=== PATIENT | female | born 1970 | race Caucasian/White ===

== ENCOUNTER 2017-11-25 23:29 | Observation (INO) ==
--- NOTE | 2017-11-26 02:12 | Internal Med History&Physical ---
<ShabbirMarie gray - Last Filed: 11/26/17 02:57> Date of Encounter: 11/26/17 Time of Encounter: 01:55 Internal Medicine - H&P: HPI Chief complaint: chest pain Admitted From: Hospital to Hospital Transfer Plans for Post Hospital Care: Home History of present illness: Ms. Lisa is a 47 year old female with past medical history of anxiety, tobacco abuse, type II diabetes, GERD, depression, hypertension. From [facility] for chest pain rule out. She stated that her chest pain started yesterday morning, was substandard all in radiating to the neck and right arm. She characterized the pain as sharp/stabbing, 10/10 pain that was constant. The pain was relieved with sublingual nitroglycerin and nitro paste which she received at [facility]. The pain was exacerbated with movement. She admits to shortness of breath. She admits to nausea without vomiting. She denies diarrhea, fever. She admits to chills and shortness of breath. She denies hematuria, hematocrit easier. She does admit to dizziness. Past Med Surg Social Fam HX - Past Medical History Medical history: asthma, COPD, diabetes, hyperlipidemia, hypertension, other Psychiatric history: anxiety, depression - Past Surgical History Surgical History: no surgical history - Social History Smoking Status: Current every day smoker Packs per day: 1.5 Smokeless Tobacco Status: No Alcohol use: none Drug use: none - Family History Mother Living Status: Still Living Hx Family Cardiac Disorders: Yes (HTN) Father Living Status: Cause of : gallbladder rupture Hx Family Cardiac Disorders: Yes Hx Family Endocrine Disorder: Yes (DM) Internal Medicine - H&P: Meds Aspirin Enteric Coated [Aspirin EC] 81 mg PO DAILY 03/18/15 [History] Lisinopril/Hydrochlorothiazide [Zestoretic 10-12.5 mg Tablet] 1 each PO DAILY [History] Loratadine [Claritin] 10 mg PO DAILY 03/18/15 [History] Omeprazole [PriLOSEC] 40 mg PO DAILY 03/18/15 [History] HydrOXYzine 25 mg PO TID 07/31/16 [History] Albuterol Sulfate [Ventolin Hfa] 18 gm IH TID PRN 01/11/17 [History] Metoprolol [Lopressor] 25 mg PO DAILY 11/25/17 [History] 3 Allergy/AdvReac Type Severity Reaction Status Date / Time No Known Allergies Allergy Verified 11/25/17 20:14 All Systems PM: A 10-system review of systems was performed and is negative for pertinent findings except as documented above in the HPI. - Constitutional Vitals: Temp Pulse Resp BP Pulse Ox 97.8 F 68 16 116/71 98 11/26/17 01:18 11/26/17 01:18 11/26/17 01:18 11/26/17 01:18 11/26/17 01:18 General appearance: Present: A&O X 3, pleasant, no acute distress, answers questions appropriately Exam: Disheveled - Head Head exam: Present: atraumatic, normocephalic - Neck Neck exam general surgery: Present: supple, trachea midline - Respiratory Respiratory exam: Present: CTAB - Cardiovascular Cardiovascular exam: Present: RRR, +S1, +S2. Absent: systolic murmur Additional comments: Sub sternal chest pain reproducible palpation/pressure - GI/Abdominal GI/Abdominal exam: Present: normal bowel sounds, soft. Absent: distended, tenderness - Extremities Exam Extremities exam: Absent: cyanotic, pedal edema - Neurological Exam Neurological exam: Present: alert, oriented X3, no focal deficits - Psychiatric Psychiatric exam: Present: normal affect, normal mood - Assessment and plan (1) Chest pain Current Visit: No Status: Acute Assessment and plan: Patient presents with typical chest pain. She also had reproducible sub sternal chest pain as well. LADY score: 3 EKG showed sinus rhythm without any acute ST changes. Troponin 0.05, <.03 chest x-ray at [facility] showed no acute findings patient had stress test in May 2013 that was negative for ischemia or infarct, gated EF: 70% echocardiogram from 04/01/17 showed EF 60-65%, normal LV size and systolic function, normal diastolic function of the left ventricle, normal right ventricular size and function, no valvular dysfunction. Patient states that she was supposed to have catheterization this Friday, but could not find this in our system. Plan: NPO aspirin, Statin, beta monica consult to cardiology for possible LHC due to her history Trend troponins q6H Qualifiers: Chest pain type: unspecified Qualified Code(s): R07.9 - Chest pain, unspecified (2) Diabetes Current Visit: Yes Status: Acute Assessment and plan: Sliding scale insulin Qualifiers: Diabetes mellitus type: type 2 Diabetes mellitus senior care insulin use: unspecified exterminator insulin use status Diabetes mellitus complication status : with unspecified complications Qualified Code(s): E11.8 - Type 2 diabetes mellitus with unspecified complications (3) Hypertension Current Visit: Yes Status: Acute Assessment and plan: Continue home medications. Qualifiers: Hypertension type: essential hypertension Qualified Code(s): I10 - Essential (primary) hypertension (4) COPD (chronic obstructive pulmonary disease) Current Visit: Yes Status: Acute Assessment and plan: Not in exacerbation. Continue home inhaler. Qualifiers: COPD type: unspecified COPD Qualified Code(s): J44.9 - Chronic obstructive pulmonary disease, unspecified (5) DVT prophylaxis Current Visit: Yes Status: Acute Assessment and plan: heparin SQ - Time Spent With Patient Total time spent is greater than 50% in coordination of care (as documented) at patient's floor/unit and/or counseling patient: <Mehul Garza - Last Filed: 11/26/17 05:42> Date of Encounter: 11/26/17 Time of Encounter: 05:15 - Constitutional Constitutional: no chills, no fever(s) - EENT Eyes: no blurry vision, no change in vision Ears: no ear pain, no tinnitus Nose, mouth and throat: no nasal congestion, no sinus pressure, no sore throat - Cardiovascular Cardiovascular ROS IM: chest pain, diaphoresis, dyspnea, dyspnea on exertion, no lightheadedness, no orthopnea, no paroxysmal nocturnal dyspnea - Respiratory Respiratory: no cough, no hemoptysis, no wheezing, no pain on inspiration, no chest congestion, no excessive phlegm production - Gastrointestinal Gastrointestinal: no abdominal pain, no early satiety, no nausea, no vomiting - Genitourinary Genitourinary: no dysuria, no hematuria - Musculoskeletal Musculoskeletal ROS IM: back pain, muscle cramps, myalgias, no arthralgias - Integumentary Integumentary IM: no rash, no jaundice - Neurological Neurological ROS: no dizziness, no focal weakness, no frequent falls, no headache(s) - Psychiatric Psychiatric: no anxiety, no depression - Endocrine Endocrine IM: no polydipsia, no polyuria - Allergic/Immunologic Allergic/Immunologic: no GI upset with certain foods - Constitutional Vitals: Temp Pulse Resp BP Pulse Ox 97.8 F 68 16 116/71 98 11/26/17 01:18 11/26/17 01:18 11/26/17 01:18 11/26/17 01:18 11/26/17 01:18 General appearance: Present: A&O X 3, pleasant, no acute distress - Eye Eye exam: Present: PERRL. Absent: scleral icterus - ENT ENT exam: Present: mucous membranes dry, normal exam - Neck Neck exam general surgery: Present: full ROM, supple. Absent: trachea midline - Respiratory Respiratory exam: Present: CTAB. Absent: chest wall tenderness, rales, rhonchi , wheezes - Cardiovascular Cardiovascular exam: Present: RRR, +S1, +S2. Absent: systolic murmur - GI/Abdominal GI/Abdominal exam: Present: normal bowel sounds, soft. Absent: hernia, splenomegaly, tenderness - Extremities Exam Extremities exam: Present: warm, radial pulses palpable and symmetrical. Absent : calf tenderness, cyanotic, full ROM, joint swelling - Back Exam Back exam: Absent: CVA tenderness (L), CVA tenderness (R) - Neurological Exam Neurological exam: Present: alert, oriented X3, no focal deficits - Psychiatric Psychiatric exam: Present: normal affect, normal mood - Skin Skin exam: Present: dry, warm. Absent: rash Internal Med - H&P Results - EKG Data -: EKG Interpreted by Myself - EKG Data Prior EKG available for review: no EKG comments: 11/26/17 05:37 NSR; no acute changes - Diagnostic Studies Chest x-ray Status: image reviewed by me (negative) - Attending Attestation I discussed the [place], past medical history, review of systems, lab data, and exam findings with Dr. Cardona. I then saw and examined patient independently as well. Patient is currently chest pain-free. She had a prior stress test, but that was over 5 years ago. She has never had left heart catheterization. However, she states she is due to have a heart catheterization later this week. Given Her Presenting Symptoms, Positive Troponin, and Cardiac Risk Factors, I Agree That She Needs Chronic Workup, Preferably Left Heart Catheterization. We Will Consult cardiology to evaluate patient and consider left heart catheterization. However, I will defer ischemic workup to cardiology given her presenting symptoms and back ground history. I reviewed her EKG and chest x-ray, both of which were negative. Nonetheless, we will proceed with workup as detailed by Dr. Cardona and await cardiology input from them as well. Other than my comments above and noted exam findings, I agree with Dr. Cardona' assessment and plan. - Assessment and plan (1) Chest pain Current Visit: No Status: Acute Qualifiers: Chest pain type: unspecified Qualified Code(s): R07.9 - Chest pain, unspecified (2) Diabetes Current Visit: Yes Status: Acute Qualifiers: Diabetes mellitus type: type 2 Diabetes mellitus exterminator insulin use: unspecified exterminator insulin use status Diabetes mellitus complication status : with unspecified complications Qualified Code(s): E11.8 - Type 2 diabetes mellitus with unspecified complications (3) Hypertension Current Visit: Yes Status: Acute Qualifiers: Hypertension type: essential hypertension Qualified Code(s): I10 - Essential (primary) hypertension (4) COPD (chronic obstructive pulmonary disease) Current Visit: Yes Status: Acute Qualifiers: COPD type: unspecified COPD Qualified Code(s): J44.9 - Chronic obstructive pulmonary disease, unspecified (5) DVT prophylaxis Current Visit: Yes Status: Acute - Time Spent With Patient Total time spent is greater than 50% in coordination of care (as documented) at patient's floor/unit and/or counseling patient:
[2017-11-26] MEDS ORDERED: Naloxone 0.4 MG/ML INJ IVP PRN (02:24)
[2017-11-26] MEDS ORDERED: Acetaminophen 325 MG TABLET PO PRN (02:24)
[2017-11-26] MEDS ORDERED: Dextrose Gel 15 GM/37.5 ML TUBE PO PRN ×2 (02:33)
[2017-11-26] MEDS ORDERED: D5% in Water 1,000 ML IVC PRN (02:33)
[2017-11-26] MEDS ORDERED: *HR* Dextrose 50 % in Water (Syg) 50 ML SYRINGE IVP PRN (02:33)
[2017-11-26] MEDS ORDERED: *HR* Heparin 5,000 UNIT/ML VIAL SQ SCH (06:00)
[2017-11-26 07:14] LABS: BUN/Creatinine Ratio 21 (6-26); Blood Urea Nitrogen 13 mg/dL (6-20); Calcium 8.1 mg/dL (8.6-10.3); Carbon Dioxide 23 mEq/L (23-29); Chloride 109 mEq/L (98-107); Chol/HDL Ratio 5.6 (0-4.9); Cholesterol 139 mg/dL (< 200); Glucose 271 mg/dL (70-105); HDL Cholesterol 25 mg/dL (40-59); LDL Cholesterol,Calculated 93 mg/dL (0-99); Magnesium 1.7 mg/dL (1.6-2.6); Osmolality,Calculated 294 (280-300); Phosphorous 3.3 mg/dL (2.7-4.5); Potassium 3.8 mEq/L (3.5-5.1); Sodium 137 mEq/L (136-145); Triglycerides 103 mg/dL (< 150); Troponin I < 0.03 ng/mL (< 0.04); eGFR For African Americans > 60 (> 60); eGFR For Non-African Americans > 60 (> 60)
[2017-11-26 07:37] VITALS: BP 125/74
[2017-11-26] MEDS: Insulin LISPRO 300 UNITS/3 ML VIAL SQ SCH ×2 (08:23→12:56)
[2017-11-26] MEDS ORDERED: Loratadine 10 MG TABLET PO SCH (09:00)
[2017-11-26] MEDS ORDERED: Aspirin Enteric Coated 81 MG Tablet PO SCH (09:00)
[2017-11-26] MEDS ORDERED: Regadenoson 0.4 MG/5 ML SYRINGE IVP ONE (09:01)
--- NOTE | 2017-11-26 14:20 | Discharge Summary ---
Orders not resulted at time of discharge: Pending orders 11/26/17 08:41 Chest Xray, 1 view [XR chest 1V] [XR] Routine 11/26/17 08:46 NM zohreh perf SPECT multi [NM] Routine Date of Encounter: 11/26/17 Time of Encounter: 14:00 - Discharge Diagnosis (1) Chest pain Priority: Primary Status: Acute Assessment and Plan: Patient complained of chest pain. Had a stress test done which showed no acute ischemic changes. Was discharged home in a stable condition Qualifiers: Chest pain type: unspecified Qualified Code(s): R07.9 - Chest pain, unspecified (2) Diabetes Priority: Secondary Status: Acute Assessment and Plan: Sliding scale insulin Qualifiers: Diabetes mellitus type: type 2 Diabetes mellitus long term care administrator insulin use: unspecified shelter insulin use status Diabetes mellitus complication status : with unspecified complications Qualified Code(s): E11.8 - Type 2 diabetes mellitus with unspecified complications (3) Hypertension Priority: Secondary Status: Acute Assessment and Plan: Continue home medications. Qualifiers: Hypertension type: essential hypertension Qualified Code(s): I10 - Essential (primary) hypertension (4) COPD (chronic obstructive pulmonary disease) Priority: Secondary Status: Acute Assessment and Plan: Not in exacerbation. Continue home inhaler. Qualifiers: COPD type: unspecified COPD Qualified Code(s): J44.9 - Chronic obstructive pulmonary disease, unspecified (5) DVT prophylaxis Priority: Secondary Status: Acute Assessment and Plan: heparin SQ Hospital course: Ms. Lisa is a 47 year old female - Time Spent with Patient Total time spent providing and/or coordinating discharge services: - Discharge Medications Home Medications: Aspirin Enteric Coated [Aspirin EC] 81 mg PO DAILY 03/18/15 [History] Lisinopril/Hydrochlorothiazide [Zestoretic 10-12.5 mg Tablet] 1 each PO DAILY [History] Loratadine [Claritin] 10 mg PO DAILY 03/18/15 [History] Albuterol Sulfate [Ventolin Hfa] 1 puff IH TID PRN 01/11/17 [History] Metoprolol [Lopressor] 25 mg PO BID 11/25/17 [History] Diclofenac Sodium [Voltaren] 50 mg PO Q8HR 11/26/17 [History] Fluticasone/Vilanterol [Breo Ellipta 100-25 Mcg INH] 1 puff IH DAILY 11/26/17 [ History] HydrOXYzine Pamoate [Vistaril] 50 mg PO BID 11/26/17 [History] Insulin Glargine,Hum.rec.anlog [Lantus Solostar] 80 unit SQ BID 11/26/17 [ History] Omeprazole [PriLOSEC] 20 mg PO DAILY 11/26/17 [History] Allergies/Adverse Reactions: 3 Allergy/AdvReac Type Severity Reaction Status Date / Time No Known Allergies Allergy Verified 11/25/17 20:14 Date of admission: 11/26/17 00:42 Primary care physician: Mane Hernandez CNP - Constitutional Vitals: Temp Pulse Resp BP Pulse Ox 98.2 F 79 17 125/74 97 11/26/17 07:36 11/26/17 07:36 11/26/17 07:36 11/26/17 07:36 11/26/17 07:36 General appearance: Present: A&O X 3, pleasant, no acute distress - Head Head exam: Present: atraumatic, normocephalic - Eye Eye exam: Present: PERRL, conjuntiva pink, sclera anicteric Pupils: Present: PERRL - Neck Neck exam general surgery: Present: supple, trachea midline. Absent: lymphadenopathy - Respiratory Respiratory exam: Present: CTAB. Absent: accessory muscle use, rales, rhonchi, wheezes - Cardiovascular Cardiovascular exam: Present: RRR, +S1, +S2. Absent: diastolic murmur, gallop, rubs, systolic murmur - GI/Abdominal GI/Abdominal exam: Present: normal bowel sounds, soft, no peritoneal signs. Absent: distended, tenderness - Extremities Exam Extremities exam: Present: warm, radial pulses palpable and symmetrical. Absent : calf tenderness, cyanotic, pedal edema - Neurological Exam Neurological exam: Present: CN II-XII intact, oriented X3, no focal deficits. Absent: pronater drift, facial droop, speech deficit - Skin Skin exam: Present: dry, intact - Patient Status Disposition: Home, Self-Care - Discharge Instructions Instructions: Chronic Obstructive Pulmonary Disease (DC) Follow Up With: Mane Hernandez CNP [Primary Care Provider] -
[2017-11-26] MEDS ORDERED: Insulin LISPRO 300 UNITS/3 ML VIAL SQ SCH (21:00)
== END 2017-11-26 15:33 | disposition home or self-care (01) ==
LOC: 3BNU
PROVIDERS: ADMIT Internal Medicine; ATTEND Internal Medicine

== ENCOUNTER 2017-12-28 12:32 | Inpatient (IN) ==
[2017-12-28] MEDS ORDERED: *HR* Heparin 10,000 UNIT/10 ML VIAL ONE (12:37)
[2017-12-28] MEDS ORDERED: Tirofiban 12.5 MG/250ML 12.5 MG/250 ML BAG ONE (12:37)
[2017-12-28] MEDS ORDERED: Verapamil 5 MG/2 ML VIAL ONE (12:37)
[2017-12-28] MEDS ORDERED: 0.9 % Sodium Chloride 1,000 ML ONE ×2 (12:37→12:44)
[2017-12-28] MEDS ORDERED: ISOVUE-370 200 ML INFUS..BTL IV ONE ×2 (12:37→12:55)
[2017-12-28] MEDS ORDERED: Heparin 1,000 UNITS/500 mL 500 ML ONE (12:37)
[2017-12-28] MEDS ORDERED: Nitroglycerin 1,000 MCG/10 ML VIAL IV ONE (12:38)
[2017-12-28] MEDS ORDERED: *HR* Midazolam HCl 2 MG/2 ML VIAL ONE (13:08)
[2017-12-28] MEDS ORDERED: *HR* FentaNYL (PF) 100 MCG/2 ML VIAL ONE (13:08)
[2017-12-28] MEDS ORDERED: methylPREDNISolone 125 MG/2 ML VIAL ONE (13:59)
[2017-12-28] MEDS ORDERED: *HR* Ticagrelor 90 MG TABLET ONE (13:59)
--- NOTE | 2017-12-28 14:08 | Pre-Sedation Evaluation ---
Pre-sedation evaluation - Pre-sedation checklist Date of procedure: 12/28/17 Procedure: [facility] Recent Vitals: vs as documented in emr H&P (including ROS) documented in medical record: Yes Previous reaction to sedatives/anesthetics: No Dietary Status: unknown Airway Assessment: Patient can open mouth completely, TMJ function normal ASA Classification *see protocol: CLASS II-Mild systemic disease, E-EMERGENCY- Add to any of the above to indicate emergent Plan of Care: Pt appropriate candidate for procedure/moderate/conscious sedation , Risks/benefits of procedure/sedation discussed w/ patient/family, If not NPO; Risk of intake outweiged by necessity to perform procedure
--- NOTE | 2017-12-28 14:09 | Cardiology History & Physical ---
Date of Encounter: 12/29/17 Time of Encounter: 14:00 Assessment and Plan (1) ST elevation myocardial infarction (STEMI) Current Visit: No Status: Inactive A/R/B of emergent LHC discussed with her including 1% chance of SD//CVA/ CABG/MATEO/bleeding. Pt aware and wishes to proceed. EF assessment to be completed, cardiac rehab. Pt reportedly given aspirin/brilinta/heparin. The assessment and plan as outlined above was discussed with the patient and/or family members who expressed understanding and agreement. All questions were answered. Qualifiers: Involved coronary artery: right coronary artery Qualified Code(s): I21.11 - ST elevation (STEMI) myocardial infarction involving right coronary artery (2) Diabetes Current Visit: No Status: Acute SSI QID FSThe assessment and plan as outlined above was discussed with the patient and/or family members who expressed understanding and agreement. All questions were answered. Qualifiers: Diabetes mellitus type: type 2 Diabetes mellitus complication status: with circulatory complication Diabetes mellitus complication detail: with other circulatory complications Qualified Code(s): E11.59 - Type 2 diabetes mellitus with other circulatory complications (3) Hypertension Current Visit: No Status: Acute The assessment and plan as outlined above was discussed with the patient and/or family members who expressed understanding and agreement. All questions were answered. Qualifiers: Hypertension type: essential hypertension Qualified Code(s): I10 - Essential (primary) hypertension (4) COPD (chronic obstructive pulmonary disease) Current Visit: No Status: Acute The assessment and plan as outlined above was discussed with the patient and/or family members who expressed understanding and agreement. All questions were answered. Qualifiers: COPD type: chronic bronchitis Chronic bronchitis type: simple Qualified Code(s): J41.0 - Simple chronic bronchitis History of Present Illness Chief complaint: chest pain HPI: Ms. Lisa is a 47 year old female with no previous cardiac history presents with severe chest discomfort associated with dyspnea not improved with medical treatment aspirin/ntg/morphine. 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 Patient was seen by me in 2017 as outpatient with chest pain associated with a phone call incorrectly telling her that her son was , stress test was ordered at that time but she did not follow through to have it done until very recently - no ischemia on stress nuclear. Past Med Surg Social Fam HX - Past Medical History Medical history: asthma, COPD, diabetes, hyperlipidemia, hypertension, other Additional medical history: no longer medicated for DM d/t weightloss Psychiatric history: anxiety, depression - Past Surgical History Surgical History: no surgical history Additional surgical history: tubal ligation - Social History Smoking Status: Current every day smoker Smokeless Tobacco Status: No Alcohol use: none Drug use: none - Family History Mother Living Status: Still Living Hx Family Cardiac Disorders: Yes (HTN) Father Living Status: Hx Family Cardiac Disorders: Yes Hx Family Endocrine Disorder: Yes (DM) Medications and Allergies Aspirin Enteric Coated [Aspirin EC] 81 mg PO DAILY 03/18/15 [History] Lisinopril/Hydrochlorothiazide [Zestoretic 10-12.5 mg Tablet] 1 each PO DAILY [History] Albuterol Sulfate [Ventolin Hfa] 1 puff IH TID PRN 01/11/17 [History] Metoprolol [Lopressor] 25 mg PO BID 11/25/17 [History] Diclofenac Sodium [Voltaren] 50 mg PO Q8HR 11/26/17 [History] Fluticasone/Vilanterol [Breo Ellipta 100-25 Mcg INH] 1 puff IH DAILY 11/26/17 [ History] HydrOXYzine Pamoate [Vistaril] 50 mg PO BID 11/26/17 [History] Insulin Glargine,Hum.rec.anlog [Lantus Solostar] 80 unit SQ BID 11/26/17 [ History] Omeprazole [PriLOSEC] 20 mg PO DAILY 11/26/17 [History] Loratadine [Claritin] 10 mg PO DAILY 12/28/17 [History] cloNIDine HCl [CloNIDine HCl] 0.1 mg PO DAILY 12/28/17 [History] metFORMIN [Glucophage] 850 mg PO BID 12/28/17 [History] 3 Allergy/AdvReac Type Severity Reaction Status Date / Time No Known Allergies Allergy Verified 12/28/17 15:38 All Systems Review: The remainder of the systems were reviewed and are negative - Constitutional Constitutional: no chills, no fever(s) - EENT Eyes: no blurred vision, no loss of vision Nose, mouth and throat: no bleeding gums, no throat swelling - Cardiovascular Cardiovascular: chest pain at rest, chest pain with exertion - Gastrointestinal Gastrointestinal: no hematemesis, no hematochezia - Genitourinary Genitourinary: no dysuria, no hematuria - Musculoskeletal Musculoskeletal: no abnormal gait, no arthralgias - Integumentary Integumentary: no rash, no unusual bruising - Neurological Neurological: no syncope, no tingling - Psychiatric Psychiatric: no hallucinations, no panic attacks - Hematological/Lymphatic Hematologic/Lymphatic: no easy bleeding, no easy bruising Physical Examination General: Conversant, Other (mildly distressed) HEENT: Atraumatic Neck: No JVD Cardiac: Reg Rate and Rhythm Lungs: Normal Breath Sounds Neuro: Alert and responsive Abdomen: Soft Skin: No rashes noted on visualized skin Musculoskeletal: No Chest Wall Tenderness Extremities: No Edema Results 12/29/17 02:55 12/29/17 02:55 - EKG Interpretation EKG results cardiology: personally reviewed, other (inferior current of injury)
[2017-12-28] MEDS ORDERED: Ondansetron 4 MG/2 ML VIAL IVP PRN (14:10)
[2017-12-28] MEDS ORDERED: D5% in Water 1,000 ML IVC PRN (14:14)
[2017-12-28] MEDS ORDERED: Dextrose Gel 15 GM/37.5 ML TUBE PO PRN ×2 (14:14)
[2017-12-28] MEDS ORDERED: Tirofiban 12.5 MG/250ML 12.5 MG/250 ML BAG IVC SCH (14:15)
--- NOTE | 2017-12-28 14:30 | Invasive Diagnostic Lab Proc ---
Name: Shahnaz Lisa Date of Study: 12/28/2017 Date: 1970 Ht: 64.2in Medical Record#: [id number] Age: 47 Wt: 149.91lb Gender: Female BSA: 1.73 Order #: [id number] BMI: 25.59 Physicians Procedure Physician: Joao Lu MD, [facility] Referring MD: None Referring MD: Staff Name Position Time In Fermín Thomas RN Hyperbaric Technician 01:33 PM Chris Sepulveda RN Monitor 01:33 PM Mariel Hendricks RT (R) Scrub 01:33 PM Indications Indication STEMI Procedures Performed Procedure L HRT ARTERY/VENTRICLE ANGIO PRQ CARD REVASC WY 1 VSL Pre-Procedure Checklist Informed consent is complete signed and on chart. H&P is on chart. ID band is on and ID verified with patient. Pt not NPO for procedure and MD aware. The procedure was described for the patient and questions were answered. Blood Pressure: 117/67 ECG is on chart. Rhythm: Sinus Bradycardia Plan of Care Patient will tolerate the procedure without complications. Adequate level of comfort will be maintained. Hemodynamics will remain stable Patient will recover from procedure without complications. Respiratory function will be maintained. Cardiac rhythm will remain stable. Patient temperature will be maintained. Patient and/or family have verbalized understanding of the procedure. Patient Education Chief Complaint/Reason for Test: Cardiac Cath Developmental Category: Adult (18-64 years) Developmentally Appropriate for Age: Yes Learning Barriers: None Education Needs: Procedure Education Method: Verbal Information Taught: Cardiac Cath Educational Evaluation: Able to repeat information Intravenous Access Time IV Size Location DC'd Fluid/Drip Rate Units RN 01:00 PM 18g 1 14" Patent On Arrival Lt Antecubital 0.9NaCl 25 ml/hr Fermín Thomas RN 01:00 PM 18g 1 1/4" Patent On Arrival Lt Arm Allergies No Known Allergies Vital Signs Time BP (mmHg) HR (bpm) O2 Sat. RR (bpm) LOC 01:02 PM 117 / 67 55 95 % 15 5 = Fully awake and oriented or at pre-proc level 01:28 PM / % 5 = Fully awake and oriented or at pre-proc level 01:28 PM / % 4 = Oriented but drowsy 01:43 PM / % 5 = Fully awake and oriented or at pre-proc level 01:26 PM 133 / 70 57 100 % 01:31 PM 142 / 82 71 100 % 01:36 PM 124 / 85 89 97 % 01:41 PM 111 / 71 83 97 % 01:46 PM 98 / 55 92 99 % 01:51 PM 84 / 50 92 93 % 01:56 PM 68 / 54 99 99 % 01:56 PM 84 / 45 102 97 % Procedural Medications Time Medication Dose Units Method Given By 01:29 PM Oxygen 2 L/min nasal cannula Fermín Thomas RN 01:30 PM Versed 2 mg Intravenous Fermín Thomas RN 01:30 PM Fentanyl 50 mcg Intravenous Fermín Thomas RN 01:31 PM Lidocaine 2% 0.5 ml Subcutaneous Joao Lu MD, FAC 01:33 PM Heparin 2000 units Nitroglycerin 200 mcg Verapamil 2.5 mg Intraarterial Joao Lu MD, FAC 01:46 PM Nitroglycerin 200 mcg Intracoronary Joao Lu MD 01:35 PM Aggrastat Bolus: 33 ml Intravenous Fermín Thomas RN 01:35 PM Aggrastat 12.5mg/250ml 12 ml Intravenous Fermín Thomas RN 01:51 PM Nitroglycerin 150 mcg Intracoronary Joao Lu MD 01:57 PM Brilinta 180 mg Orally Fermín Thomas RN 02:02 PM Solu-medrol 125 mg Intravenous Fermín Thomas RN 02:02 PM Benadryl 50 mg Intravenous Fermín Thomas RN ASA Classification: Emergent Procedure: ASA score is assumed Aleena Score Preprocedure Postprocedure Activity 2- Moves 4 extremities sustained head lift Activity 2- Moves 4 extremities sustained head lift Circulation 2- SBP +/= 20 points of pre-anesthetic level Circulation 2- SBP +/= 20 points of pre-anesthetic level Consciousness 2- Awake and alert oriented x 3 Consciousness 2- Awake and alert oriented x 3 O2 Saturation 2- Able to maintain O2 satruation of 92% on room air O2 Saturation 2- Able to maintain O2 satruation of 92% on room air Respiratory 2- Able to deep breathe and cough well Respiratory 2- Able to deep breathe and cough well Total Score 10 Total Score 10 Contrast Agent: Isovue Diagnostic Contrast: 68 ml Total Contrast: 68 ml Fluoro Dose: 279 mGy Procedure Log Time Note Enter By 01:02 PM CathStat 01:25 PM Case Start 01:25 PM Vitals capture started with the following parameters, Patient=Adult, Interval=5 min, Initial Jyghdymc=842 mmHg, Deflation Rate=5 mmHg, Cuff placed on Right Arm 01:25 PM Recorded ECG: HR=61 Condition=Condition 1 01:26 PM HR=57 bpm, YYTM=813/70 mmhg, KaN4=431.0 %, Comment=NSR : PM [facility] 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 [facility]: PM Hair removed from procedure site in procedure lab using clippers. Bilateral groin/ Right Radial prepped with Chloraprep by Chris Sepulveda RN, then patient was draped. Skin intact. [facility]: PM Physician arrived 13: [facility] PM Procedure start : [facility] PM Time: 13:28 Patient comfortable and pain free: No, chest pain a 5 out of 10 [facility] PM Time: 13:28LOC: 5 = Fully awake and oriented or at pre-proc level [email or web address] : PM Clinical Presentation: STEMI or equivalent [facility]: PM Time out performed according to hospital policy [facility]: PM Time: 13:29 Oxygen on at 2 L/min per nasal cannula by Fermín Thomas RN [email or web address] : PM Recorded ECG: VG=379 Condition=Condition 1 : PM Recorded ECG: HR=84 Condition=Condition 1 01:30 PM Time: 13:30 Versed 2 mg Intravenous Given by Fermín Thomas RN [email or web address] :30 PM Time: 13:30 Fentanyl 50 mcg Intravenous Given by Fermín Thomas RN [email or web address] :31 PM HR=71 bpm, UAJL=155/82 mmhg, ShN5=068.0 % :32 PM Time: 13:31 0.5 ml Lidocaine 2% to right radial Subcutaneous Given by [facility] Lu MD, [facility] PM Access obtained by percutaneous puncture. 5/6Fr 11cm Terumo Glidesheath sheath placed in right Radial artery. [id number] [email or web address] :33 PM Time: 13:33 Patient given 2,000 units Heparin, 200 mcg Nitroglycerin, and 2.5 mg Verapamil Intraarterial by Joao Lu MD, [facility]. This is given to reduce risk of vessel spasm and thrombosis. [email or web address] 01:33 PM Fermín Thomas RN Position: Hyperbaric Technician Time in: 13:33 [email or web address] 01:33 PM Chris Sepulveda RN Position: Monitor Time in: 13:33 [email or web address] 01:33 PM Ruthie Mariel RT (R) Position: Scrub Time in: 13:33 [email or web address] 01:34 PM 6Fr JR 4 Runway guide catheter was used to cannulate the PCI vessel successfully. reused? No [email or web address] 01:35 PM Recorded Pressure: Ao, HR=85, Condition=Condition 1 (Aorta) Ao 210/52/104 01:35 PM Time: 13:35 Aggrastat 12.5mg/250ml 12 ml Intravenous Given by Fermín Thomas RN Qureshi pump [email or web address] 01:35 PM .[address] [place] 190cm guide wire across target lesion- successful. reused? No [email or web address] 01:35 PM 2.0 mm x 12 mm Emerge Monorail balloon across target lesion- successful. reused? No [email or web address] 01:35 PM Inflation device was opened. [email or web address] 01:35 PM Time: 13:35 Aggrastat Bolus: 33 ml Intravenous Given by Fermín Thomas RN Qureshi pump [email or web address] 01:36 PM HR=89 bpm, JLGE=085/85 mmhg, SpO2=97.0 % 01:36 PM Recorded Pressure: Ao, HR=81, Condition=Condition 1 (Aorta) Ao 144/92/116 01:37 PM RCA angiography performed in multiple views. [email or web address] 01:37 PM Lesion found in Mid RCA. Pre Stenosis: 100 Pre LADY Flow: 0: No Flow/No perfusion [email or web address] 01:38 PM Balloon inflated @ 10 tali for 11 seconds [email or web address] 01:38 PM Balloon inflated @ 14 tali for 10 seconds [email or web address] 01:40 PM 2.75mm x 24mm Synergy drug-eluting stent across target lesion- successful Lot #[id number] [email or web address] 01:41 PM HR=83 bpm, TXMH=612/71 mmhg, SpO2=97.0 % 01:41 PM Stent deployed @ 12 tali for 22 seconds [email or web address] 01:41 PM Recorded Pressure: Ao, HR=?, Condition=Condition 1 (Aorta) Ao ?/?/? 01:43 PM 3.0 mm x 15mm NC Emerge balloon across target lesion- successful. reused? No [email or web address] :43 PM Time: 13:28 Patient comfortable and pain free: Yes [email or web address] 01:43 PM Time: 13:28LOC: 4 = Oriented but drowsy [email or web address] 01:44 PM Balloon inflated @ 2 tali for 3 seconds [email or web address] 01:45 PM Balloon inflated @ 16 tali for 17 seconds [email or web address] 01:45 PM Balloon inflated @ 18 tali for 12 seconds [email or web address] 01:46 PM HR=92 bpm, NIBP=98/55 mmhg, SpO2=99.0 % 01:46 PM Time: 13:46 Nitroglycerin 200 mcg Intracoronary Given by Joao Lu MD elle 01:47 PM Recorded Pressure: LV, HR=91, Condition=Condition 1 (Left Ventricle) LV 94/20/26 01:48 PM Pressure channel 1 zeroed. 01:48 PM Recorded Pressure: LV, HR=90, Condition=Condition 1 (Left Ventricle) LV 70/1/3 01:48 PM Recorded Pressure: LV, Ao, HR=92, Condition=Condition 1 (Left Ventricle) LV 94/3/9, (Aorta) Ao 82/55/65 01:49 PM Catheter selectively placed in left ventricle mk 01:49 PM Bolus angiogram of left Ventricle complete: 10 ml/sec for a total of 25 mls [email or web address] 01:50 PM Guide wire removed intact. [email or web address] 01:50 PM Guide catheter removed intact. [email or web address] 01:50 PM 5Fr TIG catheter inserted over the wire [facility] elle 01:51 PM LCA angiography performed in multiple views. [email or web address] 01:51 PM HR=92 bpm, NIBP=84/50 mmhg, SpO2=93.0 %, Comment=NSR 01:51 PM Time: 13:51 Nitroglycerin 150 mcg Intracoronary Given by Joao Lu MD [email or web address] 01:52 PM Catheter removed [email or web address] 01:55 PM Procedure completed at 13:55 [email or web address] 01:55 PM Did you address LADY flow and Dominance? Yes [email or web address] 01:55 PM Sign out completed: Radiation Dose 278.67 mGy Fluoro Time: 4.5 Isovue 370 - 200ml contrast 68 ml given by Joao Lu MD, [facility]. Complications: NoneCardiac Rehab Consult needed: YesConfirmed administered medications: No [email or web address] 01:56 PM Isovue 370 - 200ml,1 Bottle(s) used. [email or web address] 01:56 PM 10 ml air in Vasc Band. [email or web address] 01:56 PM HR=99 bpm, NIBP=68/54 mmhg, SpO2=99.0 %, Comment=NSR 01:56 PM Post ECG NSR [email or web address] 01:56 PM NIBP STAT measurement started. 01:56 PM Post Blood Pressure 88/60 [email or web address] 01:56 PM LQ=684 bpm, NIBP=84/45 mmhg, SpO2=97.0 % 01:56 PM Information taught Cardiac Cath, PCI, and Vasc Band [email or web address] 01:57 PM Education needs Procedure, Plan of Care, and Disease Process [email or web address] 01:57 PM Learning barriers :None [email or web address] 01:57 PM Education Methods Verbal [email or web address] 01:57 PM Time: 13:57 Brilinta 180 mg Orally Given by Fermín Thomas RN [email or web address] 01:57 PM Education evaluation Able to repeat information [email or web address] 01:58 PM Site status No bleeding/hematoma - Rt Wrist as reported by Mariel Hendricks RT (R) at 13:57 [email or web address] 01:59 PM Time: 13:43LOC: 5 = Fully awake and oriented or at pre-proc level [email or web address] 01:59 PM Time: 13:43 Patient comfortable and pain free: Yes [email or web address] 02:01 PM Report given to Irene RODRIGUEZ Pt taken to Holding room Room #5. 14:01 [email or web address] 02:01 PM Plavix, Effient or Brilinta given Yes [email or web address] 02:02 PM Time: 14:02 Solu-medrol 125 mg Intravenous Given by Fermín Thomas RN [email or web address] 02:02 PM Time: 14:02 Benadryl 50 mg Intravenous Given by Fermín Thomas RN [email or web address] 02:05 PM Lesion found in Mid LAD. Pre Stenosis: 70 Pre LADY Flow: [email or web address] 02:05 PM Lesion found in Mid Circumflex. Pre Stenosis: 95 Pre LADY Flow: [email or web address] 02:06 PM Lesion found in 1st Marginal. Pre Stenosis: 90 Pre LADY Flow: [email or web address] 02:07 PM Lesion found in Right PDA. Pre Stenosis: 70 Pre LADY Flow: [email or web address] 02:07 PM Lesion found in 1st RPL. Pre Stenosis: 60 Pre LADY Flow: [email or web address] 02:14 PM Coronary Dominance: right [email or web address] 02:15 PM Patient out of room: 14:15 [email or web address] 02:21 PM Complications: None [email or web address] 02:22 PM Fluoro Time: 4.5 [email or web address] 02:22 PM Isovue 370 - 200ml contrast [address] Lu. [email or web address] 02:22 PM Radiation Dose 278.67 mGy [email or web address] Complications Complication None None Hemodynamics Pressures Site Systolic/A Wave Diastolic/V Wave Mean AO 210 52 104 AO 144 92 116 AO LV 94 20 26 LV 70 1 3 LV 94 3 9 AO 82 55 65 Post Procedure Information Blood Pressure: 88/60 mmHg Rhythm: NSR Closure Device Time Device Success/Fail Mechanical Compression Successful Site Checks Time Location Status Staff Sheath In? Note 01:57 PM Rt Wrist No bleeding/hematoma Mariel Hendricks RT (R) Pulses Time Site Pre-Procedure Post-Procedure Note Bilateral DP & PT 2+ Bilateral radial 2+ Updated by Mairel Hendricks RT(R) on 12/28/2017 2:23:26 PM electronically signed on 12/28/2017 2:24:45 PM with status of Final
[2017-12-28] MEDS: Insulin LISPRO 300 UNITS/3 ML VIAL SQ SCH (16:24)
[2017-12-28] MEDS: *HR* Enoxaparin 80 MG/0.8 ML SYRINGE SQ SCH (17:33)
[2017-12-28] MEDS: *HR* Ticagrelor 90 MG TABLET PO SCH (20:06)
[2017-12-28] MEDS: hydrOXYzine pamoate 25 MG CAPSULE PO SCH (20:06)
[2017-12-28] MEDS: Insulin DETEMIR 100 UNIT/ML X5UNITS SQ SCH (20:06)
[2017-12-28] MEDS ORDERED: Insulin LISPRO 300 UNITS/3 ML VIAL SQ SCH (21:00)
[2017-12-29 03:34] LABS: Basophils % 0.1 %; Hematocrit 38.8 % (35.3-44.9); Immature Granulocytes % 0.6 % (0-4); Lymphocytes # 0.7 K/mcL (0.6-4.6); Lymphocytes % 4.3 %; Mean Corpuscular HGB Conc 33.5 g/dL (31.6-35.5); Mean Corpuscular Hemoglobin 28.8 pg (28.0-33.3); Mean Platelet Volume 10.1 fL (9.4-12.4); Monocytes # 0.4 K/mcL (0.0-1.3); Monocytes % 2.5 %; Neutrophils # 15.5 K/mcL (1.6-8.9); Platelet Count 315 K/mcL (140-400); Red Blood Count 4.51 M/mcL (3.82-4.97); Red Cell Distribution Width 12.9 % (11.5-14.5); Segmented Neutrophils % 92.5 %
[2017-12-29 03:49] LABS: BUN/Creatinine Ratio 21 (6-26); Blood Urea Nitrogen 17 mg/dL (6-20); Carbon Dioxide 21 mEq/L (23-29); Chloride 105 mEq/L (98-107); Glucose 364 mg/dL (70-105); Osmolality,Calculated 294 (280-300); Potassium 4.1 mEq/L (3.5-5.1); Sodium 134 mEq/L (136-145); eGFR For African Americans > 60 (> 60); eGFR For Non-African Americans > 60 (> 60)
[2017-12-29] MEDS: *HR* Enoxaparin 80 MG/0.8 ML SYRINGE SQ SCH ×3 (05:05→20:03)
[2017-12-29] MEDS: *HR* Ticagrelor 90 MG TABLET PO SCH ×2 (08:20→20:01)
[2017-12-29] MEDS: hydrOXYzine pamoate 25 MG CAPSULE PO SCH ×2 (08:21→20:01)
[2017-12-29] MEDS: Aspirin 81 MG TAB.CHEW PO SCH (08:21)
[2017-12-29] MEDS: Loratadine 10 MG TABLET PO SCH (08:21)
[2017-12-29] MEDS: Insulin DETEMIR 100 UNIT/ML X5UNITS SQ SCH ×2 (08:21→20:00)
[2017-12-29] MEDS: Insulin LISPRO 300 UNITS/3 ML VIAL SQ SCH ×4 (08:22→19:26)
--- NOTE | 2017-12-29 09:19 | Cardiology Progress Note ---
Date of Encounter: 12/29/17 Time of Encounter: 08:45 Assessment and Plan (1) STEMI (ST elevation myocardial infarction) Current Visit: Yes Status: Acute Acute inferior STEMI s/p emergent LHC with PTCA/RENATO to mRCA. Has remaining critical stenosis to LCx, will plan for staged PCI as inpatient tomorrow. Will also need staged PCI as outpatient to LAD/OM. TTE: pending. EF normal per LV gram. No chest pain reported upon exam. Right radial cath site stable. Vitals, telemetry, labs stable. Continue asa, statin, BB. Uninterrupted DAPT for a minimum of 1 year (asa + brilinta). Cardiac rehab. NPO after MN for staged PCI in AM. Qualifiers: Involved coronary artery: right coronary artery Qualified Code(s): I21.11 - ST elevation (STEMI) myocardial infarction involving right coronary artery (2) Tobacco abuse Current Visit: Yes Status: Acute Reported 3 packs/day. Nicotine patch (3) Diabetes Current Visit: No Status: Acute SSI QID Home insulin resumed. Hold metformin. 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 Qualifiers: Hypertension type: essential hypertension Qualified Code(s): I10 - Essential (primary) hypertension Discussion w patient/family: The assessment and plan as outlined above was discussed with the patient and/or family members who expressed understanding and agreement. All questions were answered. Thank you for involving us in the care of your patient. Please call with any questions. The patient was discussed and reviewed with Dr. Guzman; changes to be made accordingly. Subjective Principal diagnosis: Inferior STEMI Interval history: Seen and examined. No chest pain reported upon exam today. Vital signs stable. No issues with right radial cath site. 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 +2 radial pulses, cap refill Results 12/29/17 02:55 12/29/17 02:55 Lab Results 12/29/17 12/29/17 02:55 02:55 WBC 16.8 H Hgb 13.0 Hct 38.8 Plt Count 315 Sodium 134 L Potassium 4.1 Chloride 105 Carbon Dioxide 21 L BUN 17 Creatinine 0.82 Glucose 364 H Calcium 8.0 L Active Medications Acetaminophen (Tylenol) 500 mg PO Q6HR PRN PRN Reason: Mild Pain Stop: 06/29/18 14:11 Last Admin: 12/28/17 17:37 Dose: 500 mg Albuterol Sulfate (Albuterol Inhaler) 1 puff IH TID PRN PRN Reason: Shortness Of Breath Stop: 06/29/18 14:13 Aspirin (Aspirin) 81 mg PO DAILY [facility] Stop: 06/30/18 09:01 Last Admin: 12/29/17 08:21 Dose: 81 mg Budesonide/Formoterol Fumarate (Symbicort) 2 puff IH BIDR NICKOLAS Stop: 06/30/18 10:01 Last Admin: 12/29/17 09:47 Dose: 2 puff Dextrose/Water (Dextrose 50% (Syg)) 25 ml IVP AD PRN PRN Reason: Hypoglycemia Stop: 06/29/18 14:15 Diphenhydramine HCl (Benadryl) 25 mg PO HS PRN PRN Reason: Insomnia Stop: 06/29/18 14:13 Enoxaparin Sodium (Lovenox) 70 mg 1 mg/kg (70 mg) SQ Q12HR NICKOLAS PRN Reason: Protocol Stop: 06/29/18 18:01 Last Admin: 12/29/17 05:05 Dose: 70 mg Glucagon (Glucagen) 1 mg IM ONCE PRN PRN Reason: Hypoglycemia Stop: 06/29/18 14:15 Glucose (Gluctose) 15 gm PO ONCE PRN PRN Reason: Hypoglycemia Stop: 06/29/18 14:15 Glucose (Gluctose) 30 gm PO ONCE PRN PRN Reason: Hypoglycemia Stop: 06/29/18 14:15 Lisinopril/HCTZ (Prinzide 10-12.5) 1 each PO DAILY [facility] Stop: 06/30/18 09:01 Last Admin: 12/29/17 08:22 Dose: Not Given Hydroxyzine Pamoate (Hydroxyzine Pamoate) 50 mg PO BID [facility] Stop: 06/29/18 21:01 Last Admin: 12/29/17 08:21 Dose: 50 mg Dextrose (Dextrose 5%) 1,000 mls @ 100 mls/hr IVC .Q10H PRN PRN Reason: HYPOGLYCEMIA Stop: 06/29/18 14:15 Insulin Detemir (Levemir) 80 unit SQ BID [facility] Stop: 06/29/18 21:01 Last Admin: 12/29/17 08:21 Dose: 80 unit Insulin Human Lispro (Humalog) 0 units SQ HS [facility] PRN Reason: Protocol Stop: 06/29/18 21:01 Last Admin: 12/28/17 20:05 Dose: 5 units Insulin Human Lispro (Humalog) 0 units SQ TIDAC [facility] PRN Reason: Protocol Stop: 06/29/18 16:31 Last Admin: 12/29/17 08:22 Dose: 6 units Loratadine (Claritin) 10 mg PO DAILY [facility] PRN Reason: Protocol Stop: 06/30/18 09:01 Last Admin: 12/29/17 08:21 Dose: 10 mg Metoprolol Tartrate (Lopressor) 25 mg PO BID [facility] Stop: 06/29/18 21:01 Last Admin: 12/29/17 08:21 Dose: 25 mg Nicotine (Nicoderm) 21 mg TD DAILY [facility] PRN Reason: Protocol Stop: 06/30/18 09:16 Omeprazole (Prilosec) 20 mg PO DAILY [facility] PRN Reason: Protocol Stop: 06/30/18 09:01 Last Admin: 12/29/17 08:21 Dose: 20 mg Ondansetron HCl (Zofran) 4 mg IVP Q8HR PRN PRN Reason: Nausea And Vomiting Stop: 06/29/18 14:11 Ticagrelor (Brilinta) 90 mg PO BID [facility]ICKOLAS Stop: 06/29/18 21:01 Last Admin: 12/29/17 08:20 Dose: 90 mg - Imaging and Cardiology Stress Test: report reviewed Echo: pending Cardiac cath: report reviewed Other Results: 12 hour tele: avg HR=58 SB/SR - EKG Interpretation EKG results cardiology: personally reviewed Consult Discharge Plan - Plan Referrals: NONE,PCP [Primary Care Provider] -
[2017-12-29] MEDS: Budesonide/Formoterol 160/4.5 MDI IH SCH ×2 (09:47→19:40)
--- NOTE | 2017-12-29 09:59 | Electrocardiograph Report ---
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
[2017-12-29] MEDS: Nicotine 21 MG PATCH.TD24 TD SCH (11:59)
[2017-12-30 03:26] LABS: Basophils # 0.1 K/mcL (0.0-0.2); Basophils % 0.4 %; Eosinophils % 0.3 %; Hematocrit 33.2 % (35.3-44.9); Immature Granulocytes % 0.5 % (0-4); Lymphocytes # 3.6 K/mcL (0.6-4.6); Lymphocytes % 27.5 %; Mean Corpuscular HGB Conc 32.8 g/dL (31.6-35.5); Mean Corpuscular Volume 88.3 fL (83.0-100.0); Mean Platelet Volume 10.1 fL (9.4-12.4); Monocytes # 0.6 K/mcL (0.0-1.3); Monocytes % 4.8 %; Neutrophils # 8.6 K/mcL (1.6-8.9); Platelet Count 241 K/mcL (140-400); Red Blood Count 3.76 M/mcL (3.82-4.97); Red Cell Distribution Width 13.2 % (11.5-14.5); Segmented Neutrophils % 66.5 %
[2017-12-30 03:34] LABS: Hemoglobin 10.9 g/dL (11.5-15.4)
[2017-12-30 03:44] LABS: BUN/Creatinine Ratio 33 (6-26); Blood Urea Nitrogen 25 mg/dL (6-20); Calcium 7.8 mg/dL (8.6-10.3); Carbon Dioxide 23 mEq/L (23-29); Chloride 110 mEq/L (98-107); Glucose 135 mg/dL (70-105); Osmolality,Calculated 296 (280-300); Potassium 3.2 mEq/L (3.5-5.1); Sodium 140 mEq/L (136-145); eGFR For African Americans > 60 (> 60); eGFR For Non-African Americans > 60 (> 60)
[2017-12-30] MEDS: Insulin LISPRO 300 UNITS/3 ML VIAL SQ SCH ×4 (07:28→20:34)
[2017-12-30] MEDS: *HR* Dextrose 50 % in Water (Syg) 50 ML SYRINGE IVP PRN ×2 (07:28→16:29)
--- NOTE | 2017-12-30 08:06 | Event Note ---
Date of Encounter: 12/30/17 Time of Encounter: 08:10 - Cardiology Event Note Selected Entries 12/30/17 07:00 Pulse Rate 69 Blood Pressure 93/53 O2 Sat by Pulse Oximetry 94 Oxygen Delivery Method Room Air Laboratory Tests 12/29/17 12/30/17 12/30/17 02:55 03:04 03:04 Hgb 13.0 10.9 L D Potassium 3.2 L Creatinine 0.75 Est GFR (Non-Af Amer) > 60 Impressions Echocardiogram 12/29/17 14:10 Impressions: LVEF 55-60%. Normal LV chamber size, wall thickness and overall function. Mild segmental left ventricular systolic dysfunction. Mild left ventricular diastolic dysfunction. Normal right ventricular structure and function. Unable to estimate RVSP due to lack of TR jet. No significant valvular dysfunction. Left Ventricular Wall Motion: Rest Echo Findings The basal inferior wall was hypokinetic. All other wall segments showed normal motion. Findings: Study Quality * Technically adequate exam. ECG Findings * Sinus bradycardia. Left Ventricle * LVEF 55-60%. * Normal LV chamber size, wall thickness and overall function. * Mild segmental left ventricular systolic dysfunction. * Mild left ventricular diastolic dysfunction. Right Ventricle * Normal right ventricular structure and function. Left Atrium * Mildly dilated left atrium. Right Atrium * Normal right atrial size. Aortic Valve * Aortic valve not well visualized. * No aortic regurgitation. * No aortic stenosis. Mitral Valve * Normal mitral valve structure. * Mild mitral regurgitation. * No mitral stenosis. Tricuspid Valve * Normal tricuspid valve structure and function. * No tricuspid regurgitation. * Unable to estimate RVSP due to lack of TR jet. Pulmonic Valve * Normal pulmonic valve structure and function. * No pulmonic regurgitation. Aorta * Normally sized aortic root. Pericardium * The pericardium appears normal. IVC * Normal IVC dimensions and inspiratory collapse. Pulmonary Artery * Normal visualized portions of the main pulmonary artery. Plan for staged PCI today. All questions answered. Patient agreeable to plan. Right site trying intact with 2+ palpable pulses. Will decrease beta monica due to hypotension.
[2017-12-30] MEDS: hydrOXYzine pamoate 25 MG CAPSULE PO SCH ×2 (08:44→20:35)
[2017-12-30] MEDS: Aspirin 81 MG TAB.CHEW PO SCH (08:44)
[2017-12-30] MEDS: Insulin DETEMIR 100 UNIT/ML X5UNITS SQ SCH ×2 (08:44→20:33)
[2017-12-30] MEDS: *HR* Ticagrelor 90 MG TABLET PO SCH ×2 (08:44→20:35)
[2017-12-30] MEDS: Nicotine 21 MG PATCH.TD24 TD SCH (08:44)
[2017-12-30] MEDS: Loratadine 10 MG TABLET PO SCH (08:45)
[2017-12-30] MEDS: Budesonide/Formoterol 160/4.5 MDI IH SCH ×2 (09:27→21:08)
[2017-12-30] MEDS ORDERED: Verapamil 5 MG/2 ML VIAL ONE (12:49)
[2017-12-30] MEDS ORDERED: 0.9 % Sodium Chloride 1,000 ML ONE ×2 (12:50→13:13)
[2017-12-30] MEDS ORDERED: *HR* Heparin 10,000 UNIT/10 ML VIAL ONE (12:50)
[2017-12-30] MEDS ORDERED: Nitroglycerin 1,000 MCG/10 ML VIAL IV ONE (12:50)
[2017-12-30] MEDS ORDERED: ISOVUE-370 200 ML INFUS..BTL IV ONE (12:50)
[2017-12-30] MEDS ORDERED: Heparin 1,000 UNITS/500 mL 500 ML ONE (12:50)
[2017-12-30] MEDS ORDERED: *HR* Midazolam HCl 5 MG/5 ML VIAL IVP ONE (14:03)
[2017-12-30] MEDS ORDERED: *HR* FentaNYL (PF) 100 MCG/2 ML VIAL ONE ×2 (14:03→14:53)
--- NOTE | 2017-12-30 14:10 | Pre-Sedation Evaluation ---
Pre-sedation evaluation - Pre-sedation checklist Date of procedure: 12/30/17 Procedure: cath Recent Vitals: Last Vital Signs Temp 98.6 F 12/30/17 11:00 Pulse 56 12/30/17 12:00 Resp 19 12/30/17 12:00 BP 97/63 12/30/17 12:00 Pulse Ox 97 12/30/17 12:00 H&P (including ROS) documented in medical record: Yes Previous reaction to sedatives/anesthetics: No Dietary Status: NPO after Midnight Dentition: No loose teeth or bridges, poor dentition ASA Classification *see protocol: CLASS II-Mild systemic disease Plan of Care: Pt appropriate candidate for procedure/moderate/conscious sedation , Risks/benefits of procedure/sedation discussed w/ patient/family
--- NOTE | 2017-12-30 15:43 | Invasive Diagnostic Lab Proc ---
Name: Shahnaz Lisa Date of Study: 12/30/2017 Date: 1970 Ht: 64.2in Medical Record#: [id number] Age: 47 Wt: 178.57lb Gender: Female BSA: 1.87 Order #: [id number] BMI: 30.49 Physicians Procedure Physician: Joao Lu MD, [facility] Referring MD: Referring MD: Staff Name Position Time In Emelina Quiñonez RN Ager Tender Ronald Potts RN Monitor 01:56 PM Blanquita Mae RN Ager Tender 01:56 PM Emelina Quiñonez RN Ager Tender 01:56 PM Mariel Hendricks RT (R) Scrub 01:56 PM Indications Indication Coronary Artery Disease, Staged PCI Procedures Performed Procedure PRQ CARD RENATO STENT W/ANGIO 1 VSL PRQ CARD STENT W/ANGIO ADDL Pre-Procedure Checklist Informed consent is complete signed and on chart. H&P is on chart. ID band is on and ID verified with patient. Patient NPO for procedure The procedure was described for the patient and questions were answered. Blood Pressure: 124/65 ECG is on chart. Rhythm: NSR Plan of Care Patient will tolerate the procedure without complications. Adequate level of comfort will be maintained. Hemodynamics will remain stable Patient will recover from procedure without complications. Respiratory function will be maintained. Cardiac rhythm will remain stable. Patient temperature will be maintained. Patient and/or family have verbalized understanding of the procedure. Patient Education Chief Complaint/Reason for Test: PCI Developmental Category: Adult (18-64 years) Developmentally Appropriate for Age: Yes Learning Barriers: None Education Needs: Procedure Education Method: Verbal Information Taught: PCI Educational Evaluation: Able to repeat information Intravenous Access Time IV Size Location DC'd Fluid/Drip Rate Units RN 01:09 PM 18g 1 1/4" Patent On Arrival Lt Antecubital Emelina Quiñonez RN 20g 1 1/4" Patent On Arrival Rt Wrist Emelina Quiñonez RN Allergies No Known Allergies Vital Signs Time BP (mmHg) HR (bpm) O2 Sat. RR (bpm) LOC 01:10 PM 93 / 58 62 99 % 5 = Fully awake and oriented or at pre-proc level 01:57 PM / % 5 = Fully awake and oriented or at pre-proc level 01:58 PM / % 4 = Oriented but drowsy 02:14 PM / % 4 = Oriented but drowsy 02:30 PM / % 4 = Oriented but drowsy 02:45 PM / % 4 = Oriented but drowsy 02:03 PM 122 / 75 67 100 % 02:08 PM 132 / 75 65 100 % 02:13 PM 120 / 71 65 100 % 02:18 PM 128 / 78 66 100 % 02:23 PM 127 / 68 65 100 % 02:28 PM 127 / 75 65 100 % 02:33 PM 127 / 75 67 99 % 02:38 PM 103 / 61 90 94 % 02:43 PM 107 / 60 87 94 % 02:48 PM 111 / 61 80 93 % 02:53 PM 117 / 65 75 94 % 02:58 PM 120 / 69 75 95 % 03:03 PM 124 / 65 64 94 % Procedural Medications Time Medication Dose Units Method Given By 01:58 PM Oxygen 2 L/min nasal cannula Emelina Quiñonez RN 02:11 PM Versed 2 mg Intravenous Emelina Quiñonez RN 02:11 PM Fentanyl 50 mcg Intravenous Emelina Quiñonez RN 02:34 PM Versed 2 mg Intravenous Emelina Quiñonez RN 02:34 PM Fentanyl 25 mcg Intravenous Emelina Quiñonez RN 02:35 PM Lidocaine 2% 0.5 ml Subcutaneous Joao Lu MD, FAC 02:37 PM Heparin 4000 units Nitroglycerin 200 mcg Verapamil 2.5 mg Intraarterial Joao Lu MD, FACC 02:58 PM Nitroglycerin 200 mcg Intracoronary Joao Lu MD 02:45 PM Fentanyl 25 mcg Intravenous Emelina Quiñonez RN ASA Classification: CLASS II- Mild systemic disease (i.e. well-controlled diabetes, hypertension, asthma, cigarette smoking) Aleena Score Preprocedure Postprocedure Activity 2- Moves 4 extremities sustained head lift Activity 2- Moves 4 extremities sustained head lift Circulation 2- SBP +/= 20 points of pre-anesthetic level Circulation 2- SBP +/= 20 points of pre-anesthetic level Consciousness 2- Awake and alert oriented x 3 Consciousness 2- Awake and alert oriented x 3 O2 Saturation 2- Able to maintain O2 satruation of 92% on room air O2 Saturation 2- Able to maintain O2 satruation of 92% on room air Respiratory 2- Able to deep breathe and cough well Respiratory 2- Able to deep breathe and cough well Total Score 10 Total Score 10 Contrast Agent: Isovue Diagnostic Contrast: 42 ml Total Contrast: 42 ml Fluoro Dose: 712 mGy Activated Clotting Time Time Seconds to Clot 03:02 PM 227 Procedure Log Time Note Enter By :56 PM 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:56 [facility] :56 PM Ronald Potts RN Position: Monitor [facility]: [facility]56 [facility] Blanquita Mae RN Position: Ager Tender Time in: :56 [facility] Emelina Quiñonez RN Position: Ager Tender Time in: :56 [facility] :56 PM Mariel Hendricks RT (R) Position: Scrub Time in: :56 [facility] :56 PM Patient charges- Angio tray pack, Navilyst 3mm J, Pulse Oximetry and ACIST tubing and transducer jc:57 PM Hair removed from procedure site in procedure lab using clippers. Right wrist/ right groin prepped with Chloraprep by Blanquita Mae RN, then patient was draped. Skin intact. : PM Physician arrived 13:57 [facility]: PM Meet and greet completed : PM Sign in performed according to hospital policy. :57 PM Procedure start 13:57 [facility]:57 PM CathStat : PM Time: 13:57 Patient comfortable and pain free: Yes 58 PM Time: 13:57LOC: 5 = Fully awake and oriented or at pre-proc level [facility]:58 PM Time: 13:58 Oxygen on at 2 L/min per nasal cannula by Emelina Quiñonez RN [facility] PM Recorded ECG: HR=68 Condition=Condition 1 02:02 PM Vitals capture started with the following parameters, Patient=Adult, Interval=5 min, Initial Elghsopt=398 mmHg, Deflation Rate=5 mmHg, Cuff placed on Right Arm 02:03 PM HR=67 bpm, UULB=486/75 mmhg, OrN0=754.0 %, Comment=nsr 02:08 PM HR=65 bpm, NWJV=294/75 mmhg, PtW1=846.0 %, Comment=nsr 02:11 PM Time: 14:11 Versed 2 mg Intravenous Given by Mavis, Emelina RN [email or web address] 02:11 PM Time: 14:11 Fentanyl 50 mcg Intravenous Given by Emelina Quiñonez RN jcelly 02:12 PM Pressure channel 1 zeroed. 02:13 PM HR=65 bpm, QNFF=939/71 mmhg, JdM6=776.0 %, Comment=nsr 02:14 PM Time: 13:58LOC: 4 = Oriented but drowsy [email or web address] 02:14 PM Time: 13:57 Patient comfortable and pain free: Yes [email or web address] 02:18 PM HR=66 bpm, TRLH=686/78 mmhg, JyN4=154.0 %, Comment=nsr 02:19 PM ASA Class CLASS II- Mild systemic disease (i.e. well-controlled diabetes, hypertension, asthma, cigarette smoking) [email or web address] 02:23 PM HR=65 bpm, ZGNF=215/68 mmhg, OoU4=662.0 %, Comment=nsr 02:28 PM HR=65 bpm, JDBG=102/75 mmhg, ShO2=092.0 %, Comment=nsr 02:30 PM Time: 14:14 Patient comfortable and pain free: Yes [email or web address] 02:30 PM Time: 14:14LOC: 4 = Oriented but drowsy jcallihan 02:33 PM HR=67 bpm, WYVB=104/75 mmhg, SpO2=99.0 %, Comment=nsr 02:34 PM Time out performed according to hospital policy [email or web address] 02:34 PM Time: 14:34 Versed 2 mg Intravenous Given by Emelina Quiñonez RN 02:35 PM Time: 14:34 Fentanyl 25 mcg Intravenous Given by Emelina Quiñonez RN 02:35 PM Time: 14:35 0.5 ml Lidocaine 2% to right radial Subcutaneous Given by Joao Lu MD, FACC [email or web address] 02:36 PM Access obtained by percutaneous puncture. 6Fr 11cm Terumo Glidesheath sheath placed in right Radial artery. [id number] jcallihan 02:37 PM Time: 14:37 Patient given 4,000 units Heparin, 200 mcg Nitroglycerin, and 2.5 mg Verapamil Intraarterial by Joao Lu MD, FACC. This is given to reduce risk of vessel spasm and thrombosis. [email or web address] 02:37 PM PCI Status Urgent [email or web address] 02:37 PM 6Fr RBL 3.5 Convey guide catheter was used to cannulate the PCI vessel successfully. reused? No jcallihan 02:37 PM .014 [place] 190cm guide wire across target lesion- successful. reused? No jcallihan 02:37 PM Inflation device was opened. [email or web address] 02:38 PM HR=90 bpm, QCQW=660/61 mmhg, SpO2=94.0 %, Comment=nsr 02:39 PM Pressure channel 1 zeroed. 02:39 PM Recorded Pressure: Ao, HR=91, Condition=Condition 1 (Aorta) Ao 94/57/71 02:39 PM Recorded Pressure: Ao, HR=90, Condition=Condition 1 (Aorta) Ao 94/62/74 02:41 PM Recorded Pressure: Ao, HR=92, Condition=Condition 1 (Aorta) Ao 104/69/84 02:42 PM 2.0 mm x 15 mm Emerge Monorail balloon across target lesion- successful. reused? No jcallihan 02:43 PM HR=87 bpm, DOLA=839/60 mmhg, SpO2=94.0 %, Comment=nsr 02:44 PM Lesion found in Mid Circumflex. Pre Stenosis: 95 Pre LADY Flow: 3: Complete and Brisk Flow/Perfusion jcallihan 02:45 PM Time: 14:30LOC: 4 = Oriented but drowsy [email or web address] 02:45 PM Time: 14:30 Patient comfortable and pain free: Yes [email or web address] 02:45 PM Time: 14:45 Fentanyl 25 mcg Intravenous Given by Emelina Quiñonez RN [email or web address] 02:47 PM Balloon inflated @ 10 tali for 12 seconds [email or web address] 02:47 PM Balloon inflated @ 12 tali for 14 seconds [email or web address] 02:48 PM HR=80 bpm, CMAR=386/61 mmhg, SpO2=93.0 %, Comment=nsr 02:48 PM Balloon inflated @ 12 tali for 9 seconds [email or web address] 02:49 PM Recorded Pressure: Ao, HR=77, Condition=Condition 1 (Aorta) Ao 115/74/91 02:50 PM 2.25mm x 32mm Synergy drug-eluting stent across target lesion- successful Lot #[id number] [email or web address] 02:52 PM Stent deployed @ 12 tali for 20 seconds [email or web address] 02:52 PM Recorded Pressure: Ao, HR=78, Condition=Condition 1 (Aorta) Ao 108/80/93 02:53 PM HR=75 bpm, UCJJ=713/65 mmhg, SpO2=94.0 %, Comment=nsr 02:53 PM Stent delivery system removed intact. [email or web address] 02:53 PM 2.25 mm x 8mm NC Trek Rx balloon across target lesion- successful. reused? No jcallihan 02:55 PM Balloon inflated @ 16 tali for 10 seconds [email or web address] 02:55 PM Balloon inflated @ 16 tali for 10 seconds [email or web address] 02:56 PM Balloon inflated @ 16 tali for 9 seconds [email or web address] 02:56 PM wire repositioned to OM1 jcallihan 02:57 PM Balloon inflated @ 12 tali for 20 seconds [email or web address] 02:57 PM PCI lesion in 1st Marginal. Pre Stenosis: 90 Pre LADY Flow: 3: Complete and Brisk Flow/Perfusion jcallihan 02:58 PM HR=75 bpm, HUIN=079/69 mmhg, SpO2=95.0 %, Comment=nsr 02:58 PM Time: 14:58 Nitroglycerin 200 mcg Intracoronary Given by Joao Lu MD [email or web address] 02:59 PM Balloon catheter removed intact. [email or web address] 02:59 PM Coronary Dominance: right [email or web address] 03:00 PM Circumflex, Obtuse Marginal, Left Posterior Descending, and Left Posterolateral Coronary Arteries with 95 % stenosis. If graft is supplying this area, 0 % stenosis jcallihan 03:00 PM 2.25mm x 8mm Promus Premier Rx drug-eluting stent across target lesion- successful Lot #[id number] [email or web address] 03:00 PM Time: 14:45 Patient comfortable and pain free: Yes [email or web address] 03:00 PM Time: 14:45LOC: 4 = Oriented but drowsy jcallihan 03:01 PM Recorded Pressure: Ao, HR=81, Condition=Condition 1 (Aorta) Ao 119/73/93 03:02 PM Stent deployed @ 11 tali for 14 seconds [email or web address] 03:02 PM Stent delivery system removed intact. [email or web address] 03:03 PM At 15:02 the ACT was 227 seconds. [email or web address] 03:03 PM HR=64 bpm, TRRD=237/65 mmhg, SpO2=94.0 %, Comment=nsr 03:06 PM Lesion found in Mid LAD. Pre Stenosis: 70 Pre LADY Flow: [email or web address] 03:06 PM Mid/Distal Left Anterior Descending Coronary Artery and diagonal branches with 70% stenosis. If graft is supplying this area, 0 % stenosis jcallihan 03:06 PM Procedure completed at 15:06 [email or web address] 03:06 PM Did you address LADY flow and Dominance? Yes [email or web address] 03:07 PM Sign out completed: Radiation Dose 712 mGy Fluoro Time: 8.9 Isovue 370 - 200ml contrast 42 ml given by Joao Lu MD, [facility]. Complications: NoneCardiac Rehab Consult needed: YesConfirmed administered medications: Yes [email or web address] 03:07 PM Isovue 370 - 200ml,1 Bottle(s) used. [email or web address] 03:07 PM Arterial sheath pulled, Vasc Band closure device used and was Successful S/N. jcallihan 03:07 PM 12 ml air in Vasc Band. jcallihan 03:07 PM Estimated Blood Loss: less than 20cc jcallihan 03:07 PM Post ECG NSR jcallihan 03:07 PM Post Blood Pressure 124/65 jcallihan 03:07 PM 15:07 Post Pulses Bilateral radial 2+ [email or web address] 03:07 PM Information taught Cardiac Cath, PCI, and Vasc Band jcallihan 03:19 PM Education needs Procedure, Plan of Care, and Responsibilities of Patient in Care [email or web address] 03:19 PM Learning barriers :None jcallihan 03:19 PM Education Methods Verbal [email or web address] 03:19 PM Education evaluation Able to repeat information [email or web address] 03:20 PM Site status No bleeding/hematoma - Rt Wrist as reported by Mariel Hendricks RT (R) at 15:19 jcallihan 03:20 PM Report given to Nica RODRIGUEZ Pt taken to ICU Room #5. 15:20 [email or web address] 03:20 PM Plavix, Effient or Brilinta given Yes [email or web address] 03:20 PM Patient out of room: 15:20 [email or web address] 03:20 PM Family placed in consult room. [email or web address] 03:21 PM Complications: None [email or web address] 03:21 PM Fluoro Time: 8.9 [email or web address] 03:22 PM Isovue 370 - 200ml contrast 42 ml given by Joao Lu. hollie 03:22 PM Radiation Dose 712 mGy hollie Complications Complication None None Hemodynamics Pressures Site Systolic/A Wave Diastolic/V Wave Mean AO 94 57 71 AO 94 62 74 AO 104 69 84 AO 115 74 91 AO 108 80 93 AO 119 73 93 Post Procedure Information Blood Pressure: 124/65 mmHg Rhythm: NSR Post procedural instructions were given Closure Device Time Device Success/Fail 12/30/2017 3:10:00 PM Mechanical Compression Successful Site Checks Time Location Status Staff Sheath In? Note 03:19 PM Rt Wrist No bleeding/hematoma Mariel Hendricks RT (R) Pulses Time Site Pre-Procedure Post-Procedure Note 12/30/2017 1:10:00 PM Bilateral DP & PT 2+ 12/30/2017 1:10:00 PM Bilateral radial 2+ 3:07:00 PM Bilateral radial 2+ Updated by Ronald Potts RN on 12/30/2017 3:35:22 PM electronically signed on 12/30/2017 3:36:04 PM with status of Final
[2017-12-30] MEDS: *HR* Enoxaparin 80 MG/0.8 ML SYRINGE SQ SCH (17:46)
[2017-12-30] MEDS ORDERED: Amiodarone Premix 150 MG/100 ML BAG IVPB ONE (23:34)
[2017-12-30] MEDS ORDERED: Amiodarone Premix 360 MG/200 ML BAG IVC ONE (23:35)
[2017-12-30] MEDS ORDERED: Amiodarone Premix 360 MG/200 ML BAG IVC SCH (23:45)
[2017-12-31] MEDS: *HR* Enoxaparin 80 MG/0.8 ML SYRINGE SQ SCH (06:00)
[2017-12-31] MEDS: Budesonide/Formoterol 160/4.5 MDI IH SCH ×2 (07:33→19:40)
[2017-12-31] MEDS: Insulin LISPRO 300 UNITS/3 ML VIAL SQ SCH ×4 (08:02→20:14)
[2017-12-31] MEDS: Nicotine 21 MG PATCH.TD24 TD SCH (08:04)
[2017-12-31] MEDS: hydrOXYzine pamoate 25 MG CAPSULE PO SCH ×2 (08:05→20:14)
[2017-12-31] MEDS: Loratadine 10 MG TABLET PO SCH (08:05)
[2017-12-31] MEDS: Aspirin 81 MG TAB.CHEW PO SCH (08:05)
[2017-12-31] MEDS: *HR* Ticagrelor 90 MG TABLET PO SCH ×2 (08:05→20:14)
[2017-12-31] MEDS: Insulin DETEMIR 100 UNIT/ML X5UNITS SQ SCH ×2 (08:06→20:20)
[2017-12-31 09:44] LABS: Basophils % 0.3 %; Eosinophils # 0.1 K/mcL (0.0-0.6); Eosinophils % 0.9 %; Hematocrit 36.7 % (35.3-44.9); Hemoglobin 12.1 g/dL (11.5-15.4); Immature Granulocytes % 0.5 % (0-4); Lymphocytes # 1.7 K/mcL (0.6-4.6); Lymphocytes % 14.3 %; Mean Corpuscular Hemoglobin 29.2 pg (28.0-33.3); Mean Corpuscular Volume 88.6 fL (83.0-100.0); Mean Platelet Volume 10.3 fL (9.4-12.4); Monocytes # 0.5 K/mcL (0.0-1.3); Monocytes % 3.9 %; Neutrophils # 9.4 K/mcL (1.6-8.9); Platelet Count 258 K/mcL (140-400); Red Blood Count 4.14 M/mcL (3.82-4.97); Red Cell Distribution Width 13.2 % (11.5-14.5); Segmented Neutrophils % 80.1 %
[2017-12-31] MEDS ORDERED: 0.9 % Sodium Chloride 1,000 ML IVC SCH (10:00)
[2017-12-31 10:03] LABS: BUN/Creatinine Ratio 22 (6-26); Blood Urea Nitrogen 14 mg/dL (6-20); Calcium 7.8 mg/dL (8.6-10.3); Carbon Dioxide 23 mEq/L (23-29); Chloride 110 mEq/L (98-107); Glucose 125 mg/dL (70-105); Magnesium 1.7 mg/dL (1.6-2.6); Osmolality,Calculated 290 (280-300); Potassium 3.4 mEq/L (3.5-5.1); Sodium 139 mEq/L (136-145); eGFR For African Americans > 60 (> 60); eGFR For Non-African Americans > 60 (> 60)
[2017-12-31] MEDS: Magnesium Oxide 400 MG TABLET PO SCH ×2 (10:45→20:13)
--- NOTE | 2017-12-31 10:53 | Cardiology Progress Note ---
Date of Encounter: 12/31/17 Time of Encounter: 10:15 Assessment and Plan (1) STEMI (ST elevation myocardial infarction) Current Visit: Yes Status: Acute Acute inferior STEMI s/p emergent LHC with PTCA/RENATO to mRCA. LHC 12/30/17: s/p successful PCI to LCx and OM (staged). Will need outpatient staged procedure to LAD. TTE: LVEF 55-60%, basal inferior wall hypokinesis, mild LVDD, normal RV structure and function, no significant valvular dysfunction No chest pain reported upon exam. Right radial cath site stable, however patient reports severe pain, discussed with Dr. Guzman, will obtain doppler study. Vitals, telemetry, labs stable. Continue asa, statin, BB. Uninterrupted DAPT for a minimum of 1 year (asa + brilinta). Cardiac rehab. Qualifiers: Involved coronary artery: right coronary artery Qualified Code(s): I21.11 - ST elevation (STEMI) myocardial infarction involving right coronary artery (2) PAF (paroxysmal atrial fibrillation) Current Visit: Yes Status: Acute PAF overnight, asymptomatic. Started on amiodarone gtt due to hypotension. Suspect secondary to AMI. NSR this AM. Check TSH with AM labs. EF normal, no significant valvular dysfunction. Discussed with Dr. Guzman; recommend HM upon discharge, if no PAF noted, could consider discontinuation of AC in the outpatient setting. CHAD2s Vasc= 4, recommend detention AC, patient is agreeable. Pt. has transportation issues therefore coumadin is not ideal. Will gillis check Xarelto 20 mg daily; discussed with Dr. Guzman who agrees with plan. Continue therapeutic lovenox for now. (3) Tobacco abuse Current Visit: Yes Status: Acute Reported 3 packs/day. Nicotine patch (4) Diabetes Current Visit: No Status: Acute SSI QID Home insulin resumed. Hold metformin. 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 BB held. Will give supplemental IVF. Qualifiers: Hypertension type: essential hypertension Qualified Code(s): I10 - Essential (primary) hypertension Discussion w patient/family: The assessment and plan as outlined above was discussed with the patient and/or family members who expressed understanding and agreement. All questions were answered. Thank you for involving us in the care of your patient. Please call with any questions. The patient was discussed and reviewed with Dr. Guzman; changes to be made accordingly. Subjective Principal diagnosis: Inferior STEMI Interval history: Seen and examined. No chest pain reported upon exam today. Episode of PAF overnight, converted to NSR while on IV amiodarone gtt. Asymptomatic. Vital signs stable. Is anxious for discharge home, pt. reports she misses her fiance, has transportation issues. Reports pain at right radial cath site. Objective Vital Signs, Last 4 Hours Temp Pulse Resp BP Pulse Ox 12/31/17 09:21 98.3 F 67 19 87/61 99 12/31/17 07:54 98.3 F 67 19 87/61 99 12/31/17 07:34 16 99 General: Conversant, No Apparent Distress HEENT: Atraumatic, Normocephaly, Mucus Membranes Moist Cardiac: Reg Rate and Rhythm, Normal S1 and S2 Lungs: Normal Breath Sounds Neuro: Alert and responsive Abdomen: Soft Skin: No rashes noted on visualized skin Musculoskeletal: No Chest Wall Tenderness Extremities: No Edema, Normal Pulses Other: right radial cath site: +2 radial pulses. No hematoma noted. Results 12/31/17 08:49 12/31/17 08:49 Lab Results 12/31/17 12/31/17 08:49 08:49 WBC 11.7 H Hgb 12.1 Hct 36.7 Plt Count 258 Sodium 139 Potassium 3.4 L Chloride 110 H Carbon Dioxide 23 BUN 14 Creatinine 0.65 Glucose 125 H Calcium 7.8 L Magnesium 1.7 Active Medications Acetaminophen (Tylenol) 500 mg PO Q6HR PRN PRN Reason: Mild Pain Stop: 06/29/18 14:11 Last Admin: 12/31/17 08:04 Dose: 500 mg Albuterol Sulfate (Albuterol Inhaler) 1 puff IH TID PRN PRN Reason: Shortness Of Breath Stop: 06/29/18 14:13 Aspirin (Aspirin) 81 mg PO DAILY NICKOLAS Stop: 06/30/18 09:01 Last Admin: 12/31/17 08:05 Dose: 81 mg Budesonide/Formoterol Fumarate (Symbicort) 2 puff IH BIDR NICKOLAS Stop: 06/30/18 10:01 Last Admin: 12/31/17 07:33 Dose: 2 puff Dextrose/Water (Dextrose 50% (Syg)) 25 ml IVP AD PRN PRN Reason: Hypoglycemia Stop: 06/29/18 14:15 Last Admin: 12/30/17 16:29 Dose: 25 ml Diphenhydramine HCl (Benadryl) 25 mg PO HS PRN PRN Reason: Insomnia Stop: 06/29/18 14:13 Enoxaparin Sodium (Lovenox) 70 mg 1 mg/kg (70 mg) SQ Q12HR NICKOLAS PRN Reason: Protocol Stop: 06/29/18 18:01 Last Admin: 12/31/17 06:00 Dose: 70 mg Glucagon (Glucagen) 1 mg IM ONCE PRN PRN Reason: Hypoglycemia Stop: 06/29/18 14:15 Glucose (Gluctose) 15 gm PO ONCE PRN PRN Reason: Hypoglycemia Stop: 06/29/18 14:15 Glucose (Gluctose) 30 gm PO ONCE PRN PRN Reason: Hypoglycemia Stop: 06/29/18 14:15 Hydroxyzine Pamoate (Hydroxyzine Pamoate) 50 mg PO BID NICKOLAS Stop: 06/29/18 21:01 Last Admin: 12/31/17 08:05 Dose: 50 mg Dextrose (Dextrose 5%) 1,000 mls @ 100 mls/hr IVC .Q10H PRN PRN Reason: HYPOGLYCEMIA Stop: 06/29/18 14:15 Amiodarone HCl/Dextrose (Amiodarone Drip Premix 360mg/200ml) 360 mg in 200 mls @ 16.667 mls/hr IVC CONT NICKOLAS PRN Reason: 0.5 MG/MIN Stop: 07/01/18 23:46 Last Admin: 12/31/17 05:57 Dose: 0.5 mg/min, 16.667 mls/hr Sodium Chloride (0.9 % Sodium Chloride) 1,000 mls @ 100 mls/hr IVC .Q10H NICKOLAS Stop: 12/31/17 19:59 Last Admin: 12/31/17 10:45 Dose: 100 mls/hr Insulin Detemir (Levemir) 80 unit SQ BID [facility] Stop: 06/29/18 21:01 Last Admin: 12/31/17 08:06 Dose: 80 unit Insulin Human Lispro (Humalog) 0 units SQ TIDAC NICKOLAS PRN Reason: Protocol Stop: 06/29/18 16:31 Last Admin: 12/31/17 08:02 Dose: Not Given Insulin Human Lispro (Humalog) 0 units SQ HS NICKOLAS PRN Reason: Protocol Stop: 06/29/18 21:01 Last Admin: 12/30/17 20:34 Dose: 3 units Loratadine (Claritin) 10 mg PO DAILY NICKOLAS PRN Reason: Protocol Stop: 06/30/18 09:01 Last Admin: 12/31/17 08:05 Dose: 10 mg Magnesium Oxide (Mag-Ox) 400 mg PO BID NICKOLAS PRN Reason: Protocol Stop: 12/31/17 21:01 Last Admin: 12/31/17 10:45 Dose: 400 mg Metoprolol Tartrate (Lopressor) 12.5 mg PO BID [facility] Stop: 07/01/18 09:01 Last Admin: 12/31/17 08:05 Dose: 12.5 mg Nicotine (Nicoderm) 21 mg TD DAILY [facility] PRN Reason: Protocol Stop: 06/30/18 09:16 Last Admin: 12/31/17 08:04 Dose: 21 mg Omeprazole (Prilosec) 20 mg PO DAILY NICKOLAS PRN Reason: Protocol Stop: 06/30/18 09:01 Last Admin: 12/31/17 08:05 Dose: 20 mg Ondansetron HCl (Zofran) 4 mg IVP Q8HR PRN PRN Reason: Nausea And Vomiting Stop: 06/29/18 14:11 Potassium Chloride (Potassium Chloride) 40 meq PO BID [facility] Stop: 12/31/17 21:01 Last Admin: 12/31/17 10:45 Dose: 40 meq Ticagrelor (Brilinta) 90 mg PO BID [facility] Stop: 06/29/18 21:01 Last Admin: 12/31/17 08:05 Dose: 90 mg - Imaging and Cardiology Echo: report reviewed Cardiac cath: report reviewed - EKG Interpretation EKG results cardiology: personally reviewed Consult Discharge Plan - Plan Referrals: NONE,PCP [Primary Care Provider] -
[2017-12-31] MEDS ORDERED: *HR* Rivaroxaban 10 MG TABLET PO SCH (17:00)
[2018-01-01 05:24] LABS: BUN/Creatinine Ratio 23 (6-26); Blood Urea Nitrogen 15 mg/dL (6-20); Calcium 7.7 mg/dL (8.6-10.3); Carbon Dioxide 22 mEq/L (23-29); Chloride 111 mEq/L (98-107); Glucose 66 mg/dL (70-105); Magnesium 1.9 mg/dL (1.6-2.6); Osmolality,Calculated 283 (280-300); Potassium 4.2 mEq/L (3.5-5.1); Sodium 137 mEq/L (136-145); eGFR For African Americans > 60 (> 60); eGFR For Non-African Americans > 60 (> 60)
[2018-01-01 07:09] VITALS: BP 106/72
[2018-01-01] MEDS: Budesonide/Formoterol 160/4.5 MDI IH SCH (07:58)
[2018-01-01] MEDS: Insulin LISPRO 300 UNITS/3 ML VIAL SQ SCH (08:12)
[2018-01-01] MEDS: Nicotine 21 MG PATCH.TD24 TD SCH (08:13)
[2018-01-01] MEDS: Insulin DETEMIR 100 UNIT/ML X5UNITS SQ SCH (08:13)
[2018-01-01] MEDS: Aspirin 81 MG TAB.CHEW PO SCH (08:13)
[2018-01-01] MEDS: hydrOXYzine pamoate 25 MG CAPSULE PO SCH (08:13)
[2018-01-01] MEDS: *HR* Ticagrelor 90 MG TABLET PO SCH (08:13)
[2018-01-01] MEDS: Loratadine 10 MG TABLET PO SCH (08:14)
[2018-01-01 08:46] LABS: Basophils % 0.3 %; Eosinophils # 0.1 K/mcL (0.0-0.6); Eosinophils % 0.9 %; Immature Granulocytes % 0.7 % (0-4); Lymphocytes # 1.7 K/mcL (0.6-4.6); Lymphocytes % 14.7 %; Mean Corpuscular HGB Conc 32.8 g/dL (31.6-35.5); Mean Corpuscular Hemoglobin 29.8 pg (28.0-33.3); Mean Corpuscular Volume 90.9 fL (83.0-100.0); Mean Platelet Volume 10.6 fL (9.4-12.4); Monocytes # 0.5 K/mcL (0.0-1.3); Monocytes % 4.5 %; Neutrophils # 8.8 K/mcL (1.6-8.9); Platelet Count 234 K/mcL (140-400); Red Blood Count 3.52 M/mcL (3.82-4.97); Red Cell Distribution Width 13.2 % (11.5-14.5); Segmented Neutrophils % 78.9 %
[2018-01-01 09:02] LABS: Hemoglobin 10.5 g/dL (11.5-15.4)
--- NOTE | 2018-01-01 11:53 | Discharge Summary ---
Orders not resulted at time of discharge: Pending orders 12/29/17 07:00 ECG 12 lead ECG [ECG] Routine 01/01/18 11:49 ECG 48 holter monitor setup [ECG] Stat Date of Encounter: 01/01/18 Time of Encounter: 11:50 - Discharge Diagnosis (1) STEMI (ST elevation myocardial infarction) Priority: Primary Status: Acute Qualifiers: Involved coronary artery: right coronary artery Qualified Code(s): I21.11 - ST elevation (STEMI) myocardial infarction involving right coronary artery (2) Diabetes Priority: Secondary Status: Chronic Qualifiers: Diabetes mellitus type: type 2 Diabetes mellitus snf insulin use: with snf use Diabetes mellitus complication status: with circulatory complication Diabetes mellitus complication detail: with other circulatory complications Qualified Code(s): E11.59 - Type 2 diabetes mellitus with other circulatory complications; Z79.4 - groover and turner (current) use of insulin (3) Hypertension Priority: Secondary Status: Chronic Qualifiers: Hypertension type: essential hypertension Qualified Code(s): I10 - Essential (primary) hypertension (4) Tobacco abuse Priority: Secondary Status: Acute (5) PAF (paroxysmal atrial fibrillation) Priority: Secondary Status: Acute - Hospital Course Hospital course: Ms. Lisa is a 47 year old female that preseted as acute inferior STEMI s/p emergent LHC with PTCA/RENATO to mRCA. LHC 12/30/17: s/p successful PCI to LCx and OM (staged). Will need outpatient staged procedure to LAD. TTE: LVEF 55-60%, basal inferior wall hypokinesis, mild LVDD, normal RV structure and function, no significant valvular dysfunction. No chest pain reported upon exam. Right radial cath site stable, however patient reported severe pain, doppler study negative for any abnormality. Vitals, telemetry, labs stable. Continue asa, statin, BB. Uninterrupted DAPT for a minimum of 1 year (asa + brilinta). Pt verbalizes understanding. Cardiac rehab. Developed PAF during stay, asymptomatic. Started on amiodarone gtt due to hypotension since d/c'd. Suspect secondary to AMI. NSR since yesterday AM. TSH normal. Discussed with Dr. Guzman; recommend 48 hour holter monitor upon discharge, if no PAF noted, could consider discontinuation of AC in the outpatient setting. CHAD2s Vasc= 4, recommend AC at this time per Dr. Guzman, patient is agreeable. Xarelto $0 copay. Reported 3 packs/day. Nicotine patch given at d/c. Home diabetes meds resumed. Had been hypotensive as inpatient, ACEi stopped. Can consider resuming as outpt. BP tolerating low dose BB. D/C home in stable condition. Will coordinate outpt follow-up in 1 week and coordinate outpt staged PCI to LAD. Will need to hold Xarelto prior to procedure. Time spent discussing smoking cessation with patient: 3 to 10 minutes - Time Spent with Patient Total time spent providing and/or coordinating discharge services: Less than 30 minutes - Discharge Medications Prescriptions: Nitroglycerin 0.4 mg SL Q5MIN PRN #30 tab.subl PRN Reason: Chest Pain Aspirin Enteric Coated [Aspirin EC] 81 mg PO DAILY #30 tablet. Metoprolol [Lopressor] 12.5 mg PO BID #30 tablet Nicotine Patch [Nicoderm] 21 mg TD DAILY #30 patch.td24 Rivaroxaban [Xarelto] 20 mg PO 1700 #30 tablet Ticagrelor [Brilinta] 90 mg PO BID #60 tablet Home Medications: Albuterol Sulfate [Ventolin Hfa] 1 puff IH TID PRN 01/11/17 [History] Fluticasone/Vilanterol [Breo Ellipta 100-25 Mcg INH] 1 puff IH DAILY 11/26/17 [ History] HydrOXYzine Pamoate [Vistaril] 50 mg PO BID 11/26/17 [History] Insulin Glargine,Hum.rec.anlog [Lantus Solostar] 80 unit SQ BID 11/26/17 [ History] Omeprazole [PriLOSEC] 20 mg PO DAILY 11/26/17 [History] Loratadine [Claritin] 10 mg PO DAILY 12/28/17 [History] metFORMIN [Glucophage] 850 mg PO BID 12/28/17 [History] Aspirin Enteric Coated [Aspirin EC] 81 mg PO DAILY #30 tablet. 01/01/18 [Rx] Atorvastatin [Lipitor] 40 mg PO HS #30 tablet 01/01/18 [Rx] Metoprolol [Lopressor] 12.5 mg PO BID #30 tablet 01/01/18 [Rx] Nicotine Patch [Nicoderm] 21 mg TD DAILY #30 patch.td24 01/01/18 [Rx] Nitroglycerin 0.4 mg SL Q5MIN PRN #30 tab.subl 01/01/18 [Rx] Rivaroxaban [Xarelto] 20 mg PO 1700 #30 tablet 01/01/18 [Rx] Ticagrelor [Brilinta] 90 mg PO BID #60 tablet 01/01/18 [Rx] Allergies/Adverse Reactions: 3 Allergy/AdvReac Type Severity Reaction Status Date / Time No Known Allergies Allergy Verified 12/28/17 15:38 Date of admission: 12/28/17 14:01 Primary care physician: PCP NONE Consults: 12/28/17 14:10 Consult to Cardiac Rehabilitation-Phase1 [CONS] Routine Comment: Reason for Consult: AMI Call Completed: Yes Consult to Nurse Navigator [CONS] Routine Comment: 12/28/17 14:31 Consult to Nutrition [CONS] Routine Comment: Consulting Provider: NUTRITION Reason for Dietary Consult: MST Score Consult to Electronic System Engineer [CONS] Routine Reason for SW Consult: Financial help; Discharging clinician: Bridger Macdonald Anticipated date of discharge: 01/01/18 Physical Examination Vital Signs, Last 4 Hours Temp Pulse Resp BP Pulse Ox 01/01/18 08:15 98.1 F 78 16 106/72 98 01/01/18 07:58 16 98 Vital Signs Temp Pulse Resp BP Pulse Ox 01/01/18 08:15 98.1 F 78 16 106/72 98 01/01/18 07:58 16 98 01/01/18 07:05 98.1 F 78 20 106/72 98 01/01/18 03:15 99.5 F 77 18 100/56 98 12/31/17 22:46 99.2 F 71 18 101/62 98 12/31/17 20:15 68 12/31/17 19:40 17 98 12/31/17 18:56 99.7 F H 70 18 106/65 98 12/31/17 16:22 100/56 12/31/17 15:19 98.0 F 65 16 95/60 95 Intake and Output 12/31/17 01/01/18 01/01/18 23:59 07:59 15:59 Intake Total 0 / 0 480 / 480 Balance 0 / 0 480 / 480 Intake: Oral 0 / 0 480 / 480 Other: Meal Dinner Breakfast Percent of Meal Consumed 75% 95% # Voids 1 1 Weight 98.2 kg Blood Glucose* 99 106 106 General: Conversant, No Apparent Distress HEENT: Atraumatic, Normocephaly, Mucus Membranes Moist Neck: No JVD, Normal carotid pulses Cardiac: Reg Rate and Rhythm, Normal S1 and S2, No Murmur Lungs: Normal Breath Sounds, No Wheeze, Rales, Rhonchi Neuro: Alert and responsive, No focal deficits noted Abdomen: Soft, Non-Tender Skin: No rashes noted on visualized skin Musculoskeletal: No Chest Wall Tenderness Extremities: No Clubbing, No Cyanosis, No Edema, Normal Pulses - Patient Status Disposition: Home, Self-Care Condition: Fair Functional capacity at discharge: independent ambulation Overall status at discharge: patient is progressing back to baseline - Discharge Instructions Instructions: Myocardial Infarction (DC), Atrial Fibrillation (DC), Left Heart Catheterization (DC), Coronary Intravascular Stent Placement (DC), Diabetes Mellitus Type 2 in Adults (DC) Follow Up With: Joao uL MD [Partnered Physician] - (office will call patient with followup appointment) Romina Mota DO [Resident] - 01/05/18 3:00 pm (This is located across from [facility]. You will still need to keep your appointment on 01-23-18.) - Diet and Activity Activity: increase activity as tolerated Diet: low fat, low cholesterol
== END 2018-01-01 12:40 | disposition home or self-care (01) | DRG 174 ==
LOC: ICNU 14:01 → 2NNU 12-30 17:28
PROVIDERS: ADMIT Emergency Medicine; ATTEND Emergency Medicine

== ENCOUNTER 2018-05-21 16:34 | Observation (INO) ==
--- NOTE | 2018-05-21 16:52 | Emergency Department Note ---
Disposition Clinical Impression: NSTEMI (non-ST elevated myocardial infarction) Disposition: Admitted As Inpatient Condition: Good General Adult HPI - General Chief complaint: ED Chest Pain Stated complaint: Chest Pain Time Seen by Provider: 05/21/18 16:45 - History of Present Illness Pain Scale: 9 - Related Data Home Medications Medication Instructions Recorded Confirmed Albuterol Sulfate [Ventolin Hfa] 1 puff IH TID PRN 01/11/17 03/03/18 Fluticasone/Vilanterol [Breo 1 puff IH DAILY 11/26/17 03/03/18 Ellipta 100-25 Mcg INH] HydrOXYzine Pamoate [Vistaril] 50 mg PO BID 11/26/17 03/03/18 Loratadine [Claritin] 10 mg PO DAILY 12/28/17 03/03/18 Diclofenac Sodium [Voltaren] 50 mg PO BID 01/28/18 03/03/18 Glimepiride [Amaryl] 4 mg PO DAILY 01/28/18 03/03/18 Metoprolol [Lopressor] 25 mg PO BID 01/28/18 03/03/18 Omeprazole [PriLOSEC] 40 mg PO DAILY 01/28/18 03/03/18 Previous Rx's Medication Instructions Recorded Aspirin Enteric Coated [Aspirin EC] 81 mg PO DAILY #30 tablet.dr 01/01/18 Atorvastatin [Lipitor] 40 mg PO HS #30 tablet 01/01/18 Nitroglycerin 0.4 mg SL Q5MIN PRN #30 tab.subl 01/01/18 Rivaroxaban [Xarelto] 20 mg PO 1700 #30 tablet 01/01/18 Ticagrelor [Brilinta] 90 mg PO BID #60 tablet 01/01/18 Albuterol Sulfate [Albuterol 2 puff IH Q4HR #1 hfa.aer.ad 02/20/18 Inhaler] Insulin Glargine [Lantus] 80 unit SQ BID 7 Days mls 02/20/18 Allergies Allergy/AdvReac Type Severity Reaction Status Date / Time Amoxicillin Allergy Hives Verified 05/21/18 16:46 Penicillins Allergy Hives Verified 05/21/18 16:46 venlafaxine [From Effexor] Allergy Itching Verified 03/03/18 23:18 ibuprofen AdvReac Nausea Verified 05/21/18 16:46 Past Medical History - Past Medical History Medical history: Reports: asthma, COPD, coronary artery disease, diabetes, GERD, hyperlipidemia, hypertension, myocardial infarction, TIA, other Surgical history: Reports: angioplasty/stent Psychiatric history: Reports: anxiety, depression STOVE TENDER history: Reports: bilateral tubal ligation - Social History Smoking Status: Current every day smoker Smokeless Tobacco Status: No Alcohol use: Reports: none Drug use: Reports: none Physical Exam - General General appearance: alert, in no apparent distress Course Vital Signs Temperature 97.7 F 05/21/18 16:40 Pulse Rate 67 05/21/18 16:40 Respiratory Rate 20 05/21/18 16:40 Blood Pressure 118/73 05/21/18 16:40 O2 Sat by Pulse Oximetry 100 05/21/18 16:40 Temperature 97.7 F 05/21/18 16:40 Pulse Rate 67 05/21/18 19:58 Respiratory Rate 16 05/21/18 19:58 Blood Pressure 159/85 05/21/18 19:58 O2 Sat by Pulse Oximetry 100 05/21/18 19:58 Oxygen Delivery Oxygen Delivery Room Air Medical Decision Making - Lab Data Result diagrams: 05/21/18 17:03 05/21/18 17:03 Lab Results 05/21/18 05/21/18 Range/Units 17:03 17:03 WBC 10.7 (4.3-11.1) K/mcL RBC 4.47 (3.82-4.97) M/mcL Hgb 12.4 (11.5-15.4) g/dL Hct 38.4 (35.3-44.9) % MCV 85.9 (83.0-100.0) fL MCH 27.7 L (28.0-33.3) pg MCHC 32.3 (31.6-35.5) g/dL RDW 13.2 (11.5-14.5) % Plt Count 280 (140-400) K/mcL MPV 9.8 (9.4-12.4) fL Immature Gran % 0.4 (0-4) % Seg Neutrophils % 67.1 % Lymphocytes % 26.1 % Monocytes % 4.7 % Eosinophils % 1.2 % Basophils % 0.5 % Neutrophils # 7.2 (1.6-8.9) K/mcL Lymphocytes # 2.8 (0.6-4.6) K/mcL Monocytes # 0.5 (0.0-1.3) K/mcL Eosinophils # 0.1 (0.0-0.6) K/mcL Basophils # 0.1 (0.0-0.2) K/mcL Sodium 138 (136-145) mEq/L Potassium 3.9 (3.5-5.1) mEq/L Chloride 107 (98-107) mEq/L Carbon Dioxide 24 (23-29) mEq/L BUN 17 (6-20) mg/dL Creatinine 0.76 (0.60-1.20) mg/dL Est GFR ( Amer) > 60 (> 60) Est GFR (Non-Af Amer) > 60 (> 60) BUN/Creatinine Ratio 22 (6-26) Glucose 207 H (70-105) mg/dL Calculated Osmolality 294 (280-300) Calcium 8.6 (8.6-10.3) mg/dL Troponin I 0.06 H* (< 0.04) ng/mL Attestation Statement - Attestation Attestation: I examined this patient and my medical decision-making was reviewed with the RN LICENSED PRACTICAL/PA/Advanced Practice Nurse/Resident Physician. I agree with the documented findings, disposition and treatment plan as described except to the extent set forth below. Patient presents with chest pain which started about 1 hour prior to arrival and she does have a history of cardiac stents and she denies any pleuritic aspect. Does radiate to the left shoulder but not to the back. She will have an EKG, labs and further evaluation/disposition based on these results. 1651 I did review the EKG which shows normal sinus rhythm with a rate of 62 bpm with some minimal ST changes but no evidence of ST elevation myocardial infarction 1733 I did review the repeat EKG at 5:37 PM showing normal sinus rhythm with a rate of 47 bpm and some nonspecific ST change but without significant ischemic changes such as elevation of the ST segments. The patient will be admitted. Labs been reviewed. Troponin minimally elevated. We will also consult card iology. 1748
[2018-05-21 17:18] LABS: Basophils # 0.1 K/mcL (0.0-0.2); Basophils % 0.5 %; Eosinophils # 0.1 K/mcL (0.0-0.6); Eosinophils % 1.2 %; Hematocrit 38.4 % (35.3-44.9); Hemoglobin 12.4 g/dL (11.5-15.4); Immature Granulocytes % 0.4 % (0-4); Lymphocytes # 2.8 K/mcL (0.6-4.6); Lymphocytes % 26.1 %; Mean Corpuscular HGB Conc 32.3 g/dL (31.6-35.5); Mean Corpuscular Hemoglobin 27.7 pg (28.0-33.3); Mean Corpuscular Volume 85.9 fL (83.0-100.0); Mean Platelet Volume 9.8 fL (9.4-12.4); Monocytes # 0.5 K/mcL (0.0-1.3); Monocytes % 4.7 %; Neutrophils # 7.2 K/mcL (1.6-8.9); Platelet Count 280 K/mcL (140-400); Red Blood Count 4.47 M/mcL (3.82-4.97); Red Cell Distribution Width 13.2 % (11.5-14.5); Segmented Neutrophils % 67.1 %
--- NOTE | 2018-05-21 17:31 | Emergency Department Note ---
Disposition Clinical Impression: NSTEMI (non-ST elevated myocardial infarction) Disposition: Admitted As Inpatient Condition: Good Referrals: Octavio Pickard DO [Primary Care Provider] - Forms: ED Satisfaction Letter Time of Disposition: 18:17 Chest Pain HPI - General Chief Complaint: ED Chest Pain Stated Complaint: Chest Pain Time Seen by Provider: 05/21/18 16:45 Source: patient Mode of arrival: EMS Vital Signs Reviewed: Yes Nursing Notes Reviewed: Yes - History of Present Illness HPI Narrative: 48 year old female presents for chest pain. Patient states it started 4 days ago. Patient had squad come see her last night but decided not to go to [facility]. Patient presents now for chest pain for 1 hour because chest pain is worse and she couldn't handle it. Describes sharp intermittent chest pain 02/27 that radiates to left arm. Patient states it feels the same as previous heart attack in December. It is not worse with deep breathing. Does not know what triggers pain. Reports shortness of breath, nausea without emesis, abdominal pain, swelling in left foot, and dry cough for 1 week. Denies diaphoresis, diarrhea. Patient admits she's been under a lot of stress lately. EMS administered 3 doses of nitro and 4 baby aspirins without relief. Reports history of CAD with 4 stents and CHF. Current smoker. Denies alcohol, drugs. Severity scale (1-10): 9 - Related Data Home Medications Medication Instructions Recorded Confirmed Albuterol Sulfate [Ventolin Hfa] 1 puff IH TID PRN 01/11/17 03/03/18 Fluticasone/Vilanterol [Breo 1 puff IH DAILY 11/26/17 03/03/18 Ellipta 100-25 Mcg INH] HydrOXYzine Pamoate [Vistaril] 50 mg PO BID 11/26/17 03/03/18 Loratadine [Claritin] 10 mg PO DAILY 12/28/17 03/03/18 Diclofenac Sodium [Voltaren] 50 mg PO BID 01/28/18 03/03/18 Glimepiride [Amaryl] 4 mg PO DAILY 01/28/18 03/03/18 Metoprolol [Lopressor] 25 mg PO BID 01/28/18 03/03/18 Omeprazole [PriLOSEC] 40 mg PO DAILY 01/28/18 03/03/18 Previous Rx's Medication Instructions Recorded Aspirin Enteric Coated [Aspirin EC] 81 mg PO DAILY #30 tablet. 01/01/18 Atorvastatin [Lipitor] 40 mg PO HS #30 tablet 01/01/18 Nitroglycerin 0.4 mg SL Q5MIN PRN #30 tab.subl 01/01/18 Rivaroxaban [Xarelto] 20 mg PO 1700 #30 tablet 01/01/18 Ticagrelor [Brilinta] 90 mg PO BID #60 tablet 01/01/18 Albuterol Sulfate [Albuterol 2 puff IH Q4HR #1 hfa.aer.ad 02/20/18 Inhaler] Insulin Glargine [Lantus] 80 unit SQ BID 7 Days mls 02/20/18 Allergies Allergy/AdvReac Type Severity Reaction Status Date / Time Amoxicillin Allergy Hives Verified 05/21/18 16:46 Penicillins Allergy Hives Verified 05/21/18 16:46 venlafaxine [From Effexor] Allergy Itching Verified 03/03/18 23:18 ibuprofen AdvReac Nausea Verified 05/21/18 16:46 Constitutional: Denies: fever, chills Eyes: Denies: eye pain, eye discharge ENT ED: Denies: ear pain, throat pain Cardiovascular: Reports: chest pain. 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 Absent: respiratory distress - Cardiovascular Cardiovascular exam: Present: regular rate, normal rhythm - Abdominal Exam Abdominal exam: Present: soft, tenderness, normal bowel sounds. Absent: distention, guarding, rebound, rigidity Abdominal tenderness: Present: RUQ - Extremities Exam Extremities exam: Present: normal inspection. Absent: tenderness, pedal edema, joint swelling - Neurological Exam Neurological exam: Present: alert, oriented X3 - Psychiatric Psychiatric exam: Present: agitated - Skin Skin exam: Present: warm, dry, intact, normal color Course Course Narrative: 48 year old female presents for chest pain for 4 days. Intermittent sharp chest pain that radiates to left arm. Feels same as previous heart attack. No triggers. Admits being under lot of stress recently. Patient is alert and oriented. She appears in distress. Vitals are all WNL. On exam, there is chest tenderness to palpation. Otherwise, physical exam is unremarkable. EMS already administered 3 doses of nitro and 4 baby ASAs. Will order chest pain workup. - Reevaluation(s) Reevaluation #1: EKG shows no acute ischemic changes. Patient reports pain is improved from 8/10 to 5/10. Will repeat EKG. Repeat EKG shows no ischemic changes. CBC is unremarkable. BMP shows elevated glucose at 200, otherwise unremarkable. Troponin is elevated at 0.06. CXR shows increased right hilar density, followup CT chest recommended. Patient states that chest pain is gone. Discussed results with patient. Patient voiced understanding and is agreeable to discharge. Will admit and consult Cardiology. Hospitalist Dr. Ascencio agreed to admit. Cardiology accepts consult. Patient is supposed to be on xarelto and brillinta, but did not take for 1 week due to running out. Will provide shot of lovenox, per hospitalist and honing machine operator tool recommendation. Cardiology recommends holding xarelto since lovenox will be administered. Time: 18:17 Vital Signs Temperature 97.7 F 05/21/18 16:40 Pulse Rate 67 05/21/18 16:40 Respiratory Rate 20 05/21/18 16:40 Blood Pressure 118/73 05/21/18 16:40 O2 Sat by Pulse Oximetry 100 05/21/18 16:40 Temperature 97.7 F 05/21/18 16:40 Pulse Rate 67 05/21/18 16:40 Respiratory Rate 20 05/21/18 16:40 Blood Pressure 118/73 05/21/18 16:40 O2 Sat by Pulse Oximetry 100 05/21/18 16:40 Oxygen Delivery Oxygen Delivery Room Air Chest Pain - MDM Narrative Medical decision making narrative: Chest X-Ray 05/21/18 16:45 IMPRESSION: 1. No acute cardiopulmonary process. 2. Right infrahilar density appears more conspicuous compared to multiple prior chest x-rays cannot exclude developing right hilar mass. Chest CT with IV contrast recommended for further evaluation. D/ / 05/21/2018 17:19:40 Jese Darden MD / bcarter Interpreting Provider: Jese Darden MD - Medical Records Medical records reviewed: Yes I reviewed the patient's medical records. - Lab Data Lab results reviewed: Yes I reviewed the patient's lab results. Result diagrams: 05/21/18 17:03 Lab Results 05/21/18 Range/Units 17:03 WBC 10.7 (4.3-11.1) K/mcL RBC 4.47 (3.82-4.97) M/mcL Hgb 12.4 (11.5-15.4) g/dL Hct 38.4 (35.3-44.9) % MCV 85.9 (83.0-100.0) fL MCH 27.7 L (28.0-33.3) pg MCHC 32.3 (31.6-35.5) g/dL RDW 13.2 (11.5-14.5) % Plt Count 280 (140-400) K/mcL MPV 9.8 (9.4-12.4) fL Immature Gran % 0.4 (0-4) % Seg Neutrophils % 67.1 % Lymphocytes % 26.1 % Monocytes % 4.7 % Eosinophils % 1.2 % Basophils % 0.5 % Neutrophils # 7.2 (1.6-8.9) K/mcL Lymphocytes # 2.8 (0.6-4.6) K/mcL Monocytes # 0.5 (0.0-1.3) K/mcL Eosinophils # 0.1 (0.0-0.6) K/mcL Basophils # 0.1 (0.0-0.2) K/mcL - Radiology Data Radiology results reviewed: Yes I reviewed the patient's radiology results. - EKG Data EKG attestation: Yes I reviewed and interpreted this EKG. EKG results narrative: EKG 05/21/18 16:42. Sinus rhythm. Heart rate 62. No ST segment elevation or dep ression. Repeat EKG 05/21/18 17:37. Sinus rhythm. Heart rate 63. No ST segment elevation or depression.
[2018-05-21 17:40] LABS: BUN/Creatinine Ratio 22 (6-26); Blood Urea Nitrogen 17 mg/dL (6-20); Calcium 8.6 mg/dL (8.6-10.3); Carbon Dioxide 24 mEq/L (23-29); Chloride 107 mEq/L (98-107); Glucose 207 mg/dL (70-105); Osmolality,Calculated 294 (280-300); Potassium 3.9 mEq/L (3.5-5.1); Sodium 138 mEq/L (136-145); eGFR For Non-African Americans > 60 (> 60)
[2018-05-21 17:42] LABS: Troponin I 0.06 ng/mL (< 0.04)
[2018-05-21] MEDS ORDERED: *HR* Enoxaparin 80 MG/0.8 ML SYRINGE SQ ONE (18:15)
--- NOTE | 2018-05-21 18:20 | Internal Med History&Physical ---
Date of Encounter: 05/21/18 Time of Encounter: 18:13 Internal Medicine - H&P: HPI Chief complaint: Chest pain Admitted From: Home Plans for Post Hospital Care: Home History of present illness: Ms. Lisa is a 48 year old female with history of CAD status post 4 stents last one in January 2018 adn Afib on xarelto presented to the emergency department with complaint of chest pain. Her pain started about 4 days ago and has been intermittent but occurring more frequently as the days go by. Pain is located in the left side of the chest, radiating to the left shoulder, 5-6 out of 10 in severity and pressure-like. Her pain lasts anywhere from 15 min to 2 hrs and is self-limiting. She reports that her pain is similar to the pain that she has had during her previous myocardial infarctions. She reports that her chest pain is associated with shortness of breath, it is relieved by rest and aggravated by ambulation. In January she was just discharged on aspirin, brillinta and xarelto however she has not taken her medications for the past week as she ran out and was unable to refill the medications. Since her pain was similar to the pain that she has had previously she decided to call the EMS. EMS administered 3 doses of nitroglycerin and 4 baby aspirins without relief so she was brought to the emergency department for further evaluation. In the ED she was given 2 additional nitroglycerin with resolution of her pain. she denies fever, chills, N/V/D, calf tenderness, orthopnea, leg swelling, heat or cold intolerance, heavy lifting, recent URTI Past Med Surg Social Fam HX - Past Medical History Medical history: asthma, COPD, coronary artery disease, diabetes, GERD, hyperlipidemia, hypertension, myocardial infarction, TIA, other Additional medical history: X 5 MINI STROKES Psychiatric history: anxiety, depression - Past Surgical History Surgical History: angioplasty/stent Additional surgical history: tubal ligation. CATH WITH STENT PLACEMENT - Social History Smoking Status: Current every day smoker Smokeless Tobacco Status: No Alcohol use: none Drug use: none - Family History Mother Living Status: Still Living Hx Family Cardiac Disorders: Yes (HTN) Father Living Status: Hx Family Cardiac Disorders: Yes Hx Family Endocrine Disorder: Yes (DM) Internal Medicine - H&P: Meds Albuterol Sulfate [Ventolin Hfa] 1 puff IH TID PRN 01/11/17 [History] Fluticasone/Vilanterol [Breo Ellipta 100-25 Mcg INH] 1 puff IH DAILY 11/26/17 [History] HydrOXYzine Pamoate [Vistaril] 50 mg PO BID 11/26/17 [History] Loratadine [Claritin] 10 mg PO DAILY 12/28/17 [History] Aspirin Enteric Coated [Aspirin EC] 81 mg PO DAILY #30 tablet.dr 01/01/18 [Rx] Atorvastatin [Lipitor] 40 mg PO HS #30 tablet 01/01/18 [Rx] Nitroglycerin 0.4 mg SL Q5MIN PRN #30 tab.subl 01/01/18 [Rx] Rivaroxaban [Xarelto] 20 mg PO 1700 #30 tablet 01/01/18 [Rx] Ticagrelor [Brilinta] 90 mg PO BID #60 tablet 01/01/18 [Rx] Diclofenac Sodium [Voltaren] 50 mg PO BID 01/28/18 [History] Glimepiride [Amaryl] 4 mg PO DAILY 01/28/18 [History] Metoprolol [Lopressor] 25 mg PO BID 01/28/18 [History] Omeprazole [PriLOSEC] 40 mg PO DAILY 01/28/18 [History] Albuterol Sulfate [Albuterol Inhaler] 2 puff IH Q4HR #1 hfa.aer.ad 02/20/18 [Rx] Insulin Glargine [Lantus] 80 unit SQ BID 7 Days mls 02/20/18 [Rx] Allergy/AdvReac Type Severity Reaction Status Date / Time Amoxicillin Allergy Hives Verified 05/21/18 16:46 Penicillins Allergy Hives Verified 05/21/18 16:46 venlafaxine [From Effexor] Allergy Itching Verified 03/03/18 23:18 ibuprofen AdvReac Nausea Verified 05/21/18 16:46 All Systems PM: A 10-system review of systems was performed and is negative for pertinent findings except as documented above in the HPI. - Constitutional Vitals: Temp Pulse Resp BP Pulse Ox 97.7 F 67 20 118/73 100 05/21/18 16:40 05/21/18 16:40 05/21/18 16:40 05/21/18 16:40 05/21/18 16:40 Exam: General: Patient is alert, oriented, no acute distress, Head: atraumatic, normocephalic, Eye: normal appearance, PERRL, no scleral icterus, no conjunctival injection ENT: mucous membranes moist, normal external ear exam Neck: normal inspection, trachea midline, full ROM, no carotid bruits Chest: normal inspection, symmetric chest rise Respiratory: Good respiratory effort. Bilateral breath sounds are clear without wheezing, crackles, or rhonchi. Cardiovascular: Regular rate and rhythm. s1 and s2 No clicks, rubs, gallops, or murmors. Abdomen: Bowel sounds present normoactive x-4 quadrants. Abdomen is soft, nondistended. no Epigastric tenderness. No guarding or rebound. No organomegaly noted, obese musculoskeletal: Spontaneously moving all extremities. no edema, no calf tenderness Skin: warm, dry, intact. Neuro: Alert and oriented x4. Sensation light touch intact. Cranial nerves 2- 12 is intact. Not aphasic, gait is steady, rapid hand movements intact, [id number] intact, Psych: Patient's affect is normal Internal Med - H&P Results - Labs CBC & Chem 7: 05/21/18 17:03 05/21/18 17:03 Labs: Short CBC 05/21/18 Range/Units 17:03 WBC 10.7 (4.3-11.1) K/mcL Hgb 12.4 (11.5-15.4) g/dL Hct 38.4 (35.3-44.9) % Plt Count 280 (140-400) K/mcL Neutrophils # 7.2 (1.6-8.9) K/mcL BMP 05/21/18 17:03 Sodium 138 Potassium 3.9 Chloride 107 Carbon Dioxide 24 BUN 17 Creatinine 0.76 Glucose 207 H Calcium 8.6 Cardiac Enzymes 05/21/18 Range/Units 17:03 Troponin I 0.06 H* (< 0.04) ng/mL - EKG Data -: EKG Interpreted by Myself (NSR, ST-T changes in leads 2,3, QTC 468 ) - EKG Data Prior EKG available for review: yes - Impressions ITS Impressions Chest X-Ray 05/21/18 16:45 IMPRESSION: 1. No acute cardiopulmonary process. 2. Right infrahilar density appears more conspicuous compared to multiple prior chest x-rays cannot exclude developing right hilar mass. Chest CT with IV contrast recommended for further evaluation. D/ / 05/21/2018 17:19:40 Jese Darden MD / bcarter Interpreting Provider: Jese Darden MD - Assessment and plan (1) NSTEMI (non-ST elevated myocardial infarction) Current Visit: Yes Status: Acute Assessment and plan: troponin 0.06 Cardiology was consulted in the emergency department recommended to hold Xarelto and administer 1 dose of therapeutic Lovenox Continue with aspirin and Brillinta Continue statins, beta blockers follow troponins and EKG Q6H cardiac monitoring continuous pulse OX Rest of the management as per cardiology team TTE 12/2017 Impressions: LVEF 55-60%. Normal LV chamber size, wall thickness and overall function. Mild segmental left ventricular systolic dysfunction. Mild left ventricular diastolic dysfunction. Normal right ventricular structure and function. Unable to estimate RVSP due to lack of TR jet. No significant valvular dysfunction. (2) PAF (paroxysmal atrial fibrillation) Current Visit: No Status: Acute Assessment and plan: continue rate control medications received therapeutic lovenox (3) COPD (chronic obstructive pulmonary disease) Current Visit: No Status: Acute Assessment and plan: We will continue home medications Currently not an exacerbation Qualifiers: COPD type: chronic bronchitis Chronic bronchitis type: simple Qualified Code(s): J41.0 - Simple chronic bronchitis (4) Diabetes Current Visit: No Status: Chronic Assessment and plan: We will continue home dose long-acting insulin Cover with sliding scale as per fingersticks A1c in AM Qualifiers: Diabetes mellitus type: type 2 Diabetes mellitus fci insulin use: unspecified exterminator insulin use status Diabetes mellitus complication status: with circulatory complication Diabetes mellitus complication detail: with other circulatory complications Qualified Code(s): E11.59 - Type 2 diabetes mellitus with other circulatory complications (5) Hypertension Current Visit: No Status: Chronic Assessment and plan: Continue home medications Qualifiers: Hypertension type: essential hypertension (6) DVT prophylaxis Current Visit: No Status: Acute Assessment and plan: Received Lovenox (7) Tobacco abuse Current Visit: No Status: Acute Assessment and plan: was counseled - Time Spent With Patient Total time spent is greater than 50% in coordination of care (as documented) at patient's floor/unit and/or counseling patient:
[2018-05-21] MEDS ORDERED: Nitroglycerin 0.4 MG TAB.SUBL SL PRN (18:24)
[2018-05-21] MEDS ORDERED: *HR* Enoxaparin 80 MG/0.8 ML SYRINGE SQ STA (18:28)
[2018-05-21] MEDS ORDERED: Naloxone 0.4 MG/ML INJ IVP PRN (18:31)
[2018-05-21] MEDS ORDERED: D5% in Water 1,000 ML IVC PRN (20:41)
[2018-05-21] MEDS ORDERED: *HR* Dextrose 50 % in Water (Syg) 50 ML SYRINGE IVP PRN (20:41)
[2018-05-21] MEDS ORDERED: Dextrose Gel 15 GM/37.5 ML TUBE PO PRN ×2 (20:41)
[2018-05-21] MEDS: *HR* Ticagrelor 90 MG TABLET PO SCH ×2 (20:42→20:43)
[2018-05-21] MEDS: hydrOXYzine pamoate 25 MG CAPSULE PO SCH (20:43)
[2018-05-21] MEDS ORDERED: *HR* Ticagrelor 90 MG TABLET PO SCH (21:00)
[2018-05-22 00:31] LABS: Basophils # 0.1 K/mcL (0.0-0.2); Basophils % 0.6 %; Eosinophils # 0.2 K/mcL (0.0-0.6); Eosinophils % 1.7 %; Hematocrit 35.8 % (35.3-44.9); Hemoglobin 11.8 g/dL (11.5-15.4); Immature Granulocytes % 0.3 % (0-4); Lymphocytes # 3.1 K/mcL (0.6-4.6); Lymphocytes % 34.8 %; Mean Corpuscular Hemoglobin 28.2 pg (28.0-33.3); Mean Corpuscular Volume 85.4 fL (83.0-100.0); Mean Platelet Volume 10.1 fL (9.4-12.4); Monocytes # 0.5 K/mcL (0.0-1.3); Monocytes % 5.7 %; Neutrophils # 5.1 K/mcL (1.6-8.9); Platelet Count 257 K/mcL (140-400); Red Blood Count 4.19 M/mcL (3.82-4.97); Red Cell Distribution Width 13.3 % (11.5-14.5); Segmented Neutrophils % 56.9 %
[2018-05-22 00:43] LABS: Prothrombin Time 11.4 Seconds (9.4-12.1)
[2018-05-22 00:46] LABS: Activated Partial Thrombo Time 34.7 Seconds (26.0-36.0)
[2018-05-22 00:49] LABS: BUN/Creatinine Ratio 21 (6-26); Blood Urea Nitrogen 19 mg/dL (6-20); Calcium 8.3 mg/dL (8.6-10.3); Carbon Dioxide 26 mEq/L (23-29); Chloride 107 mEq/L (98-107); Chol/HDL Ratio 4.5 (0-4.9); Cholesterol 116 mg/dL (< 200); Glucose 224 mg/dL (70-105); HDL Cholesterol 26 mg/dL (40-59); LDL Cholesterol,Calculated 66 mg/dL (0-99); Magnesium 1.6 mg/dL (1.6-2.6); Osmolality,Calculated 295 (280-300); Phosphorous 4.5 mg/dL (2.7-4.5); Potassium 4.4 mEq/L (3.5-5.1); Sodium 138 mEq/L (136-145); Triglycerides 122 mg/dL (< 150); eGFR For Non-African Americans > 60 (> 60)
[2018-05-22 01:09] LABS: Estimated Average Glucose 171 mg/dl; Hemoglobin A1C 7.6 %
[2018-05-22] MEDS: Insulin LISPRO 300 UNITS/3 ML VIAL SQ SCH ×3 (01:18→12:35)
[2018-05-22] MEDS ORDERED: Aspirin Enteric Coated 81 MG Tablet PO SCH (09:00)
[2018-05-22] MEDS: hydrOXYzine pamoate 25 MG CAPSULE PO SCH (09:20)
[2018-05-22] MEDS: *HR* Ticagrelor 90 MG TABLET PO SCH (09:20)
--- NOTE | 2018-05-22 13:46 | Cardiology Consult Note ---
<Kenny Jaime T - Last Filed: 05/22/18 13:41> Date of Encounter: 05/22/18 Time of Encounter: 13:41 Assessment and Plan (1) NSTEMI (non-ST elevated myocardial infarction) Current Visit: Yes Status: Acute 48 YO F presenting with CP and SOB with significant heart history with 4 caths in the past year. Since her most recent cath she has been noncompliant with her brilinta. At her last cath she had the proximal mid LAD stented, and the RCA wa s noted to be partially ocluded but was not stented at the time. Considering stenosis of stent vs stenosis of RCA at this time. Since patient is noncompliant will not stress test at this time and recommend medical treatment at this time. - Rec switch brilinta to plavix - patient states her insurance will not cover brilinta - Rec follow outpatient with [facility] in [place] - Rec stop smoking Discussion w patient/family: The assessment and plan as outlined above was discussed with the patient and/or family members who expressed understanding and agreement. All questions were answered. Thank you for involving us in the care of your patient. Please call with any questions. History of Present Illness Consult date: 05/22/18 Chief complaint: Chest Pain History of present illness: Ms. Lisa is a 48 year old female presenting with 4 days of chest pain. Pain was intermittent, lasting minutes to hours, located left of sternum, radiating to shoulder, crushing, worse with exertion. Associated with SOB, diaphoresis, N/V. Patient was given nitro at ED which helped with CP sytmpoms. Currently patient does not have pain. She had history significant for 4 stents. Her most recent cath and stent was on 01/28 of the proximal mid LAD by DR. Lu. SHe is on , lipotor, metropolol tartrate, and ticagerolr. Patient has missed all her follow up cardiology appointments and has not been taking her brilinta. Troponins today are 0.07. Patient is a smoker. Her lipid profile was normal except a minor decrease of HDL at 26. Patient reports she has had a recent cold without fever or productive sputum. Past Med Surg Social Fam HX - Past Medical History Medical history: asthma, COPD, coronary artery disease, diabetes, GERD, hyperlipidemia, hypertension, myocardial infarction, TIA, other Additional medical history: X 5 MINI STROKES Psychiatric history: anxiety, depression - Past Surgical History Surgical History: angioplasty/stent Additional surgical history: tubal ligation. CATH WITH STENT PLACEMENT - Social History Smoking Status: Current every day smoker Smokeless Tobacco Status: No Alcohol use: none Drug use: none - Family History Mother Living Status: Still Living Hx Family Cardiac Disorders: Yes (HTN) Father Living Status: Hx Family Cardiac Disorders: Yes Hx Family Endocrine Disorder: Yes (DM) Medications and Allergies Albuterol Sulfate [Ventolin Hfa] 1 puff IH TID PRN 01/11/17 [History] Fluticasone/Vilanterol [Breo Ellipta 100-25 Mcg INH] 1 puff IH DAILY 11/26/17 [History] HydrOXYzine Pamoate [Vistaril] 50 mg PO BID 11/26/17 [History] Loratadine [Claritin] 10 mg PO DAILY 12/28/17 [History] Aspirin Enteric Coated [Aspirin EC] 81 mg PO DAILY #30 tablet.dr 01/01/18 [Rx] Atorvastatin [Lipitor] 40 mg PO HS #30 tablet 01/01/18 [Rx] Nitroglycerin 0.4 mg SL Q5MIN PRN #30 tab.subl 01/01/18 [Rx] Rivaroxaban [Xarelto] 20 mg PO 1700 #30 tablet 01/01/18 [Rx] Ticagrelor [Brilinta] 90 mg PO BID #60 tablet 01/01/18 [Rx] Diclofenac Sodium [Voltaren] 50 mg PO BID 01/28/18 [History] Glimepiride [Amaryl] 4 mg PO DAILY 01/28/18 [History] Metoprolol [Lopressor] 25 mg PO BID 01/28/18 [History] Insulin Glargine [Lantus] 80 unit SQ BID 7 Days mls 02/20/18 [Rx] Omeprazole [PriLOSEC] 20 mg PO DAILY 05/22/18 [History] Allergy/AdvReac Type Severity Reaction Status Date / Time Amoxicillin Allergy Hives Verified 05/21/18 16:46 Penicillins Allergy Hives Verified 05/21/18 16:46 venlafaxine [From Effexor] Allergy Itching Verified 03/03/18 23:18 ibuprofen AdvReac Nausea Verified 05/21/18 16:46 All Systems Review: The remainder of the systems were reviewed and are negative - Constitutional Constitutional: no chills, no daytime sleepiness, no fatigue, no night sweats, no weakness - Cardiovascular Cardiovascular: as per HPI - Respiratory Respiratory: cough - Gastrointestinal Gastrointestinal: no abdominal pain Physical Examination Vital Signs, Last 4 Hours Temp Pulse Resp BP Pulse Ox 05/22/18 11:48 97.5 F L 75 16 124/79 100 05/22/18 10:52 18 98 General: Conversant, No Apparent Distress HEENT: Atraumatic Neck: No JVD, Normal carotid pulses Cardiac: Reg Rate and Rhythm, Normal S1 and S2, No Murmur Lungs: Normal Breath Sounds, No Wheeze, Rales, Rhonchi Neuro: Alert and responsive, No focal deficits noted Abdomen: Soft, Non-Tender Skin: No rashes noted on visualized skin Musculoskeletal: No Chest Wall Tenderness Extremities: No Clubbing, No Cyanosis, No Edema, Normal Pulses Results 05/22/18 00:17 05/22/18 00:17 Lab Results 05/21/18 05/21/18 05/22/18 17:03 17:03 00:17 WBC 10.7 Hgb 12.4 Hct 38.4 Plt Count 280 INR APTT Sodium 138 Potassium 3.9 Chloride 107 Carbon Dioxide 24 BUN 17 Creatinine 0.76 Glucose 207 H Calcium 8.6 Magnesium Troponin I 0.06 H* 0.06 H* 05/22/18 05/22/18 05/22/18 00:17 00:17 00:17 WBC 8.9 Hgb 11.8 Hct 35.8 Plt Count 257 INR 1.0 APTT 34.7 Sodium 138 Potassium 4.4 Chloride 107 Carbon Dioxide 26 BUN 19 Creatinine 0.89 Glucose 224 H Calcium 8.3 L Magnesium 1.6 Troponin I 05/22/18 06:08 WBC Hgb Hct Plt Count INR APTT Sodium Potassium Chloride Carbon Dioxide BUN Creatinine Glucose Calcium Magnesium Troponin I 0.07 H* - Imaging and Cardiology Cardiac cath: other (not done due to noncompliance with brilinta) - EKG Interpretation EKG results cardiology: personally reviewed, no diagnostic ischemia Consult Discharge Plan - Plan Additional Instructions: Cardiology will call you to establish you with a mobile marketing manager from [place] and set up an appointment. Referrals: Octavio Pickard DO [Primary Care Provider] - <Jus Joseph - Last Filed: 05/22/18 16:19> Date of Encounter: 05/22/18 - Attending Attestation I have personally performed a face to face evaluation on this patient. I have reviewed and agree with the care plan as documented by the resident. History and Exam by me shows: 48-year-old female with recent stent in January 2018 and discharged on aspirin and Brillinta. She stopped taking Brillinta, 2 months ago because of insurance issues. She has not seen any mobile marketing manager since January as she has not been able to obtain transportation according to her. Presenting with atypical chest pain. No acute EKG changes. Recommend to switch Brillinta to Plavix. Please load Plavix 300 mg stat then continue 75 mg daily. Continue aspirin 81 mg daily, high intensity statin, beta monica and MILAN inhibitor. We will try and see if patient can follow-up at [place], when she leaves , with a mobile marketing manager. Thanks, Jus Joseph MD Assessment and Plan Discussion w patient/family: The assessment and plan as outlined above was discussed with the patient and/or family members who expressed understanding and agreement. All questions were answered. Thank you for involving us in the care of your patient. Please call with any questions. History of Present Illness History of present illness: Ms. Lisa is a 48 year old female All Systems Review: The remainder of the systems were reviewed and are negative Physical Examination Vital Signs, Last 4 Hours Temp Pulse Resp BP Pulse Ox 05/22/18 15:35 98.5 F 68 16 111/69 99 Results 05/22/18 00:17 05/22/18 00:17 Lab Results 05/21/18 05/21/18 05/22/18 17:03 17:03 00:17 WBC 10.7 Hgb 12.4 Hct 38.4 Plt Count 280 INR APTT Sodium 138 Potassium 3.9 Chloride 107 Carbon Dioxide 24 BUN 17 Creatinine 0.76 Glucose 207 H Calcium 8.6 Magnesium Troponin I 0.06 H* 0.06 H* 05/22/18 05/22/18 05/22/18 00:17 00:17 00:17 WBC 8.9 Hgb 11.8 Hct 35.8 Plt Count 257 INR 1.0 APTT 34.7 Sodium 138 Potassium 4.4 Chloride 107 Carbon Dioxide 26 BUN 19 Creatinine 0.89 Glucose 224 H Calcium 8.3 L Magnesium 1.6 Troponin I 05/22/18 06:08 WBC Hgb Hct Plt Count INR APTT Sodium Potassium Chloride Carbon Dioxide BUN Creatinine Glucose Calcium Magnesium Troponin I 0.07 H*
--- NOTE | 2018-05-22 14:02 | Internal Med Progress Note ---
Hospitalist Progress Note - Encounter Date of Encounter: 05/22/18 Time of Encounter: 11:30 - Subjective Interval History: Ms. Lisa is a 48 year old female with history of CAD status post 4 stents last one in January 2018 adn Afib on xarelto presented to the emergency department with complaint of chest pain. Her pain started about 4 days ago and has been i ntermittent but occurring more frequently lately. Patient was admitted in the hospital and placed her on desk monitor. Her troponin started trending up slowly, this morning @ 0.07. She denied any more CP now. Apparently patient stopped taking her brilinta since she was not able to afford, also she is not following up with her PCP and the environmental projects advisor as she should because of transportation issues. - Exam Vitals: Temp Pulse Resp BP Pulse Ox 97.5 F L 75 16 124/79 100 05/22/18 11:48 05/22/18 11:48 05/22/18 11:48 05/22/18 11:48 05/22/18 11:48 Exam: Gen: Alert, awake, Oriented to time,place and person Chest: Diminished breath sounds B/L, No wheezing, No crackles, No rales Heart: S1S2+ RRR No murmurs Abd: Soft, NT, BS +, No organomegaly Ext: No edema, pulses are palpable, No calf tenderness Neuro : Benign findings Skin: No rash. - Assessment and Plan (1) NSTEMI (non-ST elevated myocardial infarction) Current Visit: Yes Status: Acute Assessment and Plan: troponin peaked at 0.07 Denied any active CP now EKG did not show any acute ischemic changes patient stopped taking her brilinta since she was not able to afford so will load her with Plavix tonight at 300mg and continue Plavix 75 Daily in AM If CP persists may need LHC.. Talked to card about this plan Continue Lovenox for now for therapeutic anticoagulation Held Xarelto (2) PAF (paroxysmal atrial fibrillation) Current Visit: No Status: Acute Assessment and Plan: Rate controlled with current medications Holding Xarelto and continue therapeutic lovenox for anticoagulation if patient needs any procedures for her chest pain (3) Hypertension Current Visit: No Status: Chronic Assessment and Plan: Stable with home medications Continue home medications (4) Diabetes Current Visit: No Status: Chronic Assessment and Plan: HbA1C 7.6 Cont ADA diet and ISS + Levemir (5) COPD (chronic obstructive pulmonary disease) Current Visit: No Status: Acute Assessment and Plan: Currently not an exacerbation resumed home inhalers (6) DVT prophylaxis Current Visit: No Status: Acute Assessment and Plan: on Lovenox (7) Tobacco abuse Current Visit: No Status: Acute Assessment and Plan: Counseled to quit smoking placed on nicotine patch - Time Spent with Patient Total time spent is greater than 50% in coordination of care (as documented) at patient's floor/unit and/or counseling patient: Internal Medicine: Result - Labs CBC & Chem 7: 05/22/18 00:17 05/22/18 00:17 Labs: Short CBC 05/21/18 05/22/18 Range/Units 17:03 00:17 WBC 10.7 8.9 (4.3-11.1) K/mcL Hgb 12.4 11.8 (11.5-15.4) g/dL Hct 38.4 35.8 (35.3-44.9) % Plt Count 280 257 (140-400) K/mcL Neutrophils # 7.2 5.1 (1.6-8.9) K/mcL BMP 05/21/18 05/22/18 17:03 00:17 Sodium 138 138 Potassium 3.9 4.4 Chloride 107 107 Carbon Dioxide 24 26 BUN 17 19 Creatinine 0.76 0.89 Glucose 207 H 224 H Calcium 8.6 8.3 L Cardiac Enzymes 05/21/18 05/22/18 05/22/18 Range/Units 17:03 00:17 06:08 Troponin I 0.06 H* 0.06 H* 0.07 H* (< 0.04) ng/mL - ABG Interpretation ABG results: PT/INR, D-dimer PT 11.4 Seconds (9.4-12.1) 05/22/18 00:17 - Impressions Impressions Chest X-Ray 05/21/18 16:45 IMPRESSION: 1. No acute cardiopulmonary process. 2. Right infrahilar density appears more conspicuous compared to multiple prior chest x-rays cannot exclude developing right hilar mass. Chest CT with IV contrast recommended for further evaluation. D/ / 05/21/2018 17:19:40 Jese Darden MD / jeffrey Interpreting Provider: Jese Darden MD Consult Discharge Plan - Plan Additional Instructions: Cardiology will call you to establish you with a environmental projects advisor from [place] and set up an appointment. Referrals: Octavio Pickard, DO [Primary Care Provider] - (3) Hypertension Qualifiers: Hypertension type: essential hypertension (4) Diabetes Qualifiers: Diabetes mellitus type: type 2 Diabetes mellitus fci insulin use: unspecified bed bug exterminator insulin use status Diabetes mellitus complication status: with circulatory complication Diabetes mellitus complication detail: with other circulatory complications Qualified Code(s): E11.59 - Type 2 diabetes mellitus with other circulatory complications (5) COPD (chronic obstructive pulmonary disease) Qualifiers: COPD type: chronic bronchitis Chronic bronchitis type: simple Qualified Code(s): J41.0 - Simple chronic bronchitis
[2018-05-22] MEDS ORDERED: Insulin LISPRO 300 UNITS/3 ML VIAL SQ SCH ×2 (16:30→21:00)
[2018-05-22] MEDS ORDERED: *HR* Enoxaparin 80 MG/0.8 ML SYRINGE SQ SCH (18:08)
[2018-05-22 18:37] VITALS: BP 135/85
--- NOTE | 2018-05-22 19:45 | Electrocardiograph Report ---
[place] [id number] Test Date: 2018-05-21 Pat Name: Shahnaz Lisa Department: EXAM22 Room: 3B66 Gender: F Manager Tax: : 1970 Requested By: Juanis Osborne Order Number: [id number] Reading MD: Joseph Wagoner Measurements Intervals [place] Rate: 62 P: -22 MA: 141 QRS: 80 QRSD: 83 T: 45 QT: 459 QTc: 467 Interpretive Statements Sinus rhythm Atrial premature complex Nonspecific ST-T changes Electronically Signed On 05-22-2018 19:43:32 EDT by Joseph Wagoner
--- NOTE | 2018-05-22 19:46 | Electrocardiograph Report ---
[address] [address] Test Date: 2018-05-21 Pat Name: Shahnaz Lisa Department: EXAM22 Room: 3B Gender: F Fire Inspector: : 1970 Requested By: Orville Gillette Order Number: [id number] Reading MD: Joseph Wagoner Measurements Intervals [place] Rate: 63 P: 47 SC: 160 QRS: 77 QRSD: 86 T: 22 QT: 457 QTc: 468 Interpretive Statements Sinus rhythm Electronically Signed On 05-22-2018 19:45:07 EDT by Joseph Wagoner
--- NOTE | 2018-05-22 19:55 | Electrocardiograph Report ---
[place] [address] Test Date: 2018-05-22 Pat Name: Shahnaz Lisa Department: 113 Room: 3B Gender: F Circulation Analyst: : 1970 Requested By: Silva Traore Order Number: [id number] Reading MD: Joseph Wagoner Measurements Intervals [place] Rate: 72 P: 45 HI: 187 QRS: 38 QRSD: 98 T: 48 QT: 404 QTc: 429 Interpretive Statements SINUS RHYTHM Electronically Signed On 05-22-2018 19:53:56 EDT by Joseph Wagoner
--- NOTE | 2018-05-25 16:09 | Discharge Summary ---
- NOTES TO OUTPATIENT PROVIDER Notes to Outpatient Provider: f/u with PCP Date of Encounter: 05/25/18 Time of Encounter: 16:04 - Discharge Diagnosis (1) NSTEMI (non-ST elevated myocardial infarction) Priority: Primary Status: Acute (2) PAF (paroxysmal atrial fibrillation) Priority: Primary Status: Acute (3) Hypertension Priority: Secondary Status: Chronic Qualifiers: Hypertension type: essential hypertension (4) Diabetes Priority: Secondary Status: Chronic Qualifiers: Diabetes mellitus type: type 2 Diabetes mellitus jail insulin use: unspecified manager intermediate insulin use status Diabetes mellitus complication status: with circulatory complication Diabetes mellitus complication detail: with other circulatory complications Qualified Code(s): E11.59 - Type 2 diabetes mellitus with other circulatory complications (5) COPD (chronic obstructive pulmonary disease) Priority: Secondary Status: Acute Qualifiers: COPD type: chronic bronchitis Chronic bronchitis type: simple Qualified Code(s): J41.0 - Simple chronic bronchitis (6) DVT prophylaxis Priority: Secondary Status: Acute (7) Tobacco abuse Priority: Secondary Status: Acute Hospital course: Ms. Lisa is a 48 year old female with history of CAD status post 4 stents last one in January 2018 adn Afib on xarelto presented to the emergency department with complaint of chest pain. Her pain started about 4 days ago and has been intermittent but occurring more frequently lately. Patient was admitted in the hospital and placed her on monitoring tech. Her troponin started trending up slowly, this morning @ 0.07. She denied any more CP now. Apparently patient stopped taking her brilinta since she was not able to afford, also she is not following up with her PCP and the entry level programmer as she should because of transportation issues. We admit the patient the hospital and placed her on tele. Checked her serial troponins. She denied any more CP. Since she is not able to afford Brilinta, we were planning on placing her on Plavix. By end of the day she wanted to leave AMA. My colleague Laurent Wesley tried to convince here, however she still decided to leave AMA. So we gave her Plavix 300 loading dose that night and Rx for Plavix 75mg PO daily. I was not in the hospital when pt left AMA. - Time Spent with Patient Total time spent providing and/or coordinating discharge services: - Discharge Medications Home Medications: Albuterol Sulfate [Ventolin Hfa] 1 puff IH TID PRN 01/11/17 [History] Fluticasone/Vilanterol [Breo Ellipta 100-25 Mcg INH] 1 puff IH DAILY 11/26/17 [History] HydrOXYzine Pamoate [Vistaril] 50 mg PO BID 11/26/17 [History] Loratadine [Claritin] 10 mg PO DAILY 12/28/17 [History] Aspirin Enteric Coated [Aspirin EC] 81 mg PO DAILY #30 tablet.dr 01/01/18 [Rx] Atorvastatin [Lipitor] 40 mg PO HS #30 tablet 01/01/18 [Rx] Nitroglycerin 0.4 mg SL Q5MIN PRN #30 tab.subl 01/01/18 [Rx] Rivaroxaban [Xarelto] 20 mg PO 1700 #30 tablet 01/01/18 [Rx] Ticagrelor [Brilinta] 90 mg PO BID #60 tablet 01/01/18 [Rx] Diclofenac Sodium [Voltaren] 50 mg PO BID 01/28/18 [History] Glimepiride [Amaryl] 4 mg PO DAILY 01/28/18 [History] Metoprolol [Lopressor] 25 mg PO BID 01/28/18 [History] Insulin Glargine [Lantus] 80 unit SQ BID 7 Days mls 02/20/18 [Rx] Omeprazole [PriLOSEC] 20 mg PO DAILY 05/22/18 [History] Allergies/Adverse Reactions: Allergy/AdvReac Type Severity Reaction Status Date / Time Amoxicillin Allergy Hives Verified 05/21/18 16:46 Penicillins Allergy Hives Verified 05/21/18 16:46 venlafaxine [From Effexor] Allergy Itching Verified 03/03/18 23:18 ibuprofen AdvReac Nausea Verified 05/21/18 16:46 Date of admission: 05/21/18 18:28 Primary care physician: Octavio Pickard DO Consults: 05/22/18 08:46 Consult to Cardiology [CONS] Routine Comment: Consulting Provider: Cardiology Le[place] Reason for Consult: Acute chest pain.. NSTEMI Time Notified: 08:46 Call Completed: Yes 05/22/18 11:26 Consult to Licensed Occupational Therapist [CONS] Routine Reason for SW Consult: financial concerns concerning medications and making it to her appointments - Constitutional Vitals: Temp Pulse Resp BP Pulse Ox 97.8 F 78 15 135/85 95 05/22/18 18:32 05/22/18 18:32 05/22/18 18:32 05/22/18 18:32 05/22/18 18:32 Exam: aa - Patient Status Disposition: Left Against Medical Advice Condition: Good - Discharge Instructions Follow Up With: Octavio Pickard, [Primary Care Provider] - Additional Instructions: Cardiology will call you to establish you with a entry level programmer from [place] and set up an appointment.
== END 2018-05-22 19:01 | disposition left against medical advice (07) ==
LOC: 3BNU 16:34 → EMEROOARM 16:34 → 3BNU 20:17
PROVIDERS: ADMIT Internal Medicine; ATTEND Internal Medicine

== ENCOUNTER 2018-07-30 19:04 | Observation (INO) ==
--- NOTE | 2018-07-30 19:12 | Emergency Department Note ---
Disposition Clinical Impression: Chest pain Qualifiers: Chest pain type: unspecified Qualified Code(s): R07.9 - Chest pain, unspecified Disposition: Admitted As Inpatient Time of Disposition: 21:08 General Adult HPI - General Stated complaint: chest pain Time Seen by Provider: 07/30/18 19:12 Source: patient Mode of arrival: EMS Limitations: no limitations Nursing Notes Reviewed: Yes Vital Signs Reviewed: Yes - History of Present Illness HPI Narrative: Patient is a 48-year-old female presented with chest pain. Patient has significant past medical history significant for coronary artery disease status post stenting 4, hypertension, hyperlipidemia, diabetes. Patient was recently admitted for an NSTEMI May 21, however left AMA prior to left heart catheter. Prior to this patient was diagnosed with a STEMI in December with stent placement. Patient states that an hour and half prior to arrival she was sitting in her home and began to have left-sided chest pressure that radiated into the left arm she has associated diaphoresis, nausea as well as shortness of breath. A lot home, she did take 2 nitroglycerin pills, which did not change her symptoms. When EMS arrived, she received 3 total nitroglycerin which brought her down to 1 out of 10 pain. She was also given 4 total aspirin while in the EMS. She states that currently she has pain 1-2 out of 10.She has not had similar pain since her last admission. Feels very similar to when she had her MIs in the past. No abdominal pain, fevers or chills. - Related Data Home Medications Medication Instructions Recorded Confirmed RX: Albuterol Sulfate [Ventolin 1 puff IH TID PRN 01/11/17 07/30/18 Hfa] RX: Loratadine [Claritin] 10 mg PO DAILY 12/28/17 07/30/18 RX: Glimepiride [Amaryl] 4 mg PO DAILY 01/28/18 07/30/18 RX: Metoprolol [Lopressor] 25 mg PO BID 01/28/18 07/30/18 RX: Omeprazole [PriLOSEC] 20 mg PO DAILY 05/22/18 07/30/18 Insulin Glargine,Hum.rec.anlog 80 unit SQ BID 07/30/18 07/30/18 [Basaglar Abdelrahman U-100] hydrOXYzine HCl [Hydroxyzine HCl] 50 mg PO BID PRN 07/30/18 07/30/18 Previous Rx's Medication Instructions Recorded RX: Aspirin Enteric Coated 81 mg PO DAILY #30 tablet. 01/01/18 [Aspirin EC] RX: Atorvastatin [Lipitor] 40 mg PO HS #30 tablet 01/01/18 RX: Nitroglycerin 0.4 mg SL Q5MIN PRN #30 tab.subl 01/01/18 RX: Rivaroxaban [Xarelto] 20 mg PO 1700 #30 tablet 01/01/18 RX: Ticagrelor [Brilinta] 90 mg PO BID #60 tablet 01/01/18 RX: Insulin Glargine [Lantus] 80 unit SQ BID 7 Days mls 02/20/18 Allergies Allergy/AdvReac Type Severity Reaction Status Date / Time Amoxicillin Allergy Hives Verified 07/30/18 19:13 Penicillins Allergy Hives Verified 07/30/18 19:13 venlafaxine [From Effexor] Allergy Itching Verified 07/30/18 19:13 ibuprofen AdvReac Nausea Verified 07/30/18 19:13 All systems ED: reviewed and negative except as stated. Review of Systems: As Per HPI Constitutional: Denies: fever, chills, weakness, weight change ENT ED: Denies: ear pain, throat pain, dental pain, hearing loss, epistaxis, congestion, dysphagia Cardiovascular: Reports: chest pain, dyspnea on exertion. Denies: palpitations, syncope Respiratory: Reports: dyspnea. Denies: cough, wheezes, hemoptysis, sputum p roduction Gastrointestinal: Reports: nausea. Denies: abdominal pain, vomiting, diarrhea, hematemesis, melena Genitourinary: Denies: dysuria, frequency, hematuria, discharge Musculoskeletal: Denies: back pain, neck pain, arthralgia, myalgia Integumentary: Denies: rash, abrasion, lesions Neurological: Denies: headache, weakness, numbness, paresthesias, confusion, abnormal gait, vertigo Psychiatric: Denies: anxiety Endocrine: Denies: fatigue Past Medical History - Past Medical History Attestation: Yes The following information was validated with the patient. 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 - Social History Smoking Status: Current every day smoker Smokeless Tobacco Status: No Alcohol use: Reports: none Drug use: Reports: none Physical Exam - General Limitations: no limitations General appearance: alert, in no apparent distress - Head Head exam: atraumatic, normocephalic, normal inspection - Eye Eye exam: Present: normal appearance, PERRL, EOMI - ENT ENT exam: normal exam, normal oropharynx, mucous membranes moist - Neck Neck exam: Present: normal inspection, full ROM, trachea midline - Chest Chest inspection: Present: normal inspection, symmetric chest wall rise - Respiratory Respiratory exam: Present: wheezes, prolonged expiratory phase. Absent: respiratory distress, accessory muscle use - Cardiovascular Cardiovascular exam: Present: regular rate, normal rhythm, normal heart sounds - Abdominal Exam Abdominal exam: Present: soft, Non-Tender. Absent: tenderness, distention, guarding, rebound, rigidity - Extremities Exam Extremities exam: Present: normal inspection, full ROM, normal capillary refill. Absent: tenderness, pedal edema - Back Exam Back exam: Present: normal inspection, full ROM. Absent: tenderness - Neurological Exam Neurological exam: Present: alert, oriented X3 - Psychiatric Psychiatric exam: Present: normal affect, normal mood - Skin Skin exam: Present: warm, dry, intact, normal color Course Vital Signs Temperature 98.8 F 07/30/18 19:13 Pulse Rate 67 07/30/18 19:13 Respiratory Rate 18 07/30/18 19:13 Blood Pressure 113/72 07/30/18 19:13 O2 Sat by Pulse Oximetry 100 07/30/18 19:13 Temperature 98.8 F 07/30/18 19:13 Pulse Rate 67 07/30/18 19:13 Respiratory Rate 18 07/30/18 19:13 Blood Pressure 113/72 07/30/18 19:13 O2 Sat by Pulse Oximetry 100 07/30/18 19:13 Oxygen Delivery Oxygen Delivery Room Air Medical Decision Making - MDM Narrative Medical decision making narrative: Patient is a 48-year-old female presented with chest pain. Has significant coronary artery disease status post stenting 4. Patient had recently been a dmitted in May 21, however left AMA prior to complete workup. Patient was diagnosed with an STEMI in May, STEMI in December where stents were placed. Patient states that she began having chest pain described as pressure is taken at this point in time 5 total nitroglycerin with resolution of pain. She has associated diaphoresis and nausea. As well as shortness of breath. On examination, patient is in no acute distress. Regular rate and rhythm. Does have scattered wheezing, however this is minimal. Clears with cough. CBC, BMP as well as troponin are all within normal limits. Chest x-ray shows no acute cardiopulmonary etiology. EKG was performed at 1916 which shows ventricular r ate of 80, regular rhythm, normal axis, no ST elevation or depression, no T-wave changes no old EKG was able to be obtained, no ischemic changes were noted. This point in time given patient's continued concern for ACS, feels though he most beneficial for the patient to be admitted for further workup and evaluation. I did discuss the patient with the hospitalist, he has excepted this point. - Medical Records Medical records reviewed: Yes I reviewed the patient's medical records. - Lab Data Lab results reviewed: Yes I reviewed the patient's lab results. Result diagrams: 07/31/18 01:31 07/31/18 01:31 Lab Results 07/30/18 07/30/18 07/30/18 Range/Units 19:43 19:43 19:43 WBC 7.6 (4.3-11.1) K/mcL RBC 3.91 (3.82-4.97) M/mcL Hgb 10.9 L (11.5-15.4) g/dL Hct 33.8 L (35.3-44.9) % MCV 86.4 (83.0-100.0) fL MCH 27.9 L (28.0-33.3) pg MCHC 32.2 (31.6-35.5) g/dL RDW 13.4 (11.5-14.5) % Plt Count 246 (140-400) K/mcL MPV 9.9 (9.4-12.4) fL Immature Gran % 0.3 (0-4) % Seg Neutrophils % 62.6 % Lymphocytes % 27.6 % Monocytes % 7.0 % Eosinophils % 2.1 % Basophils % 0.4 % Neutrophils # 4.8 (1.6-8.9) K/mcL Lymphocytes # 2.1 (0.6-4.6) K/mcL Monocytes # 0.5 (0.0-1.3) K/mcL Eosinophils # 0.2 (0.0-0.6) K/mcL Basophils # 0.0 (0.0-0.2) K/mcL PT 11.5 (9.4-12.1) Seconds INR 1.0 APTT 26.9 (26.0-36.0) Seconds Sodium 139 (136-145) mEq/L Potassium 4.3 (3.5-5.1) mEq/L Chloride 109 H (98-107) mEq/L Carbon Dioxide 28 (23-29) mEq/L BUN 16 (6-20) mg/dL Creatinine 0.93 (0.60-1.20) mg/dL Est GFR ( Amer) > 60 (> 60) Est GFR (Non-Af Amer) > 60 (> 60) BUN/Creatinine Ratio 17 (6-26) Glucose 184 H (70-105) mg/dL Calculated Osmolality 294 (280-300) Calcium 8.4 L (8.6-10.3) mg/dL Troponin I < 0.03 (< 0.04) ng/mL Urine Test (Negative) 07/30/18 Range/Units 19:55 WBC (4.3-11.1) K/mcL RBC (3.82-4.97) M/mcL Hgb (11.5-15.4) g/dL Hct (35.3-44.9) % MCV (83.0-100.0) fL MCH (28.0-33.3) pg MCHC (31.6-35.5) g/dL RDW (11.5-14.5) % Plt Count (140-400) K/mcL MPV (9.4-12.4) fL Immature Gran % (0-4) % Seg Neutrophils % % Lymphocytes % % Monocytes % % Eosinophils % % Basophils % % Neutrophils # (1.6-8.9) K/mcL Lymphocytes # (0.6-4.6) K/mcL Monocytes # (0.0-1.3) K/mcL Eosinophils # (0.0-0.6) K/mcL Basophils # (0.0-0.2) K/mcL PT (9.4-12.1) Seconds INR APTT (26.0-36.0) Seconds Sodium (136-145) mEq/L Potassium (3.5-5.1) mEq/L Chloride (98-107) mEq/L Carbon Dioxide (23-29) mEq/L BUN (6-20) mg/dL Creatinine (0.60-1.20) mg/dL Est GFR ( Amer) (> 60) Est GFR (Non-Af Amer) (> 60) BUN/Creatinine Ratio (6-26) Glucose (70-105) mg/dL Calculated Osmolality (280-300) Calcium (8.6-10.3) mg/dL Troponin I (< 0.04) ng/mL Urine Test Negative (Negative) - Radiology Data Radiology results reviewed: Yes I reviewed the patient's radiology results. Chest X-Ray 07/30/18 19:31 IMPRESSION: No acute process. Right parahilar nodular density is unchanged compared to multiple previous exams. D/ / Orville Woody MD / Orville Woody MD Interpreting Provider: Orville Woody MD Wade - Wade Situation: Demographics, MOA Background: Presenting Complaint, Relevant PMH, Meds, & Allergies Assessment: Vital Signs, Course and respsone to treatment, Exam Concerns, Patient/Family Expectation, Pertinant Lab Results, Outstanding Labs Recommendation: Barrier(s) to disposition, Recommendation based on pending studies, treatments, or consults SBalta Report Given to: Dr. Natalie Olvera Repor Time: 20:57 (accepted) Attestation Statement - Attestation Attestation: Dr. Atkins note: Patient was seen in conjunction with resident Dr. Carreno. Please see her charti ng for complete documentation. I spent [id number] time with the patient and agree with the patient's treatment and disposition. ekg shows no acute injury pattern; chest pain free on arrival s/p meds; tropoinin not elevated; pt has chest pain every week, but reports today's pain was worse in the chest and also radiated to the L arm, which is not typical for her frequent pain; Pt does continue to smoke daily despite medically being told NOT to so; admitted pain free;
[2018-07-30] MEDS ORDERED: Nitroglycerin 0.4 MG TAB.SUBL SL PRN (19:31)
[2018-07-30 19:54] LABS: Basophils % 0.4 %; Eosinophils # 0.2 K/mcL (0.0-0.6); Eosinophils % 2.1 %; Hematocrit 33.8 % (35.3-44.9); Hemoglobin 10.9 g/dL (11.5-15.4); Immature Granulocytes % 0.3 % (0-4); Lymphocytes # 2.1 K/mcL (0.6-4.6); Lymphocytes % 27.6 %; Mean Corpuscular HGB Conc 32.2 g/dL (31.6-35.5); Mean Corpuscular Hemoglobin 27.9 pg (28.0-33.3); Mean Corpuscular Volume 86.4 fL (83.0-100.0); Mean Platelet Volume 9.9 fL (9.4-12.4); Monocytes # 0.5 K/mcL (0.0-1.3); Neutrophils # 4.8 K/mcL (1.6-8.9); Platelet Count 246 K/mcL (140-400); Red Blood Count 3.91 M/mcL (3.82-4.97); Red Cell Distribution Width 13.4 % (11.5-14.5); Segmented Neutrophils % 62.6 %
[2018-07-30 20:01] LABS: Prothrombin Time 11.5 Seconds (9.4-12.1)
[2018-07-30 20:04] LABS: Activated Partial Thrombo Time 26.9 Seconds (26.0-36.0)
[2018-07-30 20:14] LABS: Troponin I < 0.03 ng/mL (< 0.04)
[2018-07-30 20:16] LABS: BUN/Creatinine Ratio 17 (6-26); Blood Urea Nitrogen 16 mg/dL (6-20); Calcium 8.4 mg/dL (8.6-10.3); Carbon Dioxide 28 mEq/L (23-29); Chloride 109 mEq/L (98-107); Glucose 184 mg/dL (70-105); Osmolality,Calculated 294 (280-300); Potassium 4.3 mEq/L (3.5-5.1); Sodium 139 mEq/L (136-145); eGFR For Non-African Americans > 60 (> 60)
[2018-07-30] MEDS ORDERED: Naloxone 0.4 MG/ML INJ IVP PRN (21:35)
--- NOTE | 2018-07-30 21:46 | Internal Med History&Physical ---
Date of Encounter: 07/30/18 Time of Encounter: 22:05 Internal Medicine - H&P: HPI Chief complaint: Chest pain Admitted From: Emergency Dept Plans for Post Hospital Care: Home History of present illness: Ms. Lisa is a 48 year old female Patient presented to the emergency room with chest pain. She has significant medical history for coronary artery disease, requiring 4 stents in the past. She presented to the hospital in the first part of May within an NSTEMI, however she left AGAINST MEDICAL ADVICE prior to her workup which was going to include a left heart catheter. Today just prior to arrival patient states she was sitting at home which he began feeling left-sided chest pressure that radiated to her left arm. She also had diaphoresis, nausea and shortness of breath as well. She tried 2 nitroglycerin tablets which did not help her symptoms. She called EMS and received 3 more nitroglycerin tabs which did improve her pain. She is also given aspirin in the ambulance. In the emergency room, patient's vital signs are stable, CBC and BMP were both within normal limits. Patient's initial troponin was undetectable. EKG showed no acute ST changes. Chest x-ray performed showed no acute process as well. Due to her significant past medical history and unfinished workup from 2 months ago, patient was admitted to the hospital for further monitoring. Upon my evaluation, patient states her chest pain has nearly resolved. She no longer has any tingling in her fingers. She does however have some chest tightness. When her chest pain started she says she was playing a cell phone game. She spoke with her family and they recommended that she come to the hospital for further management. She denies nausea, vomiting, diarrhea, constipation, chest pain and abdominal pain. She requested a nicotine patch. Past Med Surg Social Fam HX - Past Medical History Medical history: asthma, COPD, coronary artery disease, diabetes, GERD, hyperlipidemia, hypertension, myocardial infarction, TIA, other Additional medical history: X 5 MINI STROKES Psychiatric history: anxiety, depression - Past Surgical History Surgical History: angioplasty/stent Additional surgical history: tubal ligation. CATH WITH STENT PLACEMENT - Social History Smoking Status: Current every day smoker Smokeless Tobacco Status: No Alcohol use: none Drug use: none - Family History Mother Living Status: Still Living Hx Family Cardiac Disorders: Yes (HTN) Father Living Status: Hx Family Cardiac Disorders: Yes Hx Family Endocrine Disorder: Yes (DM) Internal Medicine - H&P: Meds Albuterol Sulfate [Ventolin Hfa] 1 puff IH TID PRN 01/11/17 [History] Loratadine [Claritin] 10 mg PO DAILY 12/28/17 [History] Aspirin Enteric Coated [Aspirin EC] 81 mg PO DAILY #30 tablet.dr 01/01/18 [Rx] Atorvastatin [Lipitor] 40 mg PO HS #30 tablet 01/01/18 [Rx] Nitroglycerin 0.4 mg SL Q5MIN PRN #30 tab.subl 01/01/18 [Rx] Rivaroxaban [Xarelto] 20 mg PO 1700 #30 tablet 01/01/18 [Rx] Ticagrelor [Brilinta] 90 mg PO BID #60 tablet 01/01/18 [Rx] Glimepiride [Amaryl] 4 mg PO DAILY 01/28/18 [History] Metoprolol [Lopressor] 25 mg PO BID 01/28/18 [History] Insulin Glargine [Lantus] 80 unit SQ BID 7 Days mls 02/20/18 [Rx] Omeprazole [PriLOSEC] 20 mg PO DAILY 05/22/18 [History] Insulin Glargine,Hum.rec.anlog [Basaglar Kwikpen U-100] 80 unit SQ BID 07/30/18 [History] hydrOXYzine HCl [Hydroxyzine HCl] 50 mg PO BID PRN 07/30/18 [History] Allergy/AdvReac Type Severity Reaction Status Date / Time Amoxicillin Allergy Hives Verified 07/30/18 19:13 Penicillins Allergy Hives Verified 07/30/18 19:13 venlafaxine [From Effexor] Allergy Itching Verified 07/30/18 19:13 ibuprofen AdvReac Nausea Verified 07/30/18 19:13 All Systems PM: A 10-system review of systems was performed and is negative for pertinent findings except as documented above in the HPI. - Constitutional Vitals: Temp Pulse Resp BP Pulse Ox 98.8 F 76 18 103/63 100 07/30/18 19:13 07/30/18 21:11 07/30/18 21:11 07/30/18 21:11 07/30/18 21:11 General appearance: Present: cooperative, A&O X 3, pleasant, no acute distress, answers questions appropriately Exam: - - Head Head exam: Present: normal inspection - Eye Eye exam: Present: EOMI, normal appearance - Neck Neck exam general surgery: Absent: tenderness - Respiratory Respiratory exam: Present: CTAB. Absent: rales, respiratory distress, rhonchi, wheezes - Cardiovascular Cardiovascular exam: Present: RRR. Absent: diastolic murmur, systolic murmur - GI/Abdominal GI/Abdominal exam: Present: normal bowel sounds, soft. Absent: tenderness - Extremities Exam Extremities exam: Present: warm, radial pulses palpable and symmetrical. Absent: calf tenderness, pedal edema, tenderness - Neurological Exam Neurological exam: Present: no focal deficits, strengths equal and symetr throughout. Absent: motor sensory deficit, facial droop, speech deficit - Skin Skin exam: Present: dry, normal color, warm Internal Med - H&P Results - Labs CBC & Chem 7: 07/30/18 19:43 07/30/18 19:43 Labs: Short CBC 07/30/18 Range/Units 19:43 WBC 7.6 (4.3-11.1) K/mcL Hgb 10.9 L (11.5-15.4) g/dL Hct 33.8 L (35.3-44.9) % Plt Count 246 (140-400) K/mcL Neutrophils # 4.8 (1.6-8.9) K/mcL BMP 07/30/18 19:43 Sodium 139 Potassium 4.3 Chloride 109 H Carbon Dioxide 28 BUN 16 Creatinine 0.93 Glucose 184 H Calcium 8.4 L Cardiac Enzymes 07/30/18 Range/Units 19:43 Troponin I < 0.03 (< 0.04) ng/mL - Impressions ITS Impressions Chest X-Ray 07/30/18 19:31 IMPRESSION: No acute process. Right parahilar nodular density is unchanged compared to multiple previous exams. D/ / Orville Woody MD / Orville Woody MD Interpreting Provider: Orville Woody MD - Assessment and plan (1) Chest pain Current Visit: Yes Status: Acute Assessment and plan: Patient's chest pain has resolved. EKG negative troponin initially undetectable. Recent catheterization in January and echocardiogram performed in November. Patient here this past May for NSTEMI however she left AMA prior to workup. Continue to trend troponins Continue cardiac monitoring Cardiology consult in the morning Qualifiers: Chest pain type: unspecified Qualified Code(s): R07.9 - Chest pain, unspecified (2) Diabetes Current Visit: No Status: Chronic Assessment and plan: Diabetic diet until midnight Nothing by mouth after midnight Monitor sugars every 6 hours Insulin sliding scale as needed Hold home meds Qualifiers: Diabetes mellitus type: type 2 Diabetes mellitus salvage determiner insulin use: with correction use Diabetes mellitus complication status: with circulatory complication Diabetes mellitus complication detail: with other circulatory complications Qualified Code(s): E11.59 - Type 2 diabetes mellitus with other circulatory complications; Z79.4 - custodial (current) use of insulin (3) PAF (paroxysmal atrial fibrillation) Current Visit: No Status: Acute Assessment and plan: History of atrial fibrillation, on Xarelto and metoprolol. Continue home meds (4) Tobacco abuse Current Visit: No Status: Acute Assessment and plan: Patient requests nicotine patch (5) DVT prophylaxis Current Visit: No Status: Acute Assessment and plan: Patient on Xarelto, continue - Time Spent With Patient Total time spent is greater than 50% in coordination of care (as documented) at patient's floor/unit and/or counseling patient: Greater than 35 minutes
[2018-07-30] MEDS ORDERED: *HR* Dextrose 50 % in Water (Syg) 50 ML SYRINGE IVP PRN (22:47)
[2018-07-30] MEDS ORDERED: Dextrose Gel 15 GM/37.5 ML TUBE PO PRN ×2 (22:47)
[2018-07-30] MEDS ORDERED: D5% in Water 1,000 ML IVC PRN (22:47)
[2018-07-30] MEDS: Insulin LISPRO 300 UNITS/3 ML VIAL SQ SCH (23:44)
[2018-07-30] MEDS: Nicotine 21 MG PATCH.TD24 TD SCH (23:46)
[2018-07-31 01:59] LABS: BUN/Creatinine Ratio 20 (6-26); Blood Urea Nitrogen 18 mg/dL (6-20); Calcium 8.3 mg/dL (8.6-10.3); Carbon Dioxide 26 mEq/L (23-29); Chloride 110 mEq/L (98-107); Glucose 178 mg/dL (70-105); Osmolality,Calculated 294 (280-300); Potassium 4.1 mEq/L (3.5-5.1); Sodium 139 mEq/L (136-145); eGFR For Non-African Americans > 60 (> 60)
[2018-07-31 02:04] LABS: Hematocrit 33.7 % (35.3-44.9); Hemoglobin 10.7 g/dL (11.5-15.4); Mean Corpuscular HGB Conc 31.8 g/dL (31.6-35.5); Mean Corpuscular Hemoglobin 27.5 pg (28.0-33.3); Mean Corpuscular Volume 86.6 fL (83.0-100.0); Platelet Count 216 K/mcL (140-400); Red Blood Count 3.89 M/mcL (3.82-4.97); Red Cell Distribution Width 13.2 % (11.5-14.5)
[2018-07-31] MEDS: Insulin LISPRO 300 UNITS/3 ML VIAL SQ SCH ×4 (05:55→22:26)
--- NOTE | 2018-07-31 09:18 | Cardiology Consult Note ---
<Megan Donohue - Last Filed: 07/31/18 12:18> Date of Encounter: 07/31/18 Time of Encounter: 09:15 Assessment and Plan (1) Chest pain Current Visit: Yes Status: Acute Ms. Lisa is a 48 year old female with past medical history of coronary artery disease status post most recent NV in December 2017 status post stenting 4, hypertension, hyperlipidemia, diabetes who presents with chest pain that began last night. Associated with heavy, pressure-like mid sternal chest pain, dypsnea, left arm pain, numbness, tingling, jaw pain; rated 9/10 at worst; did not relieve with 2 NTG, but relieved after pt took 3 more NTG Reports medication noncompliance for past 2 months; also notes inability to follow up Hx of NV in December 2017, and CAD s/p stenting x 4 Trop negative x 3; EKG no acute ST Changes Currently reports mild discomfort rated 2-3/10; denies any other symptoms PLAN: Typical Chest Pain; Medication Noncompliance; Poor Followup Monitor Vitals Cont home meds: Aspirin, Atorvastatin, Metoprolol Tart, Nitro PRN, Xarelto, Brilinta Plan for Nuclear Exercise Stress Test today May consider Cath - but due to previous medication noncompliance, may be prudent to hold off at this time Qualifiers: Chest pain type: unspecified Qualified Code(s): R07.9 - Chest pain, unspecified (2) CAD (coronary artery disease) Current Visit: Yes Status: Acute History of coronary artery disease status post most recent NV in December 2017 status post stenting 4 Left Heart Cath (01/28/18): Severe one vessel coronary artery disease s/p successful PTCA/Drug-Eluting Stent placement in the proximal mid LAD. FFR Measurement: 0.74 Residual mid PDA 70% stenosis at bifurcation LHC (12/30/17): s/p successful PCI to LCx and OM (staged) Echo (12/29/17): LVEF 55-60%. Normal LV chamber size, wall thickness and overall function. Mild segmental left ventricular systolic dysfunction. Mild left ventricular diastolic dysfunction. Normal right ventricular structure and function. Unable to estimate RVSP due to lack of TR jet. No significant valvular dysfunction. Notes inability to pay for medications during the end of 2017, so notes 2 months during which she was off medications; did not adhere to dual antiplatelet therapy during that time; also has not been able to follow up with intensive care unit nurse PLAN: Cont home medications on discharge - Cont Xarelto, Brillinta, Aspirin, Atorvastatin, Lopressor, Nitro PRN Follow up outpatient cardiology Per SW - pt has been provided resources to obtain medications and attend cardiology follow up appointments Pending results of Stress Test test today, may benefit from repeat cath Qualifiers: Coronary Disease-Associated Artery/Lesion type: ramona artery [place] vs. transplanted heart: ramona heart Associated angina: with stable angina Qualified Code(s): I25.118 - Atherosclerotic heart disease of ramona coronary artery with other forms of angina pectoris (3) Hypertension Current Visit: No Status: Chronic BP controlled PLAN: Cont home meds Qualifiers: Hypertension type: essential hypertension Qualified Code(s): I10 - Essential (primary) hypertension (4) Tobacco abuse Current Visit: No Status: Acute Pt states that she has cut down from 3PPD to 1PPD However, cont to smoke Knows that she needs to quit Counseled pt on the consequences on continuing smoking; pt verbalized und erstanding PLAN: Cont Nicotine Patch Discussion w patient/family: The assessment and plan as outlined above was discussed with the patient and/or family members who expressed understanding and agreement. All questions were answered. Thank you for involving us in the care of your patient. Please call with any questions. History of Present Illness Consult date: 07/31/18 Requesting physician: Sohail Stuot Consult reason: Hx of recent NSTEMI - left AMA prior to workup Chief complaint: Chest Pain History of present illness: Ms. Lisa is a 48 year old female with past medical history of coronary artery disease status post most recent NV in December 2017 status post stenting 4, hypertension, hyperlipidemia, diabetes who presents with chest pain that began last night. Patient states that she was sitting at home on a couch playing games on her cell phone, when she started feeling pressure, heavy chest pain that spread down her arm to her fingertips into the left side of her jaw. Associated with mild dyspnea, blurry vision, numbness tingling of left arm and fingertips, nausea. Notes that she immediately took 2 nitroglycerin which she had from before. However they did not alleviate pain. Called EMS, who gave her aspirin and 3 additional nitroglycerin and pain eventually resolved after about 1.5 hours. At worst, pain was rated as 9/10. After nitroglycerin, pain relief to 3/10. Patient was seen in May 2018 with similar complaints. Noted to have atypical chest pain, and left heart catheter was recommended. However, patient left AGAINST MEDICAL ADVICE prior to catheter and completion of workup. States that since her NV in December 2017, she is supposed to have been on dual antiplatelet therapy, and following up with cardiology in [place]. However due to numerous difficulties including financial difficulties and transportation difficulties, she has been noncompliant with her treatment. Notes that for the past 2 months, she has been unable to take her medication, and has not been on aspirin or Brilinta during that time. Only recently restarted medication at the beginning of the month. Patient also notes that while she has cut back on her smoking from 3 packs per day, she continues to smoke 1 pack per day. In the ED, patient's vitals are hemodynamically stable. CBC/BMP within normal limits. Troponin was negative 3 and EKG showed no acute ST changes. Chest x- ray was also negative for any acute process. On my evaluation, patient is resting comfortably at bedside. Denies any acute complaints, however, notes she still feels mild chest discomfort rated 23/10. Otherwise, denies headache, blurry vision, dyspnea, palpitations, nausea, vomiting, diarrhea, dysuria, fatigue, weakness, malaise. Trop: Negative x 3 EKG (07/30/18): HR = 80, MD = 164, QRS = 86, QTC = 472; NSR, Normal [place]; No acute ST Changes CXR (07/30/18): No acute Process; Right Parahilar nodular density unchanged compared to multiple previous exams Left Heart Cath (01/28/18): Severe one vessel coronary artery disease s/p successful PTCA/Drug-Eluting Stent placement in the proximal mid LAD. FFR Measurement: 0.74 Residual mid PDA 70% stenosis at bifurcation LHC (12/30/17): s/p successful PCI to LCx and OM (staged) Echo (12/29/17): LVEF 55-60%. Normal LV chamber size, wall thickness and overall function. Mild segmental left ventricular systolic dysfunction. Mild left ventricular diastolic dysfunction. Normal right ventricular structure and function. Unable to estimate RVSP due to lack of TR jet. No significant valvular dysfunction. Past Med Surg Social Fam HX - Past Medical History Attestation: Yes The following information was validated with the patient. Source: patient, old records reviewed Medical history: asthma, COPD, coronary artery disease, diabetes, GERD, hyperlipidemia, hypertension, myocardial infarction, TIA, other Additional medical history: X 5 MINI STROKES Psychiatric history: anxiety, depression - Past Surgical History Surgical History: angioplasty/stent Additional surgical history: tubal ligation. CATH WITH STENT PLACEMENT - Social History Smoking Status: Current every day smoker Smokeless Tobacco Status: No Alcohol use: none Drug use: none - Family History Mother Living Status: Still Living Hx Family Cardiac Disorders: Yes (HTN) Father Living Status: Hx Family Cardiac Disorders: Yes Hx Family Endocrine Disorder: Yes (DM) Medications and Allergies Albuterol Sulfate [Ventolin Hfa] 1 puff IH TID PRN 01/11/17 [History] Loratadine [Claritin] 10 mg PO DAILY 12/28/17 [History] Aspirin Enteric Coated [Aspirin EC] 81 mg PO DAILY #30 tablet.dr 01/01/18 [Rx] Atorvastatin [Lipitor] 40 mg PO HS #30 tablet 01/01/18 [Rx] Nitroglycerin 0.4 mg SL Q5MIN PRN #30 tab.subl 01/01/18 [Rx] Rivaroxaban [Xarelto] 20 mg PO 1700 #30 tablet 01/01/18 [Rx] Ticagrelor [Brilinta] 90 mg PO BID #60 tablet 01/01/18 [Rx] Glimepiride [Amaryl] 4 mg PO DAILY 01/28/18 [History] Metoprolol [Lopressor] 25 mg PO BID 01/28/18 [History] Insulin Glargine [Lantus] 80 unit SQ BID 7 Days mls 02/20/18 [Rx] Omeprazole [PriLOSEC] 20 mg PO DAILY 05/22/18 [History] Insulin Glargine,Hum.rec.anlog [Basaglar Kwikpen U-100] 80 unit SQ BID 07/30/18 [History] hydrOXYzine HCl [Hydroxyzine HCl] 50 mg PO BID PRN 07/30/18 [History] Allergy/AdvReac Type Severity Reaction Status Date / Time Amoxicillin Allergy Hives Verified 07/30/18 19:13 Penicillins Allergy Hives Verified 07/30/18 19:13 venlafaxine [From Effexor] Allergy Itching Verified 07/30/18 19:13 ibuprofen AdvReac Nausea Verified 07/30/18 19:13 All Systems Review: The remainder of the systems were reviewed and are negative - Constitutional Constitutional: no chills, no fatigue, no fever(s), no frequent falls, no headache(s), no lethargy, no malaise - EENT Eyes: no blurred vision - Cardiovascular Cardiovascular: chest pain at rest, no diaphoresis, no dyspnea at rest, no dyspnea on exertion, no radiating jaw, neck or arm pain, no leg edema, no lightheadedness, no palpitations - Respiratory Respiratory: no cough, no dyspnea - Gastrointestinal Gastrointestinal: no abdominal pain, no diarrhea, no nausea - Genitourinary Genitourinary: no dysuria - Musculoskeletal Musculoskeletal: no back pain, no myalgias - Integumentary Integumentary: no rash - Neurological Neurological: no dizziness Physical Examination Vital Signs, Last 4 Hours Temp Pulse Resp BP Pulse Ox 07/31/18 06:47 97.9 F 77 16 99/66 98 General: Conversant, No Apparent Distress HEENT: Atraumatic, Normocephaly, Mucus Membranes Moist Neck: Normal carotid pulses Cardiac: Reg Rate and Rhythm, Normal S1 and S2, No Murmur Lungs: Normal Breath Sounds, No Wheeze, Rales, Rhonchi Neuro: Alert and responsive, No focal deficits noted Abdomen: Soft, Non-Tender Skin: No rashes noted on visualized skin Extremities: No Edema, Normal Pulses Results 07/31/18 01:31 07/31/18 01:31 Lab Results 07/30/18 07/30/18 07/30/18 19:43 19:43 19:43 WBC 7.6 Hgb 10.9 L Hct 33.8 L Plt Count 246 INR 1.0 APTT 26.9 Sodium 139 Potassium 4.3 Chloride 109 H Carbon Dioxide 28 BUN 16 Creatinine 0.93 Glucose 184 H Calcium 8.4 L Troponin I < 0.03 07/31/18 07/31/18 07/31/18 01:31 01:31 01:31 WBC 6.5 Hgb 10.7 L Hct 33.7 L Plt Count 216 INR APTT Sodium 139 Potassium 4.1 Chloride 110 H Carbon Dioxide 26 BUN 18 Creatinine 0.88 Glucose 178 H Calcium 8.3 L Troponin I < 0.03 07/31/18 07:58 WBC Hgb Hct Plt Count INR APTT Sodium Potassium Chloride Carbon Dioxide BUN Creatinine Glucose Calcium Troponin I < 0.03 Consult Discharge Plan - Plan Referrals: Octavio Pickard DO [Primary Care Provider] - 08/06/18 9:00 am <Jus Joseph - Last Filed: 07/31/18 13:32> Date of Encounter: 07/31/18 - Attending Attestation I have personally performed a face to face evaluation on this patient. I have reviewed and agree with the documented findings and care plan as documented by the resident. History and Exam by me shows: Ms. Lisa is a 48-year-old female with past history of CAD status post stents, previously nonadherence to her medications including dual antiplatelets because of insurance issues, but has now gotten her medication card since July 22 and reports that she is now taking all her medications presented with intermittent chest pain at rest. She still smokes cigarettes AAOX3 in NAD at the bedside Hemodynamically stable Cardiopulmonary exam revealed S1, S2, no murmur; clear lungs Rhythm reviewed - sinus rhythm, no acute ST T changes Echo pending Impression/plan: CAD/atypical chest pain. Exercise nuclear stress test today. Obtain echocardiogram. Continue aspirin 81 mg daily, Brillinta 90 mg twice a day; high intensity statin, beta monica. Urged to quit smoking. Thanks, Jus Joseph MD FACC Assessment and Plan Discussion w patient/family: The assessment and plan as outlined above was discussed with the patient and/or family members who expressed understanding and agreement. All questions were answered. Thank you for involving us in the care of your patient. Please call with any questions. History of Present Illness History of present illness: Ms. Lisa is a 48 year old female All Systems Review: The remainder of the systems were reviewed and are negative Physical Examination Vital Signs, Last 4 Hours Temp Pulse Resp BP Pulse Ox 07/31/18 11:27 97.9 F 72 16 115/72 99 Results 07/31/18 01:31 07/31/18 01:31 Lab Results 07/30/18 07/30/18 07/30/18 19:43 19:43 19:43 WBC 7.6 Hgb 10.9 L Hct 33.8 L Plt Count 246 INR 1.0 APTT 26.9 Sodium 139 Potassium 4.3 Chloride 109 H Carbon Dioxide 28 BUN 16 Creatinine 0.93 Glucose 184 H Calcium 8.4 L Troponin I < 0.03 07/31/18 07/31/18 07/31/18 01:31 01:31 01:31 WBC 6.5 Hgb 10.7 L Hct 33.7 L Plt Count 216 INR APTT Sodium 139 Potassium 4.1 Chloride 110 H Carbon Dioxide 26 BUN 18 Creatinine 0.88 Glucose 178 H Calcium 8.3 L Troponin I < 0.03 07/31/18 07:58 WBC Hgb Hct Plt Count INR APTT Sodium Potassium Chloride Carbon Dioxide BUN Creatinine Glucose Calcium Troponin I < 0.03
--- NOTE | 2018-07-31 09:46 | Electrocardiograph Report ---
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
[2018-07-31] MEDS ORDERED: Regadenoson 0.4 MG/5 ML SYRINGE IVP ONE (12:36)
--- NOTE | 2018-07-31 15:26 | Event Note ---
Date of Encounter: 07/31/18 Time of Encounter: 15:22 - Cardiology Event Note Stress test abnormal. Risks versus benefits of LHC explained to patient, who states understanding and agreeable to proceed with LHC. OF note, on xarelto for anticoagulation, reports last dose 07/29/18. Patient reports previously non-com pliant with medications due to insurance issues. Reports insurance issues have been resolved and states she will be compliant with medications. Educated on risk of morbidity/mortality with non-compliance with cardiac medications, especially dual anti-platelet therapy.
[2018-07-31] MEDS ORDERED: ISOVUE-370 200 ML INFUS..BTL ONE ×2 (15:28→16:52)
[2018-07-31] MEDS ORDERED: *HR* Heparin 10,000 UNIT/10 ML VIAL ONE (15:28)
[2018-07-31] MEDS ORDERED: Heparin 1,000 UNITS/500 mL 500 ML ONE (15:28)
[2018-07-31] MEDS ORDERED: Nitroglycerin 1,000 MCG/10 ML VIAL IV ONE (15:29)
[2018-07-31] MEDS ORDERED: 0.9 % Sodium Chloride 2,000 ML ONE (15:29)
[2018-07-31] MEDS: Aspirin Enteric Coated 81 MG Tablet PO SCH (15:41)
[2018-07-31] MEDS: *HR* Ticagrelor 90 MG TABLET PO SCH ×2 (15:41→19:47)
--- NOTE | 2018-07-31 15:44 | Internal Med Progress Note ---
Hospitalist Progress Note - Encounter Date of Encounter: 07/31/18 Time of Encounter: 15:38 - Exam Vitals: Temp Pulse Resp BP Pulse Ox 98 F 64 18 121/75 99 07/31/18 15:04 07/31/18 15:04 07/31/18 15:04 07/31/18 15:04 07/31/18 15:04 Exam: - patient has significant medical history for coronary artery disease, requiring 4 stents in the past. She presented to the hospital in the first part of May within an NSTEMI, however she left AGAINST MEDICAL ADVICE prior to her workup which was going to include a left heart catheter. Today just prior to arrival patient states she was sitting at home which he began feeling left- sided chest pressure that radiated to her left arm. She also had diaphoresis, nausea and shortness of breath as well. She tried 2 nitroglycerin tablets which did not help her symptoms. She called EMS and received 3 more nitroglycerin tabs which did improve her pain. She is also given aspirin in the ambulance. In the emergency room, patient's vital signs are stable, CBC and BMP were both within normal limits. Patient's initial troponin was undetectable. EKG showed no acute ST changes. Chest x-ray performed showed no acute process as well. Due to her significant past medical history and unfinished workup from 2 months ago, patient was admitted to the hospital for further monitoring. Today Patient was evaluatd by cardiology following consult. Stress test was p erformed, based on the result [facility] was scheduled later for today. Hr possible discharge will be after the [facility]. manager infrastructure did discuss some of her social issue concerns. - Time Spent with Patient Total time spent is greater than 50% in coordination of care (as documented) at patient's floor/unit and/or counseling patient: less than 15 minutes Plan of Care Discussed with: patient Internal Medicine: Result - Labs CBC & Chem 7: 07/31/18 01:31 07/31/18 01:31 Labs: Short CBC 07/30/18 07/31/18 Range/Units 19:43 01:31 WBC 7.6 6.5 (4.3-11.1) K/mcL Hgb 10.9 L 10.7 L (11.5-15.4) g/dL Hct 33.8 L 33.7 L (35.3-44.9) % Plt Count 246 216 (140-400) K/mcL Neutrophils # 4.8 (1.6-8.9) K/mcL BMP 07/30/18 07/31/18 19:43 01:31 Sodium 139 139 Potassium 4.3 4.1 Chloride 109 H 110 H Carbon Dioxide 28 26 BUN 16 18 Creatinine 0.93 0.88 Glucose 184 H 178 H Calcium 8.4 L 8.3 L Cardiac Enzymes 07/30/18 07/31/18 07/31/18 Range/Units 19:43 01:31 07:58 Troponin I < 0.03 < 0.03 < 0.03 (< 0.04) ng/mL - ABG Interpretation ABG results: PT/INR, D-dimer PT 11.5 Seconds (9.4-12.1) 07/30/18 19:43 - Impressions Impressions Chest X-Ray 07/30/18 19:31 IMPRESSION: No acute process. Right parahilar nodular density is unchanged compared to multiple previous exams. D/ / Orville Woody MD / Orville Woody MD Interpreting Provider: Orville Woody MD Consult Discharge Plan - Plan Referrals: Octavio Pickard DO [Primary Care Provider] - 08/06/18 9:00 am
[2018-07-31] MEDS ORDERED: *HR* FentaNYL (PF) 100 MCG/2 ML VIAL ONE (16:18)
[2018-07-31] MEDS ORDERED: *HR* Midazolam HCl 2 MG/2 ML VIAL ONE (16:18)
[2018-07-31] MEDS ORDERED: Tirofiban 12.5 MG/250ML 12.5 MG/250 ML BAG ONE (16:45)
[2018-07-31] MEDS ORDERED: *HR* Rivaroxaban 10 MG TABLET PO SCH (17:00)
[2018-07-31] MEDS ORDERED: *HR* Ticagrelor 90 MG TABLET ONE (17:06)
[2018-07-31] MEDS ORDERED: Tirofiban 12.5 MG/250ML 12.5 MG/250 ML BAG IVC SCH (17:15)
--- NOTE | 2018-07-31 17:25 | Invasive Diagnostic Lab Proc ---
Name: Shahnaz Lisa Date of Study: 07/31/2018 Date: 1970 Ht: 64.2in Medical Record#: [id number] Age: 48 Wt: 182.98lb Gender: Female BSA: 1.89 Order #: [id number] BMI: 31.24 Physicians Procedure Physician: Aba Guzman MD Referring MD: Referring MD: Staff Name Position Time In Leanne Renteria RT (R) Monitor 04:11 PM Karyna Baez RN Coin Collector 04:11 PM Lucho Renteria RT (R) Scrub 04:12 PM Indications Indication Abnormal Test - Stress Procedures Performed Procedure L HRT ARTERY/VENTRICLE ANGIO PRQ CARD RENATO STENT W/ANGIO 1 VSL Pre-Procedure Checklist Informed consent is complete signed and on chart. H&P is on chart. ID band is on and ID verified with patient. Patient NPO for procedure The procedure was described for the patient and questions were answered. ECG is on chart. Rhythm: NSR Plan of Care Patient will tolerate the procedure without complications. Adequate level of comfort will be maintained. Hemodynamics will remain stable Patient will recover from procedure without complications. Respiratory function will be maintained. Cardiac rhythm will remain stable. Patient temperature will be maintained. Patient and/or family have verbalized understanding of the procedure. Patient Education Chief Complaint/Reason for Test: Cardiac Cath Developmental Category: Adult (18-64 years) Developmentally Appropriate for Age: Yes Learning Barriers: None Education Needs: Procedure Education Method: Verbal Information Taught: Cardiac Cath Educational Evaluation: Able to repeat information Intravenous Access Time IV Size Location DC'd Fluid/Drip Rate Units RN 03:45 PM 20g 1 07/24" Patent On Arrival Lt Antecubital 0.9NaCl 25 ml/hr Karyna Baez RN Allergies ibuprofen venlafaxine Penicillins Amoxicillin Vital Signs Time BP (mmHg) HR (bpm) O2 Sat. RR (bpm) LOC 04:12 PM / % 5 = Fully awake and oriented or at pre-proc level 04:12 PM / % 4 = Oriented but drowsy 04:27 PM / % 4 = Oriented but drowsy 04:42 PM / % 4 = Oriented but drowsy 04:57 PM / % 4 = Oriented but drowsy 04:17 PM 136 / 67 56 100 % 18 04:22 PM 133 / 68 60 100 % 22 04:27 PM 112 / 65 60 99 % 21 04:32 PM 116 / 65 68 99 % 17 04:37 PM 118 / 69 60 99 % 21 04:42 PM 124 / 66 69 99 % 29 04:47 PM 138 / 71 65 100 % 26 04:52 PM 115 / 72 72 100 % 17 04:57 PM 121 / 71 71 99 % 14 05:02 PM 111 / 69 80 98 % 13 05:07 PM 115 / 66 74 97 % 9 Procedural Medications Time Medication Dose Units Method Given By 04:12 PM Oxygen 2 L/min nasal cannula Karyna Baez RN 04:19 PM Versed 1 mg Intravenous Karyna Baez RN 04:19 PM Fentanyl 50 mcg Intravenous Karyna Baez RN 04:35 PM Versed 0.5 mg Intravenous Karyna Baez RN 04:35 PM Fentanyl 25 mcg Intravenous Karyna Baez RN 04:35 PM Lidocaine 2% 10 ml Subcutaneous Aba Guzman MD 04:47 PM Heparin 4000 units Intravenous Karyna Baez RN 04:48 PM Aggrastat Bolus: 42 ml Intravenous Karyna Baez RN 04:49 PM Aggrastat 12.5mg/250ml 15 ml Intravenous Karyna Baez RN 05:02 PM Nitroglycerin 100 mcg Intracoronary Jeanette Guzman MD 05:07 PM Brilinta 90 mg Orally Karyna Baez RN ASA Classification: CLASS II- Mild systemic disease (i.e. well-controlled diabetes, hypertension, asthma, cigarette smoking) Aleena Score Preprocedure Postprocedure Activity 2- Moves 4 extremities sustained head lift Activity 2- Moves 4 extremities sustained head lift Circulation 2- SBP +/= 20 points of pre-anesthetic level Circulation 2- SBP +/= 20 points of pre-anesthetic level Consciousness 2- Awake and alert oriented x 3 Consciousness 2- Awake and alert oriented x 3 O2 Saturation 2- Able to maintain O2 satruation of 92% on room air O2 Saturation 2- Able to maintain O2 satruation of 92% on room air Respiratory 2- Able to deep breathe and cough well Respiratory 2- Able to deep breathe and cough well Total Score 10 Total Score 10 Contrast Agent: Isovue Diagnostic Contrast: 113 ml Total Contrast: 113 ml Fluoro Dose: 73 mGy Procedure Log Time Note Enter By 04:11 PM 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 Informed consent was obtained. tw: PM Procedure start 16:11 twilson 04: PM Patient charges- Angio tray pack, Navilyst 3mm J, Pulse Oximetry and ACIST tubing and transducer twilson : PM Case Delayed no twilson : PM Leanne Renteria (R) Position: Monitor Time in: 16: twilson 04:12 PM Karyna Baez RN Position: Coin Collector Time in: 16:11 twilson 04:12 PM Lucho Renteria (R) Position: Scrub Time in: :12 tw: PM Time: 16:12 Oxygen on at 2 L/min per nasal cannula by Karyna Baez RN twilson : PM Time: 16:12 Patient comfortable and pain free: Yes tw: PM Time: 16:12LOC: 5 = Fully awake and oriented or at pre-proc level twilson : PM CathStat 04:12 PM [ Start or Stop Vital ] 04:16 PM Vitals capture started with the following parameters, Patient=Adult, Interval=5 min, Initial Ttrugpby=302 mmHg, Deflation Rate=3 mmHg, Cuff placed on Right Arm 04:17 PM HR=56 bpm, GQKE=258/67 mmhg, MtL7=619.0 %, Resp=18 B/min 04:19 PM Hair removed from procedure site in procedure lab using clippers. Bilateral groin prepped with Chloraprep by Leanne Renteria (R), then patient was draped. Skin intact. tw PM Time: 16: Versed 1 mg Intravenous Given by Karyna Baez RN PM Time: 16:19 Fentanyl 50 mcg Intravenous Given by Karyna Baez RN twilson 04: PM Recorded ECG: HR=61 Condition=Condition 1 04:21 PM Pressure channel 1 zeroed. 04:22 PM HR=60 bpm, TOXF=137/68 mmhg, UgB8=522.0 %, Resp=22 B/min 04:27 PM HR=60 bpm, PDVA=045/65 mmhg, SpO2=99.0 %, Resp=21 B/min 04:27 PM Time: 16:12 Patient comfortable and pain free: Yes twilson :27 PM Time: 16:12LOC: 4 = Oriented but drowsy twilson 04:32 PM HR=68 bpm, JFGO=267/65 mmhg, SpO2=99.0 %, Resp=17 B/min 04:35 PM Time: 16:35 Versed 0.5 mg Intravenous Given by Karyna Baez RN twmajo :35 PM Time: 16:35 Fentanyl 25 mcg Intravenous Given by Karyna Baez RN twmajo :35 PM Time out was performed according to hospital policy. Conscious sedation and anesthesia was achieved (see medication log with in this report above) twilson :35 PM Time: 16:35 10 ml Lidocaine 2% to left groin Subcutaneous Given by Aba Guzman MD twilson 04:37 PM HR=60 bpm, HDTH=283/69 mmhg, SpO2=99.0 %, Resp=21 B/min 04:37 PM Micro-Introducer Kit utilized for sheath placement twilson 04:37 PM Bolus angiogram of left Femoral complete 3ml contrast hand injection by Dr. Guzman. twilson 04:39 PM Access obtained by percutaneous puncture. 6Fr 10cm Terumo [place] sheath placed in left Femoral artery. [id number] twilson 04:39 PM Recorded Pressure: LV, HR=68, Condition=Condition 1 (Left Ventricle) LV 122/23/13 04:40 PM Recorded Pressure: LV, Ao, HR=63, Condition=Condition 1 (Left Ventricle) LV 129/12/15, (Aorta) Ao 123/49/86 04:40 PM 5Fr FR 4 catheter inserted over the wire [facility] twilson 04:40 PM Catheter crossed the aortic valve and was selectively placed in the left ventricle. Pressures recorded on pullback for left heart catheterization. twilson 04:40 PM Wire removed, intact. twilson 04:40 PM Pressures only. No injection. twilson 04:40 PM Recorded Pressure: Ao, HR=60, Condition=Condition 1 (Aorta) Ao 99/61/78 04:40 PM RCA angiography performed in multiple views. twilson 04:41 PM Wire reinserted. twilson 04:41 PM Catheter removed, intact. twilson 04:42 PM HR=69 bpm, PAEM=406/66 mmhg, SpO2=99.0 %, Resp=29 B/min 04:42 PM ASA Class CLASS II- Mild systemic disease (i.e. well-controlled diabetes, hypertension, asthma, cigarette smoking) twilson 04:42 PM Time: 16:27LOC: 4 = Oriented but drowsy twilson 04:42 PM Time: 16:27 Patient comfortable and pain free: Yes twilson 04:42 PM Recorded Pressure: Ao, HR=68, Condition=Condition 1 (Aorta) Ao 111/52/84 04:43 PM 5Fr FL 4 catheter inserted over the wire DN twilson 04:43 PM LCA angiography performed in multiple views. twilson 04:43 PM Coronary Dominance: right twilson 04:43 PM Inflation device was opened. twilson 04:43 PM PCI Status Urgent twilson 04:46 PM Lesion found in Mid RCA. Pre Stenosis: 99 Pre LADY Flow: 3: Complete and Brisk Flow/Perfusion twilson 04:46 PM Right Coronary, Right Posterior Descending Arteries with Right Posterolateral and Acute Marginal branches with 99 % stenosis. If graft is supplying this area, 0 % stenosis twilson 04:47 PM Time: 16:47 Heparin 4000 units Intravenous Given by Karyna Baez RN twilson 04:47 PM Wire reinserted. twilson 04:47 PM Catheter removed, intact. twilson 04:47 PM HR=65 bpm, YQTI=259/71 mmhg, CdS8=302.0 %, Resp=26 B/min 04:47 PM 6Fr JR 4 Cordis guide catheter was used to cannulate the PCI vessel successfully. reused? No twilson 04:48 PM .014 [employer] [place] 190cm guide wire across target lesion- successful. reused? No twilson 04:48 PM Recorded Pressure: Ao, HR=69, Condition=Condition 1 (Aorta) Ao 108/55/76 04:49 PM Time: 16:48 Aggrastat Bolus: 42 ml Intravenous Given by Karyna Baez RN Qureshi pump twilson 04:49 PM Time: 16:49 Aggrastat 12.5mg/250ml 15 ml Intravenous Given by Karyna Baez RN Qureshi pump twilson 04:50 PM 2.0 mm x 20 mm Emerge Monorail balloon across target lesion- successful. reused? No twilson 04:50 PM Balloon inflated @ 8 tali for 7 seconds twilson 04:52 PM Balloon inflated @ 6 tali for 20 seconds twilson 04:52 PM Lesion found in Distal RCA. Pre Stenosis: 70 Pre LADY Flow: 3: Complete and Brisk Flow/Perfusion twilson 04:52 PM HR=72 bpm, MVKW=989/72 mmhg, KjN9=767.0 %, Resp=17 B/min 04:52 PM Balloon inflated @ 10 tali for 20 seconds twilson 04:54 PM Recorded Pressure: Ao, HR=71, Condition=Condition 1 (Aorta) Ao 128/65/90 04:55 PM Balloon catheter removed intact. twilson 04:56 PM 3.0mm x 32mm Synergy drug-eluting stent across target lesion- successful Lot #[id number] twilson 04:57 PM Stent deployed @ 11 tali for 7 seconds twilson 04:57 PM HR=71 bpm, TXDT=409/71 mmhg, SpO2=99.0 %, Resp=14 B/min 04:57 PM Recorded Pressure: Ao, HR=71, Condition=Condition 1 (Aorta) Ao 115/69/90 04:57 PM Time: 16:42 Patient comfortable and pain free: Yes twilson 04:57 PM Time: 16:42LOC: 4 = Oriented but drowsy twilson 04:57 PM Stent balloon reinflated @ 16 tali for 8 seconds twilson 04:59 PM Stent delivery system removed intact. twilson 04:59 PM 3.5 mm x 20mm NC Trek Rx balloon across target lesion- successful. reused? No twilson 05:00 PM Balloon inflated @ 16 tali for 7 seconds twilson 05:00 PM Balloon inflated @ 16 tali for 6 seconds twilson 05:02 PM Balloon catheter removed intact. twilson 05:02 PM Recorded Pressure: Ao, HR=79, Condition=Condition 1 (Aorta) Ao 97/52/70 05:02 PM HR=80 bpm, CAWM=017/69 mmhg, SpO2=98.0 %, Resp=13 B/min 05:03 PM Time: 17:02 Nitroglycerin 100 mcg Intracoronary Given by Jeanette Guzman MD twilson 05:03 PM RCA angiography performed in multiple views. twilson 05:04 PM Guide wire removed intact. twilson 05:04 PM Guide catheter removed intact. twilson 05:05 PM Procedure completed at 17:05 07/31/2018 twilson 05:05 PM Did you address LADY flow and Dominance? Yes twilson 05:06 PM Sign out completed: Radiation Dose 902.93 mGy, 72.7243 Gy/cm2 Fluoro Time: 9.2 Isovue 370 - 200ml contrast 113 ml given by Aba Guzman MD. Complications: None. 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 Cardiac Rehab Consult needed: YesConfirmed administered medications: Yes twilson 05:07 PM HR=74 bpm, HCHB=651/66 mmhg, SpO2=97.0 %, Resp=9 B/min 05:07 PM Time: 17:07 Brilinta 90 mg Orally Given by Karyna Baez RN twilson 05:11 PM Isovue 370 - 200ml,1 Bottle(s) used. twilson 05:11 PM Arterial sheath pulled, Angio-seal closure device used and was Successful S/N. twilson 05:11 PM Estimated Blood Loss: less than 20cc twilson 05:11 PM Post ECG NSR twilson 05:11 PM Post Blood Pressure 115/66 twilson 05:12 PM Time: 16:57LOC: 4 = Oriented but drowsy twilson 05:12 PM Time: 16:57 Patient comfortable and pain free: Yes twilson 05:13 PM 17:12 Post Pulses Bilateral DP & PT 2+ twilson 05:13 PM 17:13 Post Pulses Bilateral radial 2+ twilson 05:14 PM Information taught Cardiac Cath, PCI, and Angioseal twilson 05:15 PM Education needs Procedure, Plan of Care, and Responsibilities of Patient in Care twilson 05:15 PM Learning barriers :None twilson 05:15 PM Education Methods Verbal twilson 05:15 PM Education evaluation Able to repeat information twilson 05:15 PM Site status No bleeding/hematoma - Lt Groin as reported by Lucho Renteria RT (R) twilson 05:15 PM Opsite applied twilson 05:15 PM Report given to Charis RN Pt taken to Room #49. 17:15 twilson 05:15 PM Plavix, Effient or Brilinta given Yes twilson 05:15 PM Delay to floor No twilson 05:16 PM Lesion found in Proximal LAD. Pre Stenosis: 20 Pre LADY Flow: twilson 05:16 PM Proximal Left Anterior Descending Coronary Artery with 20% stenosis. If graft is supplying this territory, 0 % stenosis. twilson 05:16 PM Lesion found in Distal Circumflex. Pre Stenosis: 40 Pre LADY Flow: twilson 05:17 PM Circumflex, Obtuse Marginal, Left Posterior Descending, and Left Posterolateral Coronary Arteries with 40 % stenosis. If graft is supplying this area, 0 % stenosis twilson 05:17 PM Patient out of room: 17:17 twilson 05:17 PM No family present. twilson Complications Complication None Hemodynamics Pressures Site Systolic/A Wave Diastolic/V Wave Mean LV 122 23 13 LV 129 12 15 AO 123 49 86 AO 99 61 78 AO 111 52 84 AO 108 55 76 AO 128 65 90 AO 115 69 90 AO 97 52 70 Post Procedure Information Blood Pressure: 115/66 mmHg Rhythm: NSR Post procedural instructions were given Closure Device Time Device Success/Fail 07/31/2018 5:04:00 PM Angio-Seal VIP Successful Site Checks Time Location Status Staff Sheath In? Note 05:17 PM Lt Groin No bleeding/hematoma Lucho Renteria RT (R) Pulses Time Site Pre-Procedure Post-Procedure Note 07/31/2018 3:45:00 PM Bilateral DP 2+ 07/31/2018 3:45:00 PM Bilateral radial 2+ 5:12:00 PM Bilateral DP & PT 2+ 5:13:00 PM Bilateral radial 2+ Updated by RT Aurora (R) on 07/31/2018 5:18:04 PM electronically signed on 07/31/2018 5:18:33 PM with status of Final
[2018-07-31] MEDS: Acetaminophen 325 MG TABLET PO PRN (19:42)
[2018-07-31] MEDS: Nicotine 21 MG PATCH.TD24 TD SCH (19:47)
[2018-08-01] MEDS: Acetaminophen 325 MG TABLET PO PRN (02:47)
[2018-08-01] MEDS: Insulin LISPRO 300 UNITS/3 ML VIAL SQ SCH ×5 (03:06→22:19)
[2018-08-01 05:15] LABS: BUN/Creatinine Ratio 24 (6-26); Blood Urea Nitrogen 22 mg/dL (6-20); eGFR For Non-African Americans > 60 (> 60)
[2018-08-01] MEDS: *HR* HYDROcodone/Acet 5/325 mg TABLET PO PRN ×2 (05:58→20:39)
[2018-08-01] MEDS: *HR* Ticagrelor 90 MG TABLET PO SCH ×2 (05:58→20:39)
[2018-08-01] MEDS: Aspirin 81 MG TAB.CHEW PO SCH (09:14)
[2018-08-01] MEDS: Aspirin Enteric Coated 81 MG Tablet PO SCH (09:15)
[2018-08-01] MEDS ORDERED: hydrOXYzine pamoate 25 MG CAPSULE PO PRN (10:41)
--- NOTE | 2018-08-01 12:23 | Cardiology Progress Note ---
Date of Encounter: 08/01/18 Time of Encounter: 12:21 Assessment and Plan (1) CAD (coronary artery disease) Current Visit: Yes Status: Acute LHC yesterday for abnormal stress test. There is severe one vessel CAD. Patient had successful PTCA/Drug-Eluting Stent placement in the mid RCA. There is a previous stent in Mid RCA with severe in-stent stenosis that was intervened on. Stent placed from a prior procedure in the Mid LAD is is patent. No acute complaints this AM. Pt denies chest pain. DAPT (ASA and Brilinta) uninterrupted. Pt verbalizes understanding. Continue BB and Statin. On triple therapy--Xarelto for PAF. Will plan to stop ASA as outpt in 1 month. Right femoral access site healing well. No bleeding, hematoma or ecchymosis noted. Restrictions discussed. Cardiac rehab ordered. TTE 12/2017 LVEF 55-60%. Mild segmental left ventricular systolic dysfunction. Mild LVDD. Normal right ventricular structure and function. Unable to estimate RVSP due to lack of TR jet. No significant valvular dysfunction. Hx of compliance issues due to loss of insurance. Checked with pharmacy, she has coverage with $0 copay. Cardiology signing off. Reconsult PRN. Will coordinate outpt follow-up in 2-3 weeks. Qualifiers: Coronary Disease-Associated Artery/Lesion type: [place] artery [place] vs. transplanted heart: [place] heart Associated angina: with stable angina Qualified Code(s): I25.118 - Atherosclerotic heart disease of [place] coronary a rtery with other forms of angina pectoris (2) PAF (paroxysmal atrial fibrillation) Current Visit: No Status: Acute PAF diagnosed 12/2017 post STEMI. Converted back to SR with no documented recurrence. TTE mildly dilated LA. Continue BB. [id number] (Age, HTN, CAD, DM). Discussed and reviewed with Dr. Joseph. He recommends she continue Xarelto for AC. She will be on triple therapy x 1 month, then will plan to stop ASA as outpt. (3) Tobacco abuse Current Visit: No Status: Acute Smoking cessation counseling given. Discussion w patient/family: The assessment and plan as outlined above was discussed with the patient and/or family members who expressed understanding and agreement. All questions were answered. Thank you for involving us in the care of your patient. Please call with any questions. I will discuss all the above with Dr. Joseph and make changes as necessary. Subjective Principal diagnosis: CAD Interval history: S/P C yesterday--There is severe one vessel coronary artery disease. Patient had successful PTCA/Drug-Eluting Stent placement in the mid RCA. There is a previous stent in Mid RCA with severe in-stent stenosis that was intervened on. Stent placed from a prior procedure in the Mid LAD is is patent. No acute complaints this AM. Pt denies chest pain. Objective Vital Signs, Last 4 Hours Temp Pulse Resp BP Pulse Ox 08/01/18 11:28 98.3 F 50 16 103/60 99 Vital Signs Temp Pulse Resp BP Pulse Ox 08/01/18 11:28 98.3 F 50 16 103/60 99 08/01/18 07:50 98.0 F 57 16 110/61 98 08/01/18 02:40 97.9 F 61 16 109/69 98 07/31/18 23:11 97.7 F 67 16 113/79 97 07/31/18 20:44 66 16 122/71 99 07/31/18 19:10 65 16 129/71 98 07/31/18 18:38 60 16 128/62 100 07/31/18 18:18 66 16 138/70 98 07/31/18 17:45 97.8 F 64 16 129/74 98 07/31/18 17:30 62 16 122/64 98 07/31/18 17:15 97.8 F 56 16 119/68 98 07/31/18 15:04 98 F 64 18 121/75 99 Intake and Output 07/31/18 08/01/18 08/01/18 23:59 07:59 15:59 Intake Total 45 / 45 480 / 480 Balance 45 / 45 480 / 480 Intake: IV Fluids 45 / 45 Aggrastat 12.5 MG/250 ML 12.5 45 / 45 mg In 250 ml @ 0.15 MCG/KG/MIN 15.102 mls/hr IVC .[id number] [facility] Rx#:[id number] Oral 480 / 480 Other: Meal Breakfast Percent of Meal Consumed 100% Stool Size Moderate Stool Consistency formed Stool Color Brown # Voids 1 # Bowel Movements 1 Blood Glucose* 169 156 General: Conversant, No Apparent Distress HEENT: Atraumatic, Normocephaly, Mucus Membranes Moist Neck: No JVD, Normal carotid pulses Cardiac: Reg Rate and Rhythm, Normal S1 and S2, No Murmur Lungs: Normal Breath Sounds, No Wheeze, Rales, Rhonchi Neuro: Alert and responsive, No focal deficits noted Abdomen: Soft, Non-Tender Skin: Other (right femoral access site healing well. No bleeding, hematoma or ecchymosis noted.) Musculoskeletal: No Chest Wall Tenderness Extremities: No Clubbing, No Cyanosis, No Edema, Normal Pulses Results 08/01/18 04:23 08/01/18 04:23 Lab Results 08/01/18 08/01/18 04:23 04:23 Plt Count 198 BUN 22 H Creatinine 0.91 Short CBC 08/01/18 Range/Units 04:23 Plt Count 198 (140-400) K/mcL BMP 08/01/18 Range/Units 04:23 BUN 22 H (6-20) mg/dL Creatinine 0.91 (0.60-1.20) mg/dL Active Medications Acetaminophen (Tylenol) 650 mg PO Q6HR PRN PRN Reason: Mild Pain Stop: 01/30/19 19:28 Last Admin: 08/01/18 02:47 Dose: 650 mg Hydrocodone Bitart/Acetaminophen ([place] 5-325 Mg) 1 tab PO Q6HR PRN PRN Reason: Moderate Pain Stop: 01/30/19 19:29 Last Admin: 08/01/18 05:58 Dose: 1 tab Albuterol Sulfate (Albuterol Inhaler) 1 puff IH TID PRN PRN Reason: Shortness Of Breath Stop: 01/31/19 10:42 Aspirin (Aspirin) 81 mg PO DAILY NICKOLAS Stop: 01/31/19 09:01 Last Admin: 08/01/18 09:14 Dose: 81 mg Atorvastatin Calcium (Lipitor) 40 mg PO HS NICKOLAS Stop: 01/30/19 21:01 Last Admin: 07/31/18 19:42 Dose: 40 mg Dextrose/Water (Dextrose 50% (Syg)) 25 ml IVP AD PRN PRN Reason: Hypoglycemia Stop: 01/29/19 22:48 Gabapentin (Neurontin) 100 mg PO TID NICKOLAS Stop: 01/31/19 15:01 Glucagon (Glucagen) 1 mg IM ONCE PRN PRN Reason: Hypoglycemia Stop: 01/29/19 22:48 Glucose (Gluctose) 15 gm PO ONCE PRN PRN Reason: Hypoglycemia Stop: 01/29/19 22:48 Glucose (Gluctose) 30 gm PO ONCE PRN PRN Reason: Hypoglycemia Stop: 01/29/19 22:48 Hydroxyzine Pamoate (Hydroxyzine Pamoate) 50 mg PO BID PRN PRN Reason: Anxiety Dextrose (Dextrose 5%) 1,000 mls @ 100 mls/hr IVC .Q10H PRN PRN Reason: HYPOGLYCEMIA Stop: 01/29/19 22:48 Insulin Human Lispro (Humalog) 0 units SQ HS [facility]; Protocol Stop: 01/31/19 01:01 Last Admin: 08/01/18 03:06 Dose: Not Given Insulin Human Lispro (Humalog) 0 units SQ TIDAC [facility]; Protocol Stop: 01/31/19 07:31 Last Admin: 08/01/18 09:16 Dose: Not Given Loratadine (Claritin) 10 mg PO DAILY [facility]; Protocol Stop: 02/01/19 09:01 Metoprolol Tartrate (Lopressor) 25 mg PO BID [facility] Stop: 01/30/19 09:01 Last Admin: 08/01/18 09:14 Dose: 25 mg Naloxone HCl (Narcan) 0.4 mg IVP Q2MIN PRN PRN Reason: SEE COMMENTS Stop: 01/29/19 21:36 Nicotine (Nicoderm) 21 mg TD HS [facility]; Protocol Stop: 01/29/19 23:01 Last Admin: 07/31/18 19:47 Dose: Not Given Nitroglycerin (Nitroglycerin) 0.4 mg SL Q5MIN PRN PRN Reason: Chest Pain Stop: 01/29/19 19:32 Omeprazole (Prilosec) 20 mg PO 0630 [facility]; Protocol Stop: 01/30/19 06:31 Last Admin: 08/01/18 05:58 Dose: 20 mg Ticagrelor (Brilinta) 90 mg PO BID [facility] Stop: 01/30/19 09:01 Last Admin: 08/01/18 05:58 Dose: 90 mg - Imaging and Cardiology Cardiac cath: report reviewed - EKG Interpretation EKG results cardiology: other (12 hr tele AVG HR 58, SR) Consult Discharge Plan - Plan Referrals: Octavio Pickard DO [Primary Care Provider] - 08/06/18 9:00 am
--- NOTE | 2018-08-01 12:37 | Internal Med Progress Note ---
Hospitalist Progress Note - Encounter Date of Encounter: 08/01/18 Time of Encounter: 12:41 - Subjective Interval History: Patient resting in bed, she denies chest pain. She reported right side thigh and leg pain. - Exam Vitals: Temp Pulse Resp BP Pulse Ox 98.3 F 50 16 103/60 99 08/01/18 11:28 08/01/18 11:28 08/01/18 11:28 08/01/18 11:28 08/01/18 11:28 Exam: PHYSICAL EXAMINATION: GENERAL APPEARANCE: The patient is alert, oriented and in no acute distress. HEENT: Head is normocephalic. The sinuses are nontender. Pupils are equal and reactive. The nares are patent. Oropharynx clear without lesions. NECK: Supple without lymphadenopathy. HEART: Regular rate and rhythm. LUNGS: No crackles or wheezes are heard. ABDOMEN: Soft, nontender, nondistended with good bowel sounds heard. Inguinal area is normal. EXTREMITIES: Without cyanosis, clubbing or edema. NEUROLOGICAL: Gross nonfocal. SKIN: Warm and dry without any rash. - Assessment and Plan (1) Diabetes Current Visit: No Status: Chronic Assessment and Plan: Continue insulin sliding scale. (2) Hypertension Current Visit: No Status: Chronic Assessment and Plan: BP controlled, continue home medications. (3) Tobacco abuse Current Visit: No Status: Acute Assessment and Plan: Continue nicotine patch. Counseling about smoking cessation provided again. (4) PAF (paroxysmal atrial fibrillation) Current Visit: No Status: Chronic Assessment and Plan: Continue Xarelto (5) Chest pain Current Visit: Yes Status: Acute Assessment and Plan: Resolved, status post RCA stent placement. Continue dual antiplatelet agents. Continue metoprolol and statin. Counseling about smoking cessation discussed again with patient. (6) CAD (coronary artery disease) Current Visit: Yes Status: Acute Assessment and Plan: Same as above. DVT Prophylaxis: On Xarelto. - Time Spent with Patient Total time spent is greater than 50% in coordination of care (as documented) at patient's floor/unit and/or counseling patient: Greater than 35 minutes Plan of Care Discussed with: patient Internal Medicine: Result - Labs CBC & Chem 7: 08/01/18 04:23 08/01/18 04:23 Labs: Short CBC 08/01/18 Range/Units 04:23 Plt Count 198 (140-400) K/mcL BMP 08/01/18 04:23 BUN 22 H Creatinine 0.91 - ABG Interpretation ABG results: PT/INR, D-dimer PT 11.5 Seconds (9.4-12.1) 07/30/18 19:43 Consult Discharge Plan - Plan Referrals: Octavio Pickard DO [Primary Care Provider] - 08/06/18 9:00 am (1) Diabetes Qualifiers: Diabetes mellitus type: type 2 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 Diabetes mellitus complication status: with circulatory com plication Diabetes mellitus complication detail: with other circulatory co mplications Qualified Code(s): E11.59 - Type 2 diabetes mellitus with other circulatory complications; Z79.4 - care home (current) use of insulin (2) Hypertension Qualifiers: Hypertension type: essential hypertension Qualified Code(s): I10 - Essential (primary) hypertension (5) Chest pain Qualifiers: Chest pain type: unspecified Qualified Code(s): R07.9 - Chest pain, unspecified (6) CAD (coronary artery disease) Qualifiers: Coronary Disease-Associated Artery/Lesion type: [place] artery [place] vs. transplanted heart: [place] heart Associated angina: with stable angina Qualified Code(s): I25.118 - Atherosclerotic heart disease of [place] coronary a rtery with other forms of angina pectoris
[2018-08-01] MEDS ORDERED: *HR* Rivaroxaban 10 MG TABLET PO SCH (17:00)
[2018-08-01] MEDS: Gabapentin 100 MG CAPSULE PO SCH ×2 (17:01→20:40)
[2018-08-01] MEDS ORDERED: *HR* OxyCODONE Immed Rel 5 MG TABLET PO PRN (19:44)
[2018-08-01] MEDS: Nicotine 21 MG PATCH.TD24 TD SCH (20:40)
[2018-08-02 05:09] LABS: Basophils % 0.2 %; Eosinophils # 0.1 K/mcL (0.0-0.6); Eosinophils % 1.7 %; Hematocrit 30.7 % (35.3-44.9); Hemoglobin 9.8 g/dL (11.5-15.4); Immature Granulocytes % 0.4 % (0-4); Lymphocytes # 1.8 K/mcL (0.6-4.6); Lymphocytes % 21.4 %; Mean Corpuscular HGB Conc 31.9 g/dL (31.6-35.5); Mean Corpuscular Hemoglobin 27.6 pg (28.0-33.3); Mean Corpuscular Volume 86.5 fL (83.0-100.0); Mean Platelet Volume 10.2 fL (9.4-12.4); Monocytes # 0.4 K/mcL (0.0-1.3); Monocytes % 4.8 %; Neutrophils # 6.1 K/mcL (1.6-8.9); Platelet Count 195 K/mcL (140-400); Red Blood Count 3.55 M/mcL (3.82-4.97); Red Cell Distribution Width 13.1 % (11.5-14.5); Segmented Neutrophils % 71.5 %
[2018-08-02 05:26] LABS: BUN/Creatinine Ratio 22 (6-26); Blood Urea Nitrogen 18 mg/dL (6-20); Carbon Dioxide 25 mEq/L (23-29); Chloride 110 mEq/L (98-107); Glucose 166 mg/dL (70-105); Osmolality,Calculated 290 (280-300); Potassium 4.1 mEq/L (3.5-5.1); Sodium 137 mEq/L (136-145); eGFR For Non-African Americans > 60 (> 60)
[2018-08-02] MEDS: *HR* HYDROcodone/Acet 5/325 mg TABLET PO PRN (06:15)
[2018-08-02 07:44] VITALS: BP 118/75
[2018-08-02] MEDS: *HR* Ticagrelor 90 MG TABLET PO SCH (08:29)
[2018-08-02] MEDS: Insulin LISPRO 300 UNITS/3 ML VIAL SQ SCH (08:29)
[2018-08-02] MEDS: Gabapentin 100 MG CAPSULE PO SCH (08:29)
[2018-08-02] MEDS: Aspirin 81 MG TAB.CHEW PO SCH (08:30)
[2018-08-02] MEDS ORDERED: Loratadine 10 MG TABLET PO SCH (09:00)
--- NOTE | 2018-08-02 10:21 | Discharge Summary ---
- NOTES TO OUTPATIENT PROVIDER Notes to Outpatient Provider: f/u with cardiology within 3 weeks. f/u with PCP within a week. 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 Diabetes mellitus complication status: with circulatory complication Diabetes mellitus complication detail: with other circulatory complications Qualified Code(s): E11.59 - Type 2 diabetes mellitus with other circulatory complications; 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 transplanted heart: [place] heart Associated angina: with stable angina Qualified Code(s): I25.118 - Atherosclerotic heart disease of [place] coronary artery with other forms of angina pectoris Hospital course: Ms. Lisa is a 48 year old female Patient presented to the emergency room with chest pain. She has significant medical history for coronary artery disease, requiring 4 stents in the past. She presented to the hospital in the first part of May within an NSTEMI, however she left AGAINST MEDICAL ADVICE prior to her workup which was going to include a left heart catheter. Today just prior to arrival patient states she was sitting at home which he began feeling left-sided chest pressure that radiated to her left arm. She also had diaphoresis, nausea and shortness of breath as well. She tried 2 nitroglycerin tablets which did not help her symptoms. She called EMS and received 3 more nitroglycerin tabs which did improve her pain. She is also given aspirin in the ambulance. In the emergency room, patient's vital signs are stable, CBC and BMP were both within normal limits. Patient's initial troponin was undetectable. EKG showed no acute ST changes. Chest x-ray performed showed no acute process as well. Due to her significant past medical history and unfinished workup from 2 months ago, patient was admitted to the hospital for further monitoring. A stress test was notably abnormal. LHC showed severe one vessel CAD. Patient had successful PTCA/Drug-Eluting Stent placement in the mid RCA. There is a previous stent in Mid RCA with severe in-stent stenosis that was intervened on. Stent placed from a prior procedure in the Mid LAD is is patent. Patient was placed on dual antiplatelet agent including aspirin and Brilinta. Metoprolol and statins were continued. On triple therapy--Pt also on Xarelto for PAF. The necessity of taking all the medications and risk of bleeding discussed with patient. Cardiology plans to stop ASA as outpt in 1 month. Hx of compliance issues due to loss of insurance. We checked with pharmacy, she has coverage with $0 copay. Pt was discharged home today. Discharge discussed with: patient Time spent discussing smoking cessation with patient: more than 10 minutes - Time Spent with Patient Total time spent providing and/or coordinating discharge services: 45 mins. Greater than 30 minutes - Discharge Medications Prescriptions: Gabapentin [Neurontin] 100 mg PO TID #90 capsule Rivaroxaban [Xarelto] 20 mg PO 1700 #30 tablet Ticagrelor [Brilinta] 90 mg PO BID #60 tablet Home Medications: Albuterol Sulfate [Ventolin Hfa] 1 puff IH TID PRN 01/11/17 [History] Loratadine [Claritin] 10 mg PO DAILY 12/28/17 [History] Aspirin Enteric Coated [Aspirin EC] 81 mg PO DAILY #30 tablet. 01/01/18 [Rx] Atorvastatin [Lipitor] 40 mg PO HS #30 tablet 01/01/18 [Rx] Nitroglycerin 0.4 mg SL Q5MIN PRN #30 tab.subl 01/01/18 [Rx] Glimepiride [Amaryl] 4 mg PO DAILY 01/28/18 [History] Metoprolol [Lopressor] 25 mg PO BID 01/28/18 [History] Insulin Glargine [Lantus] 80 unit SQ BID 7 Days mls 02/20/18 [Rx] Omeprazole [PriLOSEC] 20 mg PO DAILY 05/22/18 [History] Insulin Glargine,Hum.rec.anlog [Basaglar Kwikpen U-100] 80 unit SQ BID 07/30/18 [History] hydrOXYzine HCl [Hydroxyzine HCl] 50 mg PO BID PRN 07/30/18 [History] Gabapentin [Neurontin] 100 mg PO TID #90 capsule 08/02/18 [Rx] Rivaroxaban [Xarelto] 20 mg PO 1700 #30 tablet 08/02/18 [Rx] Ticagrelor [Brilinta] 90 mg PO BID #60 tablet 08/02/18 [Rx] Allergies/Adverse Reactions: Allergy/AdvReac Type Severity Reaction Status Date / Time Amoxicillin Allergy Hives Verified 07/30/18 19:13 Penicillins Allergy Hives Verified 07/30/18 19:13 venlafaxine [From Effexor] Allergy Itching Verified 07/30/18 19:13 ibuprofen AdvReac Nausea Verified 07/30/18 19:13 Date of admission: 07/30/18 21:01 Primary care physician: Octavio Pickard DO Consults: 07/30/18 21:40 Consult to Cardiology [CONS] Routine Comment: Consulting Provider: Sheryl Zhang Reason for Consult: History of recent an NSTEMI, patient left AMA prior to workup 2 months ago. Call Completed: No 07/31/18 09:38 Consult to Cardiology [CONS] Routine Comment: Consulting Provider: Sheryl Zhang Reason for Consult: Chest pain, recent NSTEMI Time Notified: 07:35 Call Completed: Yes 07/31/18 10:33 Consult to Software Tools Developer [CONS] Routine Reason for SW Consult: Inability to pay for medications; Inability to travel to cardiology follow-up; Without compliance with medications, unable to perform cardio interventions 07/31/18 17:10 Consult to Cardiac Rehabilitation-Phase1 [CONS] Routine Comment: Reason for Consult: post op PCI Call Completed: Yes Anticipated date of discharge: 08/02/18 - Constitutional Vitals: Temp Pulse Resp BP Pulse Ox 97.6 F 60 16 118/75 99 08/02/18 07:41 08/02/18 07:41 08/02/18 07:41 08/02/18 07:41 08/02/18 07:41 General appearance: Present: cooperative, A&O X 3, pleasant, no acute distress, answers questions appropriately Exam: PHYSICAL EXAMINATION: GENERAL APPEARANCE: The patient is alert, oriented and in no acute distress. HEENT: Head is normocephalic. The sinuses are nontender. Pupils are equal and reactive. The nares are patent. Oropharynx clear without lesions. NECK: Supple without lymphadenopathy. HEART: Regular rate and rhythm. LUNGS: No crackles or wheezes are heard. ABDOMEN: Soft, nontender, nondistended with good bowel sounds heard. Inguinal area is normal. EXTREMITIES: Without cyanosis, clubbing or edema. NEUROLOGICAL: Gross nonfocal. SKIN: Warm and dry without any rash. - Patient Status Disposition: Home, Self-Care Condition: Fair Functional capacity at discharge: independent ambulation Overall status at discharge: patient is progressing back to baseline - Discharge Instructions Follow Up With: Octavio Pickard DO [Primary Care Provider] - 08/06/18 9:00 am Forms: ED Satisfaction Letter - Diet and Activity Activity: increase activity as tolerated Diet: low fat, low cholesterol, low salt diet
--- NOTE | 2018-08-04 16:26 | Electrocardiograph Report ---
[address] [place], [place] [address] Test Date: 2018-08-01 Pat Name: Shahnaz Lisa Department: 113 Room: 3B Gender: F Head Machine Feeder: : [id number] Requested By: Aba Guzman Order Number: [id number] Reading MD: Citlalli Laguerre Measurements Intervals [place] Rate: 56 P: 83 GA: 180 QRS: 40 QRSD: 85 T: 51 QT: 425 QTc: 416 Interpretive Statements SINUS BRADYCARDIA Electronically Signed On 08-04-2018 16:25:10 EST by Citlalli Laguerre
== END 2018-08-02 15:02 | disposition home or self-care (01) ==
LOC: 3BNU 19:04 → EMEROOARM 19:04 → 3BNU 21:50
PROVIDERS: ADMIT Family Medicine; ATTEND Family Medicine

== ENCOUNTER 2018-12-25 20:38 | Observation (INO) ==
[2018-12-25] MEDS ORDERED: Nitroglycerin 0.4 MG TAB.SUBL SL ONE (20:47)
[2018-12-25] MEDS ORDERED: 0.9 % Sodium Chloride 500 ML IVC ONE ×2 (21:00→22:40)
--- NOTE | 2018-12-25 21:09 | Emergency Department Note ---
Disposition Clinical Impression: Atrial fibrillation with rapid ventricular response Hypotension Qualifiers: Hypotension type: unspecified hypotension type Qualified Code(s): I95.9 - Hypotension, unspecified Chest pain Qualifiers: Chest pain type: unspecified Qualified Code(s): R07.9 - Chest pain, unspecified Disposition: Admitted As Inpatient Condition: Fair Time of Disposition: 22:38 General Adult HPI - General Chief complaint: ED Chest Pain Stated complaint: Heart Issues Time Seen by Provider: 12/25/18 20:40 Source: patient Limitations: no limitations - History of Present Illness HPI Narrative: Ms. Lisa is 48-year-old female with past medical history of hypertension, atrial fibrillation on anticoagulation, PA with 5 previous stents, hyperlipidemia, COPD who was presented to the ED via EMS after severe chest pain that was gradual but worsened Today. She reports that this afternoon she starte d having chest pain that radiated to her right arm. She was not doing any physical activity and was sitting when this chest pain started. She reports that the pain is very similar to her previous PA. Additionally reports difficulty breathing due to the pain. The pain is rated 10 out of 10 in sev erity. Her symptoms are associated with nausea although she denies any episode of emesis. Although she denies pain worsening of her pain with deep breath. Reports that her most recent PA and stent was in July. She did not take any nitroglycerin at the onset of pain that she was out of them. In route she received 4 tablets of 81mg of aspirin. She is denying fever, chills, abdominal pain. Pain Scale: 10 - Related Data Home Medications Medication Instructions Recorded Confirmed Albuterol Sulfate [Ventolin Hfa] 2 puff IH BID PRN 01/11/17 11/24/18 Loratadine [Claritin] 10 mg PO DAILY 12/28/17 11/24/18 Glimepiride [Amaryl] 4 mg PO DAILY 01/28/18 11/24/18 hydrOXYzine HCl [Hydroxyzine HCl] 25 mg PO BID 07/30/18 11/24/18 Baclofen [Lioresal] 10 mg PO BID 09/05/18 11/24/18 Insulin Glargine,Hum.rec.anlog 80 unit SQ BID 09/05/18 11/24/18 [Shaileshaglnatividad Quick U-100] Omeprazole [PriLOSEC] 20 mg PO DAILY 09/05/18 11/24/18 Previous Rx's Medication Instructions Recorded Aspirin Enteric Coated [Aspirin EC] 81 mg PO DAILY #30 tablet.dr 01/01/18 Nitroglycerin 0.4 mg SL Q5MIN PRN #30 tab.subl 01/01/18 Rivaroxaban [Xarelto] 20 mg PO 1700 #30 tablet 08/02/18 Ticagrelor [Brilinta] 90 mg PO BID #60 tablet 08/02/18 Metoprolol XL (24 HR) Succ [Toprol 25 mg PO DAILY #30 tab.er.24h 08/04/18 Xl] Albuterol Sulfate [Albuterol 2 puff IH Q6H #1 puff 10/11/18 Inhaler] Allergies Allergy/AdvReac Type Severity Reaction Status Date / Time Amoxicillin Allergy Hives Verified 11/24/18 19:04 Penicillins Allergy Hives Verified 11/24/18 19:04 codeine AdvReac Nausea Verified 11/24/18 19:04 ibuprofen AdvReac "DEADLY Verified 11/24/18 19:04 SICK TO MY STOMACH" venlafaxine [From Effexor] AdvReac "TEARS MY Verified 11/24/18 19:04 STOMACH UP" Constitutional: Denies: fever, chills, weakness Eyes: Denies: eye pain, eye discharge, vision change ENT ED: Denies: ear pain, congestion, dysphagia Cardiovascular: Reports: chest pain. Denies: palpitations, dyspnea on exertion, orthopnea, syncope Respiratory: Denies: cough, dyspnea, wheezes Gastrointestinal: Denies: abdominal pain, nausea, vomiting Genitourinary: Denies: urgency, dysuria, frequency Musculoskeletal: Denies: back pain, neck pain, myalgia Integumentary: Denies: rash, abrasion, lesions Neurological: Reports: headache. Denies: weakness, numbness Psychiatric: Reports: anxiety Hematological/Lymphatic: Denies: easy bleeding, easy bruising Past Medical History - Past Medical History Medical history: Reports: asthma, atrial fibrillation, CHF, COPD, coronary artery disease, diabetes, hypertension, TIA Surgical history: Reports: angioplasty/stent Psychiatric history: Reports: anxiety, depression, panic disorder [employer] HEAD history: Reports: bilateral tubal ligation - Social History Smoking Status: Current every day smoker Smokeless Tobacco Status: No Alcohol use: Reports: none Drug use: Reports: none Physical Exam - General Limitations: no limitations General appearance: alert, in no apparent distress - Head Head exam: atraumatic, normocephalic - Eye Eye exam: Present: normal appearance. Absent: EOMI, scleral icterus, conjunct ival injection - ENT ENT exam: normal exam, normal oropharynx, mucous membranes moist - Neck Neck exam: Present: normal inspection, full ROM, trachea midline - Chest Chest inspection: Present: normal inspection, symmetric chest wall rise, other (No chest wall tenderness). Absent: tenderness - Respiratory Respiratory exam: Present: normal lung sounds bilaterally. Absent: respiratory distress, wheezes, accessory muscle use - Cardiovascular Cardiovascular exam: Present: irregular rhythm, +S1, +S2, other (Cardio with heart rate in 130s, EKG does not show any ST elevation) - Abdominal Exam Abdominal exam: Present: soft, Non-Tender. Absent: distention, guarding, rigidity - Extremities Exam Extremities exam: Present: normal inspection, full ROM. Absent: tenderness - Neurological Exam Neurological exam: Present: alert, oriented X3 - Psychiatric Psychiatric exam: Present: normal affect, normal mood - Skin Skin exam: Present: warm, dry, intact Course - Reevaluation(s) Reevaluation #1: Ms. Lisa received one dose of sublingual nitroglycerin, subsequently her blood pressure dropped to 90/70s her heart rate continued to remain elevated. Currently Cardizem drip has been on hold given her blood pressure decreased. She is currently getting 500 mL of IV fluid bolus. She reports her chest pain is now almost resolved after sublingual nitroglycerin. Time: 21:24 Vital Signs Temperature 98.4 F 12/25/18 20:44 Pulse Rate 145 12/25/18 20:44 Respiratory Rate 14 12/25/18 20:44 Blood Pressure 135/86 12/25/18 20:44 O2 Sat by Pulse Oximetry 100 12/25/18 20:44 Temperature 98.4 F 12/25/18 20:44 Pulse Rate 130 12/25/18 22:45 Respiratory Rate 18 12/25/18 22:45 Blood Pressure 110/75 12/25/18 22:45 O2 Sat by Pulse Oximetry 99 12/25/18 22:45 Oxygen Delivery Oxygen Delivery Room Air Medical Decision Making - MDM Narrative Medical decision making narrative: Mrs. Lisa was presented to the ED via EMS complaining of severe chest pain being to her left arm. At presentation to the ED she was noted to have atrial fibrillation with her heart rate in the 130s. EKG showed atrial fibrillation with RVR no ST elevation. Her blood pressure was 130s over 80s she subsequently received 1 of 0.4 mg of sublingual nitroglycerin which eased her pain but caused her blood pressure to decrease. She subsequently received 500 mL of normal saline bolus blood pressure returned to 130s over 80. She continues to have A. fib RVR will be started on cardizem drip. At 2300 her blood pressure was noted to be 112/69 but her heart rate continued to be in the 130s. She is going to receive 10 mg of the Cardizem bolus instead of 15 mg in the ED. - Medical Records Medical records reviewed: Yes I reviewed the patient's medical records. - Lab Data Lab results reviewed: Yes I reviewed the patient's lab results. Result diagrams: 12/25/18 21:03 12/25/18 21:03 Lab Results 12/25/18 12/25/18 Range/Units 21:03 21:03 WBC 9.8 (4.3-11.1) K/mcL RBC 3.97 (3.82-4.97) M/mcL Hgb 10.3 L (11.5-15.4) g/dL Hct 33.6 L (35.3-44.9) % MCV 84.6 (83.0-100.0) fL MCH 25.9 L (28.0-33.3) pg MCHC 30.7 L (31.6-35.5) g/dL RDW 14.6 H (11.5-14.5) % Plt Count 277 (140-400) K/mcL MPV 9.8 (9.4-12.4) fL Immature Gran % 0.3 (0-4) % Seg Neutrophils % 65.5 % Lymphocytes % 23.2 % Monocytes % 6.1 % Eosinophils % 4.4 % Basophils % 0.5 % Neutrophils # 6.4 (1.6-8.9) K/mcL Lymphocytes # 2.3 (0.6-4.6) K/mcL Monocytes # 0.6 (0.0-1.3) K/mcL Eosinophils # 0.4 (0.0-0.6) K/mcL Basophils # 0.1 (0.0-0.2) K/mcL Sodium 141 (136-145) mEq/L Potassium 3.5 (3.5-5.1) mEq/L Chloride 111 H (98-107) mEq/L Carbon Dioxide 23 (23-29) mEq/L BUN 15 (6-20) mg/dL Creatinine 1.06 (0.60-1.20) mg/dL Est GFR ( Amer) > 60 (> 60) Est GFR (Non-Af Amer) 56 L (> 60) BUN/Creatinine Ratio 14 (6-26) Glucose 75 (70-105) mg/dL Calculated Osmolality 292 (280-300) Calcium 8.4 L (8.6-10.3) mg/dL Troponin I < 0.03 (< 0.04) ng/mL - Radiology Data Radiology results reviewed: Yes I reviewed the patient's radiology results.
[2018-12-25 21:12] LABS: Basophils # 0.1 K/mcL (0.0-0.2); Basophils % 0.5 %; Eosinophils # 0.4 K/mcL (0.0-0.6); Eosinophils % 4.4 %; Hematocrit 33.6 % (35.3-44.9); Hemoglobin 10.3 g/dL (11.5-15.4); Immature Granulocytes % 0.3 % (0-4); Lymphocytes # 2.3 K/mcL (0.6-4.6); Lymphocytes % 23.2 %; Mean Corpuscular HGB Conc 30.7 g/dL (31.6-35.5); Mean Corpuscular Hemoglobin 25.9 pg (28.0-33.3); Mean Corpuscular Volume 84.6 fL (83.0-100.0); Mean Platelet Volume 9.8 fL (9.4-12.4); Monocytes # 0.6 K/mcL (0.0-1.3); Monocytes % 6.1 %; Neutrophils # 6.4 K/mcL (1.6-8.9); Platelet Count 277 K/mcL (140-400); Red Blood Count 3.97 M/mcL (3.82-4.97); Red Cell Distribution Width 14.6 % (11.5-14.5); Segmented Neutrophils % 65.5 %; White Blood Count 9.8 K/mcL (4.3-11.1)
[2018-12-25 21:33] LABS: BUN/Creatinine Ratio 14 (6-26); Blood Urea Nitrogen 15 mg/dL (6-20); Calcium 8.4 mg/dL (8.6-10.3); Carbon Dioxide 23 mEq/L (23-29); Chloride 111 mEq/L (98-107); Glucose 75 mg/dL (70-105); Osmolality,Calculated 292 (280-300); Potassium 3.5 mEq/L (3.5-5.1); Sodium 141 mEq/L (136-145); eGFR For African Americans > 60 (> 60); eGFR For Non-African Americans 56 (> 60)
[2018-12-25 21:34] LABS: Troponin I < 0.03 ng/mL (< 0.04)
--- NOTE | 2018-12-25 22:31 | Emergency Department Note ---
Disposition Clinical Impression: Atrial fibrillation with rapid ventricular response, Chest pain Hypotension Qualifiers: Hypotension type: unspecified hypotension type Qualified Code(s): I95.9 - Hypotension, unspecified Disposition: Admitted As Inpatient Condition: Fair Time of Disposition: 22:31 General Adult HPI - General Chief complaint: ED Chest Pain Stated complaint: Heart Issues Time Seen by Provider: 12/25/18 20:40 Source: patient Limitations: no limitations - History of Present Illness Pain Scale: 10 - Related Data Home Medications Medication Instructions Recorded Confirmed Albuterol Sulfate [Ventolin Hfa] 2 puff IH BID PRN 01/11/17 11/24/18 Loratadine [Claritin] 10 mg PO DAILY 12/28/17 11/24/18 Glimepiride [Amaryl] 4 mg PO DAILY 01/28/18 11/24/18 hydrOXYzine HCl [Hydroxyzine HCl] 25 mg PO BID 07/30/18 11/24/18 Baclofen [Lioresal] 10 mg PO BID 09/05/18 11/24/18 Insulin Glargine,Hum.rec.anlog 80 unit SQ BID 09/05/18 11/24/18 [Basaglar Kwikpen U-100] Omeprazole [PriLOSEC] 20 mg PO DAILY 09/05/18 11/24/18 Previous Rx's Medication Instructions Recorded Aspirin Enteric Coated [Aspirin EC] 81 mg PO DAILY #30 tablet.dr 01/01/18 Nitroglycerin 0.4 mg SL Q5MIN PRN #30 tab.subl 01/01/18 Rivaroxaban [Xarelto] 20 mg PO 1700 #30 tablet 08/02/18 Ticagrelor [Brilinta] 90 mg PO BID #60 tablet 08/02/18 Metoprolol XL (24 HR) Succ [Toprol 25 mg PO DAILY #30 tab.er.24h 08/04/18 Xl] Albuterol Sulfate [Albuterol 2 puff IH Q6H #1 puff 10/11/18 Inhaler] Allergies Allergy/AdvReac Type Severity Reaction Status Date / Time Amoxicillin Allergy Hives Verified 11/24/18 19:04 Penicillins Allergy Hives Verified 11/24/18 19:04 codeine AdvReac Nausea Verified 11/24/18 19:04 ibuprofen AdvReac "DEADLY Verified 11/24/18 19:04 SICK TO MY STOMACH" venlafaxine [From Effexor] AdvReac "TEARS MY Verified 11/24/18 19:04 STOMACH UP" Constitutional: Denies: fever, chills, weakness Eyes: Denies: eye pain, eye discharge, vision change ENT ED: Denies: ear pain, congestion, dysphagia Cardiovascular: Reports: chest pain. Denies: palpitations, dyspnea on exertion, orthopnea, syncope Respiratory: Denies: cough, dyspnea, wheezes Gastrointestinal: Denies: abdominal pain, nausea, vomiting Genitourinary: Denies: urgency, dysuria, frequency Musculoskeletal: Denies: back pain, neck pain, myalgia Integumentary: Denies: rash, abrasion, lesions Neurological: Reports: headache. Denies: weakness, numbness Psychiatric: Reports: anxiety Hematological/Lymphatic: Denies: easy bleeding, easy bruising Past Medical History - Past Medical History Medical history: Reports: asthma, atrial fibrillation, CHF, COPD, coronary artery disease, diabetes, hypertension, TIA Surgical history: Reports: angioplasty/stent Psychiatric history: Reports: anxiety, depression, panic disorder [employer] history: Reports: bilateral tubal ligation - Social History Smoking Status: Current every day smoker Smokeless Tobacco Status: No Alcohol use: Reports: none Drug use: Reports: none Physical Exam - General Limitations: no limitations General appearance: alert, in no apparent distress Course Vital Signs Temperature 98.4 F 12/25/18 20:44 Pulse Rate 145 12/25/18 20:44 Respiratory Rate 14 12/25/18 20:44 Blood Pressure 135/86 12/25/18 20:44 O2 Sat by Pulse Oximetry 100 12/25/18 20:44 Temperature 98.4 F 12/25/18 20:44 Pulse Rate 145 12/25/18 20:44 Respiratory Rate 14 12/25/18 20:44 Blood Pressure 135/86 12/25/18 20:44 O2 Sat by Pulse Oximetry 100 12/25/18 20:44 Oxygen Delivery Oxygen Delivery Room Air Medical Decision Making - Lab Data Result diagrams: 12/25/18 21:03 12/25/18 21:03 Lab Results 12/25/18 12/25/18 Range/Units 21:03 21:03 WBC 9.8 (4.3-11.1) K/mcL RBC 3.97 (3.82-4.97) M/mcL Hgb 10.3 L (11.5-15.4) g/dL Hct 33.6 L (35.3-44.9) % MCV 84.6 (83.0-100.0) fL MCH 25.9 L (28.0-33.3) pg MCHC 30.7 L (31.6-35.5) g/dL RDW 14.6 H (11.5-14.5) % Plt Count 277 (140-400) K/mcL MPV 9.8 (9.4-12.4) fL Immature Gran % 0.3 (0-4) % Seg Neutrophils % 65.5 % Lymphocytes % 23.2 % Monocytes % 6.1 % Eosinophils % 4.4 % Basophils % 0.5 % Neutrophils # 6.4 (1.6-8.9) K/mcL Lymphocytes # 2.3 (0.6-4.6) K/mcL Monocytes # 0.6 (0.0-1.3) K/mcL Eosinophils # 0.4 (0.0-0.6) K/mcL Basophils # 0.1 (0.0-0.2) K/mcL Sodium 141 (136-145) mEq/L Potassium 3.5 (3.5-5.1) mEq/L Chloride 111 H (98-107) mEq/L Carbon Dioxide 23 (23-29) mEq/L BUN 15 (6-20) mg/dL Creatinine 1.06 (0.60-1.20) mg/dL Est GFR ( Amer) > 60 (> 60) Est GFR (Non-Af Amer) 56 L (> 60) BUN/Creatinine Ratio 14 (6-26) Glucose 75 (70-105) mg/dL Calculated Osmolality 292 (280-300) Calcium 8.4 L (8.6-10.3) mg/dL Troponin I < 0.03 (< 0.04) ng/mL Critical Care Time Critical Care Time: Yes Total Critical Care Time: 30 Attestation: 30 minutes of critical care time were spent with this patient atrial fibrillation with rapid ventricular response, hypertension, IV fluids, Cardizem bolus, Cardizem drip and discussion with the hospitalist physician Attestation Statement - Attestation Attestation: Physician attestation I saw and evaluated the patient and and reviewed the resident's note/PA note/SEWING MACHINE MAINTENANCE MECHANIC note, and I agree with the findings and plan. I personally supervised and was present for the antonio/critical portions of any procedures. The medical decision- making was reviewed with the HOUSE DECORATOR/PA/Advanced Practice Nurse/Resident Physician. I agree with the documented findings, disposition and treatment plan as described except to the extent set forth below. The patient presented with atrial fibrillation with rapid ventricular response and chest pain radiating to left arm and she does have a history of coronary disease and cardiac stents and she did get 1 dose of sublingual nitroglycerin which caused become hypotensive with a pressure of 98 and then she got IV fluids and then Cardizem bolus then drip for a heart rate ranging between 106-130 and sometimes up to 140 bpm. Patient is admitted to the hospital and we will speak with the hospitalist at this time. I did review the patient's labs and test results. I did check on the patient multiple times. 2230 After the 500 mL bolus the patient's blood pressure did improve to 131 systolic however now is 110 so received additional IV fluids. The Cardizem bolus and drip have been ordered but has not yet been started. 2245
--- NOTE | 2018-12-25 23:59 | Internal Med History&Physical ---
Date of Encounter: 12/25/18 Time of Encounter: 23:57 Internal Medicine - H&P: HPI Chief complaint: Chest Pain History of present illness: Ms. Lisa is a 48 year old female with past medical history of hypertension, atrial fibrillation on anticoagulation, [place] with 5 previous stents, hyperlipidemia, COPD who was presented to the ED via EMS after severe chest pain earlier today.. She reports that this afternoon she started having left-sided chest pain described as sharp, 10 out of 10 in intensity, radiating to her left arm. No aggravating or alleviating factors. She was not doing any physical activity and was sitting when this chest pain started. She reports that the pain is very similar to her previous [place]. Associated symptoms included shortness of breath with nausea although she denies any episode of emesis. In route she received 4 tablets of 81mg of aspirin. She is denying fever, chills, abdominal pain. On initial vitals patient was found to have a heart rate of 130's. EKG showed atrial fibrillation with RVR. Nonspecific T-wave changes noted however no ST elevations or depressions. Patient was subsequently restarted on Cardizem drip. Patient received one dose of sublingual nitroglycerin which briefly dropped her blood pressure into the 90/70s; her heart rate continued to remain elevated. Cardizem drip was temporarily held. She was given a 500 mL of IV fluid bolus with improvement in blood pressure. She reports her chest pain is now almost resolved after sublingual nitroglycerin. Initial laboratory workup was unremarkable. Chest x-ray showed no acute cardiopulmonary abnormality. Patient currently chest pain-free. Past Med Surg Social Fam HX - Past Medical History Medical history: asthma, atrial fibrillation, CHF, COPD, coronary artery disease, diabetes, hypertension, TIA Additional medical history: X 5 MINI STROKES Psychiatric history: anxiety, depression, panic disorder - Past Surgical History Surgical History: angioplasty/stent Additional surgical history: MULTIPLE[5] STENTS [facility] (LAST ONE JULY 2018). Tubal ligation - Social History Smoking Status: Current every day smoker Smokeless Tobacco Status: No Alcohol use: none Drug use: none - Family History Mother Living Status: Still Living Hx Family Cardiac Disorders: Yes (HTN) Father Living Status: Hx Family Cardiac Disorders: Yes Hx Family Endocrine Disorder: Yes (DM) Internal Medicine - H&P: Meds Albuterol Sulfate [Ventolin Hfa] 2 puff IH BID PRN 01/11/17 [History] Loratadine [Claritin] 10 mg PO DAILY 12/28/17 [History] Aspirin Enteric Coated [Aspirin EC] 81 mg PO DAILY #30 tablet.dr 01/01/18 [Rx] Nitroglycerin 0.4 mg SL Q5MIN PRN #30 tab.subl 01/01/18 [Rx] Glimepiride [Amaryl] 4 mg PO DAILY 01/28/18 [History] hydrOXYzine HCl [Hydroxyzine HCl] 25 mg PO BID 07/30/18 [History] Rivaroxaban [Xarelto] 20 mg PO 1700 #30 tablet 08/02/18 [Rx] Ticagrelor [Brilinta] 90 mg PO BID #60 tablet 08/02/18 [Rx] Metoprolol XL (24 HR) Succ [Toprol Xl] 25 mg PO DAILY #30 tab.er.24h 08/04/18 [Rx] Baclofen [Lioresal] 10 mg PO BID 09/05/18 [History] Insulin Glargine,Hum.rec.anlog [Basaglar Kwikpen U-100] 80 unit SQ BID 09/05/18 [History] Omeprazole [PriLOSEC] 20 mg PO DAILY 09/05/18 [History] Albuterol Sulfate [Albuterol Inhaler] 2 puff IH Q6H #1 puff 10/11/18 [Rx] Allergy/AdvReac Type Severity Reaction Status Date / Time Amoxicillin Allergy Hives Verified 11/24/18 19:04 Penicillins Allergy Hives Verified 11/24/18 19:04 codeine AdvReac Nausea Verified 11/24/18 19:04 ibuprofen AdvReac "DEADLY Verified 11/24/18 19:04 SICK TO MY STOMACH" venlafaxine [From Effexor] AdvReac "TEARS MY Verified 11/24/18 19:04 STOMACH UP" All Systems PM: A 10-system review of systems was performed and is negative for pertinent findings except as documented above in the HPI. - Constitutional Constitutional: no chills, no fever(s), no night sweats - EENT Eyes: no change in vision, no discharge, no pain, no photophobia Ears: no ear discharge, no ear pain, no tinnitus Nose, mouth and throat: no dysphagia, no nasal discharge, no neck pain, no sore throat - Cardiovascular Cardiovascular ROS IM: no chest pain, no diaphoresis, no dyspnea, no lightheadedness, no palpitations, no syncope - Respiratory Respiratory: no cough, no dyspnea, no wheezing, no excessive phlegm production - Gastrointestinal Gastrointestinal: no abdominal pain, no diarrhea, no hematemesis, no hematochezia, no melena, no nausea, no vomiting - Genitourinary Genitourinary: no change in urinary stream, no dysuria, no flank pain, no hematuria - Musculoskeletal Musculoskeletal ROS IM: no numbness, no tingling - Integumentary Integumentary IM: no rash, no unusual bruising - Neurological Neurological ROS: no confusion, no convulsions, no focal weakness, no numbness, no tingling, no tremor(s) - Hematologic/Lymphatic Hematologic/Lymphatic: no easy bruising - Constitutional Vitals: Temp Pulse Resp BP Pulse Ox 98.4 F 77 18 102/56 99 12/25/18 20:44 12/25/18 23:28 12/25/18 23:28 12/25/18 23:28 12/25/18 23:28 Exam: General: Alert and oriented 3 lying in bed in no acute distress Skin:Normal color, no rash, no lesions. HEENT:EOM, pupils equal, round and reactive. Cardiovascular:Normal S1 & S2, no rubs, murmurs or gallops. No JVD. Pulse regular. Lungs:Normal breath sounds, no wheezes or crackles. Abdomen:Soft, non-tender, no rigidity. Extremities:No deformity, no edema or tenderness, no joint swelling or clubbing. Neurological:Normal cognition and motor skills. Pulses:Carotid and radial pulses normal +2. Rest of the physical exam is non contributory Internal Med - H&P Results - Labs CBC & Chem 7: 12/26/18 14:53 12/26/18 03:34 Labs: Short CBC 12/25/18 Range/Units 21:03 WBC 9.8 (4.3-11.1) K/mcL Hgb 10.3 L (11.5-15.4) g/dL Hct 33.6 L (35.3-44.9) % Plt Count 277 (140-400) K/mcL Neutrophils # 6.4 (1.6-8.9) K/mcL BMP 12/25/18 21:03 Sodium 141 Potassium 3.5 Chloride 111 H Carbon Dioxide 23 BUN 15 Creatinine 1.06 Glucose 75 Calcium 8.4 L Cardiac Enzymes 12/25/18 Range/Units 21:03 Troponin I < 0.03 (< 0.04) ng/mL - Impressions ITS Impressions Chest X-Ray 12/25/18 20:48 IMPRESSION: No acute cardiopulmonary disease. Evidence of prior granulomatous disease. D/ / Gee Huston MD / Gee Huston MD Interpreting Provider: Gee Huston MD - Assessment and Plan (1) Chest pain Current Visit: Yes Status: Acute Assessment and plan: Patient presenting with acute onset chest pain described as sharp, left-sided radiating to her left arm and neck associated with shortness of breath and nausea in the setting of A. fib with RVR. Reports a presentation similar to that with her [place] in July. Initial troponin was negative. EKG showed atrial fibrillation with RVR with a heart rate in the 130s. There were nonspecific T- wave changes however no significant ST depressions or elevations were noted. Recent C 07/31/17 for abnormal stress test. Severe one vessel CAD. Patient had successful PTCA/RENATO placement in the mid RCA. There is a previous stent in Mid RCA with severe in-stent stenosis that was intervened on. PTCA to the distal RCA down to 50%. Stent placed from a prior procedure in the Mid LAD was patent. Pt reports compliance with DAPT (ASA and Brilinta), BB and Statin. Limited TTE showed EF 55%, no WMA. Pt presents with chest pain radiating into left arm relieved with 1 SL NTG. Troponins negative x 1. She remains chest pain free. -Continue telemetry -We will trend troponin -Continue with patient's dual antiplatelet therapy and beta monica, statin, aspirin -Repeat limited echo in the morning -Consider cardiology consult if troponins become elevated. Qualifiers: Chest pain type: unspecified Qualified Code(s): R07.9 - Chest pain, unspecified (2) Atrial fibrillation with rapid ventricular response Current Visit: Yes Status: Resolved Assessment and plan: H/o PAF on xarelto found to be in rapid ventricular response with a heart rate in the 130s. Placed on Cardizem drip. Rate controlled at present. We will continue Cardizem drip (3) Hypotension Current Visit: Yes Status: Acute Assessment and plan: Patient became transiently hypotensive after receiving sublingual nitroglycerin. Now resolved after fluid bolus of 500. We will continue to monitor. Qualifiers: Hypotension type: unspecified hypotension type Qualified Code(s): I95.9 - Hypotension, unspecified (4) DVT prophylaxis Current Visit: Yes Status: Acute - Time Spent With Patient Total time spent is greater than 50% in coordination of care (as documented) at patient's floor/unit and/or counseling patient:
[2018-12-26] MEDS ORDERED: Naloxone 0.4 MG/ML INJ IVP PRN (00:22)
[2018-12-26] MEDS ORDERED: Nitroglycerin 0.4 MG TAB.SUBL SL PRN ×2 (00:24→14:51)
[2018-12-26 04:12] LABS: Hematocrit 28.1 % (35.3-44.9); Mean Corpuscular Hemoglobin 26.1 pg (28.0-33.3); Mean Corpuscular Volume 84.4 fL (83.0-100.0); Mean Platelet Volume 10.1 fL (9.4-12.4); Platelet Count 245 K/mcL (140-400); Red Blood Count 3.33 M/mcL (3.82-4.97); Red Cell Distribution Width 14.6 % (11.5-14.5); White Blood Count 8.4 K/mcL (4.3-11.1)
[2018-12-26 04:19] LABS: Hemoglobin 8.7 g/dL (11.5-15.4)
[2018-12-26 04:22] LABS: INR 0.9; Prothrombin Time 10.6 Seconds (9.4-12.1)
[2018-12-26 04:30] LABS: Blood Urea Nitrogen 16 mg/dL (6-20); Carbon Dioxide 21 mEq/L (23-29); Chloride 114 mEq/L (98-107); Potassium 3.7 mEq/L (3.5-5.1); Sodium 141 mEq/L (136-145)
[2018-12-26 04:31] LABS: BUN/Creatinine Ratio 16 (6-26); Calcium 7.6 mg/dL (8.6-10.3); Glucose 85 mg/dL (70-105); Osmolality,Calculated 292 (280-300); eGFR For African Americans > 60 (> 60); eGFR For Non-African Americans 58 (> 60)
[2018-12-26] MEDS ORDERED: *HR* Enoxaparin 80 MG/0.8 ML SYRINGE SQ STA (07:25)
[2018-12-26] MEDS ORDERED: 0.9 % Sodium Chloride 500 ML IVC PRN (07:29)
[2018-12-26] MEDS ORDERED: *HR* Dextrose 50 % in Water (Syg) 50 ML SYRINGE IVP PRN (07:30)
[2018-12-26] MEDS ORDERED: D5% in Water 1,000 ML IVC PRN (07:30)
[2018-12-26] MEDS ORDERED: Dextrose Gel 15 GM/37.5 ML TUBE PO PRN ×2 (07:30)
--- NOTE | 2018-12-26 08:54 | Cardiology Consult Note ---
<Elvia Nye Alfreda - Last Filed: 12/26/18 09:31> Date of Encounter: 12/26/18 Time of Encounter: 08:00 Assessment and Plan (1) PAF (paroxysmal atrial fibrillation) Current Visit: Yes Status: Chronic Presented to the ED in atrial fibrillation with RVR. Hx of PAF on Xarelto. Converted to NSR, will d/c cardizem gtt at this time. Increase home Toprol XL to 37.5 mg daily; BP noted to be borderline, continue to monitor closely. Of note, Hgb dropped from 10.3--> 8.7; denies abnormal or unusual bleeding. Appears to have baseline anemia ~8-9. Will restart home Xarelto. (2) Elevated troponin Current Visit: No Status: Acute Troponin negative, 0.3 in the setting of atrial fibrillation with RVR. Suspect secondary to demand ischemia. Currently chest pain free, will obtain ECG now that she is back in NSR. [facility]; no other significant obstructive CAD at that time ([facility] 07/2018) Repeat limited TTE to evaluation LVEF. Continue asa, statin, and BB. . To avoid triple therapy (has been >1 month since PCI with RENATO), will stop asa and brilinta. Load with 300 mg plavix today, and then start 75 mg daily thereafter. Patient should be discharge on plavix and Xarelto (PAF). No indication for cardiac rehab at this time. (3) CAD (coronary artery disease) Current Visit: Yes Status: Chronic Hx of CAD s/p [facility] ; no other significant obstructive CAD. EF preserved. Patient was recommended to transition to plavix and Xarelto in the outpt setting, however this was not done. (to avoid triple therapy). As above, will stop brilinta and asa. Plavix 300 mg today, then 75 mg dialy thereafter. Qualifiers: Coronary Disease-Associated Artery/Lesion type: unspecified vessel or lesion type [place] vs. transplanted heart: [place] heart Associated angina: with unspecified angina Qualified Code(s): I25.119 - Atherosclerotic heart disease of [place] coronary artery with unspecified angina pectoris Discussion w patient/family: The assessment and plan as outlined above was discussed with the patient and/or family members who expressed understanding and agreement. All questions were answered. Thank you for involving us in the care of your patient. Please call with any questions. The patient will be discussed and reviewed with Dr. Joseph; changes to be made accordingly. History of Present Illness Consult date: 12/26/18 Requesting physician: Eusebia Benítez Consult reason: Elevated troponin Chief complaint: afib flare up History of present illness: Ms. Lisa is a 48 year old female with PMHx significant of CAD s/p PCI, PAF,GERD, HLD, anemia, and HTN who presented to the ED after 'afib flare up' that occurred yesterday evening at home while talking to her pafykg-ca-bun. She reports sudden onset of palpitations and associated chest pressure and discomfort. Upon arrival to ED, she was found to be in atrial fibrillation with RVR (132), she was started on IV cardizem gtt and send to [facility] for further evaluation. Of note, she reports overall decline in health and increase in LE edema since the passing of her mother this past October. Upon exam, she is resting comfortably in bed without complaints, denies chest pain or discomfort. States chest pain resolved with medication given in the ED. Of note, medications as inpatient are inconsistent without outpatient record. Multiple ED admissions for chest pain. Prior CV testing: TTE 09/04/18: LVEF 50-55%, mild segmental LV systolic dysfunction, normal RV structure and function, mild MR, mild TR, no PH; mid inferior wall was hypokinetic, basal inferior wall was akinetic. [facility] 07/31/18: s/p successful PTCA/RENATO to severe ISR of mRCA; patent LAD stent; otherwise no significant obstructive CAD Past Med Surg Social Fam HX - Past Medical History Attestation: Yes The following information was validated with the patient. Source: patient Medical history: asthma, atrial fibrillation, CHF, COPD, coronary artery disease, diabetes, hypertension, TIA Additional medical history: X 5 MINI STROKES Psychiatric history: anxiety, depression, panic disorder - Past Surgical History Surgical History: angioplasty/stent Additional surgical history: MULTIPLE[5] STENTS [facility] (LAST ONE JULY 2018). Tubal ligation - Social History Smoking Status: Current every day smoker Smokeless Tobacco Status: No Alcohol use: none Drug use: none - Family History Mother History Unknown: Yes Living Status: Still Living Hx Family Cardiac Disorders: Yes (HTN) Father History Unknown: Yes Living Status: Hx Family Cardiac Disorders: Yes Hx Family Endocrine Disorder: Yes (DM) Medications and Allergies Albuterol Sulfate [Ventolin Hfa] 2 puff IH BID PRN 01/11/17 [History] Loratadine [Claritin] 10 mg PO DAILY 12/28/17 [History] Aspirin Enteric Coated [Aspirin EC] 81 mg PO DAILY #30 tablet.dr 01/01/18 [Rx] Nitroglycerin 0.4 mg SL Q5MIN PRN #30 tab.subl 01/01/18 [Rx] Glimepiride [Amaryl] 4 mg PO DAILY 01/28/18 [History] hydrOXYzine HCl [Hydroxyzine HCl] 25 mg PO BID 07/30/18 [History] Rivaroxaban [Xarelto] 20 mg PO 1700 #30 tablet 08/02/18 [Rx] Ticagrelor [Brilinta] 90 mg PO BID #60 tablet 08/02/18 [Rx] Metoprolol XL (24 HR) Succ [Toprol Xl] 25 mg PO DAILY #30 tab.er.24h 08/04/18 [Rx] Baclofen [Lioresal] 10 mg PO BID 09/05/18 [History] Insulin Glargine,Hum.rec.anlog [Basaglar Kwikpen U-100] 80 unit SQ BID 09/05/18 [History] Omeprazole [PriLOSEC] 20 mg PO DAILY 09/05/18 [History] Albuterol Sulfate [Albuterol Inhaler] 2 puff IH Q6H #1 puff 10/11/18 [Rx] Allergy/AdvReac Type Severity Reaction Status Date / Time Amoxicillin Allergy Hives Verified 11/24/18 19:04 Penicillins Allergy Hives Verified 11/24/18 19:04 codeine AdvReac Nausea Verified 11/24/18 19:04 ibuprofen AdvReac "DEADLY Verified 11/24/18 19:04 SICK TO MY STOMACH" venlafaxine [From Effexor] AdvReac "TEARS MY Verified 11/24/18 19:04 STOMACH UP" All Systems Review: The remainder of the systems were reviewed and are negative - Cardiovascular Cardiovascular: as per HPI Physical Examination Vital Signs, Last 4 Hours Temp Pulse Resp BP Pulse Ox 12/26/18 07:33 98.4 F 72 18 117/59 97 General: Conversant, No Apparent Distress HEENT: Atraumatic, Normocephaly, Mucus Membranes Moist Cardiac: Reg Rate and Rhythm, Normal S1 and S2 Lungs: Normal Breath Sounds Neuro: Alert and responsive Abdomen: Soft Skin: No rashes noted on visualized skin Musculoskeletal: No Chest Wall Tenderness Extremities: Other (mild BLE edema) Results 12/26/18 03:34 12/26/18 03:34 Lab Results 12/25/18 12/25/18 12/26/18 21:03 21:03 03:34 WBC 9.8 Hgb 10.3 L Hct 33.6 L Plt Count 277 INR Sodium 141 141 Potassium 3.5 3.7 Chloride 111 H 114 H Carbon Dioxide 23 21 L BUN 15 16 Creatinine 1.06 1.02 Glucose 75 85 Calcium 8.4 L 7.6 L Troponin I < 0.03 0.30 H* 12/26/18 12/26/18 03:34 03:34 WBC 8.4 Hgb 8.7 L D Hct 28.1 L Plt Count 245 INR 0.9 Sodium Potassium Chloride Carbon Dioxide BUN Creatinine Glucose Calcium Troponin I Active Medications Aspirin (Aspirin Ec) 81 mg PO DAILY NICKOLAS Stop: 06/27/19 09:01 Dextrose/Water (Dextrose 50% (Syg)) 25 ml IVP AD PRN PRN Reason: Hypoglycemia Stop: 06/27/19 07:31 Glucagon (Glucagen) 1 mg IM ONCE PRN PRN Reason: Hypoglycemia Stop: 06/27/19 07:31 Glucose (Gluctose) 15 gm PO ONCE PRN PRN Reason: Hypoglycemia Stop: 06/27/19 07:31 Glucose (Gluctose) 30 gm PO ONCE PRN PRN Reason: Hypoglycemia Stop: 06/27/19 07:31 Diltiazem HCl 50 mg/ Sodium (Chloride) 50 mls @ 10 mls/hr IVC .Q5H NICKOLAS Stop: 06/26/19 21:46 Sodium Chloride (0.9 % Sodium Chloride) 500 mls @ 1,000 mls/hr IVC .Q30M PRN PRN Reason: Hypotension Stop: 06/27/19 07:30 Dextrose (Dextrose 5%) 1,000 mls @ 100 mls/hr IVC .Q10H PRN PRN Reason: HYPOGLYCEMIA Stop: 06/27/19 07:31 Insulin Human Lispro (Humalog) 0 units SQ Q6HR [facility]; Protocol Stop: 06/27/19 12:01 Metoprolol Succinate (Toprol Xl) 25 mg PO DAILY [facility] Stop: 06/27/19 09:01 Naloxone HCl (Narcan) 0.4 mg IVP Q2MPRN PRN PRN Reason: SEE COMMENTS Stop: 06/27/19 00:23 Nitroglycerin (Nitroglycerin) 0.4 mg SL Q5MIN PRN PRN Reason: Chest Pain Stop: 06/27/19 00:25 Ticagrelor (Brilinta) 90 mg PO BID [facility] Stop: 06/27/19 09:01 - Imaging and Cardiology Echo: report reviewed Cardiac cath: report reviewed - EKG Interpretation EKG results cardiology: personally reviewed Consult Discharge Plan - Plan Instructions: Atrial Fibrillation (ED), Chest Pain (ED) Referrals: Octavio Pickard DO [Primary Care Provider] - <Jus Joseph - Last Filed: 12/26/18 14:06> Date of Encounter: 12/26/18 - Attending Attestation I have personally performed a face to face evaluation on this patient. I have reviewed and agree with the documented findings and care plan as documented by the EQUIPMENT SCHEDULER. History and Exam by me shows: 48-year-old female with history of CAD status post stents, A. fib admitted with A. fib with RVR. I agree with, in addition to rate control, switching to Plavix 75 mg daily and Xarelto 20 mg daily. Need to load with 300 mg of Plavix stat, after discontinuing aspirin and Brilinta. Continue beta monica and statin. Thanks, Jus Joseph MD [facility] Assessment and Plan Discussion w patient/family: The assessment and plan as outlined above was discussed with the patient and/or family members who expressed understanding and agreement. All questions were answered. Thank you for involving us in the care of your patient. Please call with any questions. History of Present Illness History of present illness: Ms. Lisa is a 48 year old female All Systems Review: The remainder of the systems were reviewed and are negative Physical Examination Vital Signs, Last 4 Hours Temp Pulse Resp BP Pulse Ox 12/26/18 10:54 98.1 F 64 14 120/65 100 Results 12/26/18 03:34 12/26/18 03:34 Lab Results 12/25/18 12/25/18 12/26/18 21:03 21:03 03:34 WBC 9.8 Hgb 10.3 L Hct 33.6 L Plt Count 277 INR Sodium 141 141 Potassium 3.5 3.7 Chloride 111 H 114 H Carbon Dioxide 23 21 L BUN 15 16 Creatinine 1.06 1.02 Glucose 75 85 Calcium 8.4 L 7.6 L Troponin I < 0.03 0.30 H* 12/26/18 12/26/18 12/26/18 03:34 03:34 10:13 WBC 8.4 Hgb 8.7 L D Hct 28.1 L Plt Count 245 INR 0.9 Sodium Potassium Chloride Carbon Dioxide BUN Creatinine Glucose Calcium Troponin I 0.62 H*
[2018-12-26] MEDS ORDERED: Aspirin Enteric Coated 81 MG Tablet PO SCH (09:00)
[2018-12-26] MEDS ORDERED: *HR* Ticagrelor 90 MG TABLET PO SCH (09:00)
[2018-12-26] MEDS ORDERED: Metoprolol XL (24 HR) Succ 25 MG TAB.ER.24H PO SCH (09:00)
[2018-12-26] MEDS ORDERED: 0.9 % Sodium Chloride 500 ML ONE (09:13)
[2018-12-26] MEDS: Metoprolol XL (24 HR) Succ 25 MG TAB.ER.24H PO SCH (09:46)
[2018-12-26 10:54] LABS: Troponin I 0.62 ng/mL (< 0.04)
--- NOTE | 2018-12-26 11:21 | Internal Med Progress Note ---
Hospitalist Progress Note - Encounter Date of Encounter: 12/26/18 Time of Encounter: 09:15 - Subjective Interval History: reports resolution of her chest pain. No nausea/vomiting or diaphoresis. No palpitation. Patient also denies any melena, hematemesis, or hematochezia. She does report heavy menstruation with blood clots at times. - Exam Vitals: Temp Pulse Resp BP Pulse Ox 98.1 F 64 14 120/65 100 12/26/18 10:54 12/26/18 10:54 12/26/18 10:54 12/26/18 10:54 12/26/18 10:54 Exam: General: Alert and oriented 3 lying in bed in no acute distress Cardiovascular:Normal S1 & S2, no rubs, murmurs or gallops. No JVD. Pulse regular. Lungs:Normal breath sounds, no wheezes or crackles. Abdomen:Soft, non-tender, no rigidity. Extremities:No deformity, no edema or tenderness, no joint swelling or clubbing. - Assessment and Plan (1) Elevated troponin Current Visit: Yes Status: Acute Assessment and Plan: 1st troponin -ve, subsequently increased to 0.3 and 0.62 in the setting of A. fib with RVR no longer having chest pain however, HR also controlled limited echo shows unchanged EF 50% 1 dose of lovenox given, will resume xarelto from PM per cardiology recommendation bb increased to optimize HR control will be discharged on plavix/xarelto without ASA (2) Atrial fibrillation with rapid ventricular response Current Visit: Yes Status: Resolved Assessment and Plan: resolved, bb uptitrated xarelto resumed (3) Anemia Current Visit: Yes Status: Acute Assessment and Plan: baseline appears to be 9-10, suspect menorrhagia as a cause check iron profile and provide supplementation if low although there is low suspicion for GI bleed, since pt is on multiple antiplt and AC, will check FOBT to ensure the absence of GI bleed also, given the elevated troponin which could potentially be related to NSTEMI, transfuse 1U pRBC (4) Diabetes Current Visit: Yes Status: Chronic Assessment and Plan: A1c 7.6 05/2018 low dose sliding scale (5) Hypertension Current Visit: No Status: Chronic Assessment and Plan: bb uptitrated as above (6) DVT prophylaxis Current Visit: Yes Status: Acute Assessment and Plan: xarelto resumed - Time Spent with Patient Total time spent is greater than 50% in coordination of care (as documented) at patient's floor/unit and/or counseling patient: 25 - 35 minutes Plan of Care Discussed with: patient (discussed with cardiology) Internal Medicine: Result - Labs CBC & Chem 7: 12/26/18 03:34 12/26/18 03:34 Labs: Short CBC 12/25/18 12/26/18 Range/Units 21:03 03:34 WBC 9.8 8.4 (4.3-11.1) K/mcL Hgb 10.3 L 8.7 L D (11.5-15.4) g/dL Hct 33.6 L 28.1 L (35.3-44.9) % Plt Count 277 245 (140-400) K/mcL Neutrophils # 6.4 (1.6-8.9) K/mcL BMP 12/25/18 12/26/18 21:03 03:34 Sodium 141 141 Potassium 3.5 3.7 Chloride 111 H 114 H Carbon Dioxide 23 21 L BUN 15 16 Creatinine 1.06 1.02 Glucose 75 85 Calcium 8.4 L 7.6 L Cardiac Enzymes 12/25/18 12/26/18 12/26/18 Range/Units 21:03 03:34 10:13 Troponin I < 0.03 0.30 H* 0.62 H* (< 0.04) ng/mL - ABG Interpretation ABG results: PT/INR, D-dimer PT 10.6 Seconds (9.4-12.1) 12/26/18 03:34 - Impressions Impressions Chest X-Ray 12/25/18 20:48 IMPRESSION: No acute cardiopulmonary disease. Evidence of prior granulomatous disease. D/ / Gee Huston MD / Gee Huston MD Interpreting Provider: Gee Huston MD Echocardiogram Limited Views 12/26/18 00:38 Impressions: LVEF 50%. Mild global left ventricular systolic dysfunction. Moderately dilated left ventricle. Left Ventricular Wall Motion: Rest Echo Findings The apex, apical inferior, mid inferior, basal inferior, apical anterior, mid anterior, basal anterior, apical septal, mid inferior septal, basal inferior septal, apical lateral, mid anterior lateral, basal anterior lateral, mid anterior septal, mid inferior lateral, basal anterior septal and basal inferior lateral vega were hypokinetic. Findings: Study Quality * Technically adequate exam. ECG Findings * Normal sinus rhythm. Left Ventricle * LVEF 50%. * Moderately dilated left ventricle. * Mild global left ventricular systolic dysfunction. * Mild concentric left ventricular hypertrophy. * Atypical septal motion noted. * Definity echo contrast was not used. IVC * Normal IVC dimensions and inspiratory collapse. Consult Discharge Plan - Plan Instructions: Atrial Fibrillation (ED), Chest Pain (ED) Referrals: Octavio Pickard DO [Primary Care Provider] - (3) Anemia Qualifiers: Anemia type: unspecified type (4) Diabetes Qualifiers: Diabetes mellitus type: type 2 Diabetes mellitus manager intermediate insulin use: with manager intermediate use Diabetes mellitus complication status: with circulatory complication Diabetes mellitus complication detail: with other circulatory complications Qualified Code(s): E11.59 - Type 2 diabetes mellitus with other circulatory complications; Z79.4 - buttermaker helper (current) use of insulin (5) Hypertension Qualifiers: Hypertension type: essential hypertension Qualified Code(s): I10 - Essential (primary) hypertension
[2018-12-26] MEDS: Insulin LISPRO 300 UNITS/3 ML VIAL SQ SCH ×2 (12:04→16:55)
--- NOTE | 2018-12-26 13:34 | Electrocardiograph Report ---
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
[2018-12-26] MEDS ORDERED: Acetaminophen 325 MG TABLET PO PRN (14:52)
[2018-12-26] MEDS ORDERED: *HR* HYDROcodone/Acet 5/325 mg TABLET PO PRN (14:52)
[2018-12-26 15:31] LABS: Hematocrit 31.1 % (35.3-44.9); Hemoglobin 9.8 g/dL (11.5-15.4)
[2018-12-26] MEDS ORDERED: *HR* Rivaroxaban 10 MG TABLET PO SCH (17:00)
[2018-12-26] MEDS: traMADol 50 MG TABLET PO PRN ×2 (17:02→21:57)
[2018-12-26] MEDS: hydrOXYzine pamoate 25 MG CAPSULE PO SCH (21:57)
[2018-12-26] MEDS: Baclofen 10 MG TABLET PO SCH (21:57)
[2018-12-26] MEDS ORDERED: Insulin LISPRO 300 UNITS/3 ML VIAL SQ SCH (22:00)
[2018-12-27 07:24] VITALS: BP 124/77
[2018-12-27] MEDS: Insulin LISPRO 300 UNITS/3 ML VIAL SQ SCH ×2 (08:46→13:37)
[2018-12-27] MEDS ORDERED: Loratadine 10 MG TABLET PO SCH (09:00)
[2018-12-27] MEDS: Metoprolol XL (24 HR) Succ 25 MG TAB.ER.24H PO SCH (09:28)
[2018-12-27] MEDS: Baclofen 10 MG TABLET PO SCH (09:29)
[2018-12-27] MEDS: hydrOXYzine pamoate 25 MG CAPSULE PO SCH (09:29)
--- NOTE | 2018-12-27 09:48 | Discharge Summary ---
- NOTES TO OUTPATIENT PROVIDER Notes to Outpatient Provider: Follow up with cardiology outpatient Orders not resulted at time of discharge: Pending orders 12/25/18 20:48 ECG 12 lead ECG [ECG] Stat Date of Encounter: 12/27/18 Time of Encounter: 07:15 - Discharge Diagnosis (1) DVT prophylaxis Priority: Secondary Status: Acute (2) Chest pain Priority: Secondary Status: Acute Qualifiers: Chest pain type: unspecified Qualified Code(s): R07.9 - Chest pain, unspecified (3) Atrial fibrillation with rapid ventricular response Priority: Primary Status: Resolved (4) Hypotension Priority: Secondary Status: Acute Qualifiers: Hypotension type: unspecified hypotension type Qualified Code(s): I95.9 - Hypotension, unspecified (5) Elevated troponin Priority: Secondary Status: Acute (6) CAD (coronary artery disease) Priority: Secondary Status: Chronic Qualifiers: Coronary Disease-Associated Artery/Lesion type: unspecified vessel or lesion type [place] vs. transplanted heart: [place] heart Associated angina: with unspecified angina Qualified Code(s): I25.119 - Atherosclerotic heart disease of [place] coronary artery with unspecified angina pectoris (7) Diabetes Priority: Secondary Status: Chronic Qualifiers: Diabetes mellitus type: type 2 Diabetes mellitus professional benefits sales consultant insulin use: with professional benefits sales consultant use Diabetes mellitus complication status: with circulatory complication Diabetes mellitus complication detail: with other circulatory complications Qualified Code(s): E11.59 - Type 2 diabetes mellitus with other circulatory complications; Z79.4 - alf (current) use of insulin Hospital course: Ms. Lisa is a 48 year old female with past medical history of hypertension, atrial fibrillation on anticoagulation, CAD with recent PCI 07/2018, hyperlipidemia, COPD who was admitted for atrial fib ablation with RVR and elevated troponin likely due to demand ischemia. Very briefly required Cardizem drip which was quickly transitioned to increased dose of Toprol XL 37.5mg BID. Troponin peaked at 0.62 and underwent limited echocardiogram which showed unchanged EF of 50% and no new wall motion abnormality. Managed in consultation with cardiology who switched triple therapy to plavix/xarelto and she will be discharged on them without ASA. Of note, she has had long standing anemia that was not worked up, likely due to menorrhagia and resultant iron deficiency anemia. FOBT -ve, started on Ferrous sulfate and to be followed up with PCP. Discharge discussed with: patient, nurse, business analyst consultant - Time Spent with Patient Total time spent providing and/or coordinating discharge services: 32mins - Discharge Medications Prescriptions: New Ferrous Sulfate 325 mg PO BIDWM #60 tablet Clopidogrel [Plavix] 75 mg PO DAILY #30 tablet Metoprolol XL (24 HR) Succ [Toprol Xl] 37.5 mg PO DAILY #90 tab.er.24h Continued Loratadine [Claritin] 10 mg PO DAILY Nitroglycerin 0.4 mg SL Q5MIN PRN #30 tab.subl PRN Reason: Chest Pain Glimepiride [Amaryl] 4 mg PO DAILY hydrOXYzine HCl [Hydroxyzine HCl] 25 mg PO BID Rivaroxaban [Xarelto] 20 mg PO 1700 #30 tablet Baclofen [Lioresal] 10 mg PO BID Insulin Glargine,Hum.rec.anlog [Basaglar Kwikpen U-100] 80 unit SQ BID Omeprazole [PriLOSEC] 20 mg PO DAILY Albuterol Sulfate [Ventolin Hfa] 2 puff IH BID PRN PRN Reason: Shortness Of Breath Albuterol Sulfate [Albuterol Inhaler] 2 puff IH Q6H #1 puff Discontinued Aspirin Enteric Coated [Aspirin EC] 81 mg PO DAILY #30 tablet. Ticagrelor [Brilinta] 90 mg PO BID #60 tablet Metoprolol XL (24 HR) Succ [Toprol Xl] 25 mg PO DAILY #30 tab.er.24h Home Medications: Albuterol Sulfate [Ventolin Hfa] 2 puff IH BID PRN 01/11/17 [History] Loratadine [Claritin] 10 mg PO DAILY 12/28/17 [History] Nitroglycerin 0.4 mg SL Q5MIN PRN #30 tab.subl 01/01/18 [Rx] Glimepiride [Amaryl] 4 mg PO DAILY 01/28/18 [History] hydrOXYzine HCl [Hydroxyzine HCl] 25 mg PO BID 07/30/18 [History] Rivaroxaban [Xarelto] 20 mg PO 1700 #30 tablet 08/02/18 [Rx] Baclofen [Lioresal] 10 mg PO BID 09/05/18 [History] Insulin Glargine,Hum.rec.anlog [Basaglar Kwikpen U-100] 80 unit SQ BID 09/05/18 [History] Omeprazole [PriLOSEC] 20 mg PO DAILY 09/05/18 [History] Albuterol Sulfate [Albuterol Inhaler] 2 puff IH Q6H #1 puff 10/11/18 [Rx] Clopidogrel [Plavix] 75 mg PO DAILY #30 tablet 12/27/18 [Rx] Ferrous Sulfate 325 mg PO BIDWM #60 tablet 12/27/18 [Rx] Metoprolol XL (24 HR) Succ [Toprol Xl] 37.5 mg PO DAILY #90 tab.er.24h 12/27/18 [Rx] Allergies/Adverse Reactions: Allergy/AdvReac Type Severity Reaction Status Date / Time Amoxicillin Allergy Hives Verified 11/24/18 19:04 Penicillins Allergy Hives Verified 11/24/18 19:04 codeine AdvReac Nausea Verified 11/24/18 19:04 ibuprofen AdvReac "DEADLY Verified 11/24/18 19:04 SICK TO MY STOMACH" venlafaxine [From Effexor] AdvReac "TEARS MY Verified 11/24/18 19:04 STOMACH UP" Date of admission: 12/25/18 23:30 Primary care physician: Octavio Pickard DO Consults: 12/26/18 05:16 Consult to Cardiology [CONS] Routine Comment: Consulting Provider: Cardiology Leatha Reason for Consult: Chest Pain with CAD s/p multiple stents with bump in troponin Call Completed: No - Constitutional Vitals: Temp Pulse Resp BP Pulse Ox 97.8 F 64 12 124/77 98 12/27/18 07:20 12/27/18 07:20 12/27/18 04:20 12/27/18 07:20 12/27/18 07:20 Exam: General: Alert and oriented 3 lying in bed in no acute distress Cardiovascular:Normal S1 & S2, no rubs, murmurs or gallops. No JVD. Pulse regular. Lungs:Normal breath sounds, no wheezes or crackles. Abdomen:Soft, non-tender, no rigidity. Extremities:No deformity, no edema or tenderness, no joint swelling or clubbing. - Patient Status Disposition: Home, Self-Care Condition: Fair Functional capacity at discharge: independent ambulation Overall status at discharge: patient is progressing back to baseline - Discharge Instructions Instructions: Chest Pain (ED), Anemia (GEN), Diabetes Mellitus Type 2 in Adults (DC), Atrial Fibrillation (DC) Follow Up With: Octavio Pickard DO [Primary Care Provider] - Jus Joseph MD [Non-Partnered Physician] - - Diet and Activity Activity: resume usual activities as tolerated Diet: diabetic diet
--- NOTE | 2018-12-28 20:40 | Electrocardiograph Report ---
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
== END 2018-12-27 14:30 | disposition home or self-care (01) ==
LOC: EMEROOARM 20:38 → 2NENU 20:38 → SUATTDRO 23:30 → 2NENU 23:40
PROVIDERS: ADMIT Internal Medicine; ATTEND Internal Medicine

== ENCOUNTER 2018-12-29 04:01 | Observation (INO) ==
[2018-12-29] MEDS ORDERED: 0.9 % Sodium Chloride 1,000 ML IV ONE (04:17)
[2018-12-29 05:15] LABS: Basophils # 0.1 K/mcL (0.0-0.2); Basophils % 0.5 %; Eosinophils # 0.3 K/mcL (0.0-0.6); Eosinophils % 2.5 %; Hematocrit 35.8 % (35.3-44.9); Hemoglobin 11.1 g/dL (11.5-15.4); Immature Granulocytes % 0.4 % (0-4); Lymphocytes # 1.7 K/mcL (0.6-4.6); Lymphocytes % 12.6 %; Mean Corpuscular Hemoglobin 26.1 pg (28.0-33.3); Mean Corpuscular Volume 84.2 fL (83.0-100.0); Mean Platelet Volume 10.7 fL (9.4-12.4); Monocytes # 0.7 K/mcL (0.0-1.3); Monocytes % 4.9 %; Platelet Count 254 K/mcL (140-400); Red Blood Count 4.25 M/mcL (3.82-4.97); Red Cell Distribution Width 14.8 % (11.5-14.5); Segmented Neutrophils % 79.1 %
[2018-12-29 05:16] LABS: Neutrophils # 10.6 K/mcL (1.6-8.9); White Blood Count 13.4 K/mcL (4.3-11.1)
[2018-12-29 05:17] LABS: INR 1.1
[2018-12-29 05:20] LABS: Activated Partial Thrombo Time 24.5 Seconds (26.0-36.0)
[2018-12-29 05:27] LABS: Albumin 3.3 g/dL (3.5-5.7); Albumin/Globulin Ratio 1.1 (1.1-2.2); Bilirubin,Direct 0.1 mg/dL (0.0-0.2); Bilirubin,Indirect 0.3 mg/dL (0.0-1.2); Bilirubin,Total 0.4 mg/dL (0.3-1.0); Globulin 2.9 g/dL (2.4-3.5); Total Protein 6.2 g/dL (6.4-8.9)
[2018-12-29 06:01] LABS: Troponin I 0.08 ng/mL (< 0.04)
--- NOTE | 2018-12-29 06:02 | Emergency Department Note ---
Disposition Clinical Impression: Palpitations Atrial fibrillation Qualifiers: Atrial fibrillation type: unspecified Qualified Code(s): I48.91 - Unspecified atrial fibrillation Disposition: Admitted As Inpatient Condition: Fair Time of Disposition: 05:40 Arrhythmia/Palpitations HPI - General Chief Complaint: ED Arrhythmia/Palpitations Stated Complaint: Lt Chest Pain Time Seen by Provider: 12/29/18 04:03 Source: patient Limitations: no limitations Nursing Notes Reviewed: Yes Vital Signs Reviewed: Yes - History of Present Illness HPI Narrative: 48-year-old female who presents for evaluation. Is a history of atrial fibrillation with RVR. Denies any chest pain she has been nauseated did have vomiting earlier. She states she has taken her metoprolol as prescribed which is 37.5 mg but has not taken her blood thinner Plavix or Xarelto The recent falls or trauma. He was discharged the hospital a day ago. Pt Subjective Complaint: rapid heart beat, palpitations Duration: constant Severity: mild Context: occurred during rest Arrhythmia History: atrial fibrillation Associated symptoms: Reports: nausea, vomiting - Related Data Home Medications Medication Instructions Recorded Confirmed Loratadine [Claritin] 10 mg PO DAILY 12/28/17 12/29/18 Glimepiride [Amaryl] 4 mg PO DAILY 01/28/18 12/29/18 hydrOXYzine HCl [Hydroxyzine HCl] 25 mg PO BID PRN 07/30/18 12/29/18 Baclofen [Lioresal] 10 mg PO BID PRN 09/05/18 12/29/18 Insulin Glargine,Hum.rec.anlog 80 unit SQ BID 09/05/18 12/29/18 [Justin Quick U-100] Omeprazole [PriLOSEC] 20 mg PO DAILY 09/05/18 12/29/18 Albuterol Sulfate [Albuterol 2 puff IH Q6H PRN 12/27/18 12/29/18 Inhaler] Aspirin [Adult Aspirin Regimen] 81 mg PO DAILY 12/27/18 12/27/18 Citalopram Hydrobromide 20 mg PO HS 12/27/18 12/29/18 [Citalopram HBr] Furosemide [Lasix] 20 mg PO QAM 12/27/18 12/29/18 Metoprolol Succinate [Toprol Xl] 37.5 mg PO DAILY 12/27/18 12/29/18 Rivaroxaban [Xarelto] 20 mg PO HS 12/27/18 12/29/18 Ticagrelor [Brilinta] 90 mg PO BID 12/27/18 12/27/18 Previous Rx's Medication Instructions Recorded Nitroglycerin 0.4 mg SL Q5MIN PRN #30 tab.subl 01/01/18 Clopidogrel [Plavix] 75 mg PO DAILY #30 tablet 12/27/18 Ferrous Sulfate 325 mg PO BIDWM #60 tablet 12/27/18 Allergies Allergy/AdvReac Type Severity Reaction Status Date / Time Amoxicillin Allergy "SICK TO Verified 12/27/18 12:43 STOMACH/HIVES" hydrocodone Allergy Hives Verified 12/29/18 04:13 Penicillins Allergy "SICK TO Verified 12/27/18 12:43 STOMACH/HIVES" codeine AdvReac Hives Verified 12/27/18 12:43 ibuprofen AdvReac "IRRITATES Verified 12/27/18 12:43 MY STOMACH" venlafaxine [From Effexor] AdvReac "IRRITATES Verified 12/27/18 12:43 MY STOMACH" All systems ED: reviewed and negative except as stated. Constitutional: Denies: fever, chills, weakness, weight change Eyes: Denies: eye pain, eye discharge, vision change ENT ED: Denies: ear pain, throat pain, dental pain, hearing loss, epistaxis, congestion, dysphagia Cardiovascular: Reports: palpitations, dyspnea on exertion. Denies: chest pain, edema, syncope Respiratory: Denies: cough, dyspnea, wheezes, hemoptysis, stridor Gastrointestinal: Denies: abdominal pain, nausea, vomiting, diarrhea, constipation, hematemesis, melena, hematochezia Genitourinary: Denies: dysuria, frequency, hematuria, discharge Musculoskeletal: Denies: back pain, neck pain, arthralgia, myalgia Integumentary: Denies: rash, abrasion, lesions Neurological: Denies: headache, weakness, numbness, paresthesias, confusion, abnormal gait, vertigo Psychiatric: Denies: anxiety, depression, suicidal thoughts, homicidal thoughts, auditory hallucinations, visual hallucinations Endocrine: Denies: fatigue Hematological/Lymphatic: Denies: easy bleeding, easy bruising Allergic/Immunologic: Denies: facial swelling, urticaria Past Medical History - Past Medical History Attestation: Yes The following information was validated with the patient. 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 - Social History Smoking Status: Current every day smoker Smokeless Tobacco Status: No Alcohol use: Reports: none Drug use: Reports: none Physical Exam - General Limitations: no limitations General appearance: alert, in no apparent distress - Head Head exam: atraumatic, normocephalic, normal inspection - Eye Eye exam: Present: normal appearance, PERRL, EOMI - ENT ENT exam: normal exam, normal oropharynx, mucous membranes moist - Neck Neck exam: Present: normal inspection, full ROM, trachea midline - Respiratory Respiratory exam: Present: normal lung sounds bilaterally - Cardiovascular Cardiovascular exam: Present: irregular rhythm, normal heart sounds - Abdominal Exam Abdominal exam: Present: soft, Non-Tender. Absent: tenderness, distention, guarding, rebound, rigidity - Extremities Exam Extremities exam: Present: normal inspection, full ROM. Absent: tenderness, pedal edema - Expanded Lower Extremity Exam Hip/Pelvis exam: Present: normal inspection, full ROM Upper leg exam: Present: normal inspection, full ROM Knee exam: Present: normal inspection, full ROM Lower leg exam: Present: normal inspection, full ROM Ankle exam: Present: normal inspection, full ROM Foot/toe exam: Present: normal inspection, full ROM Neurovascular/Tendon exam: Absent: motor deficit, sensory deficit, tendon de ficit - Back Exam Back exam: Present: normal inspection, full ROM. Absent: tenderness - Neurological Exam Neurological exam: Present: alert, oriented X3 - Psychiatric Psychiatric exam: Present: normal affect, normal mood - Skin Skin exam: Present: warm, dry, intact, normal color Course Course Narrative: Patient was given Cardizem 15 mg IV. Her heart rate went from 158 down to 128. Normal saline 1 L bolus was initiated along with Cardizem 20 mg IV push. Then a drip started at 5 mg an hour. Heart rate improved into the 90s. Patient was still atrial fibrillation. She will be admitted to the hospitalist. Vital Signs Temperature 98.8 F 12/29/18 04:05 Pulse Rate 145 12/29/18 04:05 Respiratory Rate 20 12/29/18 04:05 Blood Pressure 129/86 12/29/18 04:05 O2 Sat by Pulse Oximetry 100 12/29/18 04:05 Temperature 98.1 F 12/29/18 06:58 Pulse Rate 105 12/29/18 06:58 Respiratory Rate 18 12/29/18 06:58 Blood Pressure 107/74 12/29/18 06:58 O2 Sat by Pulse Oximetry 100 12/29/18 07:00 Oxygen Delivery Oxygen Delivery Room Air Arrhythmia/Palpitations - Medical Records Medical records reviewed: Yes I reviewed the patient's medical records. - Lab Data Lab results reviewed: Yes I reviewed the patient's lab results. Result diagrams: 12/29/18 04:31 12/29/18 04:31 Lab Results 12/29/18 12/29/18 12/29/18 Range/Units 04:31 04:31 04:31 WBC 13.4 H D (4.3-11.1) K/mcL RBC 4.25 (3.82-4.97) M/mcL Hgb 11.1 L (11.5-15.4) g/dL Hct 35.8 (35.3-44.9) % MCV 84.2 (83.0-100.0) fL MCH 26.1 L (28.0-33.3) pg MCHC 31.0 L (31.6-35.5) g/dL RDW 14.8 H (11.5-14.5) % Plt Count 254 (140-400) K/mcL MPV 10.7 (9.4-12.4) fL Immature Gran % 0.4 (0-4) % Seg Neutrophils % 79.1 % Lymphocytes % 12.6 % Monocytes % 4.9 % Eosinophils % 2.5 % Basophils % 0.5 % Neutrophils # 10.6 H (1.6-8.9) K/mcL Lymphocytes # 1.7 (0.6-4.6) K/mcL Monocytes # 0.7 (0.0-1.3) K/mcL Eosinophils # 0.3 (0.0-0.6) K/mcL Basophils # 0.1 (0.0-0.2) K/mcL PT 12.0 (9.4-12.1) Seconds INR 1.1 APTT 24.5 L (26.0-36.0) Seconds Sodium 139 (136-145) mEq/L Potassium 4.0 (3.5-5.1) mEq/L Chloride 108 H (98-107) mEq/L Carbon Dioxide 22 L (23-29) mEq/L BUN 12 (6-20) mg/dL Creatinine 0.79 (0.60-1.20) mg/dL Est GFR ( Amer) > 60 (> 60) Est GFR (Non-Af Amer) > 60 (> 60) BUN/Creatinine Ratio 15 (6-26) Glucose 163 H (70-105) mg/dL Calculated Osmolality 291 (280-300) Calcium 8.6 (8.6-10.3) mg/dL Total Bilirubin (0.3-1.0) mg/dL Direct Bilirubin (0.0-0.2) mg/dL Indirect Bilirubin (0.0-1.2) mg/dL AST (13-39) Units/L ALT (7-52) Units/L Alkaline Phosphatase (34-104) Units/L Troponin I 0.08 H* (< 0.04) ng/mL Serum Total Protein (6.4-8.9) g/dL Albumin (3.5-5.7) g/dL Globulin (2.4-3.5) g/dL Albumin/Globulin Ratio (1.1-2.2) /06/08 Range/Units 04:31 WBC (4.3-11.1) K/mcL RBC (3.82-4.97) M/mcL Hgb (11.5-15.4) g/dL Hct (35.3-44.9) % MCV (83.0-100.0) fL MCH (28.0-33.3) pg MCHC (31.6-35.5) g/dL RDW (11.5-14.5) % Plt Count (140-400) K/mcL MPV (9.4-12.4) fL Immature Gran % (0-4) % Seg Neutrophils % % Lymphocytes % % Monocytes % % Eosinophils % % Basophils % % Neutrophils # (1.6-8.9) K/mcL Lymphocytes # (0.6-4.6) K/mcL Monocytes # (0.0-1.3) K/mcL Eosinophils # (0.0-0.6) K/mcL Basophils # (0.0-0.2) K/mcL PT (9.4-12.1) Seconds INR APTT (26.0-36.0) Seconds Sodium (136-145) mEq/L Potassium (3.5-5.1) mEq/L Chloride (98-107) mEq/L Carbon Dioxide (23-29) mEq/L BUN (6-20) mg/dL Creatinine (0.60-1.20) mg/dL Est GFR ( Amer) (> 60) Est GFR (Non-Af Amer) (> 60) BUN/Creatinine Ratio (6-26) Glucose (70-105) mg/dL Calculated Osmolality (280-300) Calcium (8.6-10.3) mg/dL Total Bilirubin 0.4 (0.3-1.0) mg/dL Direct Bilirubin 0.1 (0.0-0.2) mg/dL Indirect Bilirubin 0.3 (0.0-1.2) mg/dL AST 9 L (13-39) Units/L ALT 7 (7-52) Units/L Alkaline Phosphatase 72 (34-104) Units/L Troponin I (< 0.04) ng/mL Serum Total Protein 6.2 L (6.4-8.9) g/dL Albumin 3.3 L (3.5-5.7) g/dL Globulin 2.9 (2.4-3.5) g/dL Albumin/Globulin Ratio 1.1 (1.1-2.2) - Radiology Data Radiology results reviewed: Yes I reviewed the patient's radiology results. Chest x-ray shows no free air, infiltrate, widened mediastinum as reviewed by me - EKG Data EKG attestation: Yes I reviewed and interpreted this EKG. EKG results narrative: Atrial fibrillation with RVR, [address] elevation axis normal , probable LVH, QRS 87, QTC 445 Rhythm: A.Fib [place]/QRS: normal Critical Care Time Critical Care Time: Yes Total Critical Care Time: 30 Attestation: Critical care performed: Time is exclusive of separately billable procedures. Time includes: direct patient care, patient reassessment, coordination of patient care, interpretation of data (laboratory data, radiology data, and respiratory data), review of patient's medical records, medical consultation and documentation of patient care. The high probability of a clinically significant, sudden or life threatening deterioration of the patient's condition required my full and direct attention, intervention and personal management.
[2018-12-29 06:05] LABS: BUN/Creatinine Ratio 15 (6-26); Blood Urea Nitrogen 12 mg/dL (6-20); Calcium 8.6 mg/dL (8.6-10.3); Carbon Dioxide 22 mEq/L (23-29); Chloride 108 mEq/L (98-107); Glucose 163 mg/dL (70-105); Osmolality,Calculated 291 (280-300); Sodium 139 mEq/L (136-145); eGFR For African Americans > 60 (> 60); eGFR For Non-African Americans > 60 (> 60)
[2018-12-29] MEDS ORDERED: Ondansetron 4 MG/2 ML VIAL IVP PRN (07:11)
[2018-12-29] MEDS ORDERED: Naloxone 0.4 MG/ML INJ IVP PRN (07:11)
[2018-12-29] MEDS ORDERED: hydrOXYzine pamoate 25 MG CAPSULE PO PRN (07:12)
[2018-12-29] MEDS ORDERED: Baclofen 10 MG TABLET PO PRN (07:12)
[2018-12-29] MEDS ORDERED: Nitroglycerin 0.4 MG TAB.SUBL SL PRN (07:12)
[2018-12-29] MEDS ORDERED: *HR* Dextrose 50 % in Water (Syg) 50 ML SYRINGE IVP PRN (07:16)
[2018-12-29] MEDS ORDERED: Dextrose Gel 15 GM/37.5 ML TUBE PO PRN ×2 (07:16)
[2018-12-29] MEDS ORDERED: D5% in Water 1,000 ML IVC PRN (07:16)
[2018-12-29] MEDS ORDERED: Loratadine 10 MG TABLET PO SCH (09:00)
[2018-12-29] MEDS ORDERED: Furosemide 20 MG TABLET PO SCH (09:00)
[2018-12-29] MEDS: Insulin LISPRO 300 UNITS/3 ML VIAL SQ SCH ×3 (11:16→17:23)
--- NOTE | 2018-12-29 12:59 | Internal Med History&Physical ---
Date of Encounter: 12/29/18 Time of Encounter: 12:00 Internal Medicine - H&P: HPI Chief complaint: Chest pain, palpitation Admitted From: Home History of present illness: Ms. Lisa is a 48 year old female with history of CAD status post PCI in 07/2018, DM, HTN, atrial fibrillation on Xarelto with recent admission for afib with RVR and elevated troponin, who presented to the ED with sudden onset of chest pain and palpitation. Occurred at around midnight, substernal, sharp in nature, non- radiating, no aggravating/relieving factors. Upon the onset of chest pain, she subsequently experienced palpitation again hence decided to come to the ED for further evaluation. She was recently discharged on increased dose of metoprolol at 37.5mg BID. States that she drinks coffee regularly but no energy drinks. Denies any cough, sputum production, shortness of breath, nausea/vomiting, or fever/chills. No GI/ symptoms. No new joint pain or rash. In the ED, she was tachycardic at 145 but otherwise stable with good O2 saturation. Troponin 0.08, EKG showed afib with RVR, and CXR did not show any acute cardio pulmonary process. Other workup showed leukocytosis of 13.4. She was given a liter of IV fluids, 2 pushes of IV diltiazem, with subsequent improvement in her heart rate. She will be admitted for further management of atrial fibrillation with RVR and mild troponin elevation. Past Med Surg Social Fam HX - Past Medical History Attestation: Yes The following information was validated with the patient. Medical history: asthma, atrial fibrillation, CHF, COPD, coronary artery disease, diabetes, hypertension, TIA Additional medical history: X 5 MINI STROKES Psychiatric history: anxiety, depression, panic disorder - Past Surgical History Surgical History: angioplasty/stent Additional surgical history: MULTIPLE[5] STENTS [facility] (LAST ONE JULY 2018). Tubal ligation - Social History Smoking Status: Current every day smoker Smokeless Tobacco Status: No Alcohol use: none Drug use: none - Family History Mother Living Status: Still Living Hx Family Cardiac Disorders: Yes (HTN) Father Living Status: Hx Family Cardiac Disorders: Yes Hx Family Endocrine Disorder: Yes (DM) Internal Medicine - H&P: Meds Loratadine [Claritin] 10 mg PO DAILY 12/28/17 [History] Nitroglycerin 0.4 mg SL Q5MIN PRN #30 tab.subl 01/01/18 [Rx] Glimepiride [Amaryl] 4 mg PO DAILY 01/28/18 [History] hydrOXYzine HCl [Hydroxyzine HCl] 25 mg PO BID PRN 07/30/18 [History] Baclofen [Lioresal] 10 mg PO BID PRN 09/05/18 [History] Insulin Glargine,Hum.rec.anlog [Basaglar Kwikpen U-100] 80 unit SQ BID 09/05/18 [History] Omeprazole [PriLOSEC] 20 mg PO DAILY 09/05/18 [History] Albuterol Sulfate [Albuterol Inhaler] 2 puff IH Q6H PRN 12/27/18 [History] Aspirin [Adult Aspirin Regimen] 81 mg PO DAILY 12/27/18 [History] Citalopram Hydrobromide [Citalopram HBr] 20 mg PO HS 12/27/18 [History] Clopidogrel [Plavix] 75 mg PO DAILY #30 tablet 12/27/18 [Rx] Ferrous Sulfate 325 mg PO BIDWM #60 tablet 12/27/18 [Rx] Furosemide [Lasix] 20 mg PO QAM 12/27/18 [History] Metoprolol Succinate [Toprol Xl] 37.5 mg PO DAILY 12/27/18 [History] Rivaroxaban [Xarelto] 20 mg PO HS 12/27/18 [History] Ticagrelor [Brilinta] 90 mg PO BID 12/27/18 [History] Allergy/AdvReac Type Severity Reaction Status Date / Time Amoxicillin Allergy "SICK TO Verified 12/27/18 12:43 STOMACH/HIVES" hydrocodone Allergy Hives Verified 12/29/18 04:13 Penicillins Allergy "SICK TO Verified 12/27/18 12:43 STOMACH/HIVES" codeine AdvReac Hives Verified 12/27/18 12:43 ibuprofen AdvReac "IRRITATES Verified 12/27/18 12:43 MY STOMACH" venlafaxine [From Effexor] AdvReac "IRRITATES Verified 12/27/18 12:43 MY STOMACH" All Systems PM: A 10-system review of systems was performed and is negative for pertinent findings except as documented above in the HPI. - Constitutional Vitals: Temp Pulse Resp BP Pulse Ox 98.6 F 76 20 128/74 99 12/29/18 12:21 12/29/18 12:21 12/29/18 12:21 12/29/18 12:21 12/29/18 12:21 Exam: General: Alert and oriented, not in acute distress. HEENT:EOMI, pupils equal, round and reactive. Cardiovascular:Normal S1 & S2, No JVD. Pulse now regular with normal rate Lungs: clear to auscultation, no wheezes/rales Abdomen:Soft, non-tender, no rigidity. Extremities:No deformity or swelling Neurological:Normal cognition and motor skills. Non-focal Skin:Normal color, no rash, no lesions. Pulses:Carotid and radial pulses normal +2. Rest of the physical exam is non contributory Internal Med - H&P Results - Labs CBC & Chem 7: 12/29/18 04:31 12/29/18 04:31 Labs: Short CBC 12/29/18 Range/Units 04:31 WBC 13.4 H D (4.3-11.1) K/mcL Hgb 11.1 L (11.5-15.4) g/dL Hct 35.8 (35.3-44.9) % Plt Count 254 (140-400) K/mcL Neutrophils # 10.6 H (1.6-8.9) K/mcL BMP 12/29/18 04:31 Sodium 139 Potassium 4.0 Chloride 108 H Carbon Dioxide 22 L BUN 12 Creatinine 0.79 Glucose 163 H Calcium 8.6 Cardiac Enzymes 12/29/18 12/29/18 Range/Units 04:31 10:17 Troponin I 0.08 H* 0.34 H* (< 0.04) ng/mL Liver Function 12/29/18 Range/Units 04:31 Total Bilirubin 0.4 (0.3-1.0) mg/dL Direct Bilirubin 0.1 (0.0-0.2) mg/dL AST 9 L (13-39) Units/L ALT 7 (7-52) Units/L Alkaline Phosphatase 72 (34-104) Units/L Albumin 3.3 L (3.5-5.7) g/dL - Impressions ITS Impressions Chest X-Ray 12/29/18 04:14 IMPRESSION: No acute disease. D/ / Yosef Castañeda MD / Yosef Castañeda MD Interpreting Provider: Yosef Castañeda MD - Assessment and Plan (1) Atrial fibrillation with rapid ventricular response Current Visit: Yes Status: Acute Assessment and plan: Recurrent episodes of atrial fibrillation with RVR which quickly resolved after 2 pushes of IV Cardizem again associated with mild troponin elevation 0.08 - 0.34 uptitrate bb to 50mg BID, HR better controlled now Discussed with cardiology regarding the possibility of subtle ischemic event leading to recurrent bouts of afib with RVR, will perform limited echo again while holding off on hep gtt as pt is already on Xarelto resume plavix (2) Elevated troponin Current Visit: Yes Status: Acute Assessment and plan: it could again be secondary to demand ischemia from recurrent afib with RVR however, given the recurrent episodes, possibility of ischemic workup and hep gtt was discussed with Dr. Solis over the phone who also reviewed pt's previous chart as well. Since she is on Xarelto as outpatient and did have elevated HR upon presentation will treat as demand ischemia from RVR but obtain limited echo continue to trend troponin. If either echocardiogram or troponin is grossly abnormal, would consult Cardiology (3) Leukocytosis Current Visit: Yes Status: Acute Assessment and plan: Unclear etiology, chest x-ray did not show any acute cardiopulmonary process Will obtain urinalysis Qualifiers: Leukocytosis type: unspecified Qualified Code(s): D72.829 - Elevated white blood cell count, unspecified (4) Anemia Current Visit: No Status: Chronic Assessment and plan: baseline 9-10, FOBT was checked during the last admission which was -ve likely due to menorrhagia, on iron supplementation Qualifiers: Anemia type: unspecified type (5) Diabetes Current Visit: No Status: Chronic Assessment and plan: A1c 7.6 05/2018 low dose sliding scale Qualifiers: Diabetes mellitus type: type 2 Diabetes mellitus 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 insulin 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 Diabetes mellitus complication status: with circulatory complication Diabetes mellitus complication detail: with other circulatory complications Qualified Code(s): E11.59 - Type 2 diabetes mellitus with other circulatory complications; Z79.4 - intermodal 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
[2018-12-29] MEDS ORDERED: *HR* Rivaroxaban 10 MG TABLET PO SCH (17:00)
[2018-12-29 18:35] LABS: Bilirubin,Urine Negative (Negative); Blood,Urine Trace (Negative); Clarity,Urine Clear (Clear); Color,Urine Yellow (Yellow); Glucose,Urine (UA) Normal (Normal); Ketones,Urine Negative (Negative); Leukocyte Esterase,Urine Negative (Negative); Nitrite,Urine Negative (Negative); PH,Urine 5.5 pH Units (5.0-8.0); Protein,Urine Trace mg/dL (Neg-Trace); Specific Gravity,Urine 1.015 (1.010-1.025); Urobilinogen,Urine Normal (Normal)
[2018-12-29 18:37] LABS: Bacteria,Urine None Seen per hpf (None-Few); Hyaline Casts,Urine None Seen per lpf (None-Few); Squamous Epithelial Cell,Urine Moderate per lpf (None-Few); WBC,Urine 0-3 per hpf (0-3)
[2018-12-29 20:49] VITALS: BP 118/73
[2018-12-29] MEDS ORDERED: Insulin LISPRO 300 UNITS/3 ML VIAL SQ SCH (21:00)
--- NOTE | 2018-12-29 21:06 | Event Note ---
Date of Encounter: 12/29/18 Time of Encounter: 21:04 Notified by nurse of patient requesting to leave AMA due to needing to move out of her current living location by tomorrow. Remains alert and oriented. Informed leaving AMA could result in worsening of her symptoms and or . Patient verbalizes understanding and states she has follow up already planned. AMA document signed with patient and nurse. Nurse to remove IV prior to leaving with her significant other.
--- NOTE | 2018-12-31 12:39 | Electrocardiograph Report ---
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
== END 2018-12-29 21:08 | disposition left against medical advice (07) ==
LOC: CDU 04:01 → EMEROOARM 04:01 → SUATTDRO 06:16 → CDU 06:55 → 2ANU 17:01
PROVIDERS: ADMIT Internal Medicine; ATTEND Internal Medicine

== ENCOUNTER 2019-08-22 17:54 | Observation (INO) ==
[2019-08-22] MEDS ORDERED: Aspirin 81 MG TAB.CHEW PO ONE (18:27)
[2019-08-22 19:04] LABS: Basophils # 0.1 K/mcL (0.0-0.2); Basophils % 0.8 %; Eosinophils # 0.2 K/mcL (0.0-0.6); Hematocrit 32.2 % (35.3-44.9); Hemoglobin 9.9 g/dL (11.5-15.4); Lymphocytes % 19.4 %; Mean Corpuscular HGB Conc 30.7 g/dL (31.6-35.5); Mean Corpuscular Hemoglobin 28.4 pg (28.0-33.3); Mean Corpuscular Volume 92.5 fL (83.0-100.0); Mean Platelet Volume 9.5 fL (9.4-12.4); Monocytes # 0.6 K/mcL (0.0-1.3); Monocytes % 5.4 %; Neutrophils # 7.2 K/mcL (1.6-8.9); Platelet Count 614 K/mcL (140-400); Red Blood Count 3.48 M/mcL (3.82-4.97); Segmented Neutrophils % 71.4 %; White Blood Count 10.1 K/mcL (4.3-11.1)
[2019-08-22 19:22] LABS: Albumin 2.7 g/dL (3.5-5.7); Albumin/Globulin Ratio 0.7 (1.1-2.2); Bilirubin,Direct 0.1 mg/dL (0.0-0.2); Bilirubin,Indirect 0.2 mg/dL (0.0-1.0); Bilirubin,Total 0.3 mg/dL (0.3-1.0); Globulin 3.8 g/dL (2.4-3.5); Total Protein 6.5 g/dL (6.4-8.9)
[2019-08-22 19:24] LABS: Calcium 8.2 mg/dL (8.6-10.3); Potassium 4.6 mEq/L (3.5-5.1)
[2019-08-22 19:28] LABS: Bilirubin,Urine Small (Negative); Blood,Urine Trace (Negative); Clarity,Urine Cloudy (Clear); Color,Urine Yellow (Yellow); Glucose,Urine (UA) 100 mg/dL (Normal); Ketones,Urine Negative (Negative); Leukocyte Esterase,Urine Negative (Negative); Nitrite,Urine Negative (Negative); Protein,Urine 100 mg/dL (Neg-Trace); Specific Gravity,Urine 1.025 (1.010-1.025); Urobilinogen,Urine Normal (Normal)
[2019-08-22 19:28] LABS: Troponin I 0.06 ng/mL (< 0.04)
[2019-08-22 19:30] LABS: Hyaline Casts,Urine Moderate per lpf (None-Few); Squamous Epithelial Cell,Urine Many per lpf (None-Few)
[2019-08-22] MEDS: Nitroglycerin 0.4 MG TAB.SUBL SL PRN ×3 (19:30→19:40)
[2019-08-22] MEDS ORDERED: Morphine Sulfate 2 MG/ML SYRINGE IVP ONE (19:50)
[2019-08-22] MEDS ORDERED: Ondansetron 4 MG/2 ML VIAL IVP ONE (19:50)
[2019-08-22] MEDS ORDERED: Isovue-370 500 ML BOTTLE IVP ONE (19:55)
[2019-08-22] MEDS ORDERED: Ondansetron 4 MG/2 ML VIAL ONE (19:55)
[2019-08-22] MEDS ORDERED: Morphine Sulfate 2 MG/ML SYRINGE ONE (19:55)
[2019-08-22 19:58] LABS: Bacteria,Urine Few per hpf (None-Few); Oval Fat Bodies,Urine Present (None Seen)
[2019-08-22] MEDS ORDERED: Naloxone 0.4 MG/ML INJ IVP PRN (22:47)
[2019-08-22] MEDS ORDERED: 0.9 % Sodium Chloride 1,000 ML IVC SCH (23:15)
[2019-08-22] MEDS ORDERED: *HR* Dextrose 50 % in Water (Syg) 50 ML SYRINGE IVP PRN (23:44)
[2019-08-22] MEDS ORDERED: Dextrose Gel 15 GM/37.5 ML TUBE PO PRN ×2 (23:44)
[2019-08-22] MEDS ORDERED: D5% in Water 1,000 ML IVC PRN (23:44)
[2019-08-23 02:10] LABS: Basophils # 0.1 K/mcL (0.0-0.2); Basophils % 0.8 %; Eosinophils # 0.3 K/mcL (0.0-0.6); Eosinophils % 2.7 %; Hematocrit 29.2 % (35.3-44.9); Hemoglobin 8.9 g/dL (11.5-15.4); Immature Granulocytes % 1.3 % (0-4); Lymphocytes # 2.7 K/mcL (0.6-4.6); Lymphocytes % 28.3 %; Mean Corpuscular HGB Conc 30.5 g/dL (31.6-35.5); Mean Corpuscular Hemoglobin 28.3 pg (28.0-33.3); Mean Corpuscular Volume 92.7 fL (83.0-100.0); Mean Platelet Volume 9.7 fL (9.4-12.4); Monocytes # 0.6 K/mcL (0.0-1.3); Monocytes % 6.7 %; Neutrophils # 5.7 K/mcL (1.6-8.9); Platelet Count 500 K/mcL (140-400); Red Blood Count 3.15 M/mcL (3.82-4.97); Red Cell Distribution Width 15.2 % (11.5-14.5); Segmented Neutrophils % 60.2 %; White Blood Count 9.5 K/mcL (4.3-11.1)
[2019-08-23 02:30] LABS: Calcium 7.8 mg/dL (8.6-10.3); Potassium 4.2 mEq/L (3.5-5.1)
[2019-08-23] MEDS: Aspirin Enteric Coated 81 MG Tablet PO SCH (09:26)
[2019-08-23] MEDS: *HR* OxyCODONE Immed Rel 5 MG TABLET PO PRN ×2 (09:26→17:17)
[2019-08-23] MEDS: Ascorbic Acid 500 MG TABLET PO SCH (09:26)
[2019-08-23] MEDS: Cyanocobalamin (B-12) 1,000 MCG TABLET PO SCH (09:26)
[2019-08-23] MEDS: Insulin LISPRO 300 UNITS/3 ML VIAL SQ SCH ×3 (09:28→17:13)
[2019-08-23] MEDS: Ringers Solution, Lactated 1,000 ML IVC SCH (11:38)
[2019-08-23] MEDS ORDERED: *HR* Rivaroxaban 10 MG TABLET PO SCH (17:00)
[2019-08-24] MEDS: Ringers Solution, Lactated 1,000 ML IVC SCH ×2 (00:58→16:56)
[2019-08-24 01:52] LABS: Basophils # 0.1 K/mcL (0.0-0.2); Basophils % 0.8 %; Eosinophils # 0.3 K/mcL (0.0-0.6); Eosinophils % 3.3 %; Hematocrit 28.4 % (35.3-44.9); Hemoglobin 8.6 g/dL (11.5-15.4); Immature Granulocytes % 0.7 % (0-4); Lymphocytes # 2.5 K/mcL (0.6-4.6); Lymphocytes % 24.5 %; Mean Corpuscular HGB Conc 30.3 g/dL (31.6-35.5); Mean Corpuscular Hemoglobin 28.3 pg (28.0-33.3); Mean Corpuscular Volume 93.4 fL (83.0-100.0); Mean Platelet Volume 9.7 fL (9.4-12.4); Monocytes # 0.6 K/mcL (0.0-1.3); Monocytes % 6.1 %; Neutrophils # 6.7 K/mcL (1.6-8.9); Platelet Count 508 K/mcL (140-400); Red Blood Count 3.04 M/mcL (3.82-4.97); Red Cell Distribution Width 15.2 % (11.5-14.5); Segmented Neutrophils % 64.6 %; White Blood Count 10.3 K/mcL (4.3-11.1)
[2019-08-24 02:13] LABS: BUN/Creatinine Ratio 19 (6-26); Blood Urea Nitrogen 22 mg/dL (6-20); Calcium 7.9 mg/dL (8.6-10.3); Carbon Dioxide 21 mEq/L (23-29); Chloride 108 mEq/L (98-107); Glucose 149 mg/dL (70-105); Osmolality,Calculated 288 (280-300); Potassium 4.3 mEq/L (3.5-5.1); Sodium 136 mEq/L (136-145); eGFR For African Americans > 60 (> 60); eGFR For Non-African Americans 51 (> 60)
[2019-08-24] MEDS ORDERED: Regadenoson 0.4 MG/5 ML SYRINGE IVP ONE (06:27)
[2019-08-24] MEDS: Insulin LISPRO 300 UNITS/3 ML VIAL SQ SCH ×3 (08:00→16:02)
[2019-08-24] MEDS: Cyanocobalamin (B-12) 1,000 MCG TABLET PO SCH (09:22)
[2019-08-24] MEDS: Ascorbic Acid 500 MG TABLET PO SCH (09:22)
[2019-08-24] MEDS: Aspirin Enteric Coated 81 MG Tablet PO SCH (09:22)
[2019-08-24] MEDS: Loratadine 10 MG TABLET PO SCH (09:23)
[2019-08-24] MEDS ORDERED: Isovue-370 500 ML BOTTLE RC ONE (15:13)
[2019-08-24] MEDS ORDERED: Isovue-370 500 ML BOTTLE IVP ONE (15:13)
[2019-08-25 04:33] LABS: Hematocrit 26.4 % (35.3-44.9); Hemoglobin 8.2 g/dL (11.5-15.4); Mean Corpuscular HGB Conc 31.1 g/dL (31.6-35.5); Mean Corpuscular Hemoglobin 28.7 pg (28.0-33.3); Mean Corpuscular Volume 92.3 fL (83.0-100.0); Mean Platelet Volume 9.8 fL (9.4-12.4); Platelet Count 446 K/mcL (140-400); Red Blood Count 2.86 M/mcL (3.82-4.97); Red Cell Distribution Width 14.9 % (11.5-14.5); White Blood Count 7.7 K/mcL (4.3-11.1)
[2019-08-25 04:48] LABS: Potassium 4.7 mEq/L (3.5-5.1)
[2019-08-25] MEDS: Ringers Solution, Lactated 1,000 ML IVC SCH (06:52)
[2019-08-25] MEDS: Insulin LISPRO 300 UNITS/3 ML VIAL SQ SCH ×2 (07:30→11:22)
[2019-08-25] MEDS: Ascorbic Acid 500 MG TABLET PO SCH (08:27)
[2019-08-25] MEDS: Cyanocobalamin (B-12) 1,000 MCG TABLET PO SCH (08:27)
[2019-08-25] MEDS: Loratadine 10 MG TABLET PO SCH (08:27)
[2019-08-25] MEDS: Aspirin Enteric Coated 81 MG Tablet PO SCH (08:27)
[2019-08-25 10:58] VITALS: BP 131/78
== END 2019-08-25 13:20 | disposition home or self-care (01) ==
LOC: EMEROOARM 17:54 → 2ANU 17:54 → SUATTDRO 22:09 → 2ANU 22:30
PROVIDERS: ADMIT Student in an Organized Health Care Education/Training Program; ATTEND Internal Medicine

== ENCOUNTER 2019-09-07 15:16 | Observation (INO) ==
[2019-09-07] MEDS ORDERED: Nitroglycerin 0.4 MG TAB.SUBL SL PRN (15:38)
[2019-09-07] MEDS ORDERED: Aspirin 81 MG TAB.CHEW PO ONE (15:38)
[2019-09-07] MEDS ORDERED: Ondansetron 4 MG/2 ML VIAL IVP ONE (15:39)
[2019-09-07 16:28] LABS: Basophils # 0.1 K/mcL (0.0-0.2); Basophils % 0.5 %; Eosinophils # 0.5 K/mcL (0.0-0.6); Eosinophils % 4.7 %; Hematocrit 34.3 % (35.3-44.9); Hemoglobin 10.7 g/dL (11.5-15.4); Immature Granulocytes % 0.5 % (0-4); Lymphocytes # 1.4 K/mcL (0.6-4.6); Mean Corpuscular HGB Conc 31.2 g/dL (31.6-35.5); Mean Corpuscular Hemoglobin 28.8 pg (28.0-33.3); Mean Corpuscular Volume 92.2 fL (83.0-100.0); Mean Platelet Volume 10.2 fL (9.4-12.4); Monocytes # 0.6 K/mcL (0.0-1.3); Monocytes % 4.9 %; Neutrophils # 8.9 K/mcL (1.6-8.9); Platelet Count 258 K/mcL (140-400); Red Blood Count 3.72 M/mcL (3.82-4.97); Red Cell Distribution Width 14.7 % (11.5-14.5); Segmented Neutrophils % 77.4 %; White Blood Count 11.5 K/mcL (4.3-11.1)
[2019-09-07 16:59] LABS: BUN/Creatinine Ratio 16 (6-26); Blood Urea Nitrogen 19 mg/dL (6-20); Calcium 8.6 mg/dL (8.6-10.3); Carbon Dioxide 25 mEq/L (23-29); Chloride 109 mEq/L (98-107); Glucose 75 mg/dL (70-105); Osmolality,Calculated 293 (280-300); Potassium 3.7 mEq/L (3.5-5.1); Sodium 141 mEq/L (136-145); Troponin I < 0.03 ng/mL (< 0.04); eGFR For African Americans 58 (> 60); eGFR For Non-African Americans 47 (> 60)
[2019-09-07 17:19] LABS: Prothrombin Time 11.9 Seconds (9.4-12.1)
[2019-09-07 17:22] LABS: Activated Partial Thrombo Time 26.9 Seconds (26.0-36.0)
[2019-09-07] MEDS ORDERED: Naloxone 0.4 MG/ML INJ IVP PRN (18:15)
[2019-09-07] MEDS ORDERED: *HR* Dextrose 50 % in Water (Syg) 50 ML SYRINGE IVP PRN (18:23)
[2019-09-07] MEDS ORDERED: D5% in Water 1,000 ML IVC PRN (18:23)
[2019-09-07] MEDS ORDERED: Dextrose Gel 15 GM/37.5 ML TUBE PO PRN ×2 (18:23)
[2019-09-07] MEDS: *HR* Ticagrelor 90 MG TABLET PO SCH (20:11)
[2019-09-07] MEDS: *HR* Rivaroxaban 10 MG TABLET PO SCH (20:11)
[2019-09-08 07:21] LABS: Basophils # 0.1 K/mcL (0.0-0.2); Basophils % 0.6 %; Eosinophils # 0.5 K/mcL (0.0-0.6); Eosinophils % 5.8 %; Hematocrit 30.7 % (35.3-44.9); Hemoglobin 9.5 g/dL (11.5-15.4); Immature Granulocytes % 0.4 % (0-4); Lymphocytes # 1.9 K/mcL (0.6-4.6); Lymphocytes % 22.9 %; Mean Corpuscular HGB Conc 30.9 g/dL (31.6-35.5); Mean Corpuscular Hemoglobin 28.3 pg (28.0-33.3); Mean Corpuscular Volume 91.4 fL (83.0-100.0); Mean Platelet Volume 10.3 fL (9.4-12.4); Monocytes # 0.6 K/mcL (0.0-1.3); Monocytes % 6.7 %; Neutrophils # 5.2 K/mcL (1.6-8.9); Platelet Count 220 K/mcL (140-400); Red Blood Count 3.36 M/mcL (3.82-4.97); Red Cell Distribution Width 14.8 % (11.5-14.5); Segmented Neutrophils % 63.6 %; White Blood Count 8.2 K/mcL (4.3-11.1)
[2019-09-08] MEDS: Insulin LISPRO 300 UNITS/3 ML VIAL SQ SCH ×3 (07:48→17:22)
[2019-09-08 07:52] LABS: BUN/Creatinine Ratio 14 (6-26); Blood Urea Nitrogen 24 mg/dL (6-20); Calcium 8.1 mg/dL (8.6-10.3); Carbon Dioxide 24 mEq/L (23-29); Chloride 110 mEq/L (98-107); Glucose 69 mg/dL (70-105); Osmolality,Calculated 290 (280-300); Potassium 3.9 mEq/L (3.5-5.1); Sodium 139 mEq/L (136-145); Troponin I < 0.03 ng/mL (< 0.04); eGFR For African Americans 37 (> 60); eGFR For Non-African Americans 31 (> 60)
[2019-09-08] MEDS ORDERED: Aspirin Enteric Coated 81 MG Tablet PO SCH (09:00)
[2019-09-08] MEDS ORDERED: Furosemide 20 MG TABLET PO SCH (09:00)
[2019-09-08] MEDS ORDERED: Ondansetron ODT 4 MG TAB.RAPDIS SL PRN (09:08)
[2019-09-08] MEDS: Loratadine 10 MG TABLET PO SCH (10:42)
[2019-09-08] MEDS: *HR* Ticagrelor 90 MG TABLET PO SCH ×2 (10:42→20:14)
[2019-09-08] MEDS: *HR* Rivaroxaban 10 MG TABLET PO SCH (18:37)
[2019-09-09 01:48] LABS: Hemoglobin 9.9 g/dL (11.5-15.4); Mean Corpuscular HGB Conc 30.9 g/dL (31.6-35.5); Mean Corpuscular Volume 90.4 fL (83.0-100.0); Mean Platelet Volume 10.5 fL (9.4-12.4); Platelet Count 221 K/mcL (140-400); Red Blood Count 3.54 M/mcL (3.82-4.97); Red Cell Distribution Width 14.6 % (11.5-14.5); White Blood Count 8.1 K/mcL (4.3-11.1)
[2019-09-09 02:08] LABS: Calcium 8.6 mg/dL (8.6-10.3); Potassium 4.3 mEq/L (3.5-5.1)
[2019-09-09] MEDS ORDERED: Regadenoson 0.4 MG/5 ML SYRINGE IVP ONE (06:17)
[2019-09-09] MEDS: Insulin LISPRO 300 UNITS/3 ML VIAL SQ SCH ×2 (09:30→13:02)
[2019-09-09] MEDS: Loratadine 10 MG TABLET PO SCH (09:36)
[2019-09-09 12:01] VITALS: BP 131/69
[2019-09-10] MEDS ORDERED: Metoprolol XL (24 HR) Succ 50 MG TAB.ER.24H PO SCH (09:00)
== END 2019-09-09 14:43 | disposition home or self-care (01) ==
LOC: EMEROOARM 15:16 → 3BNU 15:16
PROVIDERS: ADMIT Pharmacist; ATTEND Pharmacist

== ENCOUNTER 2020-01-19 00:01 | Observation (INO) ==
[2020-01-19] MEDS ORDERED: Naloxone 0.4 MG/ML INJ IVP PRN (01:57)
[2020-01-19] MEDS ORDERED: *HR* Heparin 5,000 UNIT/ML VIAL IVP PRN ×2 (02:05)
[2020-01-19] MEDS ORDERED: DilTIAZem 50 MG/50 ML IV.SOLN IVC SCH (02:15)
[2020-01-19] MEDS ORDERED: Heparin 25,000 UNIT/250 ML D5W 25,000 UNIT/250 ML IV.SOLN IVC SCH (02:15)
[2020-01-19] MEDS ORDERED: *HR* Dextrose 50 % in Water (Vial) 50 ML VIAL IVP PRN (02:23)
[2020-01-19] MEDS ORDERED: D5% in Water 1,000 ML IVC PRN (02:23)
[2020-01-19] MEDS ORDERED: Dextrose Gel 15 GM/37.5 ML TUBE PO PRN ×2 (02:23)
[2020-01-19 02:27] LABS: Bacteria,Urine Many per hpf (None-Few); Bilirubin,Urine Negative (Negative); Blood,Urine Moderate (Negative); Clarity,Urine Turbid (Clear); Color,Urine Light-Yellow (Yellow); Glucose,Urine (UA) 300 mg/dL (Normal); Hyaline Casts,Urine Few per lpf (None Seen); Ketones,Urine Negative (Negative); Leukocyte Esterase,Urine Trace (Negative); Mucus,Urine Few per lpf (None-Few); Nitrite,Urine Negative (Negative); Protein,Urine 70 mg/dL (Neg-Trace); Specific Gravity,Urine 1.014 (1.010-1.025); Squamous Epithelial Cell,Urine Few per hpf (None-Few); Urobilinogen,Urine Normal (Normal)
[2020-01-19] MEDS ORDERED: Insulin DETEMIR 100 UNIT/ML X5UNITS SQ SCH (02:30)
[2020-01-19 03:37] LABS: Basophils # 0.1 K/mcL (0.0-0.2); Basophils % 0.5 %; Eosinophils # 0.4 K/mcL (0.0-0.6); Eosinophils % 3.9 %; Hematocrit 27.6 % (35.3-44.9); Hemoglobin 8.9 g/dL (11.5-15.4); Immature Granulocytes % 0.5 % (0-4); Lymphocytes # 1.9 K/mcL (0.6-4.6); Lymphocytes % 21.1 %; Mean Corpuscular HGB Conc 32.2 g/dL (31.6-35.5); Mean Corpuscular Hemoglobin 30.7 pg (28.0-33.3); Mean Corpuscular Volume 95.2 fL (83.0-100.0); Monocytes # 0.7 K/mcL (0.0-1.3); Neutrophils # 6.1 K/mcL (1.6-8.9); Platelet Count 256 K/mcL (140-400); Red Cell Distribution Width 14.6 % (11.5-14.5); White Blood Count 9.2 K/mcL (4.3-11.1)
[2020-01-19 03:41] LABS: Heparin anti-factor XA UFH 0.26 IU/mL (0.30-0.70); Prothrombin Time 11.4 Seconds (9.4-12.1)
[2020-01-19 03:44] LABS: Activated Partial Thrombo Time 37.4 Seconds (26.0-36.0)
[2020-01-19 03:57] LABS: Albumin 2.7 g/dL (3.5-5.7); Albumin/Globulin Ratio 0.8 (1.1-2.2); Bilirubin,Total 0.2 mg/dL (0.3-1.0); Calcium 7.8 mg/dL (8.6-10.3); Globulin 3.2 g/dL (2.4-3.5); Potassium 4.2 mEq/L (3.5-5.1); Total Protein 5.9 g/dL (6.4-8.9)
[2020-01-19 04:02] LABS: Troponin I 0.05 ng/mL (< 0.04)
[2020-01-19] MEDS: Insulin LISPRO 300 UNITS/3 ML VIAL SQ SCH ×2 (06:00→12:20)
[2020-01-19] MEDS ORDERED: Aspirin 81 MG TAB.CHEW PO SCH (09:00)
[2020-01-19 10:53] VITALS: BP 92/52
[2020-01-19] MEDS ORDERED: *HR* Rivaroxaban 15 MG TABLET PO SCH (17:00)
== END 2020-01-19 15:15 | disposition home or self-care (01) ==
LOC: 2ANU → SUATTDRO 01:20
PROVIDERS: ADMIT Student in an Organized Health Care Education/Training Program; ATTEND Internal Medicine

== ENCOUNTER 2020-05-29 10:43 | Observation (INO) ==
[2020-05-29 11:16] LABS: Basophils % 0.4 %; Eosinophils # 0.1 K/mcL (0.0-0.6); Eosinophils % 1.8 %; Hematocrit 30.2 % (35.3-44.9); Hemoglobin 9.6 g/dL (11.5-15.4); Immature Granulocytes % 0.4 % (0-4); Lymphocytes % 12.3 %; Mean Corpuscular HGB Conc 31.8 g/dL (31.6-35.5); Mean Corpuscular Hemoglobin 30.1 pg (28.0-33.3); Mean Corpuscular Volume 94.7 fL (83.0-100.0); Mean Platelet Volume 9.8 fL (9.4-12.4); Monocytes # 0.5 K/mcL (0.0-1.3); Neutrophils # 6.3 K/mcL (1.6-8.9); Platelet Count 252 K/mcL (140-400); Red Blood Count 3.19 M/mcL (3.82-4.97); Red Cell Distribution Width 13.2 % (11.5-14.5); Segmented Neutrophils % 79.1 %
[2020-05-29] MEDS ORDERED: Ondansetron 4 MG/2 ML VIAL IVP ONE (11:34)
[2020-05-29 11:48] LABS: Calcium 8.2 mg/dL (8.6-10.3); Potassium 4.6 mEq/L (3.5-5.1); Troponin I 0.03 ng/mL (< 0.04)
[2020-05-29] MEDS ORDERED: Ipratropium/Albuterol Neb 3 ML IH ONE (11:55)
[2020-05-29] MEDS ORDERED: Naloxone 0.4 MG/ML INJ IVP PRN (15:12)
[2020-05-29] MEDS ORDERED: Dextrose Gel 15 GM/37.5 ML TUBE PO PRN ×2 (15:15)
[2020-05-29] MEDS ORDERED: D5% in Water 1,000 ML IVC PRN (15:15)
[2020-05-29] MEDS ORDERED: Nitroglycerin 0.4 MG TAB.SUBL SL PRN (15:15)
[2020-05-29] MEDS ORDERED: Ipratropium/Albuterol Neb 3 ML IH PRN (15:15)
[2020-05-29] MEDS ORDERED: *HR* Dextrose 50 % in Water (Vial) 50 ML VIAL IVP PRN (15:15)
[2020-05-29] MEDS: Insulin LISPRO 300 UNITS/3 ML VIAL SQ SCH ×2 (16:34→21:03)
[2020-05-29 16:44] LABS: Albumin 2.9 g/dL (3.5-5.7); Bilirubin,Direct 0.1 mg/dL (0.0-0.2); Bilirubin,Indirect 0.1 mg/dL (0.0-1.0); Bilirubin,Total 0.2 mg/dL (0.3-1.0); Total Protein 5.9 g/dL (6.4-8.9)
[2020-05-29] MEDS ORDERED: *HR* Rivaroxaban 15 MG TABLET PO SCH (17:00)
[2020-05-29] MEDS ORDERED: Perflutren Lipid Microsphere 1.3 ML in 0.9 % Sodium Chloride 8.7 ML IVP PRN (17:02)
[2020-05-29] MEDS ORDERED: *HR* Heparin 5,000 UNIT/ML VIAL IVP PRN ×2 (17:02)
[2020-05-29] MEDS ORDERED: *HR* Heparin 5,000 UNIT/ML VIAL IVP ONE (17:02)
[2020-05-29] MEDS ORDERED: Heparin 25,000UNIT/250ML 1/2NS 25,000 UNIT/250 ML IV.SOLN IVC SCH (17:15)
[2020-05-29 18:46] LABS: Hematocrit 27.8 % (35.3-44.9); Hemoglobin 8.9 g/dL (11.5-15.4); Mean Corpuscular Hemoglobin 30.1 pg (28.0-33.3); Mean Corpuscular Volume 93.9 fL (83.0-100.0); Mean Platelet Volume 9.7 fL (9.4-12.4); Platelet Count 216 K/mcL (140-400); Red Blood Count 2.96 M/mcL (3.82-4.97); Red Cell Distribution Width 13.3 % (11.5-14.5); White Blood Count 6.2 K/mcL (4.3-11.1)
[2020-05-29 18:48] LABS: INR 1.6; Prothrombin Time 18.8 Seconds (9.4-12.1)
[2020-05-29 18:52] LABS: Heparin anti-factor XA UFH 1.39 IU/mL (0.30-0.70)
[2020-05-29] MEDS: Budesonide/Formoterol 80/4.5 1 PUFF INH IH SCH (19:38)
[2020-05-29 22:55] LABS: Hemoglobin 8.8 g/dL (11.5-15.4); Mean Corpuscular HGB Conc 31.4 g/dL (31.6-35.5); Mean Corpuscular Hemoglobin 28.9 pg (28.0-33.3); Mean Corpuscular Volume 92.1 fL (83.0-100.0); Mean Platelet Volume 9.4 fL (9.4-12.4); Platelet Count 231 K/mcL (140-400); Red Blood Count 3.04 M/mcL (3.82-4.97); Red Cell Distribution Width 13.3 % (11.5-14.5); White Blood Count 6.5 K/mcL (4.3-11.1)
[2020-05-29 23:05] LABS: INR 1.6; Prothrombin Time 18.5 Seconds (9.4-12.1)
[2020-05-29 23:09] LABS: Heparin anti-factor XA UFH 1.52 IU/mL (0.30-0.70)
[2020-05-30] MEDS ORDERED: Heparin 25,000UNIT/250ML 1/2NS 25,000 UNIT/250 ML IV.SOLN IVC SCH
[2020-05-30 02:16] LABS: Basophils % 0.4 %; Eosinophils # 0.1 K/mcL (0.0-0.6); Eosinophils % 1.2 %; Hematocrit 28.8 % (35.3-44.9); Hemoglobin 9.1 g/dL (11.5-15.4); Immature Granulocytes % 0.1 % (0-4); Lymphocytes # 1.7 K/mcL (0.6-4.6); Lymphocytes % 20.7 %; Mean Corpuscular HGB Conc 31.6 g/dL (31.6-35.5); Mean Corpuscular Hemoglobin 29.2 pg (28.0-33.3); Mean Corpuscular Volume 92.3 fL (83.0-100.0); Mean Platelet Volume 9.6 fL (9.4-12.4); Monocytes # 0.5 K/mcL (0.0-1.3); Monocytes % 5.7 %; Neutrophils # 6.1 K/mcL (1.6-8.9); Platelet Count 238 K/mcL (140-400); Red Blood Count 3.12 M/mcL (3.82-4.97); Red Cell Distribution Width 13.5 % (11.5-14.5); Segmented Neutrophils % 71.9 %; White Blood Count 8.4 K/mcL (4.3-11.1)
[2020-05-30 02:35] LABS: Calcium 7.9 mg/dL (8.6-10.3); Potassium 4.7 mEq/L (3.5-5.1)
[2020-05-30] MEDS: Heparin 25,000UNIT/250ML 1/2NS 25,000 UNIT/250 ML IV.SOLN IVC SCH (04:24)
[2020-05-30] MEDS: Insulin LISPRO 300 UNITS/3 ML VIAL SQ SCH ×4 (07:45→22:51)
[2020-05-30] MEDS: Aspirin Enteric Coated 81 MG Tablet PO SCH (07:47)
[2020-05-30] MEDS: Metoprolol XL (24 HR) Succ 50 MG TAB.ER.24H PO SCH (07:48)
[2020-05-30] MEDS: Budesonide/Formoterol 80/4.5 1 PUFF INH IH SCH ×2 (07:59→21:33)
[2020-05-30] MEDS: Isosorbide MONOnitrate (24 HR) 30 MG TAB.ER.24H PO SCH (15:56)
[2020-05-30 18:21] LABS: Folate 4.3 ng/mL (3.0-16.0)
[2020-05-30 18:53] LABS: Complement C3 116 mg/dL (87-200)
[2020-05-30 22:13] LABS: Bacteria,Urine Few per hpf (None-Few); Bilirubin,Urine Negative (Negative); Blood,Urine Large (Negative); Clarity,Urine Turbid (Clear); Color,Urine Yellow (Yellow); Glucose,Urine (UA) Normal (Normal); Hyaline Casts,Urine Few per lpf (None Seen); Ketones,Urine Negative (Negative); Leukocyte Esterase,Urine Large (Negative); Mucus,Urine Few per lpf (None-Few); Nitrite,Urine Positive (Negative); Protein,Urine >=300 mg/dL (Neg-Trace); RBC,Urine 50-100 per hpf (0-3); Specific Gravity,Urine 1.019 (1.010-1.025); Squamous Epithelial Cell,Urine Moderate per hpf (None-Few); Urobilinogen,Urine Normal (Normal); WBC,Urine TNTC per hpf (0-3)
[2020-05-30 23:10] LABS: Protein/Creatinine Ratio,Urine 2.07 mg/mg (0.00-0.20); Sodium, Urine 31.2 mEq/L
[2020-05-30] MEDS ORDERED: cefTRIAXone 1,000 MG in Water for inj. (sterile) 10 ML IVP SCH (23:45)
[2020-05-31] MEDS: Heparin 25,000UNIT/250ML 1/2NS 25,000 UNIT/250 ML IV.SOLN IVC SCH (00:04)
[2020-05-31] MEDS: Insulin LISPRO 300 UNITS/3 ML VIAL SQ SCH ×2 (07:41→13:15)
[2020-05-31] MEDS: Metoprolol XL (24 HR) Succ 50 MG TAB.ER.24H PO SCH (07:43)
[2020-05-31] MEDS: Aspirin Enteric Coated 81 MG Tablet PO SCH (07:43)
[2020-05-31] MEDS: Isosorbide MONOnitrate (24 HR) 30 MG TAB.ER.24H PO SCH (07:44)
[2020-05-31] MEDS: Budesonide/Formoterol 80/4.5 1 PUFF INH IH SCH (07:57)
[2020-05-31] MEDS ORDERED: Cyanocobalamin (B-12) 1,000 MCG/ML VIAL SQ ONE (09:00)
[2020-05-31] MEDS ORDERED: Fluconazole 100 MG TABLET PO ONE (09:16)
[2020-05-31 09:55] LABS: Calcium 8.2 mg/dL (8.6-10.3); Potassium 4.9 mEq/L (3.5-5.1)
[2020-05-31 11:49] VITALS: BP 131/64
[2020-06-01] MEDS ORDERED: Ketoconazole Shampoo 120 ML BOTTLE TP SCH (09:00)
[2020-06-02 10:44] LABS: ANA IgG by ELISA NONE DETECTED (None Detected); GBM IgG Multiplex Bead Assay 18 AU/mL (0-19); Glomerular Basement Memb IgG NEGATIVE (Negative); Serine Protease-3 Antibody 3 AU/mL (0-19)
== END 2020-05-31 16:18 | disposition home or self-care (01) ==
LOC: EMEROOARM 10:43 → 3BNU 10:43 → SUATTDRO 14:01 → 3BNU 14:43
PROVIDERS: ADMIT Family Medicine; ATTEND Internal Medicine

== ENCOUNTER 2021-10-12 03:14 | Observation (INO) ==
[2021-10-12] MEDS ORDERED: Naloxone 0.4 MG/ML INJ IVP PRN (04:05)
[2021-10-12] MEDS ORDERED: Ondansetron 4 MG/2 ML VIAL IVP PRN (04:05)
[2021-10-12] MEDS ORDERED: *HR* Heparin 5,000 UNIT/ML VIAL IVP PRN ×4 (04:11→04:27)
[2021-10-12] MEDS ORDERED: Ipratropium/Albuterol Neb 3 ML IH PRN (04:14)
[2021-10-12] MEDS ORDERED: Heparin 25,000UNIT/250ML 1/2NS 25,000 UNIT/250 ML IV.SOLN IVC SCH (04:15)
[2021-10-12] MEDS ORDERED: Perflutren Lipid Microsphere 1.3 ML in 0.9 % Sodium Chloride 8.7 ML IVP PRN (04:53)
[2021-10-12] MEDS ORDERED: *HR* Heparin 5,000 UNIT/ML VIAL IVP ONE (04:55)
[2021-10-12 05:04] LABS: Heparin anti-factor XA UFH < 0.04 IU/mL (0.30-0.70)
[2021-10-12 05:11] LABS: Basophils # 0.1 K/mcL (0.0-0.2); Basophils % 0.6 %; Eosinophils # 0.2 K/mcL (0.0-0.6); Eosinophils % 1.3 %; Hematocrit 26.6 % (35.3-44.9); Hemoglobin 8.6 g/dL (11.5-15.4); Immature Granulocytes % 0.6 % (0-4); Lymphocytes % 16.1 %; Mean Corpuscular HGB Conc 32.3 g/dL (31.6-35.5); Mean Corpuscular Hemoglobin 30.2 pg (28.0-33.3); Mean Corpuscular Volume 93.3 fL (83.0-100.0); Monocytes # 0.6 K/mcL (0.0-1.3); Monocytes % 5.1 %; Neutrophils # 9.3 K/mcL (1.6-8.9); Platelet Count 327 K/mcL (140-400); Red Blood Count 2.85 M/mcL (3.82-4.97); Red Cell Distribution Width 14.6 % (11.5-14.5); Segmented Neutrophils % 76.3 %; White Blood Count 12.2 K/mcL (4.3-11.1)
[2021-10-12 05:16] LABS: D-Dimer 1164 ng/mLFEU (0-500)
[2021-10-12] MEDS: Heparin 25,000UNIT/250ML 1/2NS 25,000 UNIT/250 ML IV.SOLN IVC SCH (05:25)
[2021-10-12 05:30] LABS: Albumin 3.1 g/dL (3.5-5.7); Albumin/Globulin Ratio 1.1 (1.1-2.2); Bilirubin,Direct 0.1 mg/dL (0.0-0.2); Bilirubin,Indirect 0.2 mg/dL (0.0-1.0); Bilirubin,Total 0.3 mg/dL (0.3-1.0); Globulin 2.7 g/dL (2.4-3.5); Total Protein 5.8 g/dL (6.4-8.9)
[2021-10-12 05:33] LABS: Chol/HDL Ratio 3.3 (0-4.9); Magnesium 1.7 mg/dL (1.6-2.6); Phosphorous 4.6 mg/dL (2.7-4.5); Potassium 3.9 mEq/L (3.5-5.1)
[2021-10-12 05:38] LABS: Troponin I 0.16 ng/mL (< 0.04)
[2021-10-12 05:53] LABS: Bacteria,Urine Few per hpf (None-Few); Bilirubin,Urine Negative (Negative); Blood,Urine Small (Negative); Clarity,Urine Turbid (Clear); Color,Urine Light-Yellow (Yellow); Glucose,Urine (UA) 30 mg/dL (Normal); Ketones,Urine Negative (Negative); Leukocyte Esterase,Urine Large (Negative); Mucus,Urine Few per lpf (None-Few); Nitrite,Urine Negative (Negative); Protein,Urine 50 mg/dL (Neg-Trace); RBC,Urine 0-3 per hpf (0-3); Specific Gravity,Urine 1.009 (1.010-1.025); Squamous Epithelial Cell,Urine Few per hpf (None-Few); Urobilinogen,Urine Normal (Normal); WBC,Urine TNTC per hpf (0-3)
[2021-10-12 05:54] LABS: Amphetamine Screen,Urine Negative ng/mL (Cutoff=1000); Barbiturate Screen,Urine Negative ng/mL (Cutoff=200)
[2021-10-12 05:58] LABS: Benzodiazepines Screen,Urine Negative ng/mL (Cutoff=300); Cannabinoid Screen,Urine Negative ng/mL (Cutoff = 50); Cocaine Screen,Urine Negative ng/mL (Cutoff= 300); Opiate Screen,Urine Negative ng/mL (Cutoff=300); Phencyclidine Screen,Urine Negative ng/mL (Cutoff=25)
[2021-10-12 07:16] LABS: Estimated Average Glucose 197 mg/dl; Hemoglobin A1C 8.5 %
[2021-10-12] MEDS: cefTRIAXone 1,000 MG in 0.9 % Sodium Chloride Mini Bag 100 ML IVPB SCH (07:58)
[2021-10-12 08:13] LABS: Adenovirus Not Detected (Not Detect); Coronavirus 229E Not Detected (Not Detect); Coronavirus HKU1 Not Detected (Not Detect); Coronavirus NL63 Not Detected (Not Detect); Coronavirus OC43 Not Detected (Not Detect); SARS-CoV-2 Not Detected (Not Detect)
[2021-10-12 08:14] LABS: Bordetella Pertussis Not Detected (Not Detect); Chlamydophila pneumoniae Not Detected (Not Detect); Human Metapneumovirus Not Detected (Not Detect); Human Rhinovirus/Enterovirus Not Detected (Not Detect); Influenza A Subtype 2009 H1 Not Detected (Not Detect); Influenza B Not Detected (Not Detect); Mycoplasma pneumoniae Not Detected (Not Detect); Parainfluenza Virus 1 Not Detected (Not Detect); Parainfluenza Virus 2 Not Detected (Not Detect); Parainfluenza Virus 3 Not Detected (Not Detect); Parainfluenza Virus 4 Not Detected (Not Detect); Respiratory Syncytial Virus Not Detected (Not Detect)
[2021-10-12] MEDS: Azithromycin 500 MG in 0.9 % Sodium Chloride 250 ML IVPB SCH (11:15)
[2021-10-12] MEDS: Aspirin Enteric Coated 81 MG Tablet PO SCH (11:51)
[2021-10-12] MEDS: Metoprolol XL (24 HR) Succ 25 MG TAB.ER.24H PO SCH (11:52)
[2021-10-12] MEDS ORDERED: Nitroglycerin 0.4 MG TAB.SUBL SL PRN (17:04)
[2021-10-12] MEDS ORDERED: Loratadine 10 MG TABLET PO PRN (17:04)
[2021-10-12 19:15] LABS: Heparin anti-factor XA UFH 0.26 IU/mL (0.30-0.70)
[2021-10-12] MEDS: Gabapentin 400 MG CAPSULE PO SCH (20:34)
[2021-10-12] MEDS ORDERED: METOPROLOL SUCCINATE 100 MG PO SCH (21:00)
[2021-10-13] MEDS: Heparin 25,000UNIT/250ML 1/2NS 25,000 UNIT/250 ML IV.SOLN IVC SCH (01:22)
[2021-10-13 02:45] LABS: Basophils # 0.1 K/mcL (0.0-0.2); Basophils % 0.5 %; Eosinophils # 0.2 K/mcL (0.0-0.6); Eosinophils % 1.6 %; Hemoglobin 7.9 g/dL (11.5-15.4); Immature Granulocytes % 0.6 % (0-4); Lymphocytes # 2.1 K/mcL (0.6-4.6); Mean Corpuscular HGB Conc 31.6 g/dL (31.6-35.5); Mean Corpuscular Hemoglobin 29.3 pg (28.0-33.3); Mean Corpuscular Volume 92.6 fL (83.0-100.0); Monocytes # 0.6 K/mcL (0.0-1.3); Platelet Count 279 K/mcL (140-400); Red Cell Distribution Width 14.8 % (11.5-14.5); Segmented Neutrophils % 70.3 %
[2021-10-13 03:06] LABS: Albumin/Globulin Ratio 1.2 (1.1-2.2); Bilirubin,Direct 0.1 mg/dL (0.0-0.2); Bilirubin,Indirect 0.1 mg/dL (0.0-1.0); Bilirubin,Total 0.2 mg/dL (0.3-1.0); Calcium 8.2 mg/dL (8.6-10.3); Globulin 2.6 g/dL (2.4-3.5); Magnesium 1.7 mg/dL (1.6-2.6); Total Protein 5.6 g/dL (6.4-8.9)
[2021-10-13 03:18] LABS: Thyroid Stimulating Hormone 3.166 mcIU/mL (0.340-5.600)
[2021-10-13 03:42] LABS: Folate 2.7 ng/mL (3.0-16.0)
[2021-10-13] MEDS ORDERED: Cyanocobalamin (B-12) 1,000 MCG/ML VIAL SQ ONE (07:40)
[2021-10-13] MEDS ORDERED: Sodium Bicarbonate 150 MEQ in D5% in Water 1,000 ML IVC SCH (07:45)
[2021-10-13] MEDS: Aspirin Enteric Coated 81 MG Tablet PO SCH (08:23)
[2021-10-13] MEDS: Metoprolol XL (24 HR) Succ 25 MG TAB.ER.24H PO SCH (08:23)
[2021-10-13] MEDS: cefTRIAXone 1,000 MG in 0.9 % Sodium Chloride Mini Bag 100 ML IVPB SCH (08:24)
[2021-10-13] MEDS: Gabapentin 400 MG CAPSULE PO SCH (08:26)
[2021-10-13] MEDS ORDERED: Folic Acid 1 MG TABLET PO SCH (09:00)
[2021-10-13] MEDS ORDERED: Iron Sucrose Complex 250 MG in 0.9 % Sodium Chloride 250 ML IVPB SCH (09:00)
[2021-10-13] MEDS ORDERED: cloNIDine HCL 0.1 MG TABLET PO SCH (09:00)
[2021-10-13] MEDS ORDERED: ASPIRIN 81 MG PO SCH (09:00)
[2021-10-13] MEDS: Azithromycin 500 MG in 0.9 % Sodium Chloride 250 ML IVPB SCH (10:35)
[2021-10-13 11:33] VITALS: BP 121/68; PULSE 72; TEMP 97.8; O2SAT 98
== END 2021-10-13 13:00 | disposition left against medical advice (07) ==
LOC: 2ANU → SUATTDRO 03:14 → 2ANU 04:17
PROVIDERS: ADMIT Internal Medicine; ATTEND Pharmacist

== ENCOUNTER 2021-12-10 03:25 | Inpatient (IN) ==
[2021-12-10] MEDS ORDERED: Naloxone 0.4 MG/ML INJ IVP PRN (10:11)
[2021-12-10 11:34] LABS: Basophils % 0.3 %; Eosinophils % 0.1 %; Hematocrit 28.3 % (35.3-44.9); Hemoglobin 8.8 g/dL (11.5-15.4); Immature Granulocytes % 3.9 % (0-4); Lymphocytes # 1.8 K/mcL (0.6-4.6); Lymphocytes % 14.8 %; Mean Corpuscular HGB Conc 31.1 g/dL (31.6-35.5); Mean Corpuscular Hemoglobin 29.1 pg (28.0-33.3); Mean Corpuscular Volume 93.7 fL (83.0-100.0); Mean Platelet Volume 11.4 fL (9.4-12.4); Monocytes # 0.9 K/mcL (0.0-1.3); Monocytes % 7.3 %; Nucleated Red Blood Cells 0.3 /100 WBC (0); Platelet Count 221 K/mcL (140-400); Red Blood Count 3.02 M/mcL (3.82-4.97); Red Cell Distribution Width 15.2 % (11.5-14.5); Segmented Neutrophils % 73.6 %; White Blood Count 12.3 K/mcL (4.3-11.1)
[2021-12-10 11:43] LABS: INR 1.7; Prothrombin Time 19.2 Seconds (9.4-12.1)
[2021-12-10 11:55] LABS: C-Reactive Protein 54 mg/L (Less than 10); Creatine Kinase 48 Units/L (30-223); Lipase 78 Units/L (11-82)
[2021-12-10 11:56] LABS: Magnesium 2.1 mg/dL (1.6-2.6); Phosphorous 5.5 mg/dL (2.7-4.5)
[2021-12-10 12:03] LABS: Procalcitonin 0.19 ng/mL (0.00-0.15)
[2021-12-10 12:08] LABS: Troponin I 0.27 ng/mL (< 0.04)
[2021-12-10 12:27] LABS: Hepatitis B Surface Antigen Nonreactive (Nonreactive)
[2021-12-10 12:40] LABS: Albumin 3.2 g/dL (3.5-5.7); Albumin/Globulin Ratio 1.1 (1.1-2.2); Bilirubin,Direct 0.3 mg/dL (0.0-0.2); Bilirubin,Indirect 0.5 mg/dL (0.0-1.0); Bilirubin,Total 0.8 mg/dL (0.3-1.0); Calcium 8.4 mg/dL (8.6-10.3); Globulin 2.8 g/dL (2.4-3.5); Potassium 4.1 mEq/L (3.5-5.1)
[2021-12-10 12:56] LABS: Hepatitis C Virus Antibody Nonreactive (Nonreactive)
[2021-12-10 12:58] LABS: Hepatitis A Antibody IgM Nonreactive (Nonreactive)
[2021-12-10 13:18] LABS: Adenovirus Not Detected (Not Detect); Bordetella Pertussis Not Detected (Not Detect); Chlamydophila pneumoniae Not Detected (Not Detect); Coronavirus 229E Not Detected (Not Detect); Coronavirus HKU1 Not Detected (Not Detect); Coronavirus NL63 Not Detected (Not Detect); Coronavirus OC43 Not Detected (Not Detect); Human Metapneumovirus Not Detected (Not Detect); Human Rhinovirus/Enterovirus DETECTED (Not Detect); Influenza A Subtype 2009 H1 Not Detected (Not Detect); Influenza B Not Detected (Not Detect); Mycoplasma pneumoniae Not Detected (Not Detect); Parainfluenza Virus 1 Not Detected (Not Detect); Parainfluenza Virus 2 Not Detected (Not Detect); Parainfluenza Virus 3 Not Detected (Not Detect); Parainfluenza Virus 4 Not Detected (Not Detect); Respiratory Syncytial Virus Not Detected (Not Detect); SARS-CoV-2 Not Detected (Not Detect)
[2021-12-10] MEDS ORDERED: DilTIAZem 50 MG/50 ML IV.SOLN IVC SCH (13:45)
[2021-12-10] MEDS ORDERED: Gabapentin 400 MG CAPSULE PO PRN (16:25)
[2021-12-10 16:34] LABS: Bilirubin,Urine Negative (Negative); Blood,Urine Small (Negative); Clarity,Urine Turbid (Clear); Color,Urine Light-Yellow (Yellow); Glucose,Urine (UA) 30 mg/dL (Normal); Ketones,Urine Negative (Negative); Leukocyte Esterase,Urine Negative (Negative); Mucus,Urine Few per lpf (None-Few); Nitrite,Urine Negative (Negative); Protein,Urine 100 mg/dL (Neg-Trace); RBC,Urine 0-3 per hpf (0-3); Squamous Epithelial Cell,Urine Few per hpf (None-Few); Urobilinogen,Urine Normal (Normal); WBC,Urine 0-3 per hpf (0-3)
[2021-12-10] MEDS ORDERED: *HR* Heparin 5,000 UNIT/ML VIAL IVP ONE (16:43)
[2021-12-10] MEDS ORDERED: *HR* Heparin 5,000 UNIT/ML VIAL IVP PRN ×2 (16:43)
[2021-12-10] MEDS ORDERED: Heparin 25,000UNIT/250ML 1/2NS 25,000 UNIT/250 ML IV.SOLN IVC SCH ×2 (16:45→17:05)
[2021-12-10] MEDS ORDERED: Ipratropium/Albuterol Neb 3 ML IH PRN (16:54)
[2021-12-10] MEDS ORDERED: D5% in Water 1,000 ML IVC PRN (16:55)
[2021-12-10] MEDS ORDERED: *HR* Dextrose 50 % in Water (Syg) 50 ML SYRINGE IVP PRN (16:55)
[2021-12-10] MEDS ORDERED: Dextrose 4 GM Chewable Tablets PO PRN ×2 (16:55)
[2021-12-10] MEDS ORDERED: levoFLOXacin 750 MG/150 ML 750 MG/150 ML BAG IVPB SCH (17:00)
[2021-12-10] MEDS ORDERED: levoFLOXacin 750 MG/150 ML 750 MG/150 ML BAG IVPB ONE (17:00)
[2021-12-10] MEDS: Sodium Bicarbonate 75 MEQ in 0.45 % Sodium Chloride 1,000 ML IVC SCH (17:17)
[2021-12-10] MEDS: Metoprolol XL (24 HR) Succ 50 MG TAB.ER.24H PO SCH (17:23)
[2021-12-10 17:54] LABS: Heparin anti-factor XA UFH < 0.04 IU/mL (0.30-0.70)
[2021-12-10 17:57] LABS: Activated Partial Thrombo Time 27.2 Seconds (26.0-36.0)
[2021-12-10] MEDS: Insulin LISPRO 300 UNITS/3 ML VIAL SUBQ SCH ×2 (18:53→21:18)
[2021-12-10] MEDS: Ondansetron 4 MG/2 ML VIAL IVP PRN (19:56)
[2021-12-11 01:43] LABS: Basophils % 0.2 %; Eosinophils # 0.1 K/mcL (0.0-0.6); Eosinophils % 0.6 %; Hematocrit 25.1 % (35.3-44.9); Hemoglobin 8.3 g/dL (11.5-15.4); Immature Granulocytes % 2.2 % (0-4); Lymphocytes # 2.8 K/mcL (0.6-4.6); Mean Corpuscular HGB Conc 33.1 g/dL (31.6-35.5); Mean Corpuscular Hemoglobin 30.1 pg (28.0-33.3); Mean Corpuscular Volume 90.9 fL (83.0-100.0); Monocytes # 0.8 K/mcL (0.0-1.3); Monocytes % 6.1 %; Neutrophils # 8.8 K/mcL (1.6-8.9); Nucleated Red Blood Cells 0.6 /100 WBC (0); Platelet Count 222 K/mcL (140-400); Red Blood Count 2.76 M/mcL (3.82-4.97); Segmented Neutrophils % 68.9 %; White Blood Count 12.7 K/mcL (4.3-11.1)
[2021-12-11 02:16] LABS: Albumin 2.6 g/dL (3.5-5.7); Bilirubin,Direct 0.1 mg/dL (0.0-0.2); Bilirubin,Indirect 0.4 mg/dL (0.0-1.0); Bilirubin,Total 0.5 mg/dL (0.3-1.0); Calcium 7.7 mg/dL (8.6-10.3); Globulin 2.5 g/dL (2.4-3.5); Magnesium 1.8 mg/dL (1.6-2.6); Potassium 3.6 mEq/L (3.5-5.1); Total Protein 5.1 g/dL (6.4-8.9)
[2021-12-11] MEDS: Melatonin 3 MG TABLET PO PRN (02:33)
[2021-12-11] MEDS: Sodium Bicarbonate 75 MEQ in 0.45 % Sodium Chloride 1,000 ML IVC SCH (03:39)
[2021-12-11] MEDS ORDERED: Isosorbide MONOnitrate (24 HR) 30 MG TAB.ER.24H PO SCH (09:00)
[2021-12-11] MEDS ORDERED: *HR* Rivaroxaban 15 MG TABLET PO SCH ×2 (09:00→17:00)
[2021-12-11] MEDS: Metoprolol XL (24 HR) Succ 50 MG TAB.ER.24H PO SCH (09:58)
[2021-12-11] MEDS: Loratadine 10 MG TABLET PO SCH (09:59)
[2021-12-11] MEDS: cloNIDine HCL 0.1 MG TABLET PO SCH (09:59)
[2021-12-11] MEDS: Insulin LISPRO 300 UNITS/3 ML VIAL SUBQ SCH ×4 (10:04→19:47)
[2021-12-11] MEDS ORDERED: Heparin 25,000UNIT/250ML 1/2NS 25,000 UNIT/250 ML IV.SOLN IVC SCH ×3 (10:30→16:45)
[2021-12-11] MEDS ORDERED: Sodium Bicarbonate 75 MEQ in 0.45 % Sodium Chloride 1,000 ML IVC SCH (16:30)
[2021-12-11] MEDS ORDERED: *HR* Heparin 5,000 UNIT/ML VIAL IVP PRN (16:33)
[2021-12-11] MEDS: Budesonide/Formoterol 160/4.5 1 PUFF INH IH SCH (20:30)
[2021-12-11 21:11] LABS: Heparin anti-factor XA UFH 0.23 IU/mL (0.30-0.70)
[2021-12-11 21:12] LABS: INR 1.5; Prothrombin Time 16.9 Seconds (9.4-12.1)
[2021-12-11 21:15] LABS: Activated Partial Thrombo Time 43.1 Seconds (26.0-36.0)
[2021-12-11] MEDS: *HR* Heparin 5,000 UNIT/ML VIAL IVP PRN (21:46)
[2021-12-12] MEDS ORDERED: Magnesium Sulfate 1 GM/102 ML PIGGYBACK IVPB ONE (01:17)
[2021-12-12 03:53] LABS: Basophils % 0.3 %; Eosinophils # 0.2 K/mcL (0.0-0.6); Eosinophils % 1.5 %; Hemoglobin 8.3 g/dL (11.5-15.4); Immature Granulocytes % 1.5 % (0-4); Lymphocytes # 2.3 K/mcL (0.6-4.6); Lymphocytes % 17.2 %; Mean Corpuscular HGB Conc 31.9 g/dL (31.6-35.5); Mean Corpuscular Hemoglobin 29.3 pg (28.0-33.3); Mean Corpuscular Volume 91.9 fL (83.0-100.0); Mean Platelet Volume 11.2 fL (9.4-12.4); Monocytes # 0.9 K/mcL (0.0-1.3); Monocytes % 6.4 %; Neutrophils # 9.8 K/mcL (1.6-8.9); Nucleated Red Blood Cells 0.3 /100 WBC (0); Platelet Count 221 K/mcL (140-400); Red Blood Count 2.83 M/mcL (3.82-4.97); Red Cell Distribution Width 15.2 % (11.5-14.5); Segmented Neutrophils % 73.1 %; White Blood Count 13.4 K/mcL (4.3-11.1)
[2021-12-12 04:11] LABS: Calcium 7.8 mg/dL (8.6-10.3); Magnesium 1.8 mg/dL (1.6-2.6); Potassium 3.7 mEq/L (3.5-5.1)
[2021-12-12] MEDS ORDERED: Regadenoson 0.4 MG/5 ML SYRINGE IVP ONE (06:22)
[2021-12-12] MEDS: Loratadine 10 MG TABLET PO SCH (08:08)
[2021-12-12] MEDS: cloNIDine HCL 0.1 MG TABLET PO SCH (08:08)
[2021-12-12] MEDS: Metoprolol XL (24 HR) Succ 50 MG TAB.ER.24H PO SCH (08:08)
[2021-12-12] MEDS: predniSONE 20 MG TABLET PO SCH (08:08)
[2021-12-12] MEDS: Insulin LISPRO 300 UNITS/3 ML VIAL SUBQ SCH ×4 (08:17→21:32)
[2021-12-12] MEDS ORDERED: Perflutren Lipid Microsphere 1.3 ML in 0.9 % Sodium Chloride 8.7 ML IVP PRN (09:09)
[2021-12-12 09:42] LABS: Uric Acid 9.7 mg/dL (2.3-7.6)
[2021-12-12] MEDS: Budesonide/Formoterol 160/4.5 1 PUFF INH IH SCH ×2 (10:09→20:10)
[2021-12-12 11:05] LABS: Protein/Creatinine Ratio,Urine 0.8 mg/mg (0.00-0.20); Sodium, Urine 42.7 mEq/L
[2021-12-12] MEDS: *HR* Heparin 5,000 UNIT/ML VIAL IVP PRN (11:53)
[2021-12-12] MEDS ORDERED: *HR* Heparin 5,000 UNIT/ML VIAL IVP PRN ×2 (15:16)
[2021-12-12] MEDS: Heparin 25,000UNIT/250ML 1/2NS 25,000 UNIT/250 ML IV.SOLN IVC SCH (16:09)
[2021-12-12] MEDS ORDERED: *HR* Rivaroxaban 15 MG TABLET PO SCH (17:00)
[2021-12-12] MEDS ORDERED: LEVOFLOXACIN 500 MG/100 ML MLS IVPB SCH (17:00)
[2021-12-13] MEDS: Ondansetron 4 MG/2 ML VIAL IVP PRN (00:07)
[2021-12-13 03:20] LABS: Albumin 2.6 g/dL (3.5-5.7); Albumin/Globulin Ratio 1.1 (1.1-2.2); Bilirubin,Total 0.3 mg/dL (0.3-1.0); Globulin 2.4 g/dL (2.4-3.5); Phosphorous 3.8 mg/dL (2.7-4.5); Potassium 4.5 mEq/L (3.5-5.1)
[2021-12-13] MEDS: Budesonide/Formoterol 160/4.5 1 PUFF INH IH SCH ×2 (07:28→20:05)
[2021-12-13] MEDS: predniSONE 20 MG TABLET PO SCH (08:01)
[2021-12-13] MEDS: cloNIDine HCL 0.1 MG TABLET PO SCH (08:02)
[2021-12-13] MEDS: Loratadine 10 MG TABLET PO SCH (08:02)
[2021-12-13] MEDS: Metoprolol XL (24 HR) Succ 50 MG TAB.ER.24H PO SCH (08:02)
[2021-12-13] MEDS: Insulin LISPRO 300 UNITS/3 ML VIAL SUBQ SCH ×4 (08:05→21:15)
[2021-12-13] MEDS ORDERED: levoFLOXacin 500 MG TABLET PO SCH (09:00)
[2021-12-13] MEDS: Heparin 25,000UNIT/250ML 1/2NS 25,000 UNIT/250 ML IV.SOLN IVC SCH (12:06)
[2021-12-13 14:51] LABS: Creatinine,Urine 50 mg/dL; Microalbum/Creatinine Ratio,Ur 266 mcg/mg (Less than 30); Microalbumin,Urine 133 mg/L
[2021-12-14] MEDS: Nicotine 21 MG PATCH.TD24 TD SCH (06:45)
[2021-12-14] MEDS ORDERED: Furosemide 40 MG/4 ML VIAL IVP ONE ×2 (06:45→09:31)
[2021-12-14] MEDS: Budesonide/Formoterol 160/4.5 1 PUFF INH IH SCH ×2 (07:36→20:11)
[2021-12-14 07:53] LABS: Calcium 8.4 mg/dL (8.6-10.3); Phosphorous 3.7 mg/dL (2.7-4.5); Potassium 4.4 mEq/L (3.5-5.1)
[2021-12-14] MEDS: Heparin 25,000UNIT/250ML 1/2NS 25,000 UNIT/250 ML IV.SOLN IVC SCH (08:34)
[2021-12-14] MEDS: cloNIDine HCL 0.1 MG TABLET PO SCH ×2 (08:36→21:37)
[2021-12-14] MEDS: Metoprolol XL (24 HR) Succ 50 MG TAB.ER.24H PO SCH (08:36)
[2021-12-14] MEDS: Insulin LISPRO 300 UNITS/3 ML VIAL SUBQ SCH ×4 (08:36→21:38)
[2021-12-14] MEDS: Loratadine 10 MG TABLET PO SCH (08:36)
[2021-12-14] MEDS: predniSONE 20 MG TABLET PO SCH (08:37)
[2021-12-14 09:21] LABS: Complement C3 86 mg/dL (87-200)
[2021-12-14] MEDS ORDERED: Furosemide 40 MG/4 ML VIAL ONE (09:34)
[2021-12-14 09:42] LABS: ABG Base Excess -2 mEq/L (-2 to 3); ABG HCO3 22 mEq/L (21-27); ABG Oxygen Saturation 89 % (95-98); ABG PCO2 32 mmHg (35-45); ABG PH 7.45 pH Units (7.32-7.45); ABG PO2 53 mmHg (85-104); ABG TCO2 23 mEq/L (20-26)
[2021-12-14 09:53] LABS: Rheumatoid Factor < 10 IU/mL (Less than 14)
[2021-12-14] MEDS ORDERED: Aspirin 81 MG TAB.CHEW PO SCH (10:00)
[2021-12-14 11:11] LABS: Hepatitis B Surface Antigen Nonreactive (Nonreactive)
[2021-12-14 11:39] LABS: Hepatitis C Virus Antibody Nonreactive (Nonreactive)
[2021-12-14 11:40] LABS: Hepatitis B Core IgM Nonreactive (Nonreactive)
[2021-12-14 11:41] LABS: Hepatitis A Antibody IgM Nonreactive (Nonreactive)
[2021-12-14] MEDS ORDERED: Ergocalciferol (VIT D2) 50,000 UNIT (1.25MG) CAP PO SCH (12:00)
[2021-12-14] MEDS: Aspirin Enteric Coated 81 MG Tablet PO SCH (16:57)
[2021-12-14] MEDS: hydrALAZINE 25 MG TABLET PO SCH ×2 (16:57→23:18)
[2021-12-14] MEDS: Furosemide 40 MG/4 ML VIAL IVP SCH (16:58)
[2021-12-15] MEDS: Heparin 25,000UNIT/250ML 1/2NS 25,000 UNIT/250 ML IV.SOLN IVC SCH ×3 (06:16→21:19)
[2021-12-15] MEDS: Budesonide/Formoterol 160/4.5 1 PUFF INH IH SCH ×2 (07:59→20:54)
[2021-12-15] MEDS: Nicotine 21 MG PATCH.TD24 TD SCH (10:27)
[2021-12-15] MEDS: levoFLOXacin 750 MG TABLET PO SCH (10:28)
[2021-12-15] MEDS: cloNIDine HCL 0.1 MG TABLET PO SCH (10:28)
[2021-12-15] MEDS: hydrALAZINE 25 MG TABLET PO SCH ×2 (10:28→17:56)
[2021-12-15] MEDS: predniSONE 20 MG TABLET PO SCH (10:28)
[2021-12-15] MEDS: Loratadine 10 MG TABLET PO SCH (10:29)
[2021-12-15] MEDS: Metoprolol XL (24 HR) Succ 50 MG TAB.ER.24H PO SCH (10:29)
[2021-12-15] MEDS: Furosemide 40 MG/4 ML VIAL IVP SCH ×2 (10:29→17:56)
[2021-12-15] MEDS: Aspirin Enteric Coated 81 MG Tablet PO SCH (10:29)
[2021-12-15] MEDS: Insulin LISPRO 300 UNITS/3 ML VIAL SUBQ SCH ×4 (10:37→21:18)
[2021-12-15 11:52] LABS: Calcium 8.5 mg/dL (8.6-10.3); Potassium 4.6 mEq/L (3.5-5.1)
[2021-12-16] MEDS: hydrALAZINE 25 MG TABLET PO SCH ×2 (00:44→08:31)
[2021-12-16 04:07] LABS: Basophils % 0.1 %; Hematocrit 23.4 % (35.3-44.9); Hemoglobin 7.6 g/dL (11.5-15.4); Immature Granulocytes % 0.9 % (0-4); Lymphocytes # 0.4 K/mcL (0.6-4.6); Lymphocytes % 2.6 %; Mean Corpuscular HGB Conc 32.5 g/dL (31.6-35.5); Mean Corpuscular Hemoglobin 29.7 pg (28.0-33.3); Mean Corpuscular Volume 91.4 fL (83.0-100.0); Mean Platelet Volume 11.2 fL (9.4-12.4); Monocytes # 0.7 K/mcL (0.0-1.3); Monocytes % 4.6 %; Neutrophils # 13.6 K/mcL (1.6-8.9); Platelet Count 209 K/mcL (140-400); Red Blood Count 2.56 M/mcL (3.82-4.97); Red Cell Distribution Width 16.6 % (11.5-14.5); Segmented Neutrophils % 91.8 %; White Blood Count 14.9 K/mcL (4.3-11.1)
[2021-12-16 04:25] LABS: Calcium 8.3 mg/dL (8.6-10.3); Magnesium 1.8 mg/dL (1.6-2.6); Potassium 4.6 mEq/L (3.5-5.1)
[2021-12-16] MEDS: cloNIDine HCL 0.1 MG TABLET PO SCH ×3 (06:43→22:35)
[2021-12-16] MEDS: Budesonide/Formoterol 160/4.5 1 PUFF INH IH SCH ×2 (07:35→20:51)
[2021-12-16] MEDS: Aspirin Enteric Coated 81 MG Tablet PO SCH (08:31)
[2021-12-16] MEDS: predniSONE 20 MG TABLET PO SCH (08:31)
[2021-12-16] MEDS: Loratadine 10 MG TABLET PO SCH (08:31)
[2021-12-16] MEDS: Metoprolol XL (24 HR) Succ 50 MG TAB.ER.24H PO SCH (08:31)
[2021-12-16] MEDS: Furosemide 40 MG/4 ML VIAL IVP SCH (08:34)
[2021-12-16] MEDS: Insulin LISPRO 300 UNITS/3 ML VIAL SUBQ SCH ×3 (08:37→13:03)
[2021-12-16] MEDS: Nicotine 21 MG PATCH.TD24 TD SCH (08:50)
[2021-12-16 12:07] LABS: Kappa Qnt Free Light Chains 105.5 mg/L (3.30-19.40); Lambda Qnt Free Light Chains 75.35 mg/L (5.71-26.30)
[2021-12-16] MEDS: Heparin 25,000UNIT/250ML 1/2NS 25,000 UNIT/250 ML IV.SOLN IVC SCH (15:38)
[2021-12-16] MEDS ORDERED: Insulin DETEMIR 100 UNIT/ML X5UNITS SUBQ SCH (21:00)
[2021-12-16] MEDS: Melatonin 3 MG TABLET PO PRN (22:36)
[2021-12-17] MEDS: hydrALAZINE 25 MG TABLET PO SCH ×3 (00:13→16:57)
[2021-12-17 06:31] LABS: Heparin anti-factor XA UFH 0.63 IU/mL (0.30-0.70)
[2021-12-17 07:12] LABS: Activated Partial Thrombo Time 90.4 Seconds (26.0-36.0)
[2021-12-17] MEDS: Budesonide/Formoterol 160/4.5 1 PUFF INH IH SCH ×2 (08:00→20:35)
[2021-12-17] MEDS: predniSONE 20 MG TABLET PO SCH (09:00)
[2021-12-17] MEDS: Loratadine 10 MG TABLET PO SCH (09:00)
[2021-12-17] MEDS: Nicotine 21 MG PATCH.TD24 TD SCH (09:01)
[2021-12-17] MEDS: Metoprolol XL (24 HR) Succ 50 MG TAB.ER.24H PO SCH (09:01)
[2021-12-17] MEDS: Aspirin Enteric Coated 81 MG Tablet PO SCH (09:01)
[2021-12-17] MEDS: levoFLOXacin 750 MG TABLET PO SCH (09:01)
[2021-12-17] MEDS: cloNIDine HCL 0.1 MG TABLET PO SCH ×2 (09:01→20:08)
[2021-12-17] MEDS: Furosemide 40 MG/4 ML VIAL IVP SCH ×2 (09:02→17:00)
[2021-12-17] MEDS: Insulin LISPRO 300 UNITS/3 ML VIAL SUBQ SCH ×6 (09:06→17:00)
[2021-12-17 09:54] LABS: Basophils % 0.1 %; Eosinophils % 0.1 %; Hematocrit 23.5 % (35.3-44.9); Hemoglobin 7.6 g/dL (11.5-15.4); Lymphocytes # 0.8 K/mcL (0.6-4.6); Lymphocytes % 5.4 %; Mean Corpuscular HGB Conc 32.3 g/dL (31.6-35.5); Mean Corpuscular Hemoglobin 29.5 pg (28.0-33.3); Mean Corpuscular Volume 91.1 fL (83.0-100.0); Mean Platelet Volume 11.4 fL (9.4-12.4); Monocytes # 0.8 K/mcL (0.0-1.3); Monocytes % 5.6 %; Nucleated Red Blood Cells 0.1 /100 WBC (0); Platelet Count 204 K/mcL (140-400); Red Blood Count 2.58 M/mcL (3.82-4.97); Red Cell Distribution Width 16.4 % (11.5-14.5); Segmented Neutrophils % 87.8 %; White Blood Count 14.8 K/mcL (4.3-11.1)
[2021-12-17 10:10] LABS: Magnesium 1.8 mg/dL (1.6-2.6); Phosphorous 3.8 mg/dL (2.7-4.5)
[2021-12-17 10:11] LABS: Calcium 8.4 mg/dL (8.6-10.3); Potassium 4.6 mEq/L (3.5-5.1)
[2021-12-17] MEDS: Heparin 25,000UNIT/250ML 1/2NS 25,000 UNIT/250 ML IV.SOLN IVC SCH (10:19)
[2021-12-17] MEDS ORDERED: *HR* Rivaroxaban 15 MG TABLET PO SCH (17:00)
[2021-12-17 19:30] LABS: ANCA IFA Titer <1:20 (<1:20)
[2021-12-17] MEDS: Melatonin 3 MG TABLET PO PRN (20:08)
[2021-12-17] MEDS ORDERED: Insulin DETEMIR 100 UNIT/ML X5UNITS SUBQ SCH (21:00)
[2021-12-18] MEDS: hydrALAZINE 25 MG TABLET PO SCH ×2 (00:05→07:54)
[2021-12-18 07:10] LABS: Basophils % 0.1 %; Hematocrit 24.8 % (35.3-44.9); Hemoglobin 7.9 g/dL (11.5-15.4); Immature Granulocytes % 0.6 % (0-4); Lymphocytes # 0.9 K/mcL (0.6-4.6); Lymphocytes % 6.9 %; Mean Corpuscular HGB Conc 31.9 g/dL (31.6-35.5); Mean Corpuscular Volume 91.2 fL (83.0-100.0); Mean Platelet Volume 11.1 fL (9.4-12.4); Monocytes # 0.8 K/mcL (0.0-1.3); Monocytes % 5.6 %; Neutrophils # 11.7 K/mcL (1.6-8.9); Nucleated Red Blood Cells 0.1 /100 WBC (0); Platelet Count 214 K/mcL (140-400); Red Blood Count 2.72 M/mcL (3.82-4.97); Red Cell Distribution Width 16.3 % (11.5-14.5); Segmented Neutrophils % 86.8 %; White Blood Count 13.5 K/mcL (4.3-11.1)
[2021-12-18 07:12] LABS: Calcium 8.7 mg/dL (8.6-10.3); Magnesium 1.8 mg/dL (1.6-2.6); Phosphorous 4.1 mg/dL (2.7-4.5); Potassium 4.6 mEq/L (3.5-5.1)
[2021-12-18] MEDS: Budesonide/Formoterol 160/4.5 1 PUFF INH IH SCH (07:25)
[2021-12-18 07:28] VITALS: O2SAT 96
[2021-12-18] MEDS: Nicotine 21 MG PATCH.TD24 TD SCH (07:53)
[2021-12-18] MEDS: Metoprolol XL (24 HR) Succ 50 MG TAB.ER.24H PO SCH (07:54)
[2021-12-18] MEDS: Loratadine 10 MG TABLET PO SCH (07:55)
[2021-12-18] MEDS: cloNIDine HCL 0.1 MG TABLET PO SCH (07:55)
[2021-12-18] MEDS: Aspirin Enteric Coated 81 MG Tablet PO SCH (07:55)
[2021-12-18] MEDS: Furosemide 40 MG/4 ML VIAL IVP SCH (07:56)
[2021-12-18] MEDS: Insulin LISPRO 300 UNITS/3 ML VIAL SUBQ SCH ×2 (08:06)
[2021-12-18 10:39] LABS: ANA IgG by ELISA NONE DETECTED (None Detected)
[2021-12-18 11:03] LABS: ANCA IFA Pattern NONE DETECTED (None Detected); Serine Protease-3 Antibody 1 AU/mL (0-19)
[2021-12-18 12:15] VITALS: BP 150/77; PULSE 71; TEMP 97.8
== END 2021-12-18 13:14 | disposition home or self-care (01) | DRG 720 ==
LOC: 3NENU → SUATTDRO 09:07
PROVIDERS: ADMIT Pharmacist; ATTEND Internal Medicine

== ENCOUNTER 2021-12-19 06:32 | Inpatient (IN) ==
[2021-12-19] MEDS ORDERED: *HR* Metoprolol 5 MG/5 ML VIAL IVP ONE ×3 (06:47→08:43)
[2021-12-19 07:05] LABS: Basophils % 0.1 %; Eosinophils # 0.1 K/mcL (0.0-0.6); Eosinophils % 0.6 %; Hematocrit 26.7 % (35.3-44.9); Hemoglobin 8.4 g/dL (11.5-15.4); Immature Granulocytes % 0.7 % (0-4); Lymphocytes # 2.3 K/mcL (0.6-4.6); Lymphocytes % 17.1 %; Mean Corpuscular HGB Conc 31.5 g/dL (31.6-35.5); Mean Corpuscular Hemoglobin 28.6 pg (28.0-33.3); Mean Corpuscular Volume 90.8 fL (83.0-100.0); Mean Platelet Volume 10.8 fL (9.4-12.4); Monocytes # 0.8 K/mcL (0.0-1.3); Monocytes % 5.9 %; Neutrophils # 10.1 K/mcL (1.6-8.9); Platelet Count 231 K/mcL (140-400); Red Blood Count 2.94 M/mcL (3.82-4.97); Red Cell Distribution Width 16.3 % (11.5-14.5); Segmented Neutrophils % 75.6 %; White Blood Count 13.3 K/mcL (4.3-11.1)
[2021-12-19 07:15] LABS: INR 1.2
[2021-12-19 07:17] LABS: Activated Partial Thrombo Time 27.1 Seconds (26.0-36.0)
[2021-12-19 07:27] LABS: Calcium 8.5 mg/dL (8.6-10.3); Magnesium 1.8 mg/dL (1.6-2.6); Potassium 4.5 mEq/L (3.5-5.1)
[2021-12-19] MEDS ORDERED: Metoprolol XL (24 HR) Succ 50 MG TAB.ER.24H PO STA (07:38)
[2021-12-19 07:49] LABS: Thyroid Stimulating Hormone 3.997 mcIU/mL (0.340-5.600); Troponin I 0.07 ng/mL (< 0.04)
[2021-12-19] MEDS ORDERED: 0.9 % Sodium Chloride 500 ML IVC ONE (07:49)
[2021-12-19] MEDS ORDERED: Morphine Sulfate 2 MG/ML SYRINGE IVP ONE (07:58)
[2021-12-19] MEDS ORDERED: Melatonin 3 MG TABLET PO PRN (11:00)
[2021-12-19] MEDS ORDERED: Naloxone 0.4 MG/ML INJ IVP PRN (11:00)
[2021-12-19] MEDS ORDERED: Acetaminophen 325 MG TABLET PO PRN (11:00)
[2021-12-19] MEDS ORDERED: Magnesium Sulfate 1 GM/102 ML PIGGYBACK IVPB ONE (12:26)
[2021-12-19] MEDS ORDERED: Albuterol Neb 1.25 MG/3 ML VIAL IH PRN (12:30)
[2021-12-19] MEDS ORDERED: D5% in Water 1,000 ML IVC PRN (12:45)
[2021-12-19] MEDS ORDERED: Dextrose Gel 15 GM/37.5 ML TUBE PO PRN ×2 (12:45)
[2021-12-19] MEDS ORDERED: *HR* Dextrose 50 % in Water (Syg) 50 ML SYRINGE IVP PRN (12:45)
[2021-12-19] MEDS: Aspirin Enteric Coated 81 MG Tablet PO SCH (12:54)
[2021-12-19 12:55] LABS: Amphetamine Screen,Urine Negative ng/mL (Cutoff=1000); Barbiturate Screen,Urine Negative ng/mL (Cutoff=200); Benzodiazepines Screen,Urine Negative ng/mL (Cutoff=200); Cannabinoid Screen,Urine Negative ng/mL (Cutoff = 50); Cocaine Screen,Urine Negative ng/mL (Cutoff= 300); Opiate Screen,Urine Positive ng/mL (Cutoff=300); Phencyclidine Screen,Urine Negative ng/mL (Cutoff=25)
[2021-12-19] MEDS: Insulin LISPRO 300 UNITS/3 ML VIAL SUBQ SCH ×4 (13:24→21:14)
[2021-12-19] MEDS: Gabapentin 400 MG CAPSULE PO SCH ×2 (14:30→21:14)
[2021-12-19] MEDS ORDERED: *HR* Heparin 5,000 UNIT/ML VIAL IVP PRN ×2 (15:12)
[2021-12-19] MEDS ORDERED: Heparin 25,000UNIT/250ML 1/2NS 25,000 UNIT/250 ML IV.SOLN IVC SCH (15:15)
[2021-12-19] MEDS: Heparin 25,000UNIT/250ML 1/2NS 25,000 UNIT/250 ML IV.SOLN IVC SCH (16:46)
[2021-12-19] MEDS: DilTIAZem 50 MG/50 ML IV.SOLN IVC SCH ×2 (16:47→21:14)
[2021-12-19 17:00] LABS: Heparin anti-factor XA UFH 0.07 IU/mL (0.30-0.70)
[2021-12-19 17:01] LABS: INR 1.1
[2021-12-19] MEDS ORDERED: *HR* Metoprolol 5 MG/5 ML VIAL IVP PRN (18:47)
[2021-12-20] MEDS: 0.9 % Sodium Chloride 1,000 ML IVC SCH ×2 (02:49→22:07)
[2021-12-20 07:06] LABS: Basophils % 0.1 %; Eosinophils # 0.3 K/mcL (0.0-0.6); Eosinophils % 3.1 %; Hematocrit 25.6 % (35.3-44.9); Hemoglobin 8.1 g/dL (11.5-15.4); Immature Granulocytes % 0.5 % (0-4); Lymphocytes # 1.9 K/mcL (0.6-4.6); Lymphocytes % 18.8 %; Mean Corpuscular HGB Conc 31.6 g/dL (31.6-35.5); Mean Corpuscular Hemoglobin 29.5 pg (28.0-33.3); Mean Corpuscular Volume 93.1 fL (83.0-100.0); Mean Platelet Volume 10.9 fL (9.4-12.4); Monocytes # 0.7 K/mcL (0.0-1.3); Monocytes % 6.6 %; Neutrophils # 7.2 K/mcL (1.6-8.9); Platelet Count 204 K/mcL (140-400); Red Blood Count 2.75 M/mcL (3.82-4.97); Red Cell Distribution Width 16.3 % (11.5-14.5); Segmented Neutrophils % 70.9 %; White Blood Count 10.2 K/mcL (4.3-11.1)
[2021-12-20 07:45] LABS: Albumin 2.8 g/dL (3.5-5.7); Albumin/Globulin Ratio 1.1 (1.1-2.2); Bilirubin,Total 0.4 mg/dL (0.3-1.0); Globulin 2.6 g/dL (2.4-3.5); Phosphorous 4.8 mg/dL (2.7-4.5); Potassium 4.4 mEq/L (3.5-5.1); Total Protein 5.4 g/dL (6.4-8.9)
[2021-12-20] MEDS: Budesonide/Formoterol 160/4.5 1 PUFF INH IH SCH ×2 (07:46→20:44)
[2021-12-20] MEDS: Insulin LISPRO 300 UNITS/3 ML VIAL SUBQ SCH ×4 (07:51→22:07)
[2021-12-20] MEDS ORDERED: *HR* SitaGLIPtin 100 MG TABLET PO SCH (09:00)
[2021-12-20] MEDS ORDERED: Bumetanide 1 MG TABLET PO SCH (09:00)
[2021-12-20] MEDS: cloNIDine HCL 0.1 MG TABLET PO SCH (09:14)
[2021-12-20] MEDS: Metoprolol XL (24 HR) Succ 50 MG TAB.ER.24H PO SCH (09:14)
[2021-12-20] MEDS: Isosorbide MONOnitrate (24 HR) 30 MG TAB.ER.24H PO SCH (09:14)
[2021-12-20] MEDS: Loratadine 10 MG TABLET PO SCH (09:15)
[2021-12-20] MEDS: Aspirin Enteric Coated 81 MG Tablet PO SCH (09:15)
[2021-12-20] MEDS: Gabapentin 400 MG CAPSULE PO SCH (09:15)
[2021-12-20] MEDS: Heparin 25,000UNIT/250ML 1/2NS 25,000 UNIT/250 ML IV.SOLN IVC SCH (10:36)
[2021-12-20] MEDS: Ondansetron ODT 4 MG TAB.RAPDIS SL PRN (10:58)
[2021-12-20 12:44] LABS: Retculocyte # 0.05 M/mcL (0.05-0.10); Reticulocyte % 1.7 % (1.6-2.8)
[2021-12-20] MEDS ORDERED: Gabapentin 400 MG CAPSULE PO PRN (13:53)
[2021-12-20] MEDS ORDERED: *HR* Rivaroxaban 15 MG TABLET PO SCH (17:00)
[2021-12-21 03:36] LABS: Estimated Average Glucose 169 mg/dl; Hemoglobin A1C 7.5 %
[2021-12-21] MEDS: Heparin 25,000UNIT/250ML 1/2NS 25,000 UNIT/250 ML IV.SOLN IVC SCH (05:37)
[2021-12-21] MEDS: Budesonide/Formoterol 160/4.5 1 PUFF INH IH SCH ×2 (07:57→20:11)
[2021-12-21] MEDS: Insulin LISPRO 300 UNITS/3 ML VIAL SUBQ SCH ×4 (08:02→20:39)
[2021-12-21] MEDS: Loratadine 10 MG TABLET PO SCH (08:05)
[2021-12-21] MEDS: Aspirin Enteric Coated 81 MG Tablet PO SCH (08:06)
[2021-12-21] MEDS: Ondansetron ODT 4 MG TAB.RAPDIS SL PRN (08:06)
[2021-12-21] MEDS: Isosorbide MONOnitrate (24 HR) 30 MG TAB.ER.24H PO SCH (08:06)
[2021-12-21] MEDS: Metoprolol XL (24 HR) Succ 50 MG TAB.ER.24H PO SCH (08:06)
[2021-12-21] MEDS: cloNIDine HCL 0.1 MG TABLET PO SCH (08:06)
[2021-12-21 08:29] LABS: Basophils % 0.1 %; Eosinophils # 0.3 K/mcL (0.0-0.6); Eosinophils % 3.8 %; Hematocrit 24.7 % (35.3-44.9); Hemoglobin 7.6 g/dL (11.5-15.4); Immature Granulocytes % 0.9 % (0-4); Lymphocytes # 1.2 K/mcL (0.6-4.6); Lymphocytes % 14.6 %; Mean Corpuscular HGB Conc 30.8 g/dL (31.6-35.5); Mean Corpuscular Hemoglobin 28.8 pg (28.0-33.3); Mean Corpuscular Volume 93.6 fL (83.0-100.0); Mean Platelet Volume 10.7 fL (9.4-12.4); Monocytes # 0.5 K/mcL (0.0-1.3); Monocytes % 5.4 %; Neutrophils # 6.4 K/mcL (1.6-8.9); Platelet Count 198 K/mcL (140-400); Red Blood Count 2.64 M/mcL (3.82-4.97); Red Cell Distribution Width 16.2 % (11.5-14.5); Segmented Neutrophils % 75.2 %; White Blood Count 8.5 K/mcL (4.3-11.1)
[2021-12-21 08:44] LABS: Potassium 4.5 mEq/L (3.5-5.1)
[2021-12-21 08:51] LABS: Magnesium 2.1 mg/dL (1.6-2.6)
[2021-12-21] MEDS ORDERED: Ergocalciferol (VIT D2) 50,000 UNIT (1.25MG) CAP PO SCH (09:00)
[2021-12-21 10:08] LABS: Troponin I 0.99 ng/mL (< 0.04)
[2021-12-21] MEDS: *HR* Acetylcysteine 20% 600 MG/3 ML ORAL SYRINGE PO SCH ×2 (13:44→20:46)
[2021-12-21] MEDS ORDERED: 0.9 % Sodium Chloride 2,000 ML ONE (14:15)
[2021-12-21] MEDS ORDERED: *HR* Heparin 10,000 UNIT/10 ML VIAL ONE (14:16)
[2021-12-21] MEDS ORDERED: Nitroglycerin 1,000 MCG/5 ML VIAL IV ONE (14:16)
[2021-12-21] MEDS ORDERED: Heparin 1,000 UNITS/500 mL 500 ML ONE (14:16)
[2021-12-21] MEDS ORDERED: ISOVUE-370 200 ML INFUS..BTL ONE (14:16)
[2021-12-21] MEDS ORDERED: *HR* Midazolam HCl 2 MG/2 ML VIAL ONE (16:00)
[2021-12-21] MEDS ORDERED: *HR* FentaNYL (PF) 100 MCG/2 ML VIAL ONE (16:00)
[2021-12-21] MEDS: 0.9 % Sodium Chloride 1,000 ML IVC SCH (18:21)
[2021-12-21 20:13] VITALS: O2SAT 95
[2021-12-21] MEDS ORDERED: *HR* Rivaroxaban 15 MG TABLET PO SCH (21:00)
[2021-12-22 05:52] LABS: Basophils % 0.1 %; Eosinophils # 0.2 K/mcL (0.0-0.6); Hematocrit 23.9 % (35.3-44.9); Hemoglobin 7.5 g/dL (11.5-15.4); Immature Granulocytes % 0.6 % (0-4); Lymphocytes # 0.8 K/mcL (0.6-4.6); Lymphocytes % 9.1 %; Mean Corpuscular HGB Conc 31.4 g/dL (31.6-35.5); Mean Corpuscular Hemoglobin 29.3 pg (28.0-33.3); Mean Corpuscular Volume 93.4 fL (83.0-100.0); Mean Platelet Volume 10.9 fL (9.4-12.4); Monocytes # 0.4 K/mcL (0.0-1.3); Monocytes % 4.6 %; Neutrophils # 7.4 K/mcL (1.6-8.9); Platelet Count 189 K/mcL (140-400); Red Blood Count 2.56 M/mcL (3.82-4.97); Red Cell Distribution Width 16.2 % (11.5-14.5); Segmented Neutrophils % 83.6 %; White Blood Count 8.8 K/mcL (4.3-11.1)
[2021-12-22 05:58] LABS: Calcium 8.1 mg/dL (8.6-10.3); Magnesium 1.8 mg/dL (1.6-2.6); Phosphorous 4.9 mg/dL (2.7-4.5); Potassium 4.9 mEq/L (3.5-5.1)
[2021-12-22 06:50] VITALS: BP 122/65; PULSE 67; TEMP 97.8
[2021-12-22] MEDS: Insulin LISPRO 300 UNITS/3 ML VIAL SUBQ SCH ×2 (07:33→10:48)
[2021-12-22] MEDS ORDERED: Magnesium Sulfate 1 GM/102 ML PIGGYBACK IVPB ONE (07:53)
[2021-12-22] MEDS: Budesonide/Formoterol 160/4.5 1 PUFF INH IH SCH (07:55)
[2021-12-22] MEDS: Loratadine 10 MG TABLET PO SCH (08:27)
[2021-12-22] MEDS: Aspirin Enteric Coated 81 MG Tablet PO SCH (08:27)
[2021-12-22] MEDS: Isosorbide MONOnitrate (24 HR) 30 MG TAB.ER.24H PO SCH (08:27)
[2021-12-22] MEDS: cloNIDine HCL 0.1 MG TABLET PO SCH (08:27)
[2021-12-22] MEDS: Metoprolol XL (24 HR) Succ 50 MG TAB.ER.24H PO SCH (08:28)
[2021-12-22] MEDS: *HR* Acetylcysteine 20% 600 MG/3 ML ORAL SYRINGE PO SCH (10:28)
== END 2021-12-22 11:09 | disposition home or self-care (01) | DRG 190 ==
LOC: EMEROOARM 06:32 → 3BNU 06:32
PROVIDERS: ADMIT Internal Medicine; ATTEND Internal Medicine

== ENCOUNTER 2021-12-24 16:25 | Inpatient (IN) ==
[2021-12-24] MEDS ORDERED: Acetaminophen 325 MG TABLET PO PRN (19:15)
[2021-12-24] MEDS ORDERED: Naloxone 0.4 MG/ML INJ IVP PRN (19:15)
[2021-12-24] MEDS ORDERED: Ondansetron 4 MG/2 ML VIAL IVP PRN (19:15)
[2021-12-24] MEDS ORDERED: D5% in Water 1,000 ML IVC PRN (19:35)
[2021-12-24] MEDS ORDERED: *HR* Dextrose 50 % in Water (Syg) 50 ML SYRINGE IVP PRN (19:35)
[2021-12-24] MEDS ORDERED: Dextrose Gel 15 GM/37.5 ML TUBE PO PRN ×2 (19:35)
[2021-12-24] MEDS ORDERED: Nitroglycerin 0.4 MG TAB.SUBL SL PRN (19:41)
[2021-12-24] MEDS ORDERED: Furosemide 40 MG/4 ML VIAL IVP ONE (20:16)
[2021-12-24] MEDS ORDERED: Albuterol Neb 1.25 MG/3 ML VIAL IH PRN (21:21)
[2021-12-24] MEDS: Insulin LISPRO 300 UNITS/3 ML VIAL SUBQ SCH (21:35)
[2021-12-24] MEDS: DilTIAZem 50 MG/50 ML IV.SOLN IVC SCH (23:20)
[2021-12-24] MEDS: Melatonin 3 MG TABLET PO PRN (23:59)
[2021-12-25 06:01] LABS: Hematocrit 24.9 % (35.3-44.9); Hemoglobin 7.7 g/dL (11.5-15.4); Mean Corpuscular HGB Conc 30.9 g/dL (31.6-35.5); Mean Corpuscular Hemoglobin 29.1 pg (28.0-33.3); Mean Platelet Volume 10.9 fL (9.4-12.4); Platelet Count 209 K/mcL (140-400); Red Blood Count 2.65 M/mcL (3.82-4.97); Red Cell Distribution Width 15.7 % (11.5-14.5)
[2021-12-25 06:22] LABS: Troponin I 0.2 ng/mL (< 0.04)
[2021-12-25 06:46] LABS: Calcium 8.4 mg/dL (8.6-10.3); Potassium 4.3 mEq/L (3.5-5.1)
[2021-12-25] MEDS: Insulin LISPRO 300 UNITS/3 ML VIAL SUBQ SCH ×3 (07:22→16:45)
[2021-12-25] MEDS ORDERED: *HR* Heparin 5,000 UNIT/ML VIAL IVP ONE (07:41)
[2021-12-25] MEDS ORDERED: *HR* Heparin 5,000 UNIT/ML VIAL IVP PRN ×2 (07:41)
[2021-12-25] MEDS ORDERED: Heparin 25,000UNIT/250ML 1/2NS 25,000 UNIT/250 ML IV.SOLN IVC SCH (07:45)
[2021-12-25] MEDS: Aspirin Enteric Coated 81 MG Tablet PO SCH (08:40)
[2021-12-25] MEDS: Loratadine 10 MG TABLET PO SCH (08:40)
[2021-12-25] MEDS: cloNIDine HCL 0.1 MG TABLET PO SCH (08:40)
[2021-12-25] MEDS: Gabapentin 400 MG CAPSULE PO SCH ×3 (08:41→20:47)
[2021-12-25] MEDS ORDERED: Metoprolol XL (24 HR) Succ 50 MG TAB.ER.24H PO SCH (09:00)
[2021-12-25] MEDS ORDERED: *HR* Rivaroxaban 15 MG TABLET PO SCH (09:00)
[2021-12-25] MEDS: Heparin 25,000UNIT/250ML 1/2NS 25,000 UNIT/250 ML IV.SOLN IVC SCH (09:35)
[2021-12-25] MEDS: Albumin 25% 25gram/100mL 25 GM/100 ML IV.SOLN IVPB SCH ×2 (09:35→16:49)
[2021-12-25] MEDS: Budesonide/Formoterol 160/4.5 1 PUFF INH IH SCH ×2 (11:15→20:33)
[2021-12-25] MEDS: Bumetanide 1 MG TABLET PO SCH (13:38)
[2021-12-25] MEDS: DilTIAZem CD (24hr) 120 MG CAP.ER.24H PO SCH (13:38)
[2021-12-26] MEDS: Albumin 25% 25gram/100mL 25 GM/100 ML IV.SOLN IVPB SCH ×3 (00:46→15:32)
[2021-12-26] MEDS: Melatonin 3 MG TABLET PO PRN ×2 (00:47→22:17)
[2021-12-26 01:23] LABS: Basophils % 0.3 %; Eosinophils # 0.3 K/mcL (0.0-0.6); Eosinophils % 4.4 %; Hematocrit 22.4 % (35.3-44.9); Hemoglobin 6.9 g/dL (11.5-15.4); Immature Granulocytes % 0.5 % (0-4); Lymphocytes # 1.1 K/mcL (0.6-4.6); Lymphocytes % 18.5 %; Mean Corpuscular HGB Conc 30.8 g/dL (31.6-35.5); Mean Corpuscular Hemoglobin 28.6 pg (28.0-33.3); Mean Corpuscular Volume 92.9 fL (83.0-100.0); Mean Platelet Volume 11.1 fL (9.4-12.4); Monocytes # 0.4 K/mcL (0.0-1.3); Monocytes % 5.7 %; Neutrophils # 4.4 K/mcL (1.6-8.9); Platelet Count 190 K/mcL (140-400); Red Blood Count 2.41 M/mcL (3.82-4.97); Red Cell Distribution Width 15.5 % (11.5-14.5); Segmented Neutrophils % 70.6 %; White Blood Count 6.2 K/mcL (4.3-11.1)
[2021-12-26 01:38] LABS: Calcium 8.5 mg/dL (8.6-10.3); Magnesium 1.9 mg/dL (1.6-2.6); Phosphorous 5.4 mg/dL (2.7-4.5); Potassium 4.4 mEq/L (3.5-5.1)
[2021-12-26] MEDS: Budesonide/Formoterol 160/4.5 1 PUFF INH IH SCH ×2 (07:40→20:47)
[2021-12-26] MEDS: Insulin LISPRO 300 UNITS/3 ML VIAL SUBQ SCH ×3 (07:48→17:15)
[2021-12-26] MEDS: DilTIAZem 50 MG/50 ML IV.SOLN IVC SCH (07:55)
[2021-12-26] MEDS: Metoprolol XL (24 HR) Succ 50 MG TAB.ER.24H PO SCH (07:59)
[2021-12-26] MEDS: cloNIDine HCL 0.1 MG TABLET PO SCH (07:59)
[2021-12-26] MEDS: Heparin 25,000UNIT/250ML 1/2NS 25,000 UNIT/250 ML IV.SOLN IVC SCH (07:59)
[2021-12-26] MEDS: Loratadine 10 MG TABLET PO SCH (08:00)
[2021-12-26] MEDS: DilTIAZem CD (24hr) 120 MG CAP.ER.24H PO SCH (08:00)
[2021-12-26] MEDS: Aspirin Enteric Coated 81 MG Tablet PO SCH (08:00)
[2021-12-26] MEDS: Gabapentin 400 MG CAPSULE PO SCH ×3 (08:00→22:17)
[2021-12-26] MEDS: Bumetanide 1 MG TABLET PO SCH (08:00)
[2021-12-26 08:40] LABS: Hematocrit 21.9 % (35.3-44.9); Hemoglobin 6.8 g/dL (11.5-15.4)
[2021-12-26 09:34] LABS: Uric Acid 8.1 mg/dL (2.3-7.6)
[2021-12-26] MEDS ORDERED: 0.9 % Sodium Chloride 250 ML ONE (13:33)
[2021-12-26 13:46] LABS: Sodium, Urine 102.6 mEq/L
[2021-12-26] MEDS ORDERED: *HR* Rivaroxaban 10 MG TABLET PO SCH (17:00)
[2021-12-26 18:41] LABS: Hemoglobin 7.6 g/dL (11.5-15.4)
[2021-12-27 01:23] LABS: Basophils % 0.1 %; Eosinophils # 0.2 K/mcL (0.0-0.6); Eosinophils % 2.8 %; Hematocrit 23.7 % (35.3-44.9); Hemoglobin 7.7 g/dL (11.5-15.4); Immature Granulocytes % 0.5 % (0-4); Lymphocytes # 0.8 K/mcL (0.6-4.6); Lymphocytes % 11.2 %; Mean Corpuscular HGB Conc 32.5 g/dL (31.6-35.5); Mean Corpuscular Hemoglobin 29.5 pg (28.0-33.3); Mean Corpuscular Volume 90.8 fL (83.0-100.0); Mean Platelet Volume 10.9 fL (9.4-12.4); Monocytes # 0.3 K/mcL (0.0-1.3); Monocytes % 4.5 %; Platelet Count 180 K/mcL (140-400); Red Blood Count 2.61 M/mcL (3.82-4.97); Red Cell Distribution Width 14.9 % (11.5-14.5); Segmented Neutrophils % 80.9 %; White Blood Count 7.5 K/mcL (4.3-11.1)
[2021-12-27 01:41] LABS: Magnesium 1.9 mg/dL (1.6-2.6); Phosphorous 5.4 mg/dL (2.7-4.5); Potassium 4.3 mEq/L (3.5-5.1)
[2021-12-27] MEDS: Albumin 25% 25gram/100mL 25 GM/100 ML IV.SOLN IVPB SCH ×2 (02:22→08:32)
[2021-12-27] MEDS: Insulin LISPRO 300 UNITS/3 ML VIAL SUBQ SCH ×3 (07:39→15:53)
[2021-12-27] MEDS: Budesonide/Formoterol 160/4.5 1 PUFF INH IH SCH (07:55)
[2021-12-27] MEDS: Aspirin Enteric Coated 81 MG Tablet PO SCH (08:32)
[2021-12-27] MEDS: DilTIAZem CD (24hr) 120 MG CAP.ER.24H PO SCH (08:32)
[2021-12-27] MEDS: Metoprolol XL (24 HR) Succ 50 MG TAB.ER.24H PO SCH (08:32)
[2021-12-27] MEDS: cloNIDine HCL 0.1 MG TABLET PO SCH (08:32)
[2021-12-27] MEDS: Loratadine 10 MG TABLET PO SCH (08:32)
[2021-12-27] MEDS: Gabapentin 400 MG CAPSULE PO SCH ×2 (08:33→12:13)
[2021-12-27] MEDS ORDERED: Albuterol 2.5 MG/3 ML NEBULIZER ONE (13:55)
[2021-12-27] MEDS ORDERED: *HR* Rivaroxaban 15 MG TABLET PO SCH (17:00)
[2021-12-28] MEDS: Albumin 25% 25gram/100mL 25 GM/100 ML IV.SOLN IVPB SCH ×5 (00:14→23:55)
[2021-12-28] MEDS: Gabapentin 400 MG CAPSULE PO SCH ×4 (00:15→21:04)
[2021-12-28] MEDS: Budesonide/Formoterol 160/4.5 1 PUFF INH IH SCH ×3 (03:40→20:16)
[2021-12-28] MEDS: Insulin LISPRO 300 UNITS/3 ML VIAL SUBQ SCH ×3 (07:44→17:23)
[2021-12-28] MEDS: Metoprolol XL (24 HR) Succ 50 MG TAB.ER.24H PO SCH (09:23)
[2021-12-28] MEDS: cloNIDine HCL 0.1 MG TABLET PO SCH (09:23)
[2021-12-28] MEDS: DilTIAZem CD (24hr) 120 MG CAP.ER.24H PO SCH (09:23)
[2021-12-28] MEDS: Aspirin Enteric Coated 81 MG Tablet PO SCH (09:23)
[2021-12-28] MEDS: Loratadine 10 MG TABLET PO SCH (09:23)
[2021-12-28 09:36] LABS: Basophils % 0.3 %; Eosinophils # 0.2 K/mcL (0.0-0.6); Hematocrit 25.6 % (35.3-44.9); Hemoglobin 8.1 g/dL (11.5-15.4); Immature Granulocytes % 0.7 % (0-4); Lymphocytes # 0.7 K/mcL (0.6-4.6); Lymphocytes % 7.8 %; Mean Corpuscular HGB Conc 31.6 g/dL (31.6-35.5); Mean Corpuscular Hemoglobin 29.1 pg (28.0-33.3); Mean Corpuscular Volume 92.1 fL (83.0-100.0); Mean Platelet Volume 10.9 fL (9.4-12.4); Monocytes # 0.5 K/mcL (0.0-1.3); Monocytes % 4.9 %; Neutrophils # 7.9 K/mcL (1.6-8.9); Platelet Count 179 K/mcL (140-400); Red Blood Count 2.78 M/mcL (3.82-4.97); Red Cell Distribution Width 14.7 % (11.5-14.5); Segmented Neutrophils % 84.3 %; White Blood Count 9.4 K/mcL (4.3-11.1)
[2021-12-28 09:50] LABS: Calcium 9.3 mg/dL (8.6-10.3); Magnesium 1.7 mg/dL (1.6-2.6); Phosphorous 4.2 mg/dL (2.7-4.5); Potassium 4.3 mEq/L (3.5-5.1)
[2021-12-28] MEDS: Furosemide 40 MG/4 ML VIAL IVP SCH ×2 (13:18→21:03)
[2021-12-28] MEDS: *HR* Rivaroxaban 15 MG TABLET PO SCH (15:53)
[2021-12-28] MEDS: Albuterol 2.5 MG/3 ML NEBULIZER IH PRN (15:54)
[2021-12-28] MEDS: Morphine Sulfate 2 MG/ML SYRINGE IVP PRN ×2 (17:00→23:53)
[2021-12-29 06:39] LABS: Basophils % 0.5 %; Eosinophils # 0.2 K/mcL (0.0-0.6); Eosinophils % 2.5 %; Hematocrit 23.1 % (35.3-44.9); Hemoglobin 7.3 g/dL (11.5-15.4); Immature Granulocytes % 0.6 % (0-4); Lymphocytes # 1.1 K/mcL (0.6-4.6); Lymphocytes % 12.6 %; Mean Corpuscular HGB Conc 31.6 g/dL (31.6-35.5); Mean Corpuscular Hemoglobin 28.6 pg (28.0-33.3); Mean Corpuscular Volume 90.6 fL (83.0-100.0); Mean Platelet Volume 11.1 fL (9.4-12.4); Monocytes # 0.6 K/mcL (0.0-1.3); Monocytes % 6.8 %; Neutrophils # 6.5 K/mcL (1.6-8.9); Platelet Count 174 K/mcL (140-400); Red Blood Count 2.55 M/mcL (3.82-4.97); Red Cell Distribution Width 14.9 % (11.5-14.5); White Blood Count 8.5 K/mcL (4.3-11.1)
[2021-12-29 07:04] LABS: Calcium 9.8 mg/dL (8.6-10.3); Magnesium 1.8 mg/dL (1.6-2.6); Phosphorous 4.2 mg/dL (2.7-4.5)
[2021-12-29 07:13] LABS: % Iron Saturation 8 % (15-50); Iron 15 mcg/dL (50-170); Transferrin 141 mg/dL (203-362)
[2021-12-29] MEDS: Insulin LISPRO 300 UNITS/3 ML VIAL SUBQ SCH ×3 (07:14→17:05)
[2021-12-29 07:16] LABS: Ferritin 163 ng/mL (10-120)
[2021-12-29] MEDS: Albumin 25% 25gram/100mL 25 GM/100 ML IV.SOLN IVPB SCH ×2 (07:18→15:58)
[2021-12-29 07:21] LABS: Folate 9.4 ng/mL (3.0-16.0)
[2021-12-29] MEDS: Budesonide/Formoterol 160/4.5 1 PUFF INH IH SCH ×2 (07:50→20:12)
[2021-12-29] MEDS: Metoprolol XL (24 HR) Succ 50 MG TAB.ER.24H PO SCH (08:51)
[2021-12-29] MEDS: Loratadine 10 MG TABLET PO SCH (08:51)
[2021-12-29] MEDS: Aspirin Enteric Coated 81 MG Tablet PO SCH (08:51)
[2021-12-29] MEDS: cloNIDine HCL 0.1 MG TABLET PO SCH (08:51)
[2021-12-29] MEDS: Gabapentin 400 MG CAPSULE PO SCH ×2 (08:51→14:19)
[2021-12-29] MEDS: DilTIAZem CD (24hr) 120 MG CAP.ER.24H PO SCH (08:51)
[2021-12-29] MEDS: Morphine Sulfate 2 MG/ML SYRINGE IVP PRN (12:17)
[2021-12-29] MEDS: Bumetanide 1 MG TABLET PO SCH (13:56)
[2021-12-29] MEDS: *HR* Rivaroxaban 15 MG TABLET PO SCH (15:58)
[2021-12-29] MEDS: Gabapentin 300 MG CAPSULE PO SCH ×2 (20:32→20:45)
[2021-12-29] MEDS: Melatonin 3 MG TABLET PO PRN (23:20)
[2021-12-30] MEDS: Albumin 25% 25gram/100mL 25 GM/100 ML IV.SOLN IVPB SCH ×3 (00:15→16:51)
[2021-12-30] MEDS: Gabapentin 300 MG CAPSULE PO SCH ×3 (07:23→20:27)
[2021-12-30 07:24] LABS: Basophils % 0.3 %; Eosinophils # 0.2 K/mcL (0.0-0.6); Eosinophils % 3.9 %; Hematocrit 22.5 % (35.3-44.9); Hemoglobin 7.2 g/dL (11.5-15.4); Immature Granulocytes % 0.5 % (0-4); Lymphocytes # 0.7 K/mcL (0.6-4.6); Mean Corpuscular Hemoglobin 29.3 pg (28.0-33.3); Mean Corpuscular Volume 91.5 fL (83.0-100.0); Monocytes # 0.4 K/mcL (0.0-1.3); Monocytes % 5.7 %; Neutrophils # 4.8 K/mcL (1.6-8.9); Platelet Count 153 K/mcL (140-400); Red Blood Count 2.46 M/mcL (3.82-4.97); Red Cell Distribution Width 14.7 % (11.5-14.5); Segmented Neutrophils % 77.6 %; White Blood Count 6.2 K/mcL (4.3-11.1)
[2021-12-30] MEDS: Insulin LISPRO 300 UNITS/3 ML VIAL SUBQ SCH ×3 (07:39→16:51)
[2021-12-30] MEDS: Budesonide/Formoterol 160/4.5 1 PUFF INH IH SCH ×2 (07:42→20:06)
[2021-12-30 07:43] LABS: Calcium 9.6 mg/dL (8.6-10.3)
[2021-12-30] MEDS: Aspirin Enteric Coated 81 MG Tablet PO SCH (08:58)
[2021-12-30] MEDS: DilTIAZem CD (24hr) 120 MG CAP.ER.24H PO SCH (08:58)
[2021-12-30] MEDS: Metoprolol XL (24 HR) Succ 50 MG TAB.ER.24H PO SCH (08:58)
[2021-12-30] MEDS: Loratadine 10 MG TABLET PO SCH (08:58)
[2021-12-30] MEDS: cloNIDine HCL 0.1 MG TABLET PO SCH (08:58)
[2021-12-30] MEDS ORDERED: Iron Sucrose Complex 200 MG in 0.9 % Sodium Chloride 100 ML IVPB SCH (09:00)
[2021-12-30] MEDS: *HR* Rivaroxaban 15 MG TABLET PO SCH (16:51)
[2021-12-31] MEDS: Albumin 25% 25gram/100mL 25 GM/100 ML IV.SOLN IVPB SCH ×3 (00:24→16:32)
[2021-12-31 01:31] LABS: Basophils % 0.3 %; Eosinophils # 0.3 K/mcL (0.0-0.6); Eosinophils % 4.3 %; Hematocrit 23.1 % (35.3-44.9); Hemoglobin 7.3 g/dL (11.5-15.4); Immature Granulocytes % 0.5 % (0-4); Lymphocytes # 0.7 K/mcL (0.6-4.6); Lymphocytes % 11.3 %; Mean Corpuscular HGB Conc 31.6 g/dL (31.6-35.5); Mean Corpuscular Hemoglobin 28.6 pg (28.0-33.3); Mean Corpuscular Volume 90.6 fL (83.0-100.0); Mean Platelet Volume 10.7 fL (9.4-12.4); Monocytes # 0.3 K/mcL (0.0-1.3); Monocytes % 4.6 %; Neutrophils # 5.2 K/mcL (1.6-8.9); Platelet Count 175 K/mcL (140-400); Red Blood Count 2.55 M/mcL (3.82-4.97); Red Cell Distribution Width 14.7 % (11.5-14.5); White Blood Count 6.6 K/mcL (4.3-11.1)
[2021-12-31 01:49] LABS: Calcium 9.8 mg/dL (8.6-10.3); Magnesium 1.9 mg/dL (1.6-2.6); Potassium 4.1 mEq/L (3.5-5.1)
[2021-12-31 03:37] LABS: Hepatitis B Surface Antigen Nonreactive (Nonreactive)
[2021-12-31 04:06] LABS: Hepatitis A Antibody IgM Nonreactive (Nonreactive); Hepatitis B Core IgM Nonreactive (Nonreactive); Hepatitis C Virus Antibody Nonreactive (Nonreactive)
[2021-12-31] MEDS: Albuterol 2.5 MG/3 ML NEBULIZER IH PRN (04:17)
[2021-12-31] MEDS: Morphine Sulfate 2 MG/ML SYRINGE IVP PRN ×3 (04:51→17:30)
[2021-12-31] MEDS: Insulin LISPRO 300 UNITS/3 ML VIAL SUBQ SCH ×3 (07:25→16:26)
[2021-12-31] MEDS ORDERED: 0.9 % Sodium Chloride 250 ML IVC PRN (07:42)
[2021-12-31] MEDS ORDERED: 0.9 % Sodium Chloride 2,000 ML PRIME SCH (07:45)
[2021-12-31] MEDS: Budesonide/Formoterol 160/4.5 1 PUFF INH IH SCH ×2 (08:05→20:30)
[2021-12-31] MEDS ORDERED: Heparin 1,000 UNITS/500 mL 500 ML ONE (09:31)
[2021-12-31] MEDS ORDERED: *HR* Heparin 5,000 UNIT/ML VIAL ONE (09:35)
[2021-12-31] MEDS: *HR* Metoprolol 5 MG/5 ML VIAL IVP PRN ×2 (10:50→20:07)
[2021-12-31] MEDS: Aspirin Enteric Coated 81 MG Tablet PO SCH (11:07)
[2021-12-31] MEDS: Loratadine 10 MG TABLET PO SCH (11:07)
[2021-12-31] MEDS: Metoprolol XL (24 HR) Succ 50 MG TAB.ER.24H PO SCH ×2 (11:08→11:49)
[2021-12-31] MEDS: DilTIAZem CD (24hr) 120 MG CAP.ER.24H PO SCH ×2 (11:08→11:49)
[2021-12-31] MEDS: cloNIDine HCL 0.1 MG TABLET PO SCH (11:08)
[2021-12-31] MEDS: Gabapentin 300 MG CAPSULE PO SCH (11:08)
[2021-12-31 14:44] LABS: Hematocrit 23.4 % (35.3-44.9); Hemoglobin 7.4 g/dL (11.5-15.4)
[2021-12-31] MEDS: Gabapentin 100 MG CAPSULE PO SCH ×2 (16:25→22:09)
[2021-12-31] MEDS ORDERED: Apixaban 5 MG TABLET PO SCH (21:00)
[2021-12-31 21:22] LABS: Hematocrit 24.2 % (35.3-44.9); Hemoglobin 7.8 g/dL (11.5-15.4)
[2022-01-01] MEDS: Albumin 25% 25gram/100mL 25 GM/100 ML IV.SOLN IVPB SCH ×2 (00:18→08:54)
[2022-01-01] MEDS: Morphine Sulfate 2 MG/ML SYRINGE IVP PRN ×3 (00:19→22:51)
[2022-01-01 05:05] LABS: Basophils % 0.3 %; Eosinophils # 0.1 K/mcL (0.0-0.6); Eosinophils % 2.3 %; Hematocrit 21.9 % (35.3-44.9); Hemoglobin 6.8 g/dL (11.5-15.4); Immature Granulocytes % 0.7 % (0-4); Lymphocytes # 1.2 K/mcL (0.6-4.6); Mean Corpuscular HGB Conc 31.1 g/dL (31.6-35.5); Mean Corpuscular Hemoglobin 28.7 pg (28.0-33.3); Mean Corpuscular Volume 92.4 fL (83.0-100.0); Mean Platelet Volume 10.5 fL (9.4-12.4); Monocytes # 0.4 K/mcL (0.0-1.3); Monocytes % 7.3 %; Neutrophils # 4.2 K/mcL (1.6-8.9); Platelet Count 162 K/mcL (140-400); Red Blood Count 2.37 M/mcL (3.82-4.97); Red Cell Distribution Width 14.8 % (11.5-14.5); Segmented Neutrophils % 69.4 %; White Blood Count 6.1 K/mcL (4.3-11.1)
[2022-01-01 05:19] LABS: Calcium 9.9 mg/dL (8.6-10.3); Potassium 3.9 mEq/L (3.5-5.1)
[2022-01-01] MEDS ORDERED: 0.9 % Sodium Chloride 250 ML IVC PRN (07:17)
[2022-01-01] MEDS: Budesonide/Formoterol 160/4.5 1 PUFF INH IH SCH ×2 (07:22→20:30)
[2022-01-01] MEDS ORDERED: *HR* Heparin 10,000 UNIT/10 ML VIAL IV PRN (07:37)
[2022-01-01] MEDS: cloNIDine HCL 0.1 MG TABLET PO SCH (08:44)
[2022-01-01] MEDS: Loratadine 10 MG TABLET PO SCH (08:45)
[2022-01-01] MEDS: DilTIAZem CD (24hr) 120 MG CAP.ER.24H PO SCH (08:45)
[2022-01-01] MEDS: Metoprolol XL (24 HR) Succ 50 MG TAB.ER.24H PO SCH ×2 (08:46→08:47)
[2022-01-01] MEDS: Insulin LISPRO 300 UNITS/3 ML VIAL SUBQ SCH ×3 (08:48→17:18)
[2022-01-01] MEDS: Gabapentin 100 MG CAPSULE PO SCH (08:50)
[2022-01-01] MEDS: Apixaban 5 MG TABLET PO SCH ×2 (15:30→19:46)
[2022-01-01 15:47] LABS: Hemoglobin 8.5 g/dL (11.5-15.4)
[2022-01-01] MEDS ORDERED: Gabapentin 300 MG CAPSULE PO SCH (21:00)
[2022-01-02 01:08] LABS: Basophils % 0.4 %; Eosinophils # 0.2 K/mcL (0.0-0.6); Eosinophils % 2.9 %; Hematocrit 25.6 % (35.3-44.9); Hemoglobin 8.1 g/dL (11.5-15.4); Immature Granulocytes % 0.9 % (0-4); Lymphocytes % 14.3 %; Mean Corpuscular HGB Conc 31.6 g/dL (31.6-35.5); Mean Corpuscular Hemoglobin 28.6 pg (28.0-33.3); Mean Corpuscular Volume 90.5 fL (83.0-100.0); Mean Platelet Volume 10.7 fL (9.4-12.4); Monocytes # 0.4 K/mcL (0.0-1.3); Monocytes % 6.3 %; Neutrophils # 5.2 K/mcL (1.6-8.9); Platelet Count 169 K/mcL (140-400); Red Blood Count 2.83 M/mcL (3.82-4.97); Red Cell Distribution Width 15.2 % (11.5-14.5); Segmented Neutrophils % 75.2 %; White Blood Count 6.9 K/mcL (4.3-11.1)
[2022-01-02 01:23] LABS: Calcium 9.9 mg/dL (8.6-10.3); Potassium 3.6 mEq/L (3.5-5.1)
[2022-01-02] MEDS: Budesonide/Formoterol 160/4.5 1 PUFF INH IH SCH ×2 (07:16→20:54)
[2022-01-02] MEDS ORDERED: 0.9 % Sodium Chloride 250 ML IVC PRN (07:19)
[2022-01-02] MEDS: Loratadine 10 MG TABLET PO SCH (07:47)
[2022-01-02] MEDS: Aspirin Enteric Coated 81 MG Tablet PO SCH (07:47)
[2022-01-02] MEDS: Apixaban 5 MG TABLET PO SCH ×2 (07:47→21:05)
[2022-01-02] MEDS: Insulin LISPRO 300 UNITS/3 ML VIAL SUBQ SCH ×3 (07:49→17:03)
[2022-01-02] MEDS: cloNIDine HCL 0.1 MG TABLET PO SCH (10:52)
[2022-01-02] MEDS: DilTIAZem CD (24hr) 120 MG CAP.ER.24H PO SCH (10:59)
[2022-01-02] MEDS: Morphine Sulfate 2 MG/ML SYRINGE IVP PRN ×2 (11:04→17:04)
[2022-01-03] MEDS: Morphine Sulfate 2 MG/ML SYRINGE IVP PRN ×2 (04:34→14:20)
[2022-01-03 05:27] LABS: Basophils % 0.4 %; Eosinophils # 0.3 K/mcL (0.0-0.6); Eosinophils % 4.3 %; Hematocrit 29.1 % (35.3-44.9); Hemoglobin 9.1 g/dL (11.5-15.4); Immature Granulocytes % 0.7 % (0-4); Lymphocytes # 1.1 K/mcL (0.6-4.6); Lymphocytes % 16.2 %; Mean Corpuscular HGB Conc 31.3 g/dL (31.6-35.5); Mean Corpuscular Hemoglobin 28.7 pg (28.0-33.3); Mean Corpuscular Volume 91.8 fL (83.0-100.0); Mean Platelet Volume 10.6 fL (9.4-12.4); Monocytes # 0.5 K/mcL (0.0-1.3); Monocytes % 7.1 %; Platelet Count 211 K/mcL (140-400); Red Blood Count 3.17 M/mcL (3.82-4.97); Red Cell Distribution Width 14.8 % (11.5-14.5); Segmented Neutrophils % 71.3 %
[2022-01-03 06:14] LABS: Albumin 4.6 g/dL (3.5-5.7); Albumin/Globulin Ratio 1.9 (1.1-2.2); Bilirubin,Total 0.8 mg/dL (0.3-1.0); Globulin 2.4 g/dL (2.4-3.5); Potassium 3.6 mEq/L (3.5-5.1)
[2022-01-03] MEDS: Budesonide/Formoterol 160/4.5 1 PUFF INH IH SCH ×2 (07:49→19:54)
[2022-01-03] MEDS: Apixaban 5 MG TABLET PO SCH ×2 (08:13→21:40)
[2022-01-03] MEDS: Metoprolol XL (24 HR) Succ 50 MG TAB.ER.24H PO SCH (08:13)
[2022-01-03] MEDS: cloNIDine HCL 0.1 MG TABLET PO SCH (08:13)
[2022-01-03] MEDS: Bumetanide 1 MG TABLET PO SCH (08:13)
[2022-01-03] MEDS: Aspirin Enteric Coated 81 MG Tablet PO SCH (08:13)
[2022-01-03] MEDS: Insulin LISPRO 300 UNITS/3 ML VIAL SUBQ SCH ×3 (08:13→16:01)
[2022-01-03] MEDS: Loratadine 10 MG TABLET PO SCH (08:14)
[2022-01-03] MEDS: DilTIAZem CD (24hr) 120 MG CAP.ER.24H PO SCH (08:14)
[2022-01-03] MEDS: Melatonin 3 MG TABLET PO PRN (21:40)
[2022-01-03] MEDS ORDERED: *HR* HYDROmorphone 2 MG TABLET PO ONE (21:56)
[2022-01-04 05:00] LABS: Basophils # 0.1 K/mcL (0.0-0.2); Basophils % 0.5 %; Eosinophils # 0.3 K/mcL (0.0-0.6); Eosinophils % 3.7 %; Hemoglobin 9.2 g/dL (11.5-15.4); Immature Granulocytes % 0.8 % (0-4); Lymphocytes # 1.3 K/mcL (0.6-4.6); Lymphocytes % 13.9 %; Mean Corpuscular HGB Conc 31.7 g/dL (31.6-35.5); Mean Corpuscular Hemoglobin 29.3 pg (28.0-33.3); Mean Corpuscular Volume 92.4 fL (83.0-100.0); Mean Platelet Volume 10.7 fL (9.4-12.4); Monocytes # 0.5 K/mcL (0.0-1.3); Monocytes % 5.8 %; Neutrophils # 6.9 K/mcL (1.6-8.9); Platelet Count 228 K/mcL (140-400); Red Blood Count 3.14 M/mcL (3.82-4.97); Red Cell Distribution Width 15.2 % (11.5-14.5); Segmented Neutrophils % 75.3 %; White Blood Count 9.1 K/mcL (4.3-11.1)
[2022-01-04 05:18] LABS: Albumin 4.3 g/dL (3.5-5.7); Albumin/Globulin Ratio 1.7 (1.1-2.2); Bilirubin,Total 0.6 mg/dL (0.3-1.0); Calcium 9.7 mg/dL (8.6-10.3); Globulin 2.6 g/dL (2.4-3.5); Potassium 3.8 mEq/L (3.5-5.1); Total Protein 6.9 g/dL (6.4-8.9)
[2022-01-04] MEDS: Budesonide/Formoterol 160/4.5 1 PUFF INH IH SCH ×2 (07:13→21:34)
[2022-01-04] MEDS: Insulin LISPRO 300 UNITS/3 ML VIAL SUBQ SCH ×3 (07:49→16:02)
[2022-01-04] MEDS: Loratadine 10 MG TABLET PO SCH (08:33)
[2022-01-04] MEDS: Bumetanide 1 MG TABLET PO SCH (08:33)
[2022-01-04] MEDS: Apixaban 5 MG TABLET PO SCH ×2 (08:34→19:54)
[2022-01-04] MEDS: Metoprolol XL (24 HR) Succ 50 MG TAB.ER.24H PO SCH (08:35)
[2022-01-04] MEDS: cloNIDine HCL 0.1 MG TABLET PO SCH (08:36)
[2022-01-04] MEDS: DilTIAZem CD (24hr) 120 MG CAP.ER.24H PO SCH (08:36)
[2022-01-04] MEDS ORDERED: 0.9 % Sodium Chloride 250 ML IVC PRN (11:42)
[2022-01-04] MEDS ORDERED: 0.9 % Sodium Chloride 2,000 ML PRIME SCH (11:45)
[2022-01-05 04:37] LABS: Calcium 9.8 mg/dL (8.6-10.3); Potassium 3.9 mEq/L (3.5-5.1)
[2022-01-05] MEDS: Insulin LISPRO 300 UNITS/3 ML VIAL SUBQ SCH ×2 (07:48→12:15)
[2022-01-05] MEDS: Loratadine 10 MG TABLET PO SCH (08:41)
[2022-01-05] MEDS: DilTIAZem CD (24hr) 120 MG CAP.ER.24H PO SCH (08:41)
[2022-01-05] MEDS: Bumetanide 1 MG TABLET PO SCH (08:41)
[2022-01-05] MEDS: cloNIDine HCL 0.1 MG TABLET PO SCH (08:41)
[2022-01-05] MEDS: Apixaban 5 MG TABLET PO SCH (08:42)
[2022-01-05] MEDS: Metoprolol XL (24 HR) Succ 50 MG TAB.ER.24H PO SCH (08:42)
[2022-01-05] MEDS: Budesonide/Formoterol 160/4.5 1 PUFF INH IH SCH (10:33)
[2022-01-05] MEDS ORDERED: Bumetanide 1 MG TABLET PO SCH (11:15)
[2022-01-05 11:36] VITALS: BP 137/72; PULSE 81; TEMP 98; O2SAT 96
== END 2022-01-05 18:02 | disposition left against medical advice (07) | DRG 469 ==
LOC: 3BNU → SUATTDRO 18:28 → UNDODISOB 12-27 18:13 → SUATTDRO 12-28 14:15 → 2ANU 12-30 14:42
PROVIDERS: ADMIT Internal Medicine; ATTEND Internal Medicine

== ENCOUNTER 2022-01-08 12:50 | Observation (INO) ==
[2022-01-08] MEDS ORDERED: Naloxone 0.4 MG/ML INJ IVP PRN (15:00)
[2022-01-08] MEDS ORDERED: Ondansetron 4 MG/2 ML VIAL IVP PRN (15:00)
[2022-01-08] MEDS ORDERED: Acetaminophen 325 MG TABLET PO PRN (15:00)
[2022-01-08] MEDS ORDERED: Dextrose Gel 15 GM/37.5 ML TUBE PO PRN ×2 (15:02)
[2022-01-08] MEDS ORDERED: *HR* Dextrose 50 % in Water (Syg) 50 ML SYRINGE IVP PRN (15:02)
[2022-01-08] MEDS ORDERED: D5% in Water 1,000 ML IVC PRN (15:02)
[2022-01-08] MEDS ORDERED: Nitroglycerin 0.4 MG TAB.SUBL SL PRN (15:13)
[2022-01-08] MEDS ORDERED: Ipratropium/Albuterol Neb 3 ML IH PRN (16:15)
[2022-01-08] MEDS: Ipratropium/Albuterol Neb 3 ML IH SCH (16:17)
[2022-01-08] MEDS: Insulin LISPRO 300 UNITS/3 ML VIAL SUBQ SCH (16:49)
[2022-01-08 17:06] LABS: Basophils # 0.1 K/mcL (0.0-0.2); Basophils % 0.7 %; Eosinophils # 0.3 K/mcL (0.0-0.6); Eosinophils % 3.6 %; Hematocrit 31.5 % (35.3-44.9); Hemoglobin 9.8 g/dL (11.5-15.4); Immature Granulocytes % 1.3 % (0-4); Lymphocytes # 1.5 K/mcL (0.6-4.6); Lymphocytes % 17.7 %; Mean Corpuscular HGB Conc 31.1 g/dL (31.6-35.5); Mean Corpuscular Hemoglobin 28.9 pg (28.0-33.3); Mean Corpuscular Volume 92.9 fL (83.0-100.0); Mean Platelet Volume 9.6 fL (9.4-12.4); Monocytes # 0.7 K/mcL (0.0-1.3); Monocytes % 8.5 %; Neutrophils # 5.7 K/mcL (1.6-8.9); Platelet Count 264 K/mcL (140-400); Red Blood Count 3.39 M/mcL (3.82-4.97); Segmented Neutrophils % 68.2 %; White Blood Count 8.4 K/mcL (4.3-11.1)
[2022-01-08 17:13] LABS: INR 1.3
[2022-01-08 17:25] LABS: Calcium 9.7 mg/dL (8.6-10.3); Potassium 3.7 mEq/L (3.5-5.1)
[2022-01-08 17:26] LABS: Albumin 4.4 g/dL (3.5-5.7); Albumin/Globulin Ratio 1.4 (1.1-2.2); Bilirubin,Direct 0.1 mg/dL (0.0-0.2); Bilirubin,Indirect 0.5 mg/dL (0.0-1.0); Bilirubin,Total 0.6 mg/dL (0.3-1.0); Globulin 3.1 g/dL (2.4-3.5); Magnesium 2.2 mg/dL (1.6-2.6); Phosphorous 4.9 mg/dL (2.7-4.5); Total Protein 7.5 g/dL (6.4-8.9)
[2022-01-08] MEDS ORDERED: Albuterol Neb 1.25 MG/3 ML VIAL IH PRN (18:07)
[2022-01-08] MEDS ORDERED: NITROGLYCERIN 0.3 MG SL PRN (18:07)
[2022-01-08] MEDS ORDERED: *HR* Metoprolol 5 MG/5 ML VIAL IVP STA (18:19)
[2022-01-08] MEDS ORDERED: *HR* Metoprolol 5 MG/5 ML VIAL IVP ONE (19:23)
[2022-01-08] MEDS: Gabapentin 400 MG CAPSULE PO SCH (19:41)
[2022-01-08] MEDS ORDERED: Insulin LISPRO 300 UNITS/3 ML VIAL SUBQ SCH (21:00)
[2022-01-08] MEDS: *HR* Heparin 5,000 UNIT/ML VIAL SQ SCH (21:20)
[2022-01-09] MEDS: *HR* Heparin 5,000 UNIT/ML VIAL SQ SCH ×2 (06:04→14:22)
[2022-01-09 06:58] LABS: Hematocrit 30.9 % (35.3-44.9); Hemoglobin 9.4 g/dL (11.5-15.4); Mean Corpuscular HGB Conc 30.4 g/dL (31.6-35.5); Mean Corpuscular Hemoglobin 28.1 pg (28.0-33.3); Mean Corpuscular Volume 92.2 fL (83.0-100.0); Mean Platelet Volume 10.3 fL (9.4-12.4); Platelet Count 295 K/mcL (140-400); Red Blood Count 3.35 M/mcL (3.82-4.97); Red Cell Distribution Width 14.9 % (11.5-14.5); White Blood Count 8.1 K/mcL (4.3-11.1)
[2022-01-09 07:22] LABS: Calcium 9.5 mg/dL (8.6-10.3); Phosphorous 4.7 mg/dL (2.7-4.5); Potassium 3.8 mEq/L (3.5-5.1)
[2022-01-09] MEDS: Budesonide/Formoterol 160/4.5 1 PUFF INH IH SCH ×2 (07:51→20:22)
[2022-01-09] MEDS: Gabapentin 400 MG CAPSULE PO SCH ×3 (08:14→14:23)
[2022-01-09] MEDS: Insulin LISPRO 300 UNITS/3 ML VIAL SUBQ SCH ×3 (08:14→17:12)
[2022-01-09] MEDS ORDERED: Loratadine 10 MG TABLET PO SCH (09:00)
[2022-01-09] MEDS ORDERED: Metoprolol XL (24 HR) Succ 50 MG TAB.ER.24H PO SCH (09:00)
[2022-01-09] MEDS ORDERED: cloNIDine HCL 0.1 MG TABLET PO SCH (09:00)
[2022-01-09] MEDS ORDERED: Bumetanide 1 MG TABLET PO SCH (09:00)
[2022-01-09] MEDS ORDERED: Bumetanide 1 MG/4 ML VIAL IVP SCH (12:15)
[2022-01-09] MEDS ORDERED: *HR* FentaNYL (PF) 100 MCG/2 ML VIAL IVP ONE (12:24)
[2022-01-09] MEDS ORDERED: Lidocaine/EPI 1:100k 1% 50 ML VIAL ONE (12:38)
[2022-01-09] MEDS ORDERED: Heparin 1,000 UNITS/500 mL 500 ML ONE (12:38)
[2022-01-09] MEDS ORDERED: Clindamycin 600 MG/50 ML 600 MG/50 ML IV.SOLN IVPB ONE (12:42)
[2022-01-09] MEDS ORDERED: 0.9 % Sodium Chloride 500 ML ONE (12:46)
[2022-01-09] MEDS ORDERED: *HR* Heparin 5,000 UNIT/ML VIAL ONE (13:04)
[2022-01-09 15:38] LABS: Hepatitis B Core IgM Nonreactive (Nonreactive)
[2022-01-09 19:32] VITALS: BP 137/75; PULSE 70; TEMP 98.1; O2SAT 99
[2022-01-09 20:38] LABS: Hepatitis B Surface Antibody < 3.10 mIU/mL
[2022-01-09 20:49] LABS: Hepatitis B Surface Antigen Nonreactive (Nonreactive)
== END 2022-01-09 20:20 | disposition left against medical advice (07) ==
LOC: 2ANU
PROVIDERS: ADMIT Student in an Organized Health Care Education/Training Program; ATTEND Student in an Organized Health Care Education/Training Program
PROC: IRPERMA (2022-01-09 12:00)